=== PATIENT | female | born 1985 | race Caucasian/White ===

== ENCOUNTER → 2019-10-04 | Outpatient (CLI) | payer OTHER ==
[2019-10-04 11:00] LABS: APPEARANCE, URINE CLEAR (CLEAR); BACTERIA, URINE AUTO NEGATIVE (NEGATIVE); BILIRUBIN, URINE AUTO NEGATIVE (NEGATIVE); BLOOD, URINE BLOOD NEGATIVE (NEGATIVE); COLOR, URINE STRAW (YELLOW); GLUCOSE, URINE (UA) AUTO NEGATIVE (NEGATIVE); KETONE, URINE AUTO NEGATIVE (NEGATIVE); LEUKOCYTE ESTERASE, URINE AUTO NEGATIVE (NEGATIVE); NITRITE, URINE AUTO NEGATIVE (NEGATIVE); PROTEIN, URINE AUTO NEGATIVE (NEGATIVE); RBC, URINE AUTO 1 /HPF (0-3); SPECIFIC GRAVITY URINE AUTO 1.012 (1.002-1.035); SQUAMOUS EPITHELIAL CELL UR AU 1 /HPF (0-6); UROBILINOGEN, URINE AUTO 0.2 mg/dL (0.0-2.0); WBC, URINE AUTO 0 /HPF (0-3)
[2019-10-04 11:25] LABS: BASO % 0.2 % (0.0-1.0); EOS # 0.1 10^3/uL (0.0-0.5); EOS % 1.6 % (0.0-3.0); HEMATOCRIT 39.4 % (36.0-47.0); HEMOGLOBIN 12.9 g/dl (12.0-15.5); LYMPH # 1.9 10^3/uL (1.5-5.0); LYMPH % 34.8 % (24.0-44.0); MEAN CORPUSCULAR HEMOGLOBIN 30.4 pg (27.0-33.0); MEAN CORPUSCULAR HGB CONC 32.7 g/dl (32.0-36.5); MEAN CORPUSCULAR VOLUME 92.9 fl (80.0-96.0); MONO # 0.4 10^3/uL (0.0-0.8); MONO % 6.7 % (0.0-5.0); NEUTROPHILS # 3.1 10^3/uL (1.5-8.5); NEUTROPHILS % 56.5 % (36.0-66.0); PLATELET COUNT, AUTOMATED 351 10^3/uL (150-450); RED BLOOD COUNT 4.24 10^6/uL (4.00-5.40); WHITE BLOOD COUNT 5.5 10^3/uL (4.0-10.0)
[2019-10-04 11:43] LABS: HEMOGLOBIN A1c 4.8 %
[2019-10-04 12:38] LABS: CHLAMYDIA DNA AMPLIFICATION NEGATIVE (NEGATIVE); GC DNA AMPLIFICATION NEGATIVE (NEGATIVE)
[2019-10-04 15:10] LABS: BLOOD UREA NITROGEN 22 MG/DL (7-18); CARBON DIOXIDE LEVEL 24 MEQ/L (21-32); CHLORIDE LEVEL 106 MEQ/L (98-107); CREATININE FOR GFR 0.66 MG/DL (0.55-1.30); GLOMERULAR FILTRATION RATE > 60.0 (>60); GLUCOSE, FASTING 79 MG/DL (70-100); POTASSIUM SERUM 4.4 MEQ/L (3.5-5.1); SODIUM LEVEL 139 MEQ/L (136-145)
[2019-10-04 15:11] LABS: ALT/SGPT 61 U/L (12-78); BILIRUBIN,TOTAL < 0.2 MG/DL (0.2-1.0); CALCIUM LEVEL 9.2 MG/DL (8.5-10.1)
[2019-10-04 15:12] LABS: CHOLESTEROL LEVEL 152 MG/DL (<200)
[2019-10-04 15:13] LABS: ALBUMIN 4.1 GM/DL (3.2-5.2)
[2019-10-04 15:14] LABS: FREE T4 1.01 NG/DL (0.76-1.46); THYROID STIMULATING HORMONE 0.492 uIU/ML (0.358-3.740)
[2019-10-04 15:18] LABS: HIV 1&2 SCREEN CENTAUR NEGATIVE (NEGATIVE); TOTAL 25(OH) VITAMIN D 42.8 NG/ML (30.0-100.0)
[2019-10-04 15:19] LABS: HEPATITIS B SURFACE ANTIBODY POSITIVE (POSITIVE); HEPATITIS B SURFACE ANTIGEN NEGATIVE (NEGATIVE)
[2019-10-06 14:57] LABS: HEPATITIS C QUANTITATION 74500 IU/mL (.); HERPES ZOSTER, VARICELLA IgG 846 index (Immune >165)
[2019-10-19 05:47] LABS: HEPATITIS A IgG TOTAL Negative (Negative); HEPATITIS B CORE ANTIBODY IGG Negative (Negative); HEPATITIS C VIRUS GENOTYPE 3 (.); Lyme Disease IgG/IgM Antibodie <0.91 ISR (0.00-0.90); Lyme Disease IgM Ab Quantitati <0.80 index (0.00-0.79)
== END ==
LOC: M LAB 08:49
PROVIDERS: ATTEND Family Medicine
DX: M25.50 Pain in unspecified joint (principal); B17.10 Acute hepatitis C without hepatic coma

== ENCOUNTER → 2019-10-09 | Outpatient (CLI) | payer OTHER ==
--- NOTE | 2019-10-09 10:48 | REP ---
RIGHT UPPER QUADRANT ULTRASOUND: Real-time sonographic evaluation of the right upper quadrant performed. Gallbladder demonstrates no evidence of intraluminal sludge or calculi, wall thickening or pericholecystic fluid. There is no intrahepatic or extrahepatic biliary dilatation, common bile duct measuring 4 mm. Liver and pancreas demonstrate homogeneous echotexture with no gross mass, pancreas is not optimally seen due to overlying bowel gas. Right kidney demonstrates no hydronephrosis with normal size 11.0 cm in length. IMPRESSION: Essentially negative right upper quadrant ultrasound. Electronically Signed by Ritesh Hair MD 10/09/2019 03:51 P
--- NOTE | 2019-10-09 11:29 | REP ---
Bilateral hip study: Four views. History: Pain. Findings: AP and frog-leg views of each hip are presented. Femoral heads are smooth and rounded and hip joint spaces are preserved. Periarticular soft tissues are unremarkable. No pelvic lesion is seen. SI joints are unremarkable. Impression: Negative bilateral hip radiographs. Electronically Signed by Kosta Valles MD 10/09/2019 11:20 A
== END ==
LOC: M RAD 09:30 → EDUNIT# 09:30
PROVIDERS: ATTEND Family Medicine
DX: B17.10 Acute hepatitis C without hepatic coma (principal); M25.50 Pain in unspecified joint

== ENCOUNTER → 2019-10-09 | Outpatient (REF) | payer MEDICAID, OTHER ==
[2019-10-09 18:50] LABS: CHOLESTEROL LEVEL 144 MG/DL (<200); CHOLESTEROL RISK RATIO 1.945 (<5); HDL CHOLESTEROL 74 MG/DL (>40); LDL CHOLESTEROL 60 MG/DL (<100); NON-HDL-C 70 MG/DL; TRIGLYCERIDES LEVEL 50 MG/DL (<150)
[2019-10-11 12:41] LABS: HEPATITIS B SURFACE ANTIGEN NEGATIVE (NEGATIVE)
[2019-10-11 13:35] LABS: HEPATITIS C VIRUS ABY INDEX > 11.0 INDEX (<0.8)
[2019-10-12 00:06] LABS: HEPATITIS A IgG TOTAL Negative (Negative); HEPATITIS B CORE ANTIBODY IGG Negative (Negative)
[2019-10-15 14:38] LABS: HEPATITIS C VIRUS GENOTYPE 3 (.)
[2019-10-19 14:07] LABS: HSV IgM TYPES 1&2 <0.91 Ratio (0.00-0.90); HSV TYPE II IgG SPECIFIC 3.45 index (0.00-0.90)
== END ==
LOC: M LAB REF 17:13
PROVIDERS: ATTEND Nurse Practitioner Adult Health
DX: B17.10 Acute hepatitis C without hepatic coma (principal)

== ENCOUNTER 2019-12-28 08:30 | Outpatient (RCR) | payer OTHER | END 2019-12-30 | LOC: M PT 08:30 | PROVIDERS: ATTEND Orthopaedic Surgery | DX: Z47.89 Encounter for other orthopedic aftercare (principal); M25.551 Pain in right hip; M25.552 Pain in left hip ==

== ENCOUNTER 2020-01-03 08:34 | Outpatient (RCR) | payer OTHER | END 2020-01-30 | LOC: M PT 08:34 | PROVIDERS: ATTEND Orthopaedic Surgery | DX: M25.551 Pain in right hip (principal); M25.552 Pain in left hip ==

== ENCOUNTER → 2020-01-10 | Outpatient (REF) | payer OTHER, MEDICAID | LOC: M LAB REF 12:47 | PROVIDERS: ATTEND Nurse Practitioner Adult Health | DX: B17.10 Acute hepatitis C without hepatic coma (principal) ==

== ENCOUNTER → 2020-06-26 | Outpatient (REF) | payer MEDICAID ==
[2020-06-28 23:10] LABS: HEPATITIS C QUANTITATION HCV Not Detected IU/mL (.)
== END ==
LOC: M LAB REF 13:30
PROVIDERS: ATTEND Nurse Practitioner Adult Health
DX: B17.10 Acute hepatitis C without hepatic coma (principal)

== ENCOUNTER → 2020-07-11 | Outpatient (REF) | payer MEDICAID ==
[2020-07-11 19:25] LABS: C REACTIVE PROTEIN QUANTITATIV 0.3 MG/DL (0.00-0.30); RHEUMATOID FACTOR QUANT 48.5 IU/ML (<15.0)
[2020-07-14 15:15] LABS: ANTI DOUBLE STRAND-DNA AB 6 IU/mL (0-9); ANTINUCLEAR ANTIBODIES DIRECT Positive (Negative); CYCLIC CITRULLINATED PEPTIDE 5 units (0-19); RNP ANTIBODIES <0.2 AI (0.0-0.9); SJOGREN'S ANTI SS-A >8.0 AI (0.0-0.9); SJOGREN'S ANTI SS-B <0.2 AI (0.0-0.9); SMITH ANTIBODIES 0.2 AI (0.0-0.9)
== END ==
LOC: M LAB REF 17:27
PROVIDERS: ATTEND Family Medicine Addiction Medicine
DX: R68.2 Dry mouth, unspecified (principal)

== ENCOUNTER → 2020-11-04 | Outpatient (CLI) | payer MEDICAID ==
[2020-11-04 11:53] LABS: TOTAL PROTEIN 7.8 GM/DL (6.4-8.2)
[2020-11-04 11:59] LABS: TOTAL 25(OH) VITAMIN D 36.6 NG/ML (30.0-100.0)
[2020-11-04 12:00] LABS: FOLATE 21.4 NG/ML (>5.4); VITAMIN B12 LEVEL 460 PG/ML (247-911)
[2020-11-04 15:15] LABS: HEMOGLOBIN A1c 4.8 %
[2020-11-05 12:11] LABS: ALBUMIN 4.13 GM/DL (3.29-5.55); ALPHA-1-GLOBULIN % 4.4 % (2.9-4.9); ALPHA-1-GLOBULINS 0.34 GM/DL (0.17-0.41); ALPHA-2-GLOBULINS % 11.6 % (7.1-11.8); BETA-1-GLOBULINS 0.44 GM/DL (0.28-0.60); BETA-1-GLOBULINS % 5.6 % (4.7-7.2); BETA-2-GLOBULINS 0.39 GM/DL (0.19-0.55); GAMMA GLOBULIN % 20.4 % (11.1-18.8); GAMMA GLOBULINS 1.59 GM/DL (0.65-1.58)
== END ==
LOC: M LAB 10:57
PROVIDERS: ATTEND Psychiatry & Neurology Neurology
DX: E11.40 Type 2 diabetes mellitus with diabetic neuropathy, unspecified (principal); M79.10 Myalgia, unspecified site

== ENCOUNTER → 2020-12-19 | Outpatient (CLI) | payer OTHER ==
[~2020-12-19] MED LIST: METHACHOLINE KIT (J7674) INH ONE
--- NOTE | 2020-12-19 10:41 | PFTRPT ---
Visit Date: 12/19/2020 Referring Doctor: Gregorio Lynn MD Height: 64.00 Inches Weight: 136.00 Lbs BSA: 1.66 Diagnosis: R05 QUALITY: Study of excellent technical quality. PROCEDURE: Under protocol, methacholine was administered. At a dose of 2.5 mg or 13.875 CDUs, a 30% decline in the FEV1 was noted. PC of 0.69 is significant. Flow rates did return to baseline post bronchodilator administration. IMPRESSION: Positive methacholine challenge study. MTDD
== END ==
LOC: M CARPUL 09:51
PROVIDERS: ATTEND Internal Medicine Pulmonary Disease
DX: R05 Cough (principal)
CPT/HCPCS: 94070; 95070; J7674

== ENCOUNTER → 2021-01-02 | Outpatient (CLI) | payer OTHER ==
[2021-01-02 19:47] LABS: C REACTIVE PROTEIN QUANTITATIV < 0.30 MG/DL (0.00-0.30); THYROID STIMULATING HORMONE 0.692 uIU/ML (0.358-3.740)
== END ==
LOC: M LAB 18:45
PROVIDERS: ATTEND Pediatrics
DX: M35.00 Sjogren syndrome, unspecified (principal)

== ENCOUNTER → 2021-05-28 | Outpatient (CLI) | payer OTHER ==
[~2021-05-28] MED LIST changes: +ALBU8.5H INH; +AMIT10TA7; +CETI-24 PO; +DULO1CAP6 PO; +EYEOIN OP; +FLUT1AER3 INH; +GABA-282 PO; +HYDR200T3 PO; -METHACHOLINE KIT (J7674) INH ONE; +ONDA8TAB8 PO; +PREG75CA2; +REST0.05 OS; +SUMA100T2 PO
== END ==
LOC: M LABSMTC 09:49
PROVIDERS: ATTEND Anesthesiology
DX: Z01.818 Encounter for other preprocedural examination (principal); Z11.52 Encounter for screening for COVID-19

== ENCOUNTER 2021-09-03 22:13 | Emergency (ER) | payer OTHER ==
[~2021-09-03] VITALS: Ht 162.6 cm; Wt 76.7 kg
[2021-09-03 22:14] VITALS: BP 115/55
--- OUTSIDE RECORDS SUMMARY | 2021-09-03 22:23 | CCD | Continuity of Care Document ---
Author Author Candy HILLIARD MD Organization Unknown Address [address] [place] [address] Phone [phone] Care Team Providers Care Agricultural Research Technician Name Role Phone Dennis Kamara P.A.-C AUTM Pradeep Chow M.D. AUTM [phone] Sonia Diaz M.D. AUTM [phone] AUTM Unavailable Problems Active Problems Provider Date Allergic asthma without status asthmaticus Hakeem mancilla M.D. Onset: 04/23/2021 Social History Type Date Description Comments Sex Unknown ETOH Use Denies alcohol use Tobacco Use Start: Unknown Patient is a current smoker, smo kes every day <1/2ppd Smoking Status Reviewed: 08/19/21 Patient is a current smoker, smokes every day <1/2ppd Allergies and adverse reactions Active Allergies Criticality Reaction | Severity Comments Date Sulfa Unable to assess criticality 12/16/2020 Amitriptyline Unable to assess criticality 04/23/2021 Medications Active Medications SIG Qnty Indications Ordering Provide r Date Arnuity Ellipta 200mcg/Act Aerosol 1 puff every day 90units Gregorio Hilliard MD 08/19/2021 Prednisone 10mg Tablets 40mg po qd x 4 days then 30mg qd x 4 days then 20mg qd x 4 days then 10mg qd x 4 days and stop 40tabs Gregorio Hilliard MD 08/19/2021 Albuterol Sulfate HFA 108(90Base) mcg/Act Aerosol Inhale Two Puffs By Mouth Four Times A Day as Needed 18units Gregorio Hilliard MD 07/28/2021 Hydroxychloroquine Sulfate 200mg T ablets 2tabs (400mg) po qd Unknown Duloxetine HCL 60mg Caps DR Camacho (Cymbalta) 1tab po qd Pili Manley M.D. Valacyclovir HCL 1gm Tablets prn Unknown Imitrex prn Unknown Stiolto Respimat 2.5-2.5mcg/Act Ae rosol 2 puffs once daily Unknown History Medications Prednisone 10mg Tablets 40mg po qd x 4 days then 30mg qd x 4 days then 20mg qd x 4 days then 10mg qd x 4 days and stop 40tabs Gregorio Hilliard MD 07/02/2021 - 021 Clenpiq 10-3.5-12mg-GM -GM/160ML S olution follow pre-procedure instructions. start day before procedure. (if not covered by insurance please fill gavilyte script). 320ml Angelica Mcdermott M.D. 04/29/2021 - 07/20/2021 Gavilyte-N With Flavor Pack 420gm Solution Rec drink the liquid as per the pre-procedur e instructions. ( fill this script only if clenpiq is not covered by insurance). 4000ml Hakeem Mcdermott M.D. 04/29/2021 - 07/20/[address] take 4 tablets together as per bowel preparation instructions. 4tabs Hakeem Mcdermott M.D. 04/29/2021 - 07/20/2021 Immunizations Description No Information Available Vital Signs Date Vital Result Comment 08/19/2021 2:22pm BP Systolic 136 mmHg BP Diastolic 80 mmHg Heart Rate 77 /min O2 % BldC Oximetry 97 % Respiratory Rate 18 /min Height 63 inches 5'3" Weight 159.00 lb BMI (Body Mass Index) 28.2 kg/m2 [place] Body Weight 115 lb Weight 72.122 kg BSA (Body Surface Area) 1.75 m2 04/23/2021 9:46am BP Systolic 116 mmHg BP Diastolic 66 mmHg Height 63 inches 5'3" Weight 145.00 lb BMI (Body Mass Index) 25.7 kg/m2 [place] Body Weight 115 lb Weight 65.772 kg BSA (Body Surface Area) 1.69 m2 Results Test Acquired Date Facility Test Result H/L Range Note FVL/[place] 08/19/2021 [employer] PDFReport SEE IMAGE FVC-Pred 3.74 L FVC-Pre 4.08 L FVC-%Pred-Pre 109 L FVC-LLN 3.04 L Fev1-Pred 3.09 L Fev1-Pre 2.84 L Fev1-%Pred-Pre 91 L Fev1-LLN 2.50 L Fev6-Pred 3.68 L Fev6-Pre 4.05 L Fev6-%Pred-Pre 109 L Fev6-LLN 3.00 L Hle6mkh-Kcbx 83 % Ouh3txy-Mwl 70 % Mci0uax-%Pred-Pre 83 % Ajw4kuf-FWW 73 % Ukc6fql-Itjk 99 % Uma7wuv-Pcm 99 % Njt0ktd-%Pred-Pre 100 % FEFMax-Pred 7.01 L/E/sec FEFMax-Pre 4.37 L/E/sec FEFMax-%Pred-Pre 62 L/E/sec FEFMax-LLN 5.29 L/E/sec Xtb0130-Edcc 3.27 L/E/sec Irl4482-Whb 1.89 L/E/sec Tfv1482-%Pred-Pre 57 L/E/sec Kvb0101-GSA 2.03 L/E/sec ExpTime-Pre 7.66 sec Cmm3bpo4-Rdww 84 % Grg9lmc1-Cdg 70 % Bms5mrt1-%Pred-Pre 83 % Wop6ums9-GLH 76 % Laboratory test finding 06/02/2021 [facility] Main Lab [address] [place], [place] [id number] [phone] Pathology Request For Service (SEE NOTE) 1 1 FINAL DIAGNOSIS Colon, random biopsy: Fragments of colonic mucosa with hyperplastic changes and focal nonspecific inflammation. No evidence of microscopic colitis. 06/03/2021 - 1240 CLINICAL DIAGNOSIS Change in bowel habits 06/02/2021 - 1514 GROSS DIAGNOSIS Received in formalin labeled "random colon biopsy" and consists of a fragment of tissue, 0.2 x 0.1 x 0.1 cm. All in one. -OA 06/02/2021 - 1514 Signed MARIA LUISA VELÁZQUEZ MD 06/03/2021 1242 Procedures Date Code Description Status 08/19/2021 34552 Office/Outpatient Established Mo d MDM 30-39 Min Completed 08/19/2021 19789 Spirometry Completed 06/02/2021 11105 Colonoscopy Flexible Proximal To Splenic Flexure W/Biopsy Single/ Completed 04/23/2021 33577 Office/Outpatient New Moderate M DM 45-59 Minutes Completed Medical Devices Description No Information Available Encounters Type Date Location Provider Dx Diagnosis Office Visit 08/19/2021 2:30p [facility] Pulmonary/Thoracic Lawrenc samir Hilliard MD J45.40 Moderate persistent asthma, uncomplicate d F17.218 Nicotine dependence, cigaret eleni, w oth disorders Office Visit 04/23/2021 8:50a [facility] Gastroenterology Pra ctice Hakeem Mcdermott M.D. R19.4 Change in bowel habit R19.7 Diarrhea, unspecified R63.4 Abnormal weight loss R11.0 Nausea Assessments Date Code Description Provider 08/19/2021 J45.40 Moderate persistent asthma, unco mplicated Gregorio Hilliard MD 08/19/2021 F17.218 Nicotine dependence, cigarettes, with other nicotine-induced disorders Gregorio Hilliard MD 06/02/2021 R19.4 Change in bowel habit Hakeem Mcdermott M.D. 06/02/2021 K64.8 Other hemorrhoids Hakeem valdez M.D. 04/23/2021 R19.4 Change in bowel habit Hakeem Mcdermott M.D. 04/23/2021 R19.7 Diarrhea, unspecified Hakeem Mcdermott M.D. 04/23/2021 R63.4 Abnormal weight loss Hakeem owens M.D. 04/23/2021 R11.0 Nausea Hakeem Melissa ala, M.D. Plan of Treatment Future Appointment(s):* 02/23/2022 9:00 am - Gregorio Hilliard MD at [facility] Pulmonary/Thoracic 08/19/2021 - Gregorio Hilliard MD* J45.40 Moderate persistent asthma, uncomplicated * F17.218 Nicotine dependence, cigarettes, with other nicotine-induced disorders * * Comments:* ~ At this point, she clearly needs to be back on an inhaled anti- inflammatory. I will send in Arnuity and see if that is covered by her insurance. In the interim, I did give her a prednisone taper. We had a long discussion regarding, again, the need for smoking cessation, but I have guarded optimism at best in that regard. Certainly, she can stay on the Stiolto, but needs the addition of the inhaled steroid.~ We await the outcome of her evaluation by her manager outreach. ~ I will see her in a minimum of 6 months with spirometry, oximetry and flow volume loop for her asthma or, certainly, sooner if problems arise with which we can be of assistance. * Follow up:* Follow up in six months with spirometry, oximetry and flow volume loop. Functional Status Description No Information Available Mental Status Description No Information Available Referrals Refer to Reason for Referral Status Appt Date Bri Mcconnell F.N.P. ASTHMA J45.40 & NICOTINE DEPEN F17.218 Sc heduled 08/19/2021 [facility]-Pulmonary [address] [place], [place] [address] [phone]
--- OUTSIDE RECORDS SUMMARY | 2021-09-03 22:23 | CCD | Continuity of Care Document ---
Author Author Candy MCPHERSON M.D. Organization Unknown Address [address], [address] [place] [address] Phone [phone] Care Team Providers Care Business Editor Name Role Phone Dennis Kamara P.A.-C AUTM Pradeep Chow M.D. AUTM [phone] Sonia Diaz M.D. AUTM [phone] AUTM Unavailable Problems Active Problems Provider Date Allergic asthma without status asthmaticus Hakeem mancilla M.D. Onset: 04/23/2021 Social History Type Date Description Comments Sex Unknown ETOH Use Denies alcohol use Tobacco Use Start: Unknown Patient is a current smoker, smo kes every day <1/2ppd Smoking Status Reviewed: 02/13/21 Patient is a current smoker, smokes every day <1/2ppd Allergies, Adverse Reactions, Alerts Active Allergies Reaction Severity Comments Date Sulfa 12/16/2020 Amitriptyline 04/23/2021 Medications Active Medications SIG Qnty Indications Ordering Provide r Date Clenpiq 10-3.5-12mg-GM -GM/160ML S olution follow pre-procedure instructions. start day before procedure. (if not covered by insurance please fill gavilyte script). 320ml Angelica Mcpherson M.D. 04/29/2021 Gavilyte-N With Flavor Pack 420gm Solution Rec drink the liquid as per the pre-procedur e instructions. ( fill this script only if clenpiq is not covered by insurance). 4000ml Hakeem Mcpherson M.D. 04/29/[address] take 4 tablets together as per bowel preparation instructions. 4tabs Hakeem Mcpherson M.D. 04/29/2021 [employer]sense Nicotine Polacrilex Gum 2mg Gum 1 piece every 2 hours as needed 60units F17.218 Bri Mcconnell, N .PYvrose 02/13/2021 Airduo Digihaler 113-14mcg/Act Aer osol 1 puff twice daily 1units Gregorio Lynn MD 01/02/2021 Ventolin HFA 108(90Base) mcg/Act A erosol 2 puffs qid/prn 18gm Gregorio Lynn MD 01/02/2021 Hydroxychloroquine Sulfate 200mg T ablets 2tabs (400mg) po qd Unknown Duloxetine HCL 60mg Caps DR Camacho (Cymbalta) 1tab po qd Pili Manley M.D. 00 Valacyclovir HCL 1gm Tablets prn Unknown Imitrex prn Unknown Immunizations Description No Information Available Vital Signs Date Vital Result Comment 04/23/2021 9:46am BP Systolic 116 mmHg BP Diastolic 66 mmHg Height 63 inches 5'3" Weight 145.00 lb BMI (Body Mass Index) 25.7 kg/m2 [place] Body Weight 115 lb Weight 65.772 kg BSA (Body Surface Area) 1.69 m2 02/13/2021 10:08am BP Systolic 112 mmHg BP Diastolic 68 mmHg Heart Rate 89 /min O2 % BldC Oximetry 98 % Body Temperature 97.5 F Height 64 inches 5'4" Weight 139.38 lb BMI (Body Mass Index) 23.9 kg/m2 [place] Body Weight 120 lb Weight 63.221 kg BSA (Body Surface Area) 1.68 m2 Results Test Acquired Date Facility Test Result H/L Range Note Laboratory test finding 06/02/2021 [facility] Main Lab [address] [place] [address] [phone] Pathology Request For Service (SEE NOTE) 1 FVL/[place] 02/13/2021 [employer] PDFReport SEE IMAGE FVC-Pred 3.74 L FVC-Pre 4.24 L FVC-%Pred-Pre 113 L FVC-LLN 3.04 L Fev1-Pred 3.09 L Fev1-Pre 3.43 L Fev1-%Pred-Pre 110 L Fev1-LLN 2.50 L Fev6-Pred 3.68 L Fev6-Pre 4.24 L Fev6-%Pred-Pre 115 L Fev6-LLN 3.00 L Xvo1asu-Txnw 83 % Aqg1lul-Kav 81 % Xce1sgc-%Pred-Pre 97 % Tfy1kvf-NOC 73 % Gdh4cbf-Rzsi 99 % Ark1ewr-Uno 100 % Znk0xom-%Pred-Pre 101 % FEFMax-Pred 7.01 L/E/sec FEFMax-Pre 8.08 L/E/sec FEFMax-%Pred-Pre 115 L/E/sec FEFMax-LLN 5.29 L/E/sec Xks0104-Fpjp 3.27 L/E/sec Mgn0055-Wxa 3.60 L/E/sec Jzu5024-%Pred-Pre 110 L/E/sec Iuu7251-IAN 2.03 L/E/sec ExpTime-Pre 5.42 sec Jnz3lzs2-Keoj 84 % Cze5hsv4-Khj 81 % Kzu8xzt8-%Pred-Pre 95 % Xfm8hld2-MIU 76 % 1 FINAL DIAGNOSIS Colon, random biopsy: Fragments of colonic mucosa with hyperplastic changes and focal nonspecific inflammation. No evidence of microscopic colitis. 06/03/2021 - 1240 CLINICAL DIAGNOSIS Change in bowel habits 06/02/2021 - 151 GROSS DIAGNOSIS Received in formalin labeled "random colon biopsy" and consists of a fragment of tissue, 0.2 x 0.1 x 0.1 cm. All in one. -OA 06/02/2021 - 1515 Signed MARIA LUISA VELÁZQUEZ MD 06/03/2021 1242 Procedures Date Code Description Status 06/02/2021 09883 Colonoscopy Flexible Proximal To Splenic Flexure W/Biopsy Single/ Completed 04/23/2021 93313 Office/Outpatient New Moderate M DM 45-59 Minutes Completed 02/13/2021 61999 Tobacco Cessation Counseling Com pleted 02/13/2021 49037 Office/Outpatient Established Lo w MDM 20-29 Min Completed 02/13/2021 25166 Spirometry Completed 01/02/2021 68722 Office/Outpatient Established Mo d MDM 30-39 Min Completed 12/16/2020 37315 Office/Outpatient New Moderate M DM 45-59 Minutes Completed 12/16/2020 25542 Diffusing Capacity Completed 12/16/2020 58085 Plethysmography Determination Pooja ng Volumes & Per Airway Resist Completed 12/16/2020 87214 Bronchospasm Evaluation Complete d 12/16/2020 75297 Spirometry Completed Medical Devices Description No Information Available Encounters Type Date Location Provider Dx Diagnosis Office Visit 04/23/2021 8:50a [facility] Gastroenterology Pra ctice Hakeem Mcpherson M.D. R19.4 Change in bowel habit R19.7 Diarrhea, unspecified R63.4 Abnormal weight loss R11.0 Nausea Office Visit 02/13/2021 10:15a [facility] Pulmonary/Thoracic Sammy Mcconnell, N.P. J45.40 Moderate persistent asthma, uncomplicate d F17.218 Nicotine dependence, cigaret eleni, w oth disorders Office Visit 01/02/2021 10:15a [facility] Pulmonary/Thoracic Pam Lynn MD J45.40 Moderate persistent asthma, uncomplicate d F17.218 Nicotine dependence, cigaret eleni, w oth disorders M35.00 Sicca syndrome, unspecified Office Visit 12/16/2020 10:00a [facility] Pulmonary/Thoracic Pam Lynn MD R05 Cough F17.218 Nicotine dependence, cigaret eleni, w oth disorders M35.00 Sicca syndrome, unspecified Assessments Date Code Description Provider 06/02/2021 R19.4 Change in bowel habit Hakeem Mcpherson M.D. 06/02/2021 K64.8 Other hemorrhoids Hakeem valdez M.D. 04/23/2021 R19.4 Change in bowel habit Hakeem Mcpherson M.D. 04/23/2021 R19.7 Diarrhea, unspecified Hakeem Mcpherson M.D. 04/23/2021 R63.4 Abnormal weight loss Hakeem owens M.D. 04/23/2021 R11.0 Nausea Hakeem Melissa ala, M.D. 02/13/2021 J45.40 Moderate persistent asthma, unco mplicated Bri Mcconnell, N.P. 02/13/2021 F17.218 Nicotine dependence, cigarettes, with other nicotine-induced disorders Bri Mcconnell, N.P. 01/02/2021 J45.40 Moderate persistent asthma, unco mplicated Gregorio Lynn MD 01/02/2021 F17.218 Nicotine dependence, cigarettes, with other nicotine-induced disorders Gregorio Lynn MD 01/02/2021 M35.00 Sicca syndrome, unspecified Lawr harsh Lynn MD 12/16/2020 R05 Cough Pulmonary Lab 12/16/2020 R05 Cough Gregorio Lynn MD 12/16/2020 F17.218 Nicotine dependence, cigarettes, with other nicotine-induced disorders Gregorio Lynn MD 12/16/2020 M35.00 Sicca syndrome, unspecified Lawr harsh Lynn MD Plan of Treatment Future Appointment(s):* 08/19/2021 1:45 pm - Gregorio Lynn MD at [facility] Pulmonary/Thoracic Functional Status Description No Information Available Mental Status Description No Information Available Referrals Refer to Dr Reason for Referral Status Appt Date Hakeem Mcpherson M.D. IBS / CONSTIPATION - K59.00 CONSTIPATION, UNSPECIFIED K58.9-IBS WITHOUT DIARRHEA Scheduled 04/23/2021 [facility]-GI [address], [address] [place] [address] [phone] Bri Mcconnell, F.N.P. ASTHMA/NICOTINE DEPENDENCE Scheduled 02/13/2021 [facility]-Pulmonary [address] [place], [place] [address] [phone] Radiology/Procedure 86155 Closed
--- OUTSIDE RECORDS SUMMARY | 2021-09-03 22:23 | CCD | Continuity of Care Document ---
Author Author Candy HILLIARD MD Organization Unknown Address [address] [place] [address] Phone [phone] Care Team Providers Care Openstack Cloud Consulting Architect Name Role Phone Dennis Kamara P.A.-C AUTM [phone] Pradeep Chow M.D. AUTM [phone] Sonia Diaz M.D. AUTM [phone] AUTM Unavailable Problems Active Problems Provider Date [...] lb BMI (Body Mass Index) 28.2 kg/m2 [place] Body Weight 115 lb Weight 72.122 kg BSA (Body Surface Area) 1.75 m2 04/23/2021 9:46am BP Systolic 116 mmHg BP Diastolic 66 mmHg Height 63 inches 5'3" Weight 145.00 lb BMI (Body Mass Index) 25.7 kg/m2 [place] Body Weight 115 lb Weight 65.772 kg BSA (Body Surface Area) 1.69 m2 Results Test Acquired Date Facility Test Result H/L Range Note FVL/[place] 08/19/2021 [employer] ([employer]) PDFReport SEE IMAGE FVC-Pred 3.74 L FVC-Pre 4.08 L FVC-%Pred-Pre 109 L FVC-LLN 3.04 L Fev1-Pred 3.09 L Fev1-Pre 2.84 L Fev1-%Pred-Pre 91 L Fev1-LLN 2.50 L Fev6-Pred 3.68 L Fev6-Pre 4.05 L Fev6-%Pred-Pre 109 L Fev6-LLN 3.00 L Ubr4hst-Lxye 83 % Udy9cpr-Qen 70 % Sqt7zjn-%Pred-Pre 83 % Mts6jjb-RWK 73 % Viz2lwa-Syue 99 % Kdy6grv-Jqu 99 % Zzb5dbk-%Pred-Pre 100 % FEFMax-Pred 7.01 L/E/sec FEFMax-Pre 4.37 L/E/sec FEFMax-%Pred-Pre 62 L/E/sec FEFMax-LLN 5.29 L/E/sec Kok6494-Fswz 3.27 L/E/sec Oan8723-Feu 1.89 L/E/sec Fra6729-%Pred-Pre 57 L/E/sec Jsw5564-GWP 2.03 L/E/sec ExpTime-Pre 7.66 sec Wtn7tyw8-Rzcm 84 % Ark9jsp9-Cyk 70 % Zxj4irb7-%Pred-Pre 83 % Nje4zgk7-YWG 76 % Laboratory test finding 06/02/2021 [facility] Main Lab [address] [place], [place] [id number] [phone] Pathology Request For Service (SEE NOTE) 1 [...] 1242 Procedures Date Code Description Status 06/02/2021 17958 Colonoscopy Flexible Proximal To Splenic Flexure W/Biopsy Single/ Completed 04/23/2021 86195 Office/Outpatient New Moderate M DM 45-59 Minutes Completed Medical Devices Description No Information Available Encounters Type Date Location Provider Dx Diagnosis Office Visit 04/23/2021 8:50a [facility] Gastroenterology Pra ctice Hakeem Mcdermott M.D. R19.4 [...] 9:00 am - Gregorio Hilliard MD at [facility] Pulmonary/Thoracic 08/19/2021 - Gregorio Hilliard MD* J45.40 Moderate persistent asthma, uncomplicated * F17.218 Nicotine dependence, cigarettes, with other nicotine-induced disorders * * Follow up:* Follow up in six months with spirometry, oximetry and flow volume loop. Functional Status Description No Information Available Mental Status Description No Information Available Referrals Refer to Reason for Referral Status Appt Date Bri Mcconnell F.N.P. ASTHMA J45.40 & NICOTINE DEPEN F17.218 Sc heduled 08/19/2021 [facility]-Pulmonary [address] [place], [place] [address] [phone] Hakeem Mcdermott M.D. IBS / CONSTIPATION - K59.00 CONSTIPATION, UNSPECIFIED K58.9-IBS WITHOUT DIARRHEA Scheduled 04/23/2021 [facility]-GI [address], [place] [id number] [phone]
--- OUTSIDE RECORDS SUMMARY | 2021-09-03 22:23 | CCD ---
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 Please review these documents and add these allergies to the patient's chart manually as needed. Medications Name Status Start Date Stop Date AirDuo Digihaler 113 mcg-14 mcg/actuatio n breath act,powder sensor INHALE ONE PUFF BY MOUTH TWICE A DAY Active No t available albuterol sulfate HFA 90 mcg/actuation aerosol inhaler Active Not available alprazolam 0.25 mg tablet ONE TABLET BY MOUTH HALF AN HOUR BEFORE MRI SCAN. MAY REPEAT FOR ONE DOSE NEEDED MAXIMUM DAILY DOSE TWO TABLETS Completed 12/30/2020 amitriptyline 10 mg tablet TAKE ONE TABLET BY MOUTH AT BEDTIME FOR 1 WEEK THEN TAKE TWO TABLETS BY MOUTH AT BEDTIME Completed 12/30/2020 Anoro Ellipta 62.5 mcg-25 mcg/actuation powder for inhalation Inhale 1 puff every day by inhalation route. Unknown Not available Augmentin 875 mg-125 mg tablet Take 1 tablet every 12 hours by oral route for 10 days. Active Not available cetirizine 10 mg tablet TAKE ONE TABLET BY MOUTH EVERY DAY Active Not available clarithromycin 500 mg tablet TAKE ONE TABLET BY MOUTH EVERY 12 HOURS FOR 10 DAYS Completed 04/25/2021 Diflucan 150 mg tablet Take 1 tablet every day by oral route. Active Not available duloxetine 30 mg capsule,delayed release TAKE ONE CAPSULE BY MOUTH EVERY MORNING Completed 02/19/2021 duloxetine 60 mg capsule,delayed release TAKE ONE CAPSULE BY MOUTH EVERY MORNING Active Not available erythromycin 5 mg/gram (0.5 %) eye ointm ent APPLY 1 CM RIBBON IN BOTH EYES 6 TIMES PER DAY FOR 7 DAYS Completed 12/30/2020 fluticasone 113 mcg-salmeterol 14 mcg/ac tuation breath activated powdr INHALE TWO PUFFS BY MOUTH TWICE A DAY Active N ot available gabapentin 300 mg capsule Active Not av ailable Gentle Laxative (bisacodyl) 5 mg tablet,delayed release Complete d 07/02/2021 hydroxychloroquine 200 mg tablet Active Not available neomycin 3.5 mg/g-polymyxin B 10,000 uni t/g-dexameth 0.1 % eye oint APPLY 1/4 STRIP INTO LOWER LIDS AT BEDTIME IN EACH EYE DIRECTED Completed 04/07/2021 kiwizqpu-cphimijzp-veowzuhw 3.5 mg/mL-10 ,000 unit/mL-0.1% eye drops USE 1 DROP IN EACH EYE FOUR TIMES A DAY FOR 2 DAYS THEN THREE TIMES A DAY FOR 1 DAY THEN TWO TIMES A DAY FOR 1 DAY THEN ONCE DAILY FOR 1 DAY Completed 04/07/2021 nicotine (polacrilex) 2 mg gum USE 1 PIECE EVERY 2 HOURS NEEDED Completed 05/2021 ondansetron 8 mg disintegrating tablet Active Not available peg-electrolyte solution 420 gram oral solution Active Not available pregabalin 75 mg capsule TAKE 1 CAPSULE BY MOUTH AT BEDTIME FOR 3 NIGHT THEN 1 TWICE A DAY MAXIMUM DAILY DOSE 2 Completed 05/23/2021 Restasis 0.05 % eye drops in a dropperet te INSTILL 1 DROP INTO AFFECTED TWO TIMES A DAY Completed 04/07/2021 Stiolto Respimat 2.5 mcg-2.5 mcg/actuati on solution for inhalation INHALE 2 PUFFS BY MOUTH ONCE DAILY Active Not available sumatriptan 100 mg tablet TAKE 1/2 1 TABLET BY MOUTH AT ONSET OF HEADACHE MAY REPEAT ONCE AFTER 2 HOURS MAXIMUM DAILY DOSE TWO TABLETS Active Not julito ilable Systane Nighttime 94 %-3 % eye ointment APPLY 1/4 STRIP INTO LOWER LIDS AT BEDTIME IN EACH EYE DIRECTED Active Not available valacyclovir 1 gram tablet TAKE ONE TABLET BY MOUTH EVERY DAY Active Not available Xiidra 5 % eye drops in a dropperette INSTILL 1 DROP IN EACH EYE TWO TIMES A DAY Active Not available Notes: Some medications listed in Docume nt: #[id number] could not be added to this patient's chart. Please review this document and add these medications to the patient's chart manually as needed. Problems Name Status Onset Date Source Acute Hepatitis C Unknown 09/26/2019 History Endocrine/metabolic Screening Unknown 09/26/2019 Hi story Syphilis Test Finding Unknown 09/26/2019 History Finding of Body Region Unknown 09/26/2019 History Herpes Simplex Active 10/19/2019 History Influenza Vaccine Needed Unknown 11/30/2019 History Constipation Active 04/15/2020 History Nausea Unknown 04/15/2020 History Diarrhea Unknown 04/15/2020 History Abdominal Pain Unknown 04/15/[address] Concept Unknown 04/19/2020 History Xerostomia Unknown 06/26/2020 History Disorder of Conjunctiva Unknown 06/26/2020 History Traumatic Injury by Site Unknown 07/11/2020 History Tobacco Dependence Syndrome Unknown 12/30/2020 Chronic Tension-type Headache Active 12/30/2020 Endometriosis (Clinical) Active 12/30/2020 SjGren's Syndrome Active 12/30/2020 Chronic Headache Disorder Active 12/30/2020 Nicotine Dependence Active 02/19/2021 Moderate Persistent Asthma Active 02/24/2021 Irritable Bowel Syndrome Active 02/24/2021 Procedures Date Name Performed by Fallopian Tube Excision Information not available Tonsillectomy Information not avai lable Lasik Information not avai lable Notes: laproscopic endometriosis surgery Results Lab Results Date Name Specimen Result Interpretation Description Value Range Status Address 05/28/2021 SARS CoV 2 RNA, QL, Nasopharynx NASOPHARYNX No observation recorded. [facility]: [address] [place] [address] 04/07/2021 SARS CoV 2 RdRp Gene, QL Probe, Respiratory Spec imen Nasopharyngeal Normal Sars-cov-2 negative negative Final [facility]: [address] [facility] 02/27/2021 CBC W/ Auto Diff Normal White Blood Count 5.0 10 4.0-10.0 10 Final [facility]: [address] [facility] Low Red Blood Count 3.85 10 4.00-5.40 10 Final [facility]: 0 [facility] Low Hemoglobin 11.8 g/dL 12.0-15.5 g/dL [facility]: [address] [facility] Normal Hematocrit 36.5 % 36.0-47.0 % [facility]: [address] [facility] Normal Mean Corpuscular Volume 94.8 fL 80.0 -96.0 fL [facility]: [address] [facility] Normal Mean Corpuscular Hemoglobin 30.6 pg 27.0-33.0 pg Final [facility]: [address] [facility] Normal Mean Corpuscular HGB Conc 32.3 g/dL 32.0-36.5 g/dL [facility]: [address] [place] [address] High Red Cell Distribution Width 15.3 % 1 1.5-14.5 % [facility]: [address] [place] [address] Normal Platelet Count, Automated 362 10 150 -450 10 [facility]: [address] [facility] Normal Neutrophils % 36.1 % 36.0-66.0 % [facility]: [address] [facility] Normal Lymph % 43.3 % 24.0-44.0 % [facility]: [address] [facility] High Starr % 10.9 % 2.0-8.0 % [facility]: 0 [facility] High Eos % 8.3 % 0.0-3.0 % [facility]: 0 [facility] High Baso % 1.2 % 0.0-1.0 % [facility]: [address] [facility] Normal Immature Granulocyte % 0.2 % 0-3.0 % [facility]: 0 [facility] Normal Nucleated Red Blood Cell % 0.0 % 0- 0 % [facility]: 0 [facility] Normal Neutrophils # 1.8 10 1.5-8.5 10 [facility]: [address] [facility] Normal Lymph # 2.2 10 1.5-5.0 10 [facility]: [address] [facility] Normal Starr # 0.6 10 0.0-0.8 10 [facility]: [address] [facility] Normal Eos # 0.4 10 0.0-0.[address] [facility]: [address] [facility] Normal Baso # 0.1 10 0.0-0.2 10 [facility]: [address] [facility] 02/27/2021 CMP, Serum or Plasma Normal Glucose, Fastin g 74 mg/dL 70-100 mg/dL [facility]: [address] [facility] High Blood Urea Nitrogen 21 mg/dL 7-18 mg /dL [facility]: 0 [facility] Normal Creatinine for GFR 0.64 mg/dL 0.55-1 .30 mg/dL [facility]: 0 [facility] Normal Glomerular Filtration Rate > 60.0 >6 0 [facility]: [address] [facility] Normal Sodium Level 139 mEq/L 136-145 mEq/L [facility]: [address] [facility] Normal Potassium Serum 4.1 mEq/L 3.5-5.1 mE q/L [facility]: [address] [facility] Normal Chloride Level 106 mEq/L 98-107 mEq/ L [facility]: [address] [facility] Normal Carbon Dioxide Level 29 mEq/L 21-32 mEq/L [facility]: [address] [facility] Low Anion Gap 4 mEq/L 8-16 mEq/L [facility]: [address] [facility] Normal Calcium Level 8.6 mg/dL 8.5-10.1 mg/ dL [facility]: [address] [facility] Normal AST/SGOT 14 U/L 7-37 U/L [facility]: [address] [facility] Normal ALT/SGPT 18 U/L 12-78 U/L [facility]: [address] [place] [address] Normal Alkaline Phosphatase 46 U/L 45-117 U /L [facility]: [address] [place] [address] Normal Bilirubin,total 0.2 mg/dL 0.2-1.0 mg /dL [facility]: [address] [place] [address] Normal Total Protein 7.2 gm/dL 6.4-8.2 gm/d L [facility]: [address] [place] [address] Normal Albumin 3.7 gm/dL 3.2-5.2 gm/dL Nieves l [facility]: [address] [place] [address] Low Albumin/globulin Ratio 1.1 1.2-2. 2 [facility]: [address] [place] [address] 02/27/2021 Free [place] & Lambda Lt Chain S High Free [place] Light Chains Serum 21.0 mg/L 3.3-19.4 mg/L [facility]: [address] [place] [address] High Free Lambda Light Chains Serum 28.5 mg/L 5.7-26.3 mg/L [facility]: [address] [place] [address] Normal [place]/lambda Ratio Serum 0.74 0.26 -1.65 [facility]: [address] [place] [address] 01/02/2021 ESR (Erythrocyte Sedimentation Rate), Blood Hig h Erythrocyte Sedimentation Rate 44 mm/HR 0-20 mm/HR [facility]: [address] [place] [address] 01/02/2021 TSH, Serum or Plasma Normal Thyroid Stimulating Hormone 0.692 uIU/mL 0.358-3.740 uIU/mL [facility] Ce nter: [address] [place] [address] 01/02/2021 Rf (Rheumatoid Factor), Serum High Rheumatoid Factor Quant 47.0 IU/mL <15.0 IU/mL [facility] Ce nter: [address] [place] [address] 01/02/2021 C Reactive Protein, QN, Serum or Plasma Normal C Reactive Protein Quantitativ < 0.30 mg/dL 0.00-0.30 mg/dL [facility]: [address] [place] [address] 01/02/2021 Rf (Rheumatoid Factor) + Anti-ccp Abs, Serum No observation recorded. 01/02/2021 C-reactive Protein, Quantitative No o bservation recorded. [facility] (Lab): [address] [place] [address] 01/02/2021 Cyclic Citrullinated Peptide Normal Cyclic Citrullinated Peptide 8 units 0-19 units Final [facility]: [address] [place] [address] 11/04/2020 ESR (Erythrocyte Sedimentation Rate), Blood Hig h Erythrocyte Sedimentation Rate 43 mm/HR 0-20 mm/HR [facility] dical Center: [address] [place] [address] 11/04/2020 HbA1C (Hemoglobin a1C), Blood Normal Hemogl obin a1C 4.8 % [facility]: [address] [place] [address] Normal Estimated Average Glucose 91 mg/dL 6 0-110 mg/dL [facility]: [address] [place] [address] 11/04/2020 Protein Electrophoresis Panel, Serum or Plasma Lo w Albumin % 53.0 % 55.8-66.1 % [facility] nter: [address] [place] [address] Normal Hmuvw-1-Xkbxiroz % 4.4 % 2.9-4.9 % [facility]: [address] [place] [address] Normal Yulls-6-Bqhjmveza % 11.6 % 7.1-11.8 % [facility]: [address] [place] [address] Normal Lvrt-7-Pyqitftwz % 5.6 % 4.7-7.2 % [facility]: [address] [place] [address] Normal Hkzh-2-Wtskjlgbs % 5.0 % 3.2-6.5 % [facility]: [address] [place] [address] High Gamma Globulin % 20.4 % 11.1-18.8 % [facility]: [address] [place] [address] Normal Albumin 4.13 gm/dL 3.29-5.55 gm/dL F inal [facility]: [address] [place] [address] Normal Wcerb-1-Flqdtnxgr 0.34 gm/dL 0.17-0. 41 gm/dL [facility]: [address] [facility] Normal Wkvwh-3-Adgnoztna 0.90 gm/dL 0.42-0. 99 gm/dL [facility]: 0 [facility] Normal Xbpd-1-Fharnkxba 0.44 gm/dL 0.28-0.6 0 gm/dL [facility]: [address] [place] [address] Normal Qxjc-8-Qvwyhatre 0.39 gm/dL 0.19-0.5 5 gm/dL [facility]: 0 [facility] High Gamma Globulins 1.59 gm/dL 0.65-1.58 gm/dL [facility]: 0 [facility] Normal Total Protein 7.8 gm/dL 6.4-8.2 gm/d L [facility]: [address] [place] [address] Normal Spep Interpretation see comment [facility]: [address] [place] [address] Normal Spep Pathologist Review rev'd by Cheryl christianson [facility]: [address] [facility] 11/04/2020 Vitamin B12, Serum Normal Vitamin B12 Level 460 pg/mL 247-911 pg/mL [facility]: [address] [facility] 11/04/2020 Folate, Serum Normal Folate 21.4 NG/mL >5.4 NG /mL [facility]: 0 [facility] 11/04/2020 Vitamin D, 25-Hydroxy, Total, Serum Normal Total 25(Oh) Vitamin D 36.6 NG/mL 30.0-100.0 NG/mL [facility] Center: 0 [facility] 11/04/2020 Rf (Rheumatoid Factor), Serum High Rheumatoid Factor Quant 42.0 IU/mL <15.0 IU/mL [facility] nter: 0 [facility] 11/04/2020 Vitamin E Normal Vitamin E(alpha Tocopherol ) 14.3 mg/L 5.9-19.4 mg/L [facility]: [address] [facility] Low Vitamin E(gamma Tocopherol) 0.5 mg/L 0.7-4.9 mg/L [facility]: [address] [place] [address] 11/04/2020 Vitamin B1 (Thiamine), Blood Normal Vitamin B1 Level Whole Blood 146.3 nmol/L 66.5-200.0 nmol/L [facility]: [address] [place] [address] 11/04/2020 Vitamin B6 (Pyridoxine), Plasma High Vitamin B6,Pyridoxal Phosphate 35.6 ug/L 2.0-32.8 ug/L Final [facility]: [address] [place] [address] 11/04/2020 MALIK (Antinuclear Antibodies) Screen, Serum ABN ORMAL Antinuclear Antibodies Direct positive negative [facility] ical Center: [address] [place] [address] Normal Anti Double strand-DNA Ab 7 IU/mL 0- 9 IU/mL [facility]: [address] [place] [address] Normal Wig Comber Antibodies <0.2 ai 0.0-0.9 ai Fi [facility]: [address] [place] [address] Normal Artis Antibodies <0.2 ai 0.0-0.9 ai [facility]: [address] [place] [address] High Sjogren's Anti ss-A >8.0 ai 0.0-0.9 ai [facility]: [address] [place] [address] Normal Sjogren's Anti ss-B <0.2 ai 0.0-0.9 ai [facility]: [address] [place] [address] Normal MALIK Comment . Final [facility]: [address] [place] [address] Past Encounters 07/02/2021 Moderate Persistent Asthma; Nicotine Dependence; SjGren's Syndrome; Lower Respiratory Tract Infection; Immunization Advised Dagmar Root MD: [address] [place] [phone], Ph. 05/23/2021 Adult Health Examination; Immunization Advised; Moderate Persistent Asthma Dagmar Root MD: [address] [place] [phone], Ph. 04/25/2021 Nicotine Dependence; Body Mass Index 25-29 - Overweight; Upper Respiratory Infection; Irritable Bowel Syndrome Dagmar Root MD: [address] [place] [phone], Ph. 04/07/2021 Adult Health Examination; Body Mass Index 25-29 - Overweight; Nicotine Dependence with Current Use; Exposure to SARS-CoV-2; Seasonal Allergy; Acute Bronchitis Dagmar Root MD: [address] [place] [phone], Ph. 02/19/2021 SjGren's Syndrome; Nicotine Dependence; Contact Dermatitis Due to Poison Bettye; Herpes Simplex Dagmar Root MD: [address] [place] [phone], Ph. 12/30/2020 Influenza Vaccination Declined; SjGren's Syndrome; Tobacco Dependence Syndrome; Constipation Dagmar Root MD: [address] [place] [phone], Ph. Social History Tobacco Smoking Status Heavy Tobacco Smoker (1/2 pack per a day) Vaccine List Vaccine Type Hep A, adult .5 mL .5 mL Hep B, adult .5 mL .5 mL .5 mL Tdap 05/09/2012 Plan of Care Reminders Provider Appointments None recorded. Lab None recorded. Referral None recorded. Procedures None recorded. Surgeries None recorded. Imaging None recorded. Vitals 07/02/2021 11:40AM ESTABLISHED [id number] Height Weight BMI Blood Pressure 63 in 152 lbs 8 oz 27 kg/m2 112/74 mm[Hg] 05/23/2021 05:20PM ESTABLISHED [id number] Height Weight BMI Blood Pressure 63 in 153 lbs 9.6 oz 27.2 kg/m2 99/63 mm[Hg] 04/25/2021 05:00PM PROVIDER REQUESTED Height Weight BMI Blood Pressure 63 in 147 lbs 16 oz 26.2 kg/m2 121/73 mm[Hg] 04/07/2021 08:20AM ANNUAL EXAM Height Weight BMI Blood Pressure 63 in 146 lbs 9.6 oz 26 kg/m2 94/58 mm[Hg] 02/19/2021 02:00PM ESTABLISHED [id number] Height Weight BMI Blood Pressure 63 in 141 lbs 9.6 oz 25.1 kg/m2 110/71 mm[Hg ] 12/30/2020 08:40AM ESTABLISHED [id number] Height Weight BMI Blood Pressure 63 in 137 lbs 12.8 oz 24.4 kg/m2 97/58 mm[Hg ] 07/11/2020 Height Weight BMI Blood Pressure 63 in 145 lbs 4 oz 25.82 kg/m2 127/71 mm[Hg] 06/26/2020 Height Weight BMI Blood Pressure 63 in 146 lbs 25.96 kg/m2 101/76 mm[Hg] 04/19/2020 Height Weight BMI Blood Pressure 63 in 148 lbs 2.08 oz 26.33 kg/m2 116/78 mm[H g] 04/15/2020 Height Weight BMI Blood Pressure 63 in 146 lbs 8 oz 26.05 kg/m2 127/86 mm[Hg] 10/09/2019 Height Weight BMI Blood Pressure 63 in 157 lbs 2.08 oz 27.93 kg/m2 115/73 mm[H g] 09/26/2019 Height Weight BMI Blood Pressure 63 in 157 lbs 4 oz 27.96 kg/m2 118/80 mm[Hg]
[2021-09-03] MEDS ORDERED: ARNU1INH3 PO (22:25)
[2021-09-03] MEDS ORDERED: OXYC-517 PO (22:25)
[2021-09-03] MEDS ORDERED: STIO1AER IN (22:25)
[2021-09-03] MEDS ORDERED: ACET1TAB55 PO (22:25)
--- OUTSIDE RECORDS SUMMARY | 2021-09-03 22:25 | CCD ---
Author Author [facility] Organization [facility] Address Unknown Phone Unavailable Care Team Providers Care Engineering Agent Name Role Phone Adriana Kamara PT Unavailable Unavailable Asad, R Dennis PT Unavailable Unavailable Asad, R Dennis PT Unavailable Unavailable Asad, R Dennis PT Unavailable Unavailable Asad, R Dennis PT Unavailable Unavailable Asad, R Dennis PT Unavailable Unavailable Asad, R Dennis PT Unavailable Unavailable Asad, R Dennis PT Unavailable Unavailable Asad, R Dennis PT Unavailable Unavailable Asad, R Dennis PT Unavailable Unavailable Asad, R Dennis PT Unavailable Unavailable Asad, R Dennis PT Unavailable Unavailable Asad, R Dennis PT Unavailable Unavailable Asad, R Dennis PT Unavailable Unavailable Asad, R Dennis PT Unavailable Unavailable Asad, R Dennis PT Unavailable Unavailable Asad, R Dennis PT Unavailable Unavailable Asad, R Dennis PT Unavailable Unavailable Asad, R Dennis PT Unavailable Unavailable Asad, R Dennis PT Unavailable Unavailable Asad, R Dennis PT Unavailable Unavailable Asad, R Dennis PT Unavailable Unavailable Asad, R Dennis PT Unavailable Unavailable Asad, R Dennis PT Unavailable Unavailable Asad, R Dennis PT Unavailable Unavailable Pradeep Chow MD Unavailable Unavailable Scordo, M Wendy PA Unavailable Unavailable Scordo, M Wendy PA Unavailable Unavailable Scordo, M Wendy PA Unavailable Unavailable Scordo, M Wendy PA Unavailable Unavailable Scordo, M Wendy PA Unavailable Unavailable Scordo, M Wendy PA Unavailable Unavailable Scordo, M Wendy PA Unavailable Unavailable Scordo, M Wendy PA Unavailable Unavailable Scordo, M Wendy PA Unavailable Unavailable Scordo, M Wendy PA Unavailable Unavailable Scordo, M Wendy PA Unavailable Unavailable Scordo, M Wendy PA Unavailable Unavailable Scordo, M Wendy PA Unavailable Unavailable Scordo, M Wendy PA Unavailable Unavailable Scordo, M Wendy PA Unavailable Unavailable Scordo, M Wendy PA Unavailable Unavailable Scordo, M Wendy PA Unavailable Unavailable Scordo, M Wendy PA Unavailable Unavailable Scordo, M Wendy PA Unavailable Unavailable Scordo, M Wendy PA Unavailable Unavailable Scordo, M Wendy PA Unavailable Unavailable Scordo, M Wendy PA Unavailable Unavailable Scordo, M Wendy PA Unavailable Unavailable Scordo, M Wendy PA Unavailable Unavailable Scordo, M Wendy PA Unavailable Unavailable Scordo, M Wendy PA Unavailable Unavailable Scordo, M Wendy PA Unavailable Unavailable Scordo, M Wendy PA Unavailable Unavailable Scordo, M Wendy PA Unavailable Unavailable Scordo, M Wendy PA Unavailable Unavailable Scordo, M Wendy PA Unavailable Unavailable Scordo, M Wendy PA Unavailable Unavailable Scordo, M Wendy PA Unavailable Unavailable Scordo, M Wendy PA Unavailable Unavailable Scordo, M Wendy PA Unavailable Unavailable Scordo, M Wendy PA Unavailable Unavailable Scordo, M Wendy PA Unavailable Unavailable Scordo, M Wendy PA Unavailable Unavailable Scordo, M Wendy PA Unavailable Unavailable Scordo, M Wendy PA Unavailable Unavailable Scordo, M Wendy PA Unavailable Unavailable Scordo, M Wendy PA Unavailable Unavailable Scordo, M Wendy PA Unavailable Unavailable Scordo, M Wendy PA Unavailable Unavailable Scordo, M Wendy PA Unavailable Unavailable Scordo, M Wendy PA Unavailable Unavailable Scordo, M Wendy PA Unavailable Unavailable Emily, Miya Unavailable Unavailable Emily, Miya Unavailable Unavailable Emily, Miya Unavailable Unavailable Emily, Miya Unavailable Unavailable Emily, Miya Unavailable Unavailable Emily, Miya Unavailable Unavailable Emily, Miya Unavailable Unavailable Emily, Miya Unavailable Unavailable Emily, Miya Unavailable Unavailable Emily, Miya Unavailable Unavailable Emily, Miya Unavailable Unavailable Emily, Miya Unavailable Unavailable Emily, Miya Unavailable Unavailable Emily, Miya Unavailable Unavailable Emily, Miya Unavailable Unavailable Emily, Miya Unavailable Unavailable Emily, Miya Unavailable Unavailable Emily, Miya Unavailable Unavailable Emily, Miya Unavailable Unavailable Emily, Miya Unavailable Unavailable Emily, Miya Unavailable Unavailable Emily, Miya Unavailable Unavailable Emily, Miya Unavailable Unavailable Emily, Miya Unavailable Unavailable Emily, Miya Unavailable Unavailable Emily, Miya Unavailable Unavailable ENEDELIA CADENA MD Unavailable Unavailable ENEDELIA CADENA MD Unavailable Unavailable ENEDELIA CADENA MD Unavailable Unavailable ENEDELIA CADENA MD Unavailable Unavailable ENEDELIA CADENA MD Unavailable Unavailable Casey Kennedy MD Unavailable Unavailable Eliza MCPHERSON MD Unavailable Unavailable Eliza MCPHERSON MD Unavailable Unavailable Eliza MCPHERSON MD Unavailable Unavailable Eliza MCPHERSON MD Unavailable Unavailable Eliza MCPHERSON MD Unavailable Unavailable Eliza MCPHERSON MD Unavailable Unavailable Eliza MCPHERSON MD Unavailable Unavailable Eliza MCPHERSON MD Unavailable Unavailable Eliza MCPHERSON MD Unavailable Unavailable Eliza MCPHERSON MD Unavailable Unavailable Eliza MCPHERSON MD Unavailable Unavailable Eliza MCPHERSON MD Unavailable Unavailable Eliza MCPHERSON MD Unavailable Unavailable Eliza MCPHERSON MD Unavailable Unavailable Eliza MCPHERSON MD Unavailable Unavailable Eliza MCPHERSON MD Unavailable Unavailable Eliza MCPHERSON MD Unavailable Unavailable Eliza MCPHERSON MD Unavailable Unavailable Eliza MCPHERSON MD Unavailable Unavailable Eliza MCPHERSON MD Unavailable Unavailable Eliza MCPHERSON MD Unavailable Unavailable Eliza MCPHERSON MD Unavailable Unavailable Eliza MCPHERSON MD Unavailable Unavailable Eliza MCPHERSON MD Unavailable Unavailable Eliza MCPHERSON MD Unavailable Unavailable Eliza MCPHERSON MD Unavailable Unavailable Eliza MCPHERSON MD Unavailable Unavailable Eliza MCPHERSON MD Unavailable Unavailable Eliza MCPHERSON MD Unavailable Unavailable Eliza MCPHERSON MD Unavailable Unavailable Eliza MCPHERSON MD Unavailable Unavailable Eliza MCPHERSON MD Unavailable Unavailable Eliza MCPHERSON MD Unavailable Unavailable CASTROJojo REID MD Unavailable Unavailable CASTROJojo REID MD Unavailable Unavailable CASTROJojo REID MD Unavailable Unavailable CASTROJojo REID MD Unavailable Unavailable CASTROJojo REID MD Unavailable Unavailable CASTROJojo REID MD Unavailable Unavailable CASTROJojo REID MD Unavailable Unavailable CASTRO, P MICHAEL MD Unavailable Unavailable CASTROJojo REID MD Unavailable Unavailable CASTROJojo REID MD Unavailable Unavailable CASTROJojo REID MD Unavailable Unavailable CASTRO, P MICHAEL MD Unavailable Unavailable CASTROJojo REID MD Unavailable Unavailable CASTRO, P MICHAEL MD Unavailable Unavailable CASTROJojo REID MD Unavailable Unavailable CASTROJojo REID MD Unavailable Unavailable CASTROJojo REID MD Unavailable Unavailable CASTROJojo REID MD Unavailable Unavailable CASTROJojo REID MD Unavailable Unavailable CASTRO, P MICHAEL MD Unavailable Unavailable CASTROJojo REID MD Unavailable Unavailable CASTROJojo REID MD Unavailable Unavailable CASTROJojo REID MD Unavailable Unavailable CASTROJojo OHARA MD Unavailable Unavailable CASTRO, P MICHAEL MD Unavailable Unavailable CASTROJojo OHARA MD Unavailable Unavailable CASTRO, P MICHAEL MD Unavailable Unavailable CASTROJojo REID MD Unavailable Unavailable CASTROJojo REID MD Unavailable Unavailable CASTROJojo REID MD Unavailable Unavailable CASTROJojo OHARA MD Unavailable Unavailable CASTRO, P MICHAEL MD Unavailable Unavailable CASTRO, P MICHAEL MD Unavailable Unavailable CASTRO, P MICHAEL MD Unavailable Unavailable CASTRO, P MICHAEL MD Unavailable Unavailable CASTRO, P MICHAEL MD Unavailable Unavailable CASTRO, P MICHAEL MD Unavailable Unavailable CASTRO, P MICHAEL BERGERON Unavailable Unavailable CASTRO, P MICHAEL MD Unavailable Unavailable CASTRO, P MICHAEL BERGERON Unavailable Unavailable CASTRO, P MICHAEL MD Unavailable Unavailable CASTRO, P MICHAEL MD Unavailable Unavailable CASTRO, P MICHAEL MD Unavailable Unavailable CASTRO, P MICHAEL MD Unavailable Unavailable CASTRO, P MICHAEL MD Unavailable Unavailable Jose Guadalupe García MD Unavailable Unavailable Jose Guadalupe García MD Unavailable Unavailable Jose Guadalupe García MD Unavailable Unavailable Jose Guadalupe García MD Unavailable Unavailable Jose Guadalupe García MD Unavailable Unavailable Ali, Pili BERGERON Unavailable Unavailable Ali, Pili BERGERON Unavailable Unavailable Ali, Pili BERGERON Unavailable Unavailable Ali, Pili BERGERON Unavailable Unavailable Ali, Pili BERGERON Unavailable Unavailable Ali, Pili BERGERON Unavailable Unavailable Ali, Pili MD Unavailable Unavailable Ali, Pili MD Unavailable Unavailable Ali, Pili MD Unavailable Unavailable Ali, Pili MD Unavailable Unavailable Ali, Pili BERGERON Unavailable Unavailable Ali, Pili BERGERON Unavailable Unavailable Ali, Pili BERGERON Unavailable Unavailable Ali, Pili BERGERON Unavailable Unavailable Ali, Pili BERGERON Unavailable Unavailable Ali, Pili BERGERON Unavailable Unavailable Ali, Pili BERGERON Unavailable Unavailable Ali, Pili BERGERON Unavailable Unavailable Ali, Pili BERGERON Unavailable Unavailable Ali, Pili BERGERON Unavailable Unavailable Ali, Pili BERGERON Unavailable Unavailable Ali, Pili BERGERON Unavailable Unavailable Ali, Pili BERGERON Unavailable Unavailable Ali, Pili MD Unavailable Unavailable Ali, Pili MD Unavailable Unavailable Ali, Pili BERGERON Unavailable Unavailable Ali, Pili BERGERON Unavailable Unavailable Ali, Pili BERGERON Unavailable Unavailable Ali, Pili BERGERON Unavailable Unavailable Ali, Pili BERGERON Unavailable Unavailable Ali, Pili BERGERON Unavailable Unavailable Ali, Pili BERGERON Unavailable Unavailable Ali, Pili BERGERON Unavailable Unavailable Ali, Pili BERGERON Unavailable Unavailable Ali, Pili BERGERON Unavailable Unavailable Ali, Pili BERGERON Unavailable Unavailable Ali, Pili BERGERON Unavailable Unavailable Ali, Pili BERGERON Unavailable Unavailable Ali, Pili BERGERON Unavailable Unavailable Ali, Pili BERGERON Unavailable Unavailable AliPili MD Unavailable Unavailable AliPili MD Unavailable Unavailable AliPili MD Unavailable Unavailable Ali, Pili BERGERON Unavailable Unavailable Ali, Pili BERGERON Unavailable Unavailable Ali, Pili BERGERON Unavailable Unavailable Ali, Pili BERGERON Unavailable Unavailable AliPili MD Unavailable Unavailable Ali, Pili BERGERON Unavailable Unavailable AliPili MD Unavailable Unavailable Pili Manley MD Unavailable Unavailable Geraldo [id number] MD Pradeep BERGERON Unavailable Geraldo, [id number] MD Pradeep MD Unavailable Geraldo, [id number] MD Pradeep MD Unavailable Geraldo, [id number] MD Pradeep MD Unavailable Geraldo, [id number] MD Pradeep MD Unavailable Geraldo, [id number] MD Pradeep MD Unavailable Geraldo, [id number] MD Pradeep MD Unavailable Geraldo, [id number] MD Pradeep MD Unavailable Geraldo, [id number] MD Pradeep MD Unavailable Geraldo, [id number] MD Pradeep MD Unavailable Geraldo, [id number] MD Pradeep MD Unavailable Geraldo, [id number] MD Pradeep MD Unavailable Geraldo, [id number] MD Pradeep MD Unavailable Geraldo, [id number] MD Pradeep MD Unavailable Geraldo, [id number] MD Pradeep MD Unavailable Egraldo, [id number] MD Pradeep MD Unavailable Geraldo, [id number] MD Pradeep MD Unavailable Geraldo, [id number] MD Pradeep MD Unavailable Geraldo, [id number] MD Pradeep MD Unavailable Geraldo, [id number] MD Pradeep MD Unavailable Geraldo, [id number] MD Pradeep MD Unavailable Geraldo, [id number] MD Pradeep MD Unavailable Geraldo, [id number] MD Pradeep MD Unavailable Geraldo, [id number] MD Pradeep MD Unavailable [phone] Geraldo, [id number] MD Pradeep MD Unavailable [phone] Geraldo, [id number] MD Pradeep MD Unavailable [phone] Geraldo, [id number] MD Pradeep MD Unavailable [phone] Geraldo, [id number] MD Pradeep MD Unavailable [phone] Geraldo, [id number] MD Pradeep MD Unavailable [phone] Geraldo, [id number] MD Pradeep MD Unavailable [phone] Geraldo, [id number] MD Pradeep MD Unavailable [phone] Geraldo, [id number] MD Pradeep MD Unavailable [phone] Geraldo, [id number] MD Pradeep MD Unavailable [phone] EVERARDO, JOVANNI TEAGAN YARN WASHER-C Unavailable Unavailable EVERARDO, JOVANNI TEAGAN YARN WASHER-C Unavailable Unavailable EVERARDO, JOVANNI TEAGAN YARN WASHER-C Unavailable Unavailable EVERARDO, JOVANNI TEAGAN YARN WASHER-C Unavailable Unavailable EVERARDO, JOVANNI TEAGAN YARN WASHER-C Unavailable Unavailable EVERARDO, JOVANNI TEAGAN YARN WASHER-C Unavailable Unavailable EVERARDO, JOVANNI TEAGAN YARN WASHER-C Unavailable Unavailable EVERARDO, JOVANNI TEAGAN YARN WASHER-C Unavailable Unavailable EVERARDO, JOVANNI TEAGAN YARN WASHER-C Unavailable Unavailable EVERARDO, JOVANNI TEAGAN YARN WASHER-C Unavailable Unavailable EVERARDO, JOVANNI TEAGAN YARN WASHER-C Unavailable Unavailable EVERARDO, JOVANNI TEAGAN YARN WASHER-C Unavailable Unavailable EVERARDO, JOVANNI TEAGAN YARN WASHER-C Unavailable Unavailable EVERARDO, JOVANNI TEAGAN YARN WASHER-C Unavailable Unavailable EVERARDO, JOVANNI TEAGAN YARN WASHER-C Unavailable Unavailable EVERARDO, JOVANNI TEAGAN YARN WASHER-C Unavailable Unavailable EVERARDO, JOVANNI TEAGAN YARN WASHER-C Unavailable Unavailable Casey Kennedy MD Unavailable [phone] Casey Kennedy MD Unavailable [phone] Casey Kennedy MD Unavailable [phone] Casey Kennedy MD Unavailable [phone] Casey Kennedy MD Unavailable [phone] Casey Kennedy MD Unavailable [phone] Casey Kennedy MD Unavailable [phone] Toby Lynn MD Unavailable Unavailable Toby Lynn MD Unavailable Unavailable Toby Lynn MD Unavailable Unavailable LynnToby MD Unavailable Unavailable Lynn, Toby Perkins MD Unavailable Unavailable Toby Lynn MD Unavailable Unavailable Lynn, Toby Perkins MD Unavailable Unavailable Lynn, Toby Perkins MD Unavailable Unavailable Toby Lynn MD Unavailable Unavailable Toby Lynn MD Unavailable Unavailable Toby Lynn MD Unavailable Unavailable Toby Lynn MD Unavailable Unavailable Toby Lynn MD Unavailable Unavailable Toby Lynn MD Unavailable Unavailable Toby Lynn MD Unavailable Unavailable Toby Lynn MD Unavailable Unavailable Toby Lynn MD Unavailable Unavailable LynnToby MD Unavailable Unavailable LynnToby MD Unavailable Unavailable Toby Lynn MD Unavailable Unavailable Toby Lynn MD Unavailable Unavailable Toby Lynn MD Unavailable Unavailable Toby Lynn MD Unavailable Unavailable Toby Lynn MD Unavailable Unavailable Toby Lynn MD Unavailable Unavailable Toby Lynn MD Unavailable Unavailable Toby Lynn MD Unavailable Unavailable Toby Lynn MD Unavailable Unavailable Toby Lynn MD Unavailable Unavailable Toby Lynn MD Unavailable Unavailable Toby Lynn MD Unavailable Unavailable Toby Lynn MD Unavailable Unavailable Toby Lynn MD Unavailable Unavailable Toby Lynn MD Unavailable Unavailable Toby Lynn MD Unavailable Unavailable Toby Lynn MD Unavailable Unavailable Toby Lynn MD Unavailable Unavailable Toby Lynn MD Unavailable Unavailable Toby Lynn MD Unavailable Unavailable Toby Lynn MD Unavailable Unavailable Toby Lynn MD Unavailable Unavailable Toby Lynn MD Unavailable Unavailable Toby Lynn MD Unavailable Unavailable Toby Lynn MD Unavailable Unavailable Toby Lynn MD Unavailable Unavailable Toby Lynn MD Unavailable Unavailable Toby Lynn MD Unavailable Unavailable Toby Lynn MD Unavailable Unavailable Toby Lynn MD Unavailable Unavailable Toby Lynn MD Unavailable Unavailable Toby Lynn MD Unavailable Unavailable Toby Lynn MD Unavailable Unavailable Toby Lynn MD Unavailable Unavailable Toby Lynn MD Unavailable Unavailable Re-disclosure Warning The records that you are about to access may contain information from federally-assisted alcohol or drug abuse programs. If such information is present, then the following federally mandated warning applies: This information has been disclosed to you from records protected by federal confidentiality rules (42 CFR part 2). The federal rules prohibit you from making any further disclosure of this information unless further disclosure is expressly permitted by the written consent of the person to whom it pertains or as otherwise permitted by 42 CFR part 2. A general authorization for the release of medical or other information is NOT sufficient for this purpose. The Federal rules restrict any use of the information to criminally investigate or prosecute any alcohol or drug abuse patient.The records that you are about to access may contain highly sensitive health information, the redisclosure of which is protected by Article 27-F of the [facility] Public Health law. If you continue you may have access to information: Regarding HIV / AIDS; Provided by facilities licensed or operated by the [facility] Office of Mental Health; or Provided by the [facility] Office for People With Developmental Disabilities. If such information is present, then the following [facility] mandated warning applies: This information has been disclosed to you from confidential records which are protected by state law. State law prohibits you from making any further disclosure of this information without the specific written consent of the person to whom it pertains, or as otherwise permitted by law. Any unauthorized further disclosure in violation of state law may result in a fine or chcf sentence or both. A general authorization for the release of medical or other information is NOT sufficient authorization for further disc losure. Allergies and Adverse Reactions Type Description Substance Reaction Status Data Source(s ) Propensity to adverse reactions SULFA ANTIBIOTICS SULFA ANTIBIOTICS H [facility] Propensity to adverse reactions 5-ALPHA REDUCTASE INHIBITORS 5-ALPHA REDUCTASE INHIBITORS [facility] ospital Encounters Encounter Providers Location Date Indications Data Source(s ) Outpatient Attender: MICHAEL CASTRO MD 09/16/2021 12:00: 00 AM [facility] Inpatient Attender: MICHAEL Joyce DAttender: ENEDELIA CADENA MDAdmitter: MICHAEL CASTRO MDReferrer: Jose Guadalupe García MD [id number] 08/31/2021 12:00:00 AM EDT - 09/01/2021 03:39:00 PM EDT Fall, Left Knee Injury [facility] [place] Fall, Left Knee Injury Patient discharged. Outpatient Attender: Pradeep Chow MDAttender: [id number] Pradeep Chow MD [facility] 08/26/2021 01:52:00 PM EDT - 08/26/2021 01:53:00 PM ED T M35.01 [facility] M35.01 Patient discharged. Outpatient Attender: Alyce Higuera/Jaleesa/Juan/Adriana sen 08/19/2021 02:30:00 PM EDT [facility] ([facility]) Sonia Diaz MD: [address], [place] [address], Ph. Attender: Sonia Diaz [facility] Medical 07/02/2021 12:00:00 AM [facility] Sonia [facility] MD: [address], [place] [address], Ph. Attender: Sonia Diaz [facility] Medical 05/23/2021 12:00:00 AM EDT [facility] ([facility]) Sonia Diaz MD: [address], [place] [address], Ph. Attender: Sonia Diaz [facility] Medical 05/23/2021 12:00:00 AM EDT [facility] ([facility]) Sonia Diaz MD: [address], [place] [address], Ph. Attender: Sonia Diaz [facility] Medical 04/25/2021 12:00:00 AM EDT [facility] ([facility]) Sonia Diaz MD: [address], [place] [address], Ph. Attender: Sonia Diaz [facility] Medical 04/25/2021 12:00:00 AM EDT [facility] ([facility]) Sonia Diaz MD: [address], [place] [address], Ph. Attender: Sonia Diaz [facility] 04/25/2021 12:00:00 AM EDT [facility] ([facility]) Outpatient Attender: JOSH Higuera/Jaleesa/Luc chin/Reindl 04/23/2021 08:50:00 AM EDT [facility] ([facility] Outpatient Attender: Pili Manley MD Main office - [place] 04/09/2021 01:45:00 PM EDT [facility] ([facility]) Sonia Diaz MD: [address], [place] [address], Ph. Attender: Sonia Diaz [facility] Medical 04/07/2021 12:00:00 AM EDT [facility] ([facility]) Sonia Diaz MD: [address], [facility] [place] [address], Ph. Attender: Sonia Diaz [facility] 04/07/2021 12:00:00 AM EDT [facility] ([facility]) Sonia Diaz MD: [address], [place] [address], Ph. Attender: Sonia Diaz [facility] Medical 04/07/2021 12:00:00 AM EDT [facility] ([facility]) Outpatient Attender: Dennis Kamara PT [facility]PS[facility] 04:00:00 PM EDT - 02/25/2021 04:01:00 PM EDT [facility] Patient discharged. Sonia Diaz MD: [address], [place] [address], Ph. Attender: Sonia Diaz [facility] 02/19/2021 12:00:00 AM EDT [facility] ([facility]) Sonia Diaz MD: [address], [place] [address], Ph. Attender: Sonia Diaz [facility] 02/19/2021 12:00:00 AM EDT [facility] ([facility]) Sonia Diaz MD: [address], [place] [address], Ph. Attender: Sonia Diaz [facility] 02/19/2021 12:00:00 AM EDT [facility] ([facility]) Sonia Diaz MD: [address], [place] [address], Ph. Attender: Sonia Diaz [facility] 02/19/2021 12:00:00 AM EDT [facility] ([facility]) Outpatient Attender: TEAGAN CORTES-Sammy Higuera/Jaleesa/Juan/Adriana sen 02/13/2021 10:15:00 AM EDT [facility] ([facility]) Outpatient Attender: Casey Kennedy MDAttender: Tra Kennedy MD [facility]PS[facility]ORT[facility]CPSLAOBG 02/07/2021 01:17:00 PM EDT - 02/07/2021 01:18:00 PM EDT Z12. 4 [facility] Z12.4 Patient discharged. Outpatient [address] [place] [address] 01/13/2021 12:00:00 AM EDT eCW1 ([facility]) Outpatient [address] [place] [address] 01/13/2021 12:00:00 AM EDT eCW1 ([facility]) Outpatient Attender: Alyce Higuera/Jaleesa/Juan/R francy 01/02/2021 09:15:00 AM EST [facility] ([facility]) Sonia Diaz MD: [address], [place] [address], Ph. Attender: Sonia Diaz [facility] 12/30/2020 12:00:00 AM EST [facility] ([facility]) Sonia Diaz MD: [address], [place] [address], Ph. Attender: Sonia Diaz [facility] 12/30/2020 12:00:00 AM EST [facility] ([facility]) Sonia Diaz MD: [address], [place] [address], Ph. Attender: Sonia Diaz [facility] Medical 12/30/2020 12:00:00 AM EST [facility] ([facility]) Sonia Diaz MD: [address], [place] [address], Ph. Attender: Sonia Diaz [facility] 12/30/2020 12:00:00 AM EST [facility] ([facility]) Outpatient Attender: Alyce Higuera/Jaleesa/Juan/R eindyvette 12/16/2020 09:00:00 AM EST [facility] ([facility]) Outpatient Attender: Pili Manley MD Main office - [place] 12/04/2020 10:15:00 AM EST [facility] ([facility]) Outpatient Attender: Pili Manley MD Main office - [place] 10/23/2020 07:30:00 AM EST [facility] ([facility]) Outpatient Attender: Dennis Kamara PT [facility]PSCAORT[facility]CPSCARHE 08:16:00 AM EST - 09/17/2020 08:17:00 AM EST M35.00 [facility] M35.00 Patient discharged. Outpatient Attender: Wendy MAJOR 08/15/2020 01:13:00 PM EDT [facility] Outpatient Attender: Wendy MAJOR 08/15/2020 11:25:00 AM EDT [facility] Outpatient Attender: Wendy MAJOR FP 07/23/2020 02:06:01 PM EDT [facility] Outpatient Attender: Wendy MAJOR FP 07/23/2020 02:06:01 PM EDT [facility] Outpatient Attender: Wendy MAJOR FP 07/23/2020 02:06:01 PM EDT [facility] Attender: Wendy MAJOR FP 07/16/2020 10:47:02 AM EDT [facility] Attender: Wendy MAJOR FP 07/16/2020 09:00:03 AM EDT [facility] Attender: Wendy MAJOR FP 07/12/2020 08:01:01 AM EDT [facility] Attender: Wendy MAJOR FP 07/12/2020 08:01:00 AM EDT [facility] Attender: Wendy MAJOR FP 07/11/2020 02:51:28 PM EDT [facility] Attender: Wendy MAJOR FP 07/11/2020 02:50:47 PM EDT [facility] Attender: Wendy MAJOR FP 07/10/2020 12:24:01 PM EDT [facility] Attender: Wendy MAJOR FP 07/05/2020 12:04:01 PM EDT [facility] Medications Medication Brand Name Start Date Product Form Dose Route Admi nistrative Instructions Pharmacy Instructions Status Indications Reaction Description Data Source(s) 5 mg 08/27/2021 12:00:00 AM EDT tablet 60 TAKE ONE TABLET BY MOUTH TWICE A DAY TAKE ONE TABLET BY MOUTH TWICE A DAY SOLD: 08/29/2021 [facility] 200 mcg/actuation 08/20/2021 12:00:00 AM EDT blister with de vice 90 INHALE ONE PUFF BY MOUTH EVERY DAY INHALE ONE PUFF BY MOUTH EVERY DAY SOLD: 08/21/2021 [facility] Prednisone 10 MG Oral Tablet Prednisone 08/19/2021 12:00:00 AM EDT ORAL active [facility] ([facility], ) 30 ACTUAT fluticasone furoate 0.2 MG/ACTUAT Dry Powder Inhaler [Arnuity] Arnuity Ellipta 08/19/2021 12:00:00 AM EDT RESPIRATORY active [facility] ([facility], ) 10 mg 08/19/2021 12:00:00 AM EDT tablet 40 TAKE FOUR TABLETS BY MOUTH EVERY DAY FOR 4 DAYS THEN 3 ONCE DAILY FOR 4 DAYS THEN 2 ONCE DAILY FOR 4 DAYS THEN 1 ONCE DAILY FOR 4 DAYS THEN STOP TAKE FOUR TABLETS BY MOUTH EVERY DAY FOR 4 DAYS THEN 3 ONCE DAILY FOR 4 DAYS THEN 2 ONCE DAILY FOR 4 DAYS THEN 1 ONCE DAILY FOR 4 DAYS THEN STOP SOLD: 08/19/2021 [facility] 90 mcg/actuation 07/29/2021 12:00:00 AM EDT HFA aerosol inha ler 18 INHALE TWO PUFFS BY MOUTH FOUR TIMES A DAY NEEDED INHALE TWO PUFFS BY MOUTH FOUR TIMES A DAY NEEDED SOLD: 08/29/2021 [facility] 90 mcg/actuation 07/29/2021 12:00:00 AM EDT HFA aerosol inha ler 18 INHALE TWO PUFFS BY MOUTH FOUR TIMES A DAY NEEDED INHALE TWO PUFFS BY MOUTH FOUR TIMES A DAY NEEDED SOLD: 07/30/2021 [facility] 60 ACTUAT Albuterol 0.09 MG/ACTUAT Metered Dose Inhaler Albu terol Sulfate HFA 07/28/2021 12:00:00 AM EDT RESPIRATORY active [facility] ([facility], ) 8 mg 07/18/2021 12:00:00 AM EDT tablet,disintegrating [address] ONE TABLET UNDER THE TONGUE TWICE A DAY NEEDED PLACE ONE TABLET UNDER THE TONGUE TWICE A DAY NEEDED SOLD: 07/21/2021 [facility] Amoxicillin 875 MG / Clavulanate 125 MG Oral Tablet 87 5-125 mg AMOXICILLIN/POTASSIUM CLAV 07/02/2021 12:00:00 AM EDT tablet 20 TAKE ONE TABLET BY MOUTH EVERY 12 HOURS FOR 10 DAYS TAKE ONE TABLET BY MOUTH EVERY 12 HOURS FOR 10 DAYS SOLD: 07/02/2021 [facility] Prednisone 10 MG Oral Tablet Prednisone 07/02/2021 12:00:00 AM EDT ORAL completed [facility] ([facility], ) 10 mg 07/02/2021 12:00:00 AM EDT tablet 40 TAKE 4 TABLET BY MOUTH ONCE DAILY FOR 4 DAYS THEN 3 ONCE DAILY FOR 4 DAYS THEN 2 TABLETS EVERY DAY FOR 4 DAYS THEN 1 TABLET EVERY DAY FOR 4 DAYS AND STOP TAKE 4 TABLET BY MOUTH ONCE DAILY FOR 4 DAYS THEN 3 ONCE DAILY FOR 4 DAYS THEN 2 TABLETS EVERY DAY FOR 4 DAYS THEN 1 TABLET EVERY DAY FOR 4 DAYS AND STOP SOLD: 07/03/2021 [facility] 150 mg 07/02/2021 12:00:00 AM EDT tablet 1 TAKE 1 TABLET BY MOUTH ONCE TAKE 1 TABLET BY MOUTH ONCE SOLD: 07/02/2021 [facility] 60 ACTUAT olodaterol 0.0025 MG/ACTUAT / tiotropium 0.0025 MG/ACTUAT Metered Dose Inhaler [Stiolto] 2.5-2.5 mcg/actuation TIOTROPIUM BR/OLODATEROL HCL 05/27/2021 12:00:00 AM EDT mist 4 INHALE 2 PUFFS BY MOUTH ONCE DAILY INHALE 2 PUFFS BY MOUTH ONCE DAILY SOLD: 05/27/2021 [facility] 60 ACTUAT olodaterol 0.0025 MG/ACTUAT / tiotropium 0.0025 MG/ACTUAT Metered Dose Inhaler [Stiolto] 2.5-2.5 mcg/actuation TIOTROPIUM BR/OLODATEROL HCL 05/27/2021 12:00:00 AM EDT mist 4 INHALE 2 PUFFS BY MOUTH ONCE DAILY INHALE 2 PUFFS BY MOUTH ONCE DAILY SOLD: 08/29/2021 [facility] 60 ACTUAT olodaterol 0.0025 MG/ACTUAT / tiotropium 0.0025 MG/ACTUAT Metered Dose Inhaler [Stiolto] 2.5-2.5 mcg/actuation TIOTROPIUM BR/OLODATEROL HCL 05/27/2021 12:00:00 AM EDT mist 4 INHALE 2 PUFFS BY MOUTH ONCE DAILY INHALE 2 PUFFS BY MOUTH ONCE DAILY SOLD: 07/29/2021 [facility] 60 ACTUAT olodaterol 0.0025 MG/ACTUAT / tiotropium 0.0025 MG/ACTUAT Metered Dose Inhaler [Stiolto] 2.5-2.5 mcg/actuation TIOTROPIUM BR/OLODATEROL HCL 05/27/2021 12:00:00 AM EDT mist 4 INHALE 2 PUFFS BY MOUTH ONCE DAILY INHALE 2 PUFFS BY MOUTH ONCE DAILY SOLD: 06/28/2021 [facility] 300 mg 05/01/2021 12:00:00 AM EDT capsule 90 TAKE 1 CAPSULE BY MOUTH AT BEDTIME FOR 1 WEEK THEN TWICE A DAY FOR 1 WEEK THEN 1 THREE TIMES A DAY MAXIMUM DAILY DOSE = 3 TAKE 1 CAPSULE BY MOUTH AT BEDTIME FOR 1 WEEK THEN TWICE A DAY FOR 1 WEEK THEN 1 THREE TIMES A DAY MAXIMUM DAILY DOSE = 3 SOLD: 07/10/2021 [facility] 300 mg 05/01/2021 12:00:00 AM EDT capsule 90 TAKE 1 CAPSULE BY MOUTH AT BEDTIME FOR 1 WEEK THEN TWICE A DAY FOR 1 WEEK THEN 1 THREE TIMES A DAY MAXIMUM DAILY DOSE = 3 TAKE 1 CAPSULE BY MOUTH AT BEDTIME FOR 1 WEEK THEN TWICE A DAY FOR 1 WEEK THEN 1 THREE TIMES A DAY MAXIMUM DAILY DOSE = 3 SOLD: 06/06/2021 [facility] 300 mg 05/01/2021 12:00:00 AM EDT capsule 90 TAKE 1 CAPSULE BY MOUTH AT BEDTIME FOR 1 WEEK THEN TWICE A DAY FOR 1 WEEK THEN 1 THREE TIMES A DAY MAXIMUM DAILY DOSE = 3 TAKE 1 CAPSULE BY MOUTH AT BEDTIME FOR 1 WEEK THEN TWICE A DAY FOR 1 WEEK THEN 1 THREE TIMES A DAY MAXIMUM DAILY DOSE = 3 SOLD: 05/02/2021 [facility] 300 mg 05/01/2021 12:00:00 AM EDT capsule 90 TAKE 1 CAPSULE BY MOUTH AT BEDTIME FOR 1 WEEK THEN TWICE A DAY FOR 1 WEEK THEN 1 THREE TIMES A DAY MAXIMUM DAILY DOSE = 3 TAKE 1 CAPSULE BY MOUTH AT BEDTIME FOR 1 WEEK THEN TWICE A DAY FOR 1 WEEK THEN 1 THREE TIMES A DAY MAXIMUM DAILY DOSE = 3 SOLD: 08/25/2021 [facility] 60 mg 04/29/2021 12:00:00 AM EDT capsule,delayed release (DR/EC) 30 TAKE ONE CAPSULE BY MOUTH EVERY MORNING TAKE ONE CAPSULE BY MOUTH EVERY MORNING SOLD: 06/01/2021 [facility] 5 mg 04/29/2021 12:00:00 AM EDT tablet,delayed release (DR/EC) 4 TAKE 4 TABLETS BY MOUTH ONCE TAKE 4 TABLETS BY MOUTH ONCE SOLD: 05/02/2021 [facility] POLYETHYLENE GLYCOL 3350 924163 MG / Pot assium Chloride 1480 MG / Sodium Bicarbonate 5720 MG / Sodium Chloride 41022 MG Powder for Oral Solution SODIUM CHLORIDE/NAHCO3/KCL/PEG 04/29/2021 12:00:00 AM EDT recon soln 4000 DRINK THE LIQUID PER THE PRE PROCEDURE INSTRUCTIONS DRINK THE LIQUID PER THE PRE PROCEDURE INSTRUCTIONS SOLD: 05/02/2021 [facility] 60 mg 04/29/2021 12:00:00 AM EDT capsule,delayed release (DR/EC) 30 TAKE ONE CAPSULE BY MOUTH EVERY MORNING TAKE ONE CAPSULE BY MOUTH EVERY MORNING SOLD: 05/02/2021 [facility] 60 mg 04/29/2021 12:00:00 AM EDT capsule,delayed release (DR/EC) 30 TAKE ONE CAPSULE BY MOUTH EVERY MORNING TAKE ONE CAPSULE BY MOUTH EVERY MORNING SOLD: 07/29/2021 [facility] Clenpiq Clenpiq 04/29/2021 12:00:00 AM EDT complet ed [facility] ([facility], ) 60 mg 04/29/2021 12:00:00 AM EDT capsule,delayed release (DR/EC) 30 TAKE ONE CAPSULE BY MOUTH EVERY MORNING TAKE ONE CAPSULE BY MOUTH EVERY MORNING SOLD: 06/28/2021 [facility] POLYETHYLENE GLYCOL 3350 105 MG/ML / Pot assium Chloride 0.68804 MEQ/ML / Sodium Bicarbonate 0.017 MEQ/ML / Sodium Chloride 0.0479 MEQ/ML Oral Solution [GaviLyte-N] Gavilyte-N With Flavor Pack 04/29/2021 12:00:00 AM EDT completed [facility] ([facility], ) Bisacodyl 5 MG Delayed Release Oral Tablet [Dulcolax] Dulcol ax 04/29/2021 12:00:00 AM EDT completed [facility] ([facility], ) 8 mg 04/25/2021 12:00:00 AM EDT tablet,disintegrating 1 0 DISSOLVE ONE TABLET ON THE TONGUE TWICE A DAY NEEDED DISSOLVE ONE TABLET ON THE TONGUE TWICE A DAY NEEDED SOLD: 06/01/2021 [facility] 8 mg 04/25/2021 12:00:00 AM EDT tablet,disintegrating 1 0 DISSOLVE ONE TABLET ON THE TONGUE TWICE A DAY NEEDED DISSOLVE ONE TABLET ON THE TONGUE TWICE A DAY NEEDED SOLD: 04/28/2021 [facility] 75 mg 04/23/2021 12:00:00 AM EDT capsule 60 TAKE 1 CAPSULE BY MOUTH AT BEDTIME FOR 3 NIGHT THEN 1 TWICE A DAY MAXIMUM DAILY DOSE = 2 TAKE 1 CAPSULE BY MOUTH AT BEDTIME FOR 3 NIGHT THEN 1 TWICE A DAY MAXIMUM DAILY DOSE = 2 SOLD: 04/23/2021 [facility] 100 mg 04/09/2021 12:00:00 AM EDT tablet 9 TAKE 1/2 - 1 TABLET BY MOUTH AT ONSET OF HEADACHE MAY REPEAT ONCE AFTER 2 HOURS MAXIMUM DAILY DOSE = TWO TABLETS TAKE 1/2 - 1 TABLET BY MOUTH AT ONSET OF HEADACHE MAY REPEAT ONCE AFTER 2 HOURS MAXIMUM DAILY DOSE = TWO TABLETS SOLD: 06/28/2021 [facility] 100 mg 04/09/2021 12:00:00 AM EDT tablet 9 TAKE 1/2 - 1 TABLET BY MOUTH AT ONSET OF HEADACHE MAY REPEAT ONCE AFTER 2 HOURS MAXIMUM DAILY DOSE = TWO TABLETS TAKE 1/2 - 1 TABLET BY MOUTH AT ONSET OF HEADACHE MAY REPEAT ONCE AFTER 2 HOURS MAXIMUM DAILY DOSE = TWO TABLETS SOLD: 04/11/2021 [facility] 10 mg 04/07/2021 12:00:00 AM EDT tablet 30 TAKE ONE TABLET BY MOUTH EVERY DAY TAKE ONE TABLET BY MOUTH EVERY DAY SOLD: 06/09/2021 [facility] 500 mg 04/07/2021 12:00:00 AM EDT tablet 20 TAKE ONE TABLET BY MOUTH EVERY 12 HOURS FOR 10 DAYS TAKE ONE TABLET BY MOUTH EVERY 12 HOURS FOR 10 DAYS SO LD: 04/07/2021 [facility] 10 mg 04/07/2021 12:00:00 AM EDT tablet 30 TAKE ONE TABLET BY MOUTH EVERY DAY TAKE ONE TABLET BY MOUTH EVERY DAY SOLD: 08/11/2021 [facility] 10 mg 04/07/2021 12:00:00 AM EDT tablet 30 TAKE ONE TABLET BY MOUTH EVERY DAY TAKE ONE TABLET BY MOUTH EVERY DAY SOLD: 05/07/2021 [facility] 10 mg 04/07/2021 12:00:00 AM EDT tablet 30 TAKE ONE TABLET BY MOUTH EVERY DAY TAKE ONE TABLET BY MOUTH EVERY DAY SOLD: 04/07/2021 [facility] 150 mg 04/07/2021 12:00:00 AM EDT tablet 1 TAKE ONE TABLET BY MOUTH EVERY DAY TAKE ONE TABLET BY MOUTH EVERY DAY SOLD: 04/07/2021 [facility] 10 mg 04/07/2021 12:00:00 AM EDT tablet 30 TAKE ONE TABLET BY MOUTH EVERY DAY TAKE ONE TABLET BY MOUTH EVERY DAY SOLD: 07/10/2021 [facility] 113 mcg-14 mcg/actuation 03/10/2021 12:00:00 AM EDT aero powdr breath act w/sensor 1 INHALE ONE PUFF BY MOUTH TWICE A DAY INHALE ONE PUFF BY MOUTH TWICE A DAY SOLD: 03/12/2021 [facility] 113 mcg-14 mcg/actuation 03/10/2021 12:00:00 AM EDT aero powdr breath act w/sensor 1 INHALE ONE PUFF BY MOUTH TWICE A DAY INHALE ONE PUFF BY MOUTH TWICE A DAY SOLD: 05/15/2021 [facility] 113 mcg-14 mcg/actuation 03/10/2021 12:00:00 AM EDT aero powdr breath act w/sensor 1 INHALE ONE PUFF BY MOUTH TWICE A DAY INHALE ONE PUFF BY MOUTH TWICE A DAY SOLD: 06/23/2021 [facility] 113 mcg-14 mcg/actuation 03/10/2021 12:00:00 AM EDT aero powdr breath act w/sensor 1 INHALE ONE PUFF BY MOUTH TWICE A DAY INHALE ONE PUFF BY MOUTH TWICE A DAY SOLD: 04/15/2021 [facility] 5 % 03/04/2021 12:00:00 AM EDT dropperette 60 INSTILL 1 DROP IN EACH EYE TWO TIMES A DAY INSTILL 1 DROP IN EACH EYE TWO TIMES A DAY SOLD: 03/06/2021 [facility] Hydroxychloroquine Sulfate 200 MG Oral Tablet HYDROXYCHLOROQ UINE SULFATE 02/26/2021 12:00:00 AM EDT tablet 60 TAKE ONE TABLET BY MOUTH TWICE A DAY WITH FOOD OR MILK TAKE ONE TABLET BY MOUTH TWICE A DAY WITH FOOD OR MILK SOLD: 07/24/2021 [facility] Hydroxychloroquine Sulfate 200 MG Oral Tablet HYDROXYCHLOROQ UINE SULFATE 02/26/2021 12:00:00 AM EDT tablet 60 TAKE ONE TABLET BY MOUTH TWICE A DAY WITH FOOD OR MILK TAKE ONE TABLET BY MOUTH TWICE A DAY WITH FOOD OR MILK SOLD: 06/12/2021 [facility] Hydroxychloroquine Sulfate 200 MG Oral Tablet HYDROXYCHLOROQ UINE SULFATE 02/26/2021 12:00:00 AM EDT tablet 60 TAKE ONE TABLET BY MOUTH TWICE A DAY WITH FOOD OR MILK TAKE ONE TABLET BY MOUTH TWICE A DAY WITH FOOD OR MILK SOLD: 04/08/2021 [facility] Hydroxychloroquine Sulfate 200 MG Oral Tablet HYDROXYCHLOROQ UINE SULFATE 02/26/2021 12:00:00 AM EDT tablet 60 TAKE ONE TABLET BY MOUTH TWICE A DAY WITH FOOD OR MILK TAKE ONE TABLET BY MOUTH TWICE A DAY WITH FOOD OR MILK SOLD: 08/25/2021 [facility] Hydroxychloroquine Sulfate 200 MG Oral Tablet HYDROXYCHLOROQ UINE SULFATE 02/26/2021 12:00:00 AM EDT tablet 60 TAKE ONE TABLET BY MOUTH TWICE A DAY WITH FOOD OR MILK TAKE ONE TABLET BY MOUTH TWICE A DAY WITH FOOD OR MILK SOLD: 03/04/2021 [facility] Hydroxychloroquine Sulfate 200 MG Oral Tablet HYDROXYCHLOROQ UINE SULFATE 02/26/2021 12:00:00 AM EDT tablet 60 TAKE ONE TABLET BY MOUTH TWICE A DAY WITH FOOD OR MILK TAKE ONE TABLET BY MOUTH TWICE A DAY WITH FOOD OR MILK SOLD: 05/13/2021 [facility] Hydroxychloroquine Sulfate 200 MG Oral T ablet hydroxychloroquine 200 mg tablet TAKE ONE AND ONE HALF TABLETS BY MOUTH EVERY DAY WITH MEAL hydroxychloroquine 200 mg tablet TAKE ONE AND ONE HALF TABLETS BY MOUTH EVERY DAY WITH MEAL 02/19/2021 12:00:00 AM EDT completed hydroxychloroquine sulfate 200 MG Oral Tablet [facility] ([facility]) 2 mg 02/13/2021 12:00:00 AM EDT gum 110 USE 1 PIECE EVERY 2 HOURS NEEDED USE 1 PIECE EVERY 2 HOURS NEEDED SOLD: 02/15/2021 [facility] 2 MG Chewing Gum [facility] Nicotine Polacrilex Gum 02/13/2021 12:00:00 AM EDT active [facility] ([facility], ) valacyclovir 1000 MG Oral Tablet VALACYCLOVIR HCL 02/08/2021 12: 00:00 AM EDT tablet 30 TAKE ONE TABLET BY MOUTH EVERY D AY TAKE ONE TABLET BY MOUTH EVERY DAY SOLD: 02/09/2021 [facility] 60 mg 02/06/2021 12:00:00 AM EDT capsule,delayed release (DR/EC) 30 TAKE ONE CAPSULE BY MOUTH EVERY MORNING TAKE ONE CAPSULE BY MOUTH EVERY MORNING SOLD: 02/06/2021 [facility] 100 mg 02/06/2021 12:00:00 AM EDT tablet 9 TAKE ONE-HALF TO ONE TABLET BY MOUTH AT ONSET ON HEADACHE, MAY REPEAT ONCE AFTER 2 HOURS TAKE ONE-HALF TO ONE TABLET BY MOUTH AT ONSET ON HEADACHE, MAY REPEAT ONCE AFTER 2 HOURS SOLD: 02/06/2021 [facility] 60 mg 02/06/2021 12:00:00 AM EDT capsule,delayed release (DR/EC) 30 TAKE ONE CAPSULE BY MOUTH EVERY MORNING TAKE ONE CAPSULE BY MOUTH EVERY MORNING SOLD: 04/04/2021 [facility] Hydroxychloroquine Sulfate 200 MG Oral Tablet HYDROXYCHLOROQ UINE SULFATE 02/06/2021 12:00:00 AM EDT tablet 45 TAKE ONE AND ONE-HALF TABLETS BY MOUTH EVERY DAY WITH MEAL TAKE ONE AND ONE-HALF TABLETS BY MOUTH EVERY DAY WITH MEAL SOLD: 02/06/2021 [facility] 60 mg 02/06/2021 12:00:00 AM EDT capsule,delayed release (DR/EC) 30 TAKE ONE CAPSULE BY MOUTH EVERY MORNING TAKE ONE CAPSULE BY MOUTH EVERY MORNING SOLD: 03/09/2021 [facility] duloxetine 60 MG Delayed Release Oral Capsule Duloxetine HCL 02/05/2021 12:00:00 AM EDT ORAL active [facility] ([facility], ) 94-3 % 01/07/2021 12:00:00 AM EST ointment 3 APPLY 1/4 STRIP INTO LOWER LIDS AT BEDTIME IN EACH EYE DIRECTED APPLY 1/4 STRIP INTO LOWER LIDS AT BEDTI ME IN EACH EYE DIRECTED SOLD: 01/07/2021 [facility] 3.5 mg/g-10,000 unit/g-0.1 % 01/07/2021 12:00:00 AM EST oint ment 3 APPLY 1/4 STRIP INTO LOWER LIDS AT BEDTIME IN EACH EYE DIRECTED APPLY 1/4 STRIP INTO LOWER LIDS AT BEDTIME IN EACH EYE DIRECTED SOLD: 01/07/2021 [facility] 3.5mg/mL-10,000 unit/mL-0.1 % 01/07/2021 12:00:00 AM EST annabelle ps,suspension 5 USE 1 DROP IN EACH EYE FOUR TIMES A DAY FOR 2 DAYS THEN THREE TIMES A DAY FOR 1 DAY THEN TWO TIMES A DAY FOR 1 DAY THEN ONCE DAILY FOR 1 DAY THEN STOP USE 1 DROP IN EACH EYE FOUR TIMES A DAY FOR 2 DAYS THEN THREE TIMES A DAY FOR 1 DAY THEN TWO TIMES A DAY FOR 1 DAY THEN ONCE DAILY FOR 1 DAY THEN STOP SOLD: 01/07/2021 [facility] 113-14 mcg/actuation 01/02/2021 12:00:00 AM EST aerosol powdr breath activated 1 INHALE TWO PUFFS BY MOUTH TWICE A DAY INHALE TWO PUFFS BY MOUTH TWICE A DAY SOLD: 01/06/2021 [facility] 90 mcg/actuation 01/02/2021 12:00:00 AM EST HFA aerosol inha ler 18 INHALE TWO PUFFS BY MOUTH FOUR TIMES A DAY NEEDED INHALE TWO PUFFS BY MOUTH FOUR TIMES A DAY NEEDED SOLD: 06/12/2021 [facility] 90 mcg/actuation 01/02/2021 12:00:00 AM EST HFA aerosol inha ler 18 INHALE TWO PUFFS BY MOUTH FOUR TIMES A DAY NEEDED INHALE TWO PUFFS BY MOUTH FOUR TIMES A DAY NEEDED SOLD: 01/06/2021 [facility] 90 mcg/actuation 01/02/2021 12:00:00 AM EST HFA aerosol inha ler 18 INHALE TWO PUFFS BY MOUTH FOUR TIMES A DAY NEEDED INHALE TWO PUFFS BY MOUTH FOUR TIMES A DAY NEEDED SOLD: 05/13/2021 [facility] 200 ACTUAT Albuterol 0.09 MG/ACTUAT Metered Dose Inhal er [Ventolin] Ventolin HFA 01/02/2021 12:00:00 AM EST RESPIRATORY active [facility] ([facility], ) Airduo Digihaler Airduo Digihaler 01/02/2021 12:00:00 AM EST RESPIRATORY active [facility] ([facility], ) 90 mcg/actuation 01/02/2021 12:00:00 AM EST HFA aerosol inha ler 18 INHALE TWO PUFFS BY MOUTH FOUR TIMES A DAY NEEDED INHALE TWO PUFFS BY MOUTH FOUR TIMES A DAY NEEDED SOLD: 04/11/2021 [facility] 90 mcg/actuation 01/02/2021 12:00:00 AM EST HFA aerosol inha ler 18 INHALE TWO PUFFS BY MOUTH FOUR TIMES A DAY NEEDED INHALE TWO PUFFS BY MOUTH FOUR TIMES A DAY NEEDED SOLD: 03/06/2021 [facility] 113-14 mcg/actuation 01/02/2021 12:00:00 AM EST aerosol powdr breath activated 1 INHALE TWO PUFFS BY MOUTH TWICE A DAY INHALE TWO PUFFS BY MOUTH TWICE A DAY SOLD: 01/21/2021 [facility] 90 mcg/actuation 01/02/2021 12:00:00 AM EST HFA aerosol inha ler 18 INHALE TWO PUFFS BY MOUTH FOUR TIMES A DAY NEEDED INHALE TWO PUFFS BY MOUTH FOUR TIMES A DAY NEEDED SOLD: 02/06/2021 [facility] 100 mg 12/05/2020 12:00:00 AM EST tablet 9 ONE-HALF TO ONE TABLET BY MOUTH AT ONSET OF HEADACHE, MAY REPEAT ONCE AFTER 2 HOURS ONE-HALF TO ONE TABLET BY MOUTH AT ONSET OF HEADACHE, MAY REPEAT ONCE AFTER 2 HOURS SOLD: 12/08/2020 [facility] 30 mg 12/04/2020 12:00:00 AM EST capsule,delayed release (DR/EC) 30 TAKE ONE CAPSULE BY MOUTH EVERY MORNING TAKE ONE CAPSULE BY MOUTH EVERY MORNING SOLD: 12/08/2020 [facility] 30 mg 11/15/2020 12:00:00 AM EST capsule,delayed release (DR/EC) 30 TAKE ONE CAPSULE BY MOUTH EVERY MORNING TAKE ONE CAPSULE BY MOUTH EVERY MORNING SOLD: 11/18/2020 [facility] duloxetine 30 MG Delayed Release Oral Capsule Duloxetine HCL 11/15/2020 12:00:00 AM EST ORAL completed [facility] ([facility], ) 30 mg 11/15/2020 12:00:00 AM EST capsule,delayed release (DR/EC) 30 TAKE ONE CAPSULE BY MOUTH EVERY MORNING TAKE ONE CAPSULE BY MOUTH EVERY MORNING SOLD: 01/06/2021 [facility] Amitriptyline Hydrochloride 10 MG Oral Tablet Amitriptyline HCL 10/23/2020 12:00:00 AM EST ORAL completed [facility] ([facility], ) Alprazolam 0.25 MG Oral Tablet Alprazolam 10/23/2020 12:00:00 AM EST ORAL active [facility] ([facility], ) 100 mg 10/23/2020 12:00:00 AM EST tablet 9 TAKE ONE-HALF TO ONE TABLET BY MOUTH AT ONSET OF HEADACHE, MAY REPEAT ONCE AFTER 2 HOURS NEEDED TAKE ONE- HALF TO ONE TABLET BY MOUTH AT ONSET OF HEADACHE, MAY REPEAT ONCE AFTER 2 HOURS NEEDED SOLD: 01/06/2021 [facility] Sumatriptan 100 MG Oral Tablet Sumatriptan Succinate 10/23/2020 12:00:00 AM EST ORAL active [facility] ( [facility], ) 10 mg 10/23/2020 12:00:00 AM EST tablet 60 TAKE ONE TABLET BY MOUTH AT BEDTIME FOR 1 WEEK, THEN TAKE TWO TABLETS BY MOUTH AT BEDTIME TAKE ONE TABLET BY MOUTH AT BEDTIME FOR 1 WEEK, THEN TAKE TWO TABLETS BY MOUTH AT BEDTIME SOLD: 10/24/2020 [facility] 100 mg 10/23/2020 12:00:00 AM EST tablet 9 TAKE ONE-HALF TO ONE TABLET BY MOUTH AT ONSET OF HEADACHE, MAY REPEAT ONCE AFTER 2 HOURS NEEDED TAKE ONE- HALF TO ONE TABLET BY MOUTH AT ONSET OF HEADACHE, MAY REPEAT ONCE AFTER 2 HOURS NEEDED SOLD: 10/24/2020 [facility] Alprazolam 0.25 MG Oral Tablet ALPRAZOLAM 10/23/2020 12:00:00 AM EST t ablet 2 ONE TABLET BY MOUTH HALF AN HOUR BEFORE MRI SCAN. MAY REPEAT FOR ONE DOSE NEEDED MAXIMUM DAILY DOSE = TWO TABLETS ONE TABLET BY MOUTH HALF AN HOUR BEFORE MRI SCAN. MAY REPEAT FOR ONE DOSE NEEDED MAXIMUM DAILY DOSE = TWO TABLETS SOLD: 10/24/2020 [facility] 100 mg 10/23/2020 12:00:00 AM EST tablet 9 TAKE ONE-HALF TO ONE TABLET BY MOUTH AT ONSET OF HEADACHE, MAY REPEAT ONCE AFTER 2 HOURS NEEDED TAKE ONE- HALF TO ONE TABLET BY MOUTH AT ONSET OF HEADACHE, MAY REPEAT ONCE AFTER 2 HOURS NEEDED SOLD: 11/18/2020 [facility] 0.05 % 10/22/2020 12:00:00 AM EST dropperette 60 INSTILL 1 DROP INTO AFFECTED TWO TIMES A DAY INSTILL 1 DROP INTO AFFECTED TWO TIMES A DAY SOLD: 12/03/2020 [facility] Hydroxychloroquine Sulfate 200 MG Oral Tablet HYDROXYCHLOROQ UINE SULFATE 10/22/2020 12:00:00 AM EST tablet 30 TAKE ONE TABLE T BY MOUTH EVERY DAY TAKE ONE TABLET BY MOUTH EVERY DAY SOLD: 01/19/2021 [facility] 0.05 % 10/22/2020 12:00:00 AM EST dropperette 60 INSTILL 1 DROP INTO AFFECTED TWO TIMES A DAY INSTILL 1 DROP INTO AFFECTED TWO TIMES A DAY SOLD: 10/23/2020 [facility] 0.05 % 10/22/2020 12:00:00 AM EST dropperette 60 INSTILL 1 DROP INTO AFFECTED TWO TIMES A DAY INSTILL 1 DROP INTO AFFECTED TWO TIMES A DAY SOLD: 01/16/2021 [facility] Hydroxychloroquine Sulfate 200 MG Oral Tablet HYDROXYCHLOROQ UINE SULFATE 10/22/2020 12:00:00 AM EST tablet 30 TAKE ONE TABLE T BY MOUTH EVERY DAY TAKE ONE TABLET BY MOUTH EVERY DAY SOLD: 11/21/2020 [facility] Hydroxychloroquine Sulfate 200 MG Oral Tablet HYDROXYCHLOROQ UINE SULFATE 10/22/2020 12:00:00 AM EST tablet 30 TAKE ONE TABLE T BY MOUTH EVERY DAY TAKE ONE TABLET BY MOUTH EVERY DAY SOLD: 10/23/2020 [facility] Hydroxychloroquine Sulfate 200 MG Oral Tablet HYDROXYCHLOROQ UINE SULFATE 10/22/2020 12:00:00 AM EST tablet 30 TAKE ONE TABLE T BY MOUTH EVERY DAY TAKE ONE TABLET BY MOUTH EVERY DAY SOLD: 12/21/2020 [facility] Amitriptyline Hydrochloride 10 MG Oral T ablet amitriptyline 10 mg tablet TAKE ONE TABLET BY MOUTH AT BEDTIME FOR 1 WEEK THEN TAKE TWO TABLETS BY MOUTH AT BEDTIME amitriptyline 10 mg tablet TAKE ONE TABL ET BY MOUTH AT BEDTIME FOR 1 WEEK THEN TAKE TWO TABLETS BY MOUTH AT BEDTIME completed amitriptyline hydrochloride 10 MG Oral Tablet [facility] ([facility]) pregabalin 75 MG Oral Capsule pregabalin 75 mg capsule TAKE 1 CAPSULE BY MOUTH AT BEDTIME FOR 3 NIGHT THEN 1 TWICE A DAY MAXIMUM DAILY DOSE 2 pregabalin 75 mg capsule TAKE 1 CAPSULE BY MOUTH AT BEDTIME FOR 3 NIGHT THEN 1 TWICE A DAY MAXIMUM DAILY DOSE 2 completed pregabalin 75 MG Oral Capsule [facility] ([facility]) Nicotine 2 MG Chewing Gum nicotine (berenice crilex) 2 mg gum USE 1 PIECE EVERY 2 HOURS NEEDED nicotine (polacrilex) 2 mg gum USE 1 PIE CE EVERY 2 HOURS NEEDED completed nicotine 2 MG C hewing Gum [facility]A ([facility]) Nicotine 2 MG Chewing Gum nicotine (berenice crilex) 2 mg gum USE 1 PIECE EVERY 2 HOURS NEEDED nicotine (polacrilex) 2 mg gum USE 1 PIE CE EVERY 2 HOURS NEEDED completed nicotine 2 MG C hewing Gum OLATHE ([facility]) Alprazolam 0.25 MG Oral Tablet alprazola m 0.25 mg tablet ONE TABLET BY MOUTH HALF AN HOUR BEFORE MRI SCAN. MAY REPEAT FOR ONE DOSE NEEDED MAXIMUM DAILY DOSE TWO TABLETS alprazolam 0.25 mg tablet ONE TABLET BY MOUTH HALF AN HOUR BEFORE MRI SCAN. MAY REPEAT FOR ONE DOSE NEEDED MAXIMUM DAILY DOSE TWO TABLETS completed alprazolam 0.2 5 MG Oral Tablet OL[facility] ([facility]) duloxetine 30 MG Delayed Release Oral Ca psule duloxetine 30 mg capsule,delayed release TAKE ONE CAPSULE BY MOUTH EVERY MORNING duloxetine 30 mg capsule,delayed release TAKE ONE CAPSULE BY MOUTH EVERY MORNING completed duloxetine 30 MG Delayed Release Oral Capsule OLATHE ([facility]) Erythromycin 0.005 MG/MG Ophthalmic Oint ment erythromycin 5 mg/gram (0.5 %) eye ointment APPLY 1 CM RIBBON IN BOTH EYES 6 TIMES PER DAY FOR 7 DAYS erythromycin 5 mg/gram (0.5 %) eye ointment APPLY 1 CM RIBBON IN BOTH EYES 6 TIMES PER DAY FOR 7 DAYS completed jamey thromycin 0.005 MG/MG Ophthalmic Ointment OLATHE ([facility]) Cyclosporine 0.5 MG/ML Ophthalmic Suspen darlene [Restasis] Restasis 0.05 % eye drops in a dropperette INSTILL 1 DROP INTO AFFECTED TWO TIMES A DAY Restasis 0.05 % eye drops in a dropperette INSTILL 1 DROP INTO AFFECTED TWO TIMES A DAY completed cyclos porine 0.5 MG/ML Ophthalmic Suspension [Restasis] OLATHE ([facility]) Clarithromycin 500 MG Oral Tablet clarit hromycin 500 mg tablet TAKE ONE TABLET BY MOUTH EVERY 12 HOURS FOR 10 DAYS clarithromycin 500 mg tablet TAKE ONE TA BLET BY MOUTH EVERY 12 HOURS FOR 10 DAYS c ompleted clarithromycin 500 MG Oral Tablet SAMANTA ([facility]) Clarithromycin 500 MG Oral Tablet clarit hromycin 500 mg tablet TAKE ONE TABLET BY MOUTH EVERY 12 HOURS FOR 10 DAYS clarithromycin 500 mg tablet TAKE ONE TA BLET BY MOUTH EVERY 12 HOURS FOR 10 DAYS c ompleted clarithromycin 500 MG Oral Tablet [facility] ([facility]) Alprazolam 0.25 MG Oral Tablet alprazola m 0.25 mg tablet ONE TABLET BY MOUTH HALF AN HOUR BEFORE MRI SCAN. MAY REPEAT FOR ONE DOSE NEEDED MAXIMUM DAILY DOSE TWO TABLETS alprazolam 0.25 mg tablet ONE TABLET BY MOUTH HALF AN HOUR BEFORE MRI SCAN. MAY REPEAT FOR ONE DOSE NEEDED MAXIMUM DAILY DOSE TWO TABLETS completed alprazolam 0.2 5 MG Oral Tablet [facility] ([facility]) Amitriptyline Hydrochloride 10 MG Oral T ablet amitriptyline 10 mg tablet TAKE ONE TABLET BY MOUTH AT BEDTIME FOR 1 WEEK THEN TAKE TWO TABLETS BY MOUTH AT BEDTIME amitriptyline 10 mg tablet TAKE ONE TABL ET BY MOUTH AT BEDTIME FOR 1 WEEK THEN TAKE TWO TABLETS BY MOUTH AT BEDTIME completed amitriptyline hydrochloride 10 MG Oral Tablet [facility] ([facility]) Erythromycin 0.005 MG/MG Ophthalmic Oint ment erythromycin 5 mg/gram (0.5 %) eye ointment APPLY 1 CM RIBBON IN BOTH EYES 6 TIMES PER DAY FOR 7 DAYS erythromycin 5 mg/gram (0.5 %) eye ointment APPLY 1 CM RIBBON IN BOTH EYES 6 TIMES PER DAY FOR 7 DAYS completed jamey thromycin 0.005 MG/MG Ophthalmic Ointment [facility] ([facility]) Dexamethasone 1 MG/ML / Neomycin 3.5 MG/ ML / Polymyxin B 84105 UNT/ML Ophthalmic Suspension txzyxeex-zmtuspgql-ydbamfas 3.5 mg/mL-10,000 unit/mL-0.1% eye drops USE 1 DROP IN EACH EYE FOUR TIMES A DAY FOR 2 DAYS THEN THREE TIMES A DAY FOR 1 DAY THEN TWO TIMES A DAY FOR 1 DAY THEN ONCE DAILY FOR 1 DAY cfhidbxg-ilnypfqvw-mwvagywx 3.5 mg/mL-10,000 unit/mL-0.1% eye drops USE 1 DROP IN EACH EYE FOUR TIMES A DAY FOR 2 DAYS THEN THREE TIMES A DAY FOR 1 DAY THEN TWO TIMES A DAY FOR 1 DAY THEN ONCE DAILY FOR 1 DAY completed dexamethasone 1 MG/ML / neomycin 3.5 MG/ML / polymyxin B 80465 UNT/ML Ophthalmic Suspension [facility] ([facility]) pregabalin 75 MG Oral Capsule pregabalin 75 mg capsule TAKE 1 CAPSULE BY MOUTH AT BEDTIME FOR 3 NIGHT THEN 1 TWICE A DAY MAXIMUM DAILY DOSE 2 pregabalin 75 mg capsule TAKE 1 CAPSULE BY MOUTH AT BEDTIME FOR 3 NIGHT THEN 1 TWICE A DAY MAXIMUM DAILY DOSE 2 completed pregabalin 75 MG Oral Capsule [facility] ([facility]) duloxetine 30 MG Delayed Release Oral Ca psule duloxetine 30 mg capsule,delayed release TAKE ONE CAPSULE BY MOUTH EVERY MORNING duloxetine 30 mg capsule,delayed release TAKE ONE CAPSULE BY MOUTH EVERY MORNING completed duloxetine 30 MG Delayed Release Oral Capsule [facility] ([facility]) Erythromycin 0.005 MG/MG Ophthalmic Oint ment erythromycin 5 mg/gram (0.5 %) eye ointment APPLY 1 CM RIBBON IN BOTH EYES 6 TIMES PER DAY FOR 7 DAYS erythromycin 5 mg/gram (0.5 %) eye ointment APPLY 1 CM RIBBON IN BOTH EYES 6 TIMES PER DAY FOR 7 DAYS completed jamey thromycin 0.005 MG/MG Ophthalmic Ointment [facility] ([facility]) Amitriptyline Hydrochloride 10 MG Oral T ablet amitriptyline 10 mg tablet TAKE ONE TABLET BY MOUTH AT BEDTIME FOR 1 WEEK THEN TAKE TWO TABLETS BY MOUTH AT BEDTIME amitriptyline 10 mg tablet TAKE ONE TABL ET BY MOUTH AT BEDTIME FOR 1 WEEK THEN TAKE TWO TABLETS BY MOUTH AT BEDTIME completed amitriptyline hydrochloride 10 MG Oral Tablet [facility] ([facility]) Fluconazole 150 MG Oral Tablet fluconazo le 150 mg tablet TAKE ONE TABLET BY MOUTH EVERY DAY fluconazole 150 mg tablet TAKE ONE TABLET BY MOUTH EVERY DAY completed fluconazole 15 0 MG Oral Tablet [facility] ([facility]) Alprazolam 0.25 MG Oral Tablet alprazola m 0.25 mg tablet ONE TABLET BY MOUTH HALF AN HOUR BEFORE MRI SCAN. MAY REPEAT FOR ONE DOSE NEEDED MAXIMUM DAILY DOSE TWO TABLETS alprazolam 0.25 mg tablet ONE TABLET BY MOUTH HALF AN HOUR BEFORE MRI SCAN. MAY REPEAT FOR ONE DOSE NEEDED MAXIMUM DAILY DOSE TWO TABLETS completed alprazolam 0.2 5 MG Oral Tablet [facility] ([facility]) Dexamethasone 0.001 MG/MG / Neomycin 0.0 035 MG/MG / Polymyxin B 10 UNT/MG Ophthalmic Ointment neomycin 3.5 mg/g-polymyxin B 10,000 unit/g-dexameth 0.1 % eye oint APPLY 1/4 STRIP INTO LOWER LIDS AT BEDTIME IN EACH EYE DIRECTED neomycin 3.5 mg/g-polymyxin B 10,000 unit/g-dexameth 0.1 % eye oint APPLY 1/4 STRIP INTO LOWER LIDS AT BEDTIME IN EACH EYE DIRECTED completed dexamethasone 0.001 MG/MG / neomycin 0.0035 MG/MG / polymyxin B 10 UNT/MG Ophthalmic Ointment [facility] ([facility]) Dexamethasone 0.001 MG/MG / Neomycin 0.0 035 MG/MG / Polymyxin B 10 UNT/MG Ophthalmic Ointment neomycin 3.5 mg/g-polymyxin B 10,000 unit/g-dexameth 0.1 % eye oint APPLY 1/4 STRIP INTO LOWER LIDS AT BEDTIME IN EACH EYE DIRECTED neomycin 3.5 mg/g-polymyxin B 10,000 unit/g-dexameth 0.1 % eye oint APPLY 1/4 STRIP INTO LOWER LIDS AT BEDTIME IN EACH EYE DIRECTED completed dexamethasone 0.001 MG/MG / neomycin 0.0035 MG/MG / polymyxin B 10 UNT/MG Ophthalmic Ointment [facility] ([facility]) Dexamethasone 0.001 MG/MG / Neomycin 0.0 035 MG/MG / Polymyxin B 10 UNT/MG Ophthalmic Ointment neomycin 3.5 mg/g-polymyxin B 10,000 unit/g-dexameth 0.1 % eye oint APPLY 1/4 STRIP INTO LOWER LIDS AT BEDTIME IN EACH EYE DIRECTED neomycin 3.5 mg/g-polymyxin B 10,000 unit/g-dexameth 0.1 % eye oint APPLY 1/4 STRIP INTO LOWER LIDS AT BEDTIME IN EACH EYE DIRECTED completed dexamethasone 0.001 MG/MG / neomycin 0.0035 MG/MG / polymyxin B 10 UNT/MG Ophthalmic Ointment [facility] ([facility]) Nicotine 2 MG Chewing Gum nicotine (berenice crilex) 2 mg gum USE 1 PIECE EVERY 2 HOURS NEEDED nicotine (polacrilex) 2 mg gum USE 1 PIE CE EVERY 2 HOURS NEEDED completed nicotine 2 MG C hewing Gum [facility] ([facility]) Amitriptyline Hydrochloride 10 MG Oral T ablet amitriptyline 10 mg tablet TAKE ONE TABLET BY MOUTH AT BEDTIME FOR 1 WEEK THEN TAKE TWO TABLETS BY MOUTH AT BEDTIME amitriptyline 10 mg tablet TAKE ONE TABL ET BY MOUTH AT BEDTIME FOR 1 WEEK THEN TAKE TWO TABLETS BY MOUTH AT BEDTIME completed amitriptyline hydrochloride 10 MG Oral Tablet [facility]) Cyclosporine 0.5 MG/ML Ophthalmic Suspen darlene [Restasis] Restasis 0.05 % eye drops in a dropperette INSTILL 1 DROP INTO AFFECTED TWO TIMES A DAY Restasis 0.05 % eye drops in a dropperette INSTILL 1 DROP INTO AFFECTED TWO TIMES A DAY completed cyclos porine 0.5 MG/ML Ophthalmic Suspension [Restasis] [facility]) Dexamethasone 1 MG/ML / Neomycin 3.5 MG/ ML / Polymyxin B 64932 UNT/ML Ophthalmic Suspension ryzgzwum-ypbrrktbv-rcbnxjac 3.5 mg/mL-10,000 unit/mL-0.1% eye drops USE 1 DROP IN EACH EYE FOUR TIMES A DAY FOR 2 DAYS THEN THREE TIMES A DAY FOR 1 DAY THEN TWO TIMES A DAY FOR 1 DAY THEN ONCE DAILY FOR 1 DAY fimtkbhy-gvwuvmvuu-cbairexl 3.5 mg/mL-10,000 unit/mL-0.1% eye drops USE 1 DROP IN EACH EYE FOUR TIMES A DAY FOR 2 DAYS THEN THREE TIMES A DAY FOR 1 DAY THEN TWO TIMES A DAY FOR 1 DAY THEN ONCE DAILY FOR 1 DAY completed dexamethasone 1 MG/ML / neomycin 3.5 MG/ML / polymyxin B 18441 UNT/ML Ophthalmic Suspension [facility]) duloxetine 30 MG Delayed Release Oral Ca psule duloxetine 30 mg capsule,delayed release TAKE ONE CAPSULE BY MOUTH EVERY MORNING duloxetine 30 mg capsule,delayed release TAKE ONE CAPSULE BY MOUTH EVERY MORNING completed duloxetine 30 MG Delayed Release Oral Capsule [facility] ([facility]) duloxetine 30 MG Delayed Release Oral Ca psule duloxetine 30 mg capsule,delayed release TAKE ONE CAPSULE BY MOUTH EVERY MORNING duloxetine 30 mg capsule,delayed release TAKE ONE CAPSULE BY MOUTH EVERY MORNING completed duloxetine 30 MG Delayed Release Oral Capsule [facility] ([facility]) Alprazolam 0.25 MG Oral Tablet alprazola m 0.25 mg tablet ONE TABLET BY MOUTH HALF AN HOUR BEFORE MRI SCAN. MAY REPEAT FOR ONE DOSE NEEDED MAXIMUM DAILY DOSE TWO TABLETS alprazolam 0.25 mg tablet ONE TABLET BY MOUTH HALF AN HOUR BEFORE MRI SCAN. MAY REPEAT FOR ONE DOSE NEEDED MAXIMUM DAILY DOSE TWO TABLETS completed alprazolam 0.2 5 MG Oral Tablet [facility] ([facility]) Cyclosporine 0.5 MG/ML Ophthalmic Suspen darlene [Restasis] Restasis 0.05 % eye drops in a dropperette INSTILL 1 DROP INTO AFFECTED TWO TIMES A DAY Restasis 0.05 % eye drops in a dropperette INSTILL 1 DROP INTO AFFECTED TWO TIMES A DAY completed cyclos porine 0.5 MG/ML Ophthalmic Suspension [Restasis] [facility] ([facility]) Clarithromycin 500 MG Oral Tablet clarit hromycin 500 mg tablet TAKE ONE TABLET BY MOUTH EVERY 12 HOURS FOR 10 DAYS clarithromycin 500 mg tablet TAKE ONE TA BLET BY MOUTH EVERY 12 HOURS FOR 10 DAYS c ompleted clarithromycin 500 MG Oral Tablet [facility] ([facility]) Bisacodyl 5 MG Delayed Release Oral Tabl et Gentle Laxative (bisacodyl) 5 mg tablet,delayed release Gentle Laxative (bisacodyl) 5 mg tablet,delayed releas e completed bisacodyl 5 MG Delayed Release Oral Tablet [facility] ([facility]) Dexamethasone 1 MG/ML / Neomycin 3.5 MG/ ML / Polymyxin B 46079 UNT/ML Ophthalmic Suspension bzdhvqqh-vgyicllsd-avvdkedr 3.5 mg/mL-10,000 unit/mL-0.1% eye drops USE 1 DROP IN EACH EYE FOUR TIMES A DAY FOR 2 DAYS THEN THREE TIMES A DAY FOR 1 DAY THEN TWO TIMES A DAY FOR 1 DAY THEN ONCE DAILY FOR 1 DAY szhxcpjr-muqjyhgro-ihvvvjdd 3.5 mg/mL-10,000 unit/mL-0.1% eye drops USE 1 DROP IN EACH EYE FOUR TIMES A DAY FOR 2 DAYS THEN THREE TIMES A DAY FOR 1 DAY THEN TWO TIMES A DAY FOR 1 DAY THEN ONCE DAILY FOR 1 DAY completed dexamethasone 1 MG/ML / neomycin 3.5 MG/ML / polymyxin B 00576 UNT/ML Ophthalmic Suspension [facility] ([facility]) Erythromycin 0.005 MG/MG Ophthalmic Oint ment erythromycin 5 mg/gram (0.5 %) eye ointment APPLY 1 CM RIBBON IN BOTH EYES 6 TIMES PER DAY FOR 7 DAYS erythromycin 5 mg/gram (0.5 %) eye ointment APPLY 1 CM RIBBON IN BOTH EYES 6 TIMES PER DAY FOR 7 DAYS completed jamey thromycin 0.005 MG/MG Ophthalmic Ointment [facility] ([facility]) Insurance Providers Payer name Policy type / Coverage type Policy ID Covered libertarian ID Covered libertarian's relationship to veliz Policy Veliz Plan Information Managed Care - [facility] Community Plan P [id number] S [id number] [facility] Comm Plan Medicaid F [id number] SELF [id number] Medicaid P [id number] S [id number] Managed Care - [facility] Community Plan P [id number] S [id number] [facility] I [id number] Self [id number] [facility] I [id number] Self [id number] MEDICAID [id number] Unemployed [id number] MEDICAID [id number] SP [id number] R [facility] [id number] UMR [facility] [id number] SP [id number] UMR [facility] [id number] SP [id number] Medicaid S [id number] S [id number] [facility] [id number] SP [id number] [employer]S [id number] BCBS [facility] [id number] SP [id number] [facility] [id number] Unemploye d [id number] [facility] MCDO [id number] SP [id number] [facility]) O [id number] S [id number] [place]EDNY [id number] SP [id number] MEDICAID M [id number] S [id number] Problems, Conditions, and Diagnoses Code Display Name Description Problem Type Effective Dates Data Source(s) Fall, Left Knee Injury Fall, Left Knee Injury Diagnosi s 08/31/2021 07:57:00 PM [facility] M35.01 Sicca syndrome with keratoconjunctivitis SJOGREN SYNDROME WITH KERATOCONJUNCTIVITIS Diagnosis 08/26/2021 01:52:00 PM EDT [facility] Z79.899 Other halfway (current) drug therapy O THER CUSTODIAL (CURRENT) DRUG THERAPY Diagnosis 02/25/2021 04:00:00 PM EDT [facility] M35.00 Sicca syndrome, unspecified SICCA SYNDROME, UNSPECIFIE D Diagnosis 02/25/2021 04:00:00 PM EDT [facility] [id number] Allergic asthma without status asthmatic us Allergic asthma without status asthmaticus Problem 04/23/2021 12:00:00 AM EDT [facility] 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 Spondylolysis of cervi damon spine Problem 04/09/2021 12:00:00 AM EDT [facility] ([facility], ) [id number] Irritable bowel syndrome Irritable Bowel Syndrome Prob scar 02/24/2021 12:00:00 AM EDT [facility] ([facility]) [id number] Moderate persistent asthma Moderate Persistent Asthma Problem 02/24/2021 12:00:00 AM EDT [facility] ([facility]) [id number] Irritable bowel syndrome Irritable Bowel Syndrome Prob scar 02/24/2021 12:00:00 AM EDT [facility] ([facility]) [id number] Moderate persistent asthma Moderate Persistent Asthma Problem 02/24/2021 12:00:00 AM EDT [facility] ([facility]) [id number] Irritable bowel syndrome Irritable Bowel Syndrome Prob scar 02/24/2021 12:00:00 AM EDT [facility] ([facility]) [id number] Moderate persistent asthma Moderate Persistent Asthma Problem 02/24/2021 12:00:00 AM EDT [facility] ([facility]) [id number] Nicotine dependence Nicotine Dependence Problem 0 02/19/2021 12:00:00 AM EDT [facility] ([facility]) [id number] Nicotine dependence Nicotine Dependence Problem 0 02/19/2021 12:00:00 AM EDT [facility] ([facility]) [id number] Nicotine dependence Nicotine Dependence Problem 0 02/19/2021 12:00:00 AM EDT [facility] ([facility]) [id number] Nicotine dependence Nicotine Dependence Problem 0 02/19/2021 12:00:00 AM EDT [facility] ([facility]) [id number] Chronic headache disorder Chronic Headache Disorder Pr oblem 12/30/2020 12:00:00 AM EST [facility] ([facility]) [id number] Sjgren's syndrome SjGren's Syndrome Problem 0 12/30/2020 12:00:00 AM EST [facility] ([facility]) [id number] Endometriosis (clinical) Endometriosis (Clinical) Prob scar 12/30/2020 12:00:00 AM EST [facility] ([facility]) [id number] Chronic tension-type headache Chronic Tension-type Hea dache Problem 12/30/2020 12:00:00 AM EST [facility] ([facility]) [id number] Tobacco dependence syndrome Tobacco Dependence Syndrom e Problem 12/30/2020 12:00:00 AM EST - 02/19/2021 12:00:00 AM EDT [facility] ([facility]) [id number] Chronic headache disorder Chronic Headache Disorder Pr oblem 12/30/2020 12:00:00 AM EST [facility] ([facility]) [id number] Sjgren's syndrome SjGren's Syndrome Problem 0 12/30/2020 12:00:00 AM EST [facility] ([facility]) [id number] Endometriosis (clinical) Endometriosis (Clinical) Prob scar 12/30/2020 12:00:00 AM EST [facility] ([facility]) [id number] Chronic tension-type headache Chronic Tension-type Hea dache Problem 12/30/2020 12:00:00 AM EST [facility] ([facility]) [id number] Tobacco dependence syndrome Tobacco Dependence Syndrom e Problem 12/30/2020 12:00:00 AM EST - 02/19/2021 12:00:00 AM EDT [facility] ([facility]) [id number] Chronic headache disorder Chronic Headache Disorder Pr oblem 12/30/2020 12:00:00 AM EST [facility] ([facility]) [id number] Sjgren's syndrome SjGren's Syndrome Problem 0 12/30/2020 12:00:00 AM EST [facility] ([facility]) [id number] Endometriosis (clinical) Endometriosis (Clinical) Prob scar 12/30/2020 12:00:00 AM EST [facility] ([facility]) [id number] Chronic tension-type headache Chronic Tension-type Hea dache Problem 12/30/2020 12:00:00 AM EST [facility] ([facility]) [id number] Tobacco dependence syndrome Tobacco Dependence Syndrom e Problem 12/30/2020 12:00:00 AM EST - 02/19/2021 12:00:00 AM EDT [facility] ([facility]) [id number] Chronic headache disorder Chronic Headache Disorder Pr oblem 12/30/2020 12:00:00 AM EST [facility] ([facility]) 59380605 Sjgren's syndrome SjGren's Syndrome Problem 0 12/30/2020 12:00:00 AM EST [facility] ([facility]) [id number] Endometriosis (clinical) Endometriosis (Clinical) Prob scar 12/30/2020 12:00:00 AM EST [facility] ([facility]) [id number] Chronic tension-type headache Chronic Tension-type Hea dache Problem 12/30/2020 12:00:00 AM EST [facility] ([facility]) [id number] Tobacco dependence syndrome Tobacco Dependence Syndrom e Problem 12/30/2020 12:00:00 AM EST - 02/19/2021 12:00:00 AM EDT [facility] ([facility]) G56.03 Bilateral carpal tunnel syndrome Bilateral carpa l tunnel syndrome Problem 10/23/2020 12:00:00 AM EST [facility] ([facility]) 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 Id iopathic progressive polyneuropathy Problem 10/23/2020 12:00:00 AM EST [facility] ([facility]) R20.0 Skin sensation disturbance Skin sensation disturbance Problem 10/23/2020 12:00:00 AM EST [facility] ([facility]) M54.5 Low back pain Low back pain Problem 10/23/2020 12:00:00 AM EST [facility] ([facility]) M54.2 Neck pain Neck pain Problem 10/23/2020 12:00:00 AM ES T [facility] ([facility]) F51.01 Disorders of initiating and maintaining sleep Disorders of initiating and maintaining sleep Problem 10/23/2020 12:00:00 AM EST [facility] ([facility]) G44.221 Chronic tension-type headache Chronic tension-type hea dache Problem 10/23/2020 12:00:00 AM EST [facility] ([facility]) G43.719 Chronic intractable migraine without aur a Chronic intractable migraine without aura Problem 10/23/2020 12:00:00 AM EST [facility] ([facility]) 959.11 Unspecified injury of thorax, initial en counter Unspecified injury of thorax, initial encounter 07/11/2020 11:26:48 AM EDT [facility] [id number] Traumatic injury by site Traumatic Injury by Site Prob scar 07/11/2020 12:00:00 AM EDT - 12/30/2020 12:00:00 AM EST [facility] ([facility]) [id number] Traumatic injury by site Traumatic Injury by Site Prob scar 07/11/2020 12:00:00 AM EDT - 12/30/2020 12:00:00 AM EST [facility] ([facility]) [id number] Traumatic injury by site Traumatic Injury by Site Prob scar 07/11/2020 12:00:00 AM EDT - 12/30/2020 12:00:00 AM EST [facility] ([facility]) [id number] Traumatic injury by site Traumatic Injury by Site Prob scar 07/11/2020 12:00:00 AM EDT - 12/30/2020 12:00:00 AM EST [facility] ([facility]) [id number] Disorder of conjunctiva Disorder of Conjunctiva Proble 06/26/2020 12:00:00 AM EDT - 12/30/2020 12:00:00 AM EST [facility] ([facility]) [id number] Xerostomia Xerostomia Problem 06/26/2020 12:0 0:00 AM EDT - 12/30/2020 12:00:00 AM EST [facility] ([facility]) [id number] Disorder of conjunctiva Disorder of Conjunctiva Proble 06/26/2020 12:00:00 AM EDT - 12/30/2020 12:00:00 AM EST [facility] ([facility]) [id number] Xerostomia Xerostomia Problem 06/26/2020 12:0 0:00 AM EDT - 12/30/2020 12:00:00 AM EST [facility] ([facility]) [id number] Disorder of conjunctiva Disorder of Conjunctiva Proble 06/26/2020 12:00:00 AM EDT - 12/30/2020 12:00:00 AM EST [facility] ([facility]) [id number] Xerostomia Xerostomia Problem 06/26/2020 12:0 0:00 AM EDT - 12/30/2020 12:00:00 AM EST [facility] ([facility]) [id number] Disorder of conjunctiva Disorder of Conjunctiva Proble 06/26/2020 12:00:00 AM EDT - 12/30/2020 12:00:00 AM EST [facility] ([facility]) [id number] Xerostomia Xerostomia Problem 06/26/2020 12:0 0:00 AM EDT - 12/30/2020 12:00:00 AM EST [facility] ([facility]) [id number] SNOMED CT Concept SNOMED CT Concept Problem 04/19 12:00:00 AM EDT - 12/30/2020 12:00:00 AM EST [facility] ([facility]) [id number] SNOMED CT Concept SNOMED CT Concept Problem 04/19 12:00:00 AM EDT - 12/30/2020 12:00:00 AM EST [facility] ([facility]) [id number] SNOMED CT Concept SNOMED CT Concept Problem 04/19 12:00:00 AM EDT - 12/30/2020 12:00:00 AM EST [facility] ([facility]) [id number] SNOMED CT Concept SNOMED CT Concept Problem 04/19 12:00:00 AM EDT - 12/30/2020 12:00:00 AM EST [facility] ([facility]) [id number] Abdominal pain Abdominal Pain Problem 04/15/2020 12:00:00 AM EDT - 12/30/2020 12:00:00 AM EST [facility] ([facility]) [id number] Diarrhea Diarrhea Problem 04/15/2020 12:0 0:00 AM EDT - 12/30/2020 12:00:00 AM EST [facility] ([facility]) [id number] Nausea Nausea Problem 04/15/2020 12:0 0:00 AM EDT - 12/30/2020 12:00:00 AM EST [facility] ([facility]) [id number] Abdominal pain Abdominal Pain Problem 04/15/2020 12:00:00 AM EDT - 12/30/2020 12:00:00 AM EST [facility] ([facility]) [id number] Diarrhea Diarrhea Problem 04/15/2020 12:0 0:00 AM EDT - 12/30/2020 12:00:00 AM EST [facility] ([facility]) [id number] Nausea Nausea Problem 04/15/2020 12:0 0:00 AM EDT - 12/30/2020 12:00:00 AM EST [facility] ([facility]) [id number] Abdominal pain Abdominal Pain Problem 04/15/2020 12:00:00 AM EDT - 12/30/2020 12:00:00 AM EST [facility] ([facility]) [id number] Diarrhea Diarrhea Problem 04/15/2020 12:0 0:00 AM EDT - 12/30/2020 12:00:00 AM EST [facility] ([facility]) [id number] Nausea Nausea Problem 04/15/2020 12:0 0:00 AM EDT - 12/30/2020 12:00:00 AM EST [facility] ([facility]) [id number] Abdominal pain Abdominal Pain Problem 04/15/2020 12:00:00 AM EDT - 12/30/2020 12:00:00 AM EST [facility] ([facility]) [id number] Diarrhea Diarrhea Problem 04/15/2020 12:0 0:00 AM EDT - 12/30/2020 12:00:00 AM EST [facility] ([facility]) [id number] Nausea Nausea Problem 04/15/2020 12:0 0:00 AM EDT - 12/30/2020 12:00:00 AM EST [facility] ([facility]) [id number] Influenza vaccine needed Influenza Vaccine Needed Pro blem 11/30/2019 12:00:00 AM EST - 12/30/2020 12:00:00 AM EST [facility] ([facility]) [id number] Influenza vaccine needed Influenza Vaccine Needed Pro blem 11/30/2019 12:00:00 AM EST - 12/30/2020 12:00:00 AM EST [facility] ([facility]) [id number] Influenza vaccine needed Influenza Vaccine Needed Pro blem 11/30/2019 12:00:00 AM EST - 12/30/2020 12:00:00 AM EST [facility] ([facility]) [id number] Influenza vaccine needed Influenza Vaccine Needed Pro blem 11/30/2019 12:00:00 AM EST - 12/30/2020 12:00:00 AM EST [facility] ([facility]) [id number] Finding of body region Finding of Body Region Problem 09/26/2019 12:00:00 AM EST - 12/30/2020 12:00:00 AM EST [facility] ([facility]) [id number] Syphilis test finding Syphilis Test Finding Problem 09/26/2019 12:00:00 AM EST - 12/30/2020 12:00:00 AM EST [facility] ([facility]) [id number] Endocrine/metabolic screening Endocrine/metabolic Scre ening Problem 09/26/2019 12:00:00 AM EST - 12/30/2020 12:00:00 AM EST [facility] ([facility]) [id number] Acute hepatitis C Acute Hepatitis C Problem 09/26 12:00:00 AM EST - 12/30/2020 12:00:00 AM EST [facility] ([facility]) [id number] Finding of body region Finding of Body Region Problem 09/26/2019 12:00:00 AM EST - 12/30/2020 12:00:00 AM EST [facility] ([facility]) [id number] Syphilis test finding Syphilis Test Finding Problem 09/26/2019 12:00:00 AM EST - 12/30/2020 12:00:00 AM EST [facility] ([facility]) [id number] Endocrine/metabolic screening Endocrine/metabolic Scre ening Problem 09/26/2019 12:00:00 AM EST - 12/30/2020 12:00:00 AM EST [facility] ([facility]) [id number] Acute hepatitis C Acute Hepatitis C Problem 09/26 12:00:00 AM EST - 12/30/2020 12:00:00 AM EST [facility] ([facility]) [id number] Finding of body region Finding of Body Region Problem 09/26/2019 12:00:00 AM EST - 12/30/2020 12:00:00 AM EST [facility] ([facility]) [id number] Syphilis test finding Syphilis Test Finding Problem 09/26/2019 12:00:00 AM EST - 12/30/2020 12:00:00 AM EST [facility] ([facility]) [id number] Endocrine/metabolic screening Endocrine/metabolic Scre ening Problem 09/26/2019 12:00:00 AM EST - 12/30/2020 12:00:00 AM EST [facility] ([facility]) [id number] Acute hepatitis C Acute Hepatitis C Problem 09/26 12:00:00 AM EST - 12/30/2020 12:00:00 AM EST [facility] ([facility]) [id number] Finding of body region Finding of Body Region Problem 09/26/2019 12:00:00 AM EST - 12/30/2020 12:00:00 AM EST [facility] ([facility]) [id number] Syphilis test finding Syphilis Test Finding Problem 09/26/2019 12:00:00 AM EST - 12/30/2020 12:00:00 AM EST [facility] ([facility]) [id number] Endocrine/metabolic screening Endocrine/metabolic Scre ening Problem 09/26/2019 12:00:00 AM EST - 12/30/2020 12:00:00 AM EST [facility] ([facility]) [id number] Acute hepatitis C Acute Hepatitis C Problem 09/26 12:00:00 AM EST - 12/30/2020 12:00:00 AM EST [facility] ([facility]) Surgeries/Procedures Procedure Description Date Indications Data Source(s) OFFICE OUTPATIENT VISIT 10 MINUTES OFFICE/OUTPATIENT VISIT E ST [facility]ONSE GAMMA INTERFERON T-CELL SUSP TB AG RESPO NSE T-CELL SUSP 08/26/2021 12:00:00 AM [facility] COMPLEMENT ANTIGEN EACH COMPONENT COMPLEMENT ANTIGEN 08/26/2021 12:00:00 AM [facility] IAAD EIA HEPATITIS B SURFACE ANTIGEN HEPATITIS B SURFACE AG IA 08/26/2021 12:00:00 AM [facility] IAAD EIA HIV-1 AG W/HIV-1&HIV-2 ANTBDY SINGLE HIV-1 AG W/HIV -1 & HIV-2 AB 08/26/2021 12:00:00 AM [facility] CYCLIC CITRULLINATED PEPTIDE ANTIBODY CCP ANTIBODY 08/26/2021 12:00 :00 AM [facility] HEPATITIS C ANTIBODY HEPATITIS C AB TEST 08/26/2021 12:00:00 AM [facility] URINALYSIS MICROSCOPIC ONLY MICROSCOPIC EXAM OF URINE 2020 12:00:00 AM [facility] COLLECTION VENOUS BLOOD VENIPUNCTURE ROUTINE VENIPUNCTURE 12:00:00 AM [facility] SEDIMENTATION RATE RBC NON-AUTOMATED RBC SED RATE NONAUTOMAT ED 08/26/2021 12:00:00 AM [facility] BLOOD COUNT COMPLETE AUTO&AUTO DIFRNTL WBC COUNT COMPLETE CB C W/AUTO DIFF WBC 08/26/2021 12:00:00 AM [facility] CREATININE OTHER SOURCE ASSAY OF URINE CREATININE 08/26/2021 12:00: 00 AM [facility] PROTEIN XCPT REFRACTOMETRY SERUM PLASMA/WHL BLD ASSAY OF PRO TEIN SERUM 08/26/2021 12:00:00 AM [facility] HEPATITIS B CORE ANTIBODY HBCAB TOTAL HEP B CORE ANTIBODY TO PRADEEP 08/26/2021 12:00:00 AM [facility] C-REACTIVE PROTEIN C-REACTIVE PROTEIN 08/26/2021 12:00:00 AM [facility] COMPREHENSIVE METABOLIC PANEL COMPREHEN METABOLIC PANEL 08/02 12:00:00 AM [facility] Spirometry 08/19/2021 12:00:00 AM [facility] ([facility], ) OFFICE OUTPATIENT VISIT 25 MINUTES 08/19/2021 12:00:00 AM EDT [facility] ([facility]) Colonoscopy Flexible Proximal To Splenic Flexure W/Biopsy Si ngle/ 06/02/2021 12:00:00 AM EDT [facility] ([facility]) OFFICE OUTPATIENT NEW 45 MINUTES 04/23/2021 12:00:00 A M EDT [facility] ([facility]) Spirometry 02/13/2021 12:00[facility] OFFICE OUTPATIENT VISIT 15 MINUTES 02/13/2021 12:00:00 AM EDT [facility] ([facility]) TOBACCO USE CESSATION INTERMEDIATE 3-10 MINUTES 2020 12:00:00 AM EDT [facility] ([facility]) OFFICE OUTPATIENT VISIT 25 MINUTES 01/02/2021 12:00:00 AM EST [facility] ([facility]) Spirometry 12/16/2020 [facility] Bronchospasm Evaluation 12/16/2020 12:00:00 AM EST [facility] ([facility]) Plethysmography Determination Lung Volumes & Per Airway Resi st 12/16/2020 12:00:00 AM EST [facility] ([facility]) DIFFUSING CAPACITY 12/16/2020 12:00:00 AM EST [facility] ([facility]) OFFICE OUTPATIENT NEW 45 MINUTES 12/16/2020 12:00:00 A M EST [facility] ([facility]) MRI BRAIN BRAIN STEM W/O CONTRAST MATERIAL 11/25/2020 12:00:00 AM EST [facility] ([facility]) MRI BRAIN BRAIN STEM W/O CONTRAST MATERIAL 11/25/2020 12:00:00 AM EST [facility] ([facility], ) MRI SPINAL CANAL CERVICAL W/O CONTRAST MATRL 12:00:00 AM EST [facility] ([facility]) MRI SPINAL CANAL CERVICAL W/O CONTRAST MATRL 12:00:00 AM EST [facility] ([facility], ) TSTG ANS FUNCJ CARDIOVAGAL INNERVAJ PARASYMP 01/15/202 1 12:00:00 AM EST [facility] ([facility], ) TSTG ANS FUNCJ CARDIOVAGAL INNERVAJ PARASYMP 1 12:00:00 AM EST [facility] ([facility], ) TESTING AUTONOMIC NERVOUS SYSTEM FUNCTION 11/15/2020 1 2:00:00 AM EST [facility] ([facility], ) TESTING AUTONOMIC NERVOUS SYSTEM FUNCTION 11/15/2020 1 2:00:00 AM EST [facility] ([facility], ) Needle electromyography, each extremity, with related paraspinal areas, when performed, done with nerve conduction, amplitude and latency/velocity study; complete, five or more muscles studied, innervated by three or more nerves or four or more spinal levels (list separately in addition to the code for primary procedure). 11/04/2020 12:00:00 AM EST MED[facility] T ([facility], ) Needle electromyography, each extremity, with related paraspinal areas, when performed, done with nerve conduction, amplitude and latency/velocity study; complete, five or more muscles studied, innervated by three or more nerves or four or more spinal levels (list separately in addition to the code for primary procedure). 11/04/2020 12:00:00 AM EST [facility] ([facility], ) Nerve Conduction 11-12 Studies 11/04/2020 12:00:00 AM EST [facility] ([facility], ) Needle electromyography, each extremity, with related paraspinal areas, when performed, done with nerve conduction, amplitude and latency/velocity study; complete, five or more muscles studied, innervated by three or more nerves or four or more spinal levels (list separately in addition to the code for primary procedure). 10/28/2020 12:00:00 AM EST [facility] ([facility], ) Needle electromyography, each extremity, with related paraspinal areas, when performed, done with nerve conduction, amplitude and latency/velocity study; complete, five or more muscles studied, innervated by three or more nerves or four or more spinal levels (list separately in addition to the code for primary procedure). 10/28/2020 12:00:00 AM EST MED[facility] T ([facility], ) [id number] Nerve conduction studies 7-8 studies NEW 201210/28/2020 12:00:00 AM EST [facility] ([facility] ) Nerve Conduction 9-10 Studies 10/28/2020 12:00:[address] [facility] ([facility], ) Results ID Date Data Source [id number] 09/01/2021 03:55:22 PM EDT [facility] Name Value Range Interpretation Code Description Data Harleen rce(s) Supporting Document(s) ED Provider Note [facility] VHNQUd1rUvYCNlIp22/LLVseTECis9JfSHyeLKm9CAkhQCLuV7VhASN2yB5nXQQ5SYvAGpYdEdYhRNBo lbm [file] FOc4Gb4jKZTUNp5+DPaouTDxaBkuPNPXRaR5PgjiDTbxXVTIIg6N ID Date Data Source [id number] 09/01/2021 09:07:18 AM EDT [facility] Name Value Range Interpretation Code Description Data Harleen rce(s) Supporting Document(s) Operative Note [facility] TBRUFi6gOuDVWxHy99/RBYfaZTSrz8LdEOdoMCb6LSqeTAMyI6ZbJKS9gD6pABJ3YLiGUoZpKsEnPYPg lbm EoArqSQaWxZMEzJmaBJbKjMSsfShwlcTNrAJ5AhBW2BSHkJ15mPPTiFIQmO4TfOFWdVJh+Rx8IMOVcvL LmXY2AZxuL7QnTjpa19M6W/UlSAek7NBgLjM3hg88esI6M17ZXIccneonyriq2vIgSPW+/uxtVfWn6nD gzq1IKyVJT7RnIFdkDmn4yv7FeLNdo/m5/DULBrmfs xx/PuheL6480F1Fv7FRpkEHwK8OuBf/6zzmhv6p2VFRG0repllPM99QGrpFvnLnlWVdly4bumqwnk/aO fXxxOegyGYYhV+TNC30m2l+kLxO9N6zYLh/yC9c5MVVvj9b72+DZUatPWTA1ClWFyBWrPI/YwYiL9Yna A+BrF5uHjBWDaT8uHV3zyvFV0J1y/BluURIQyjmOQq 7lZywbQClxlePIJo9JXz7/21i3G5CTGvdLfapgcVM3rsdSPLyqtePbv50eIAwxR4oOH/nn8BltLMxIik qcelbmHG5aMAOkb8FUAFTglswIR1n5Of5BXNyPu/SrPTUWqF0/F57pcaMuTVVnG5y6rartd8G4sZ+Chiki [file] /43wUtC9zne98nnycFy3+/3t/bxuh9pE6qPY14 [file] FDN7fkasBS3/x02HtVU902Rc/+cannery worker/aHQjYr9jeFWgs5THUX7ZdZoW0yFElFRgOArbnlUfy9t7S5ndrP [file] ICAgICAgICAgICAgICAgICAgICAgICAgICAgICAgICAgICAgICAgICAgICAgICANCiAgICAgICAgICAg ICAgICAgICAgICAgICAgICAgICAgICAgICAgICAgIC AgICAgICAgICAgICAgICAgICAgICAgICAgICAgICAgICAgICAgICAgICAgICAgICAgICAgICAgICANCi AgICAgICAgICAgICAgICAgICAgICAgICAgICAgICAgICAgICAgICAgICAgICAgICAgICAgICAgICAgIC AgICAgICAgICAgICAgICAgICAgICAgICAgICAgICAg ICAgICAgICANCiAgICAgICAgICAgICAgICAgICAgICAgICAgICAgICAgICAgICAgICAgICAgICAgICAg ICAgICAgICAgICAgICAgICAgICAgICAgICAgICAgICAgICAgICAgICAgICAgICAgICANCiAgICAgICAg ICAgICAgICAgICAgICAgICAgICAgICAgICAgICAgIC AgICAgICAgICAgICAgICAgICAgICAgICAgICAgICAgICAgICAgICAgICAgICAgICAgICAgICAgICAgIC ANCiAgICAgICAgICAgICAgICAgICAgICAgICAgICAgICAgICAgICAgICAgICAgICAgICAgICAgICAgIC AgICAgICAgICAgICAgICAgICAgICAgICAgICAgICAg ICAgICAgICAgICANCiAgICAgICAgICAgICAgICAgICAgICAgICAgICAgICAgICAgICAgICAgICAgICAg ICAgICAgICAgICAgICAgICAgICAgICAgICAgICAgICAgICAgICAgICAgICAgICAgICAgICANCiAgICAg ICAgICAgICAgICAgICAgICAgICAgICAgICAgICAgIC AgICAgICAgICAgICAgICAgICAgICAgICAgICAgICAgICAgICAgICAgICAgICAgICAgICAgICAgICAgIC AgICANCiAgICAgICAgICAgICAgICAgICAgICAgICAgICAgICAgICAgICAgICAgICAgICAgICAgICAgIC AgICAgICAgICAgICAgICAgICAgICAgICAgICAgICAg ICAgICAgICAgICAgICANCiAgICAgICAgICAgICAgICAgICAgICAgICAgICAgICAgICAgICAgICAgICAg ICAgICAgICAgICAgICAgICAgICAgICAgICAgICAgICAgICAgICAgICAgICAgICAgICAgICAgICANCjw/ yBWfD8jtgABvryW2P9ooMx2ABw9ECQ4uu7AsZCIgOG leuqDlOlcQJzRaHIAgLcbMLnt9GCglZT0RjLCxO0DuF1PcTTzjUT3LKZYpWJRwsZAyHCXuIRPxNeU2GL WqMXtoOI0VsBGxXDkcNLRkPCTrGhZcSGApCG5LCHAyW989fhZoFr0RXm4MFpKoPT5rtn9YCZphMNUhZv iQGey7YBziMA1JeYLwjADfCUGaZBHACzQyA8tlo7Ia WdEsTIOBCAthQU9Dg7NwmSPuSVp+Xq6XNS6jw6MkNFhiETNfFR1tcd3EVItXZnLrB6ZuzQzwCK9sNPIh vYy2AAQKv1FsAWB4JM4ipFQsVTnyNEOGnKkyfBMrrtxrTUKqCSXhNJApDB9gPSRqMYF9GzIiGYZVGM5Y WVKeIJAufMUkIYLaTHZNUS3XMVxeQIR5FNShcxBlqJ AiUNdnUG9VHAQiggVoNDrrHWUFVLp+Yf2JRH6cy8CkYFidALXaAD3moe8KTPmUPcLuW3B7fDQnW5S5NR irVn1RIOBkJVNyLFvcXUNWAXbgCE5PGA3qwqJ1RB3QoSApWMLvWKCioXGnADn9F58cbYAsEVpaNK2SBT A+Js+Ii4FZBBwIHReODClDuArIEQOUsWtS8QgY3CQ k0QuG9TzTX50zUwlliBcOPpdPS3RPH6mFESjCWILUJ5TjGTsxU9uwnUvLCHaRRDYFwQaJ31hpZCrNIUc SQB9IADlOj9PCSWcF8ZjqxUwbAkhruNjAKGmGSAWRA8QTEutlrTkoADeeJrtDH59iRjlGE2LNs6ISpCv FI7hll4EvAKjIm2WHGEwGd6HNABmIINwFIQxYHJ6WL FyCdAiHHqsLVUyEHNaOXB0ZECgYMQjMT5MXvPmQPXaHEA0NZNbUHIxACGvfa5KCMGrLKLfRvN4LqMsMH XuWCJfSFyiEQNmWWCmXYG7EGUoBXQaHE8DShHnTVJeYGX1EjUaJHAlESBnby3KUYEkUBDdNwwgOWLrJL NfAWGtMZdkRAJuFXI1HJzsTMGyUAKmNA0XYtIuPGMt HPN4NCCmDMNwXQXyna4VLOQnQBUkZit6LUDpGDXtGILqXBpyNHNeCXI8LKLiVTXpCATySX5ZImQaALPd ZCsqBwElRZQlHYEesj6GXVUwOWJjSRF6WYMzNBKxDGYvHYznDXDdNJJ7CeqjJCXjZPWsUK6FDlDyQKHk GTz3DJRcMRIcUWGqii1HZTQlYHBvVJP9CTGgVYApJG ZmLYmyHJDpUVIbTlS4WDQqTXQhQD9QNjCaNCDxVTL1RvDlNFMsXHUgtz3JMNGrUXVvWSC2BaKuWCZwAM XhWKuxSUDhCTClGbn1JFYgTXDyXN8JIxGsZWUmTBR6TFwiSBCiYEDehw7CALDqJPTzHwtlSLYzGZXoLO IfITz2jkCbcSZtIMb3BO3CC6UxclSsOjAELn6Lx569 CDTaDMLcWj1LG8wfAf5iFBDyQHWUHo6EMEt4ZEF8VEmbCVTlCAThYAZeKFG2XDT0EDQsRjYdYPQ5SNY+ OWjqLUM6FvS2RKL8B1PoNRPiZQihFEw3ZqT3H9TvIUSdTE8xTHSDKg0+DQpzdGFydHhyZWYNCjEzMTU1 ZNoaZXXRCz1A ID Date Data Source [id number] 09/01/2021 08:45:46 AM EDT [facility] XR KNEE 1-2 VIEWS [place] 26028ZLRCA RES ULTInterpreted by:TIO Peraltaortable left knee in the operating room dated 09/01/2021.REASON FOR STUDY: Trauma.FINDINGS: The C-arm was utilized in the operating room for assistance in screw fixation of a patellar fracture. Alignment achieved appears to be near- anatomic. A total of 6 images were saved from this procedure.Total fluoroscopy time for the study was 18.6 seconds.This document has been electronically signed by Hany Pettit MD on 09/01/2021 8:43 AM Name Value Range Interpretation Code Description Data Harleen rce(s) Supporting Document(s) ID Date Data Source [id number] 09/01/2021 07:43:49 AM [facility] Name Value Range Interpretation Code Description Data Harleen rce(s) Supporting Document(s) [facility] SDIGIr5lYaPHDoMcg5ZfGuXyAMPjBT4zhea2Z9H2iEXmF8QntCPdj3wdK5SnP4CeLKBsGONTQY1ImEXv jb2 [file] wrJL9zGC5uUM4bQsywhYDnLw1ZCjHyp2tLpJy/Maria Elena/ lE6/lSRpnIPynhGWNDSmJWtYvlycmjOcAl0ciDpUtUGGy2yNeYviX5TFTvYfE6djw2C9gJpbRKo3slTp YMtgXBtiCoQfnE+nfE55K99cygpDwyZpDzGKSQvhqrDEPrjQZY6YbH/LZVO3ylQdebLDNYrfh8YnoZON AXU/FST3kVMNVCHHENwYSCXj8CCAMSoACZu9bwYM4G [file] OFBETIHJDXIP8Qyq+C/N+H+dhG7OG4pA50ziJmYSYAGe2dxMfmLKUXTsgOKKECaJAtQSFTJEwKalHfeQ B3AbfbTpkNsV+3WRn8oPPsXkal21Zsrb8ZPe53ekq1j3k99MHxCKzE6ATtqiJSDxnK4vZYTL/QPjfqIZ GBW0lJTw2wDARWJ8RYSRacfXZQznVg+sZn6AlHMGPV TnU5kLadUZZIyOHpuzFAwTY4D9ZzjJiajWVPXNG7cB02IozTXgWNkvVbiCYkLyhchW/fEd+in6cQ+8u7 /xEi+o0mw8UCREjpuPXcuumwrIkD8yuoa8tv3zHfvzl6jxpq5bADj2isJT1aR/o+ZKwulQhA8cdk3FeN G8/nIs0jnzG5vrMhgk/Ezh9hR982+lvWXrNm8d1xzf dH/ouf7zH3Hgdn/nG/20/HFL+kE2VAkK+fnGnGGn+8tdRSq6+pWgUd1mZsPdw+NQk8DScKdM584+Rv4c FfVk6dLhRIG1Fj2G+jQ4rsSx6+YVCbNpau3lfhy0nmlDKz0heuDO/wJIZC0mxc2PEqi/9taNfmeLcywH 7CO1BmIoT1A3Ois7/Zf4BI8Y70iGZvwbkQzINNtF+R dsW5BRCDYFBsBw/RhIyqJMBIjYTgqOVqkR2feERR3jXIEzE2BuxE5IU0ZdqolV33u3XGXalw/97Un5qx sf9Q9/2h3xpyf6L94C+TuyWn6htQgusfqPTrfhZnLN4zl0UhovfRf6e9SM58W4fsCEOk1k8WKLVW6F18 V6erULIm1f7eWjMD6L61P3dgwFUn5i4dZcWX2L31P1 irBGGq2c1vISLN9U35W4wcSXYf0u3tCPXX6Q32I2vplNya9n75J0YP6M74K2ovfDiy2Cb74rUTgyCCqU ut/0d3/do7imXEt7b7/yM04SZ+m0lBPze/9+QPhfI57+6GbQ9Aat1JMuwv6x+jIma1l3QQt36uXAyJmI W+QNmM5bWwgU6l7b+Bchv60qB676qlMmjzWFEBicIm 6oSVUy/fL9Eg0/0uQObE+/bEr5U4F5HeaNf4+RfsedZl8++/tpuHr6/VjQ+MPGzzLddAO/gS/gC/gKvo Lfwe/gG/gG/vkaIIPx09isbnZ/wV/gL/A3+Lv4+jxIg9/Ab+I4irYFOwmVA1Ft0ZfqMQfPR/m7Vu4rzy 9ZG7JEhHQSz/5cNz142p4W1Ij617cR4/F+u/fX7QI/ x5M61TN/P/Un+G9/U5de4//yO/Uk6pM01KSacgOe3GT/wgAwvbdk60pjlos4s5igxZ/gN/Cjv5mu+k3B V/C67aruf4T49E23vfhar7qg+teagkspQ0BFwRf67y0sv632d1+LP7y/alzdY7IHt6Db8Hl7Yf9O4/2N +XD0mn+N41tNKJ4opMjeOoAC5KwUE5W4A0czOD9gOD XyLp+p239ovuEn/H45t2DYnJ50tIBWH/Ab+G9/sU4FU1E66ir3/f1MB9/nZwu+z8+ZB/PzNPAN/Le/p+ tIRYH4Uu709+O21e2JQ+afrZD9r21K88STT596Ml5a6RgkdwnuRj2m6S/Mario/y/v1VA5JViWQa+7uinl TfNxJYphLhxQ3988X3o/B+Z78tta9TT4Pz6wdd+hy6 t12fY+7cxh3TsRgew+tz3n+tMI72r0LH74D06Yigp0zUNL0EbYuzbdE7W/A3+Pvy/qFAyuYo3Lzyls1n 01ZpBV/O47rpkh5U63NC/f3QwwLj19VwXb5lzVG7u5Q8/0I9+03oevQegBdsgx75gywzU3/osoug4IB7 BR/6xeauP94m+th7JH7NGP/Daqnz2LKlfg356Xgpq0 L+Cvor6K+ix28u0fNnqnuqDN/B7+Y38J11H6/mnWLTmtSB1Wm18Z9k9WKFbc5g+qvor6K/XsR8zY4f8l XTT/gyvrsTvZ8ytlxSomJL/ir6q+neymar+K/ir6q+neymar/4vmb0bHBHeayw69/D3uERSOo/9Dnsq/MvQ7 6tvzfi9S379u/H++3Tvv134ECBcQmyemtwP+3c4Jd9 JFIf5gWS9C/YVycNPuYrw/s1zFeG+swsrx2k6uT+TyS99yyUo10WZjxs5Y+hv4b+Exvc6bO5p3K+hn0V 4huO69E+YrB3sL7O/Z6K8vL0KxYeCD5l2O1Zgnl2G1Gfm08zQaiYKxhibux74s+P6ydqro9+Hyl8iZEG Gz1R91R/J/o70d+J/v0K4tv3ozz/E+C6XzvAhA+J8T gzjik0x8Nvqh0v6PjT3iGLp0x2T/tynIwt1JA9w3+R31AP+rvQ34X+FyI6by4C73sn/Z8082I0y+v7SH V2W0es2GN+2nGtRP3x3YvQss49vpmjr+D9dvOX6nVAkxQJEaG6BnE1I1sw6aQPY/r4YgQ3c29G19v9hn UhU84pmW6edN3J2iNOftGvapu0ptvwx4Ru6Zb8uP5B 7Mr7R8OkZ33zoD/Br/dcwwXK0qW+Ax/6xQ1obK0Y2bJHwwSECht6GxWaXxriBfol+xCY44XwCo4pF7B2 wn9PGceL+0pbjV+KogMnupC7pbO+BqM6ZehquujBoO+wr+H6ks8MkTT6GlzVWO7r2TzNihAjbmC6lsE+ RzoIOajPYI0x9ZvOreUha0CRE9vZbkniag+K96vor+ T9Rt2v5SfIfuYnhgQ6leU+UrmIFqzJBS1n3JqIobWqxiK4hPBBK/1N+ve31BcTQva5JiKcCjjy3FN9Ut 4Ef4K/wI/9mgWa2FkXWx9DZpvRstC/Ot9uE6TcBkXu1XuZ+7b9dn14vU5Kl2O+pxqVJUiDP7FSnt9m7/ B+Ob727Qgyt+5zGdsb57lL477H8Yo0gPZT+0qC7/1t wff+nrTzI4/223BX01EX5E7VujG/6IdN2po/M+83uLS9u57YVqZ+Tetsp9oAbxEHM/6J/xD4pPbu+ward attendant b+is/ToN+hydbpQ3aIl/E+O40JpYX5G+DmZjn4mc/MK+0rSvouxCPXi/rY79Do7Q+koAWmhBgeFoyK2F aQUf/E56Fich/E8bv9xEjGkjNsmSjsv4iKUjW/dTKx nZZloAqlZb2n8aIxK3oY+t0eduue/77b5/7JgSXP1W2GIqb5/w28dFuyfw4681ME+niiKYkN1P2ey2dI +hRSvf5IlAWz4S2U/275T0uywgdWJNzvwqm6It7V9MWAfw/TnH2xN3H6JsSX/72V/Jvr/65sbBoQOz0z +/BCvRftcJLenYL55AQIThM2Qnlow05QTBb4Q7NMtH cF0/iHNk3DCx5M3/liLhsvdTKZ/GbOR5+8g75bz8u17FdvKP351bW3UbuFtIt9iY/UTZ9/3GcW0/jqLx w2DaCjm/nB9G+Reywf1mq/Q70ggKgl+fs81KlQA7LY3xzA/ZW+6H1wYatOi6DhtUQzggPTv9Jx4/47q3 6jebEi33B77ffkXks6F+3yfia8oJodoWIvODpkv0fp w05MvqxuNlY/sq2iMN/QLvs7fSLfsIza70/wtNXi5wm4pq9fM8X0PiNi6AG/7BhqPzqt1C8+7iK/oL+6 lXizqiF2Kpss176daGp+/fDvuqY/+qY/+wr15YRoY+Fe9XB/k8gpqKS79wlx+K/lvgr71LrbO24Jq7X/ Ab+AK+gK/gK/gd/A6+gY/+rs2jbRE/kQQP6wBVm4Dh Lxuib8n+QVmvr9v5T/wGfrvrcg/3cppnZyKAyMjul8OKkLD6hy4LjbFy5RQqNv5T+yrTA/yR68hJRtkT hvf2hotj92dYQ5UKpCj6b9Y/zM+IpO/Eb5haB1xIfJIc2YqTann7zs/kx0PSr+PeG320/mdYkbZKu/9I Z52IGoXben7nSgmfr1/a+ZHf5+eWaZ+3I4/31/3CPf yDMbeHf/Tw4gqR7cwVRt8mCan2aEFF0Yh/G6GTbl+2AFiyG053YC6HofRvN7ydJtd8jWmtW704E9b/Ve qkwd/Iv6t+r84tk3tLevwxv+fR81qJ0/BNblmQHsisHK1nxC/V/yo9/USzNa4x2t0VfoNk+yp/aF/lD+ 1rgj/BX+Hi8DbrV/gYO369+pe9rl7uscmzSz71Ef5K +yr03+2rHBexfxVjx/xqOj6qv6Ulw2og5mioSPyAGv4/ddN2/Kp+lAPSpXu6HNv31/1rn97j85KsCr2e 9q+0yOf9Rnr6++HYSxNdns0pinH4Ll+E46Q0d8xnsS3Sn1H/i30n2LyuUt4DcdF9ayWuqlHSFKSXs7Uj /n0/pXCp1MOvUw7uZjeF73Y58AP1YTf8mCJLrK8Cum b26P9ukXqrkmN5+2GNSoPfwG/mS958qL0sxbGb+W26fQUceZ/VfhklByn/vh/LqJfd8f+wX3TC7rsHQ6 3lxVRd6Cdf2K0W85ygl75y7qY5H7gRe/er9T+WJ1rfNMrfjzm/iXHTC/kX8m/wd7Wz1/rrZzBuuoGP9+ k55E8Jm+Bj/YgO464t27HcsiEt/PjWN4wkxxg5E+rB +J76zf70BbAX3F2e3L0/rHYOBs2Af+Ar+L16Hw4ZD//n+TFQXtc3NZnpu83uVvmFFeJIHMa7BR3L2Udk /G7IJoT8GORsbN+wXVRoTp8B/G2Ezmlgf5K6oEWuY/T1ZY1Q7vxpeVu+D+pezK7JqGVdUFly6dc/X4Ws 8w9rMo6mh/x/Ws8dYL6B24kAsqa4iLAbN/R5Qp8n+j vxfifeb/x/tQ4rfUnJJtq/V1561yJ/q6gn/r+JMc2FPyyr8jZ9HzAgWA6ojE/5/1XUU/+bWdhXIduwr7 U64Jl5oJ+Cj/6XjAOF5ZHwt00Z9Xo7Usje1l27Ds4BV+TSd1eB91YJv9kRe/H87X243KdMh6AwHhqf65 DnDX0O+8rT46n++igKc43uU/AFfAFfwVfw+9WrEfZV pg18A3+dojT5CtxF/AX+An+DX+82zO6iwa2dhzG+Ax/0uzflR55z+jf9bekft7I35Bn5xh850qh8kJY5 lXkGnov+tnq/o6G/Lk7v0P7EwmB1BpUH9N2ZhiV7MfXG8U1QelPnN/B+Dh4I2K4U7geaPn/jI+yrkwZ/ zL4Ec5C/L25hF2Xz7J9Uz6X+g6dSC9oV7MX233e/aH 6hT3H6Wchn3zH++muqn2WzYr2G8g+wr0ZFti4OZHg/CkNo103HI7sUfoajgr6t92pF5fCZD814xm0/Rx jbN7TS42+M1uA2HEpjTXMpVAiOZ9Qz+3vSnj/SC/kX8m+0v/M2FxsCzNgrtvzQRW+F3MK+rrio0FmXUm g4By9nnA/B7/VerNajYXi/grLj3fR1xupknt0+hn2V fT1YG06L+yraH/bRrYB6O9VxL/QZ+1cD+8ye146hcqc11tDI57H2xlz2IaxA7b3zvk/Spx8V4touqzYH PPD/0JivTa8oV5zWaeuuNTlp4TO2v2nIbpq9gyHu+ls2RnS4toOD363s/hQJ/utPGclX9/vEwbXXnxLB rehmZ4bzZpZeo7B8oJq/QL7kbmPSEv6x++z9LpuWq/ 8bmvg2w029aq42+k0KOb93RdB1LK97LYdD37a/9PhzV/mPxnL/wg9Ryum++vxqM8P6V0Ln6u4xcoje76 tlwpT2yzHjx5xze/9RntQr/1XMYhE0++eNjsf0IZ328nIV9RD83Y4AoUVN6lcy+q/376ppU0Y/Nlbs18 WzfL/ZgLAsW78L+ucbgtsKwkdeM6IzDZj76AfHjazv 0144uCW23glSud3DcS0Ar/q7J/gT9S/Bi3DApm4h+3k+aV3K0kV/gd/Ar/J6877GmRO/rb/nehcaOg62 A99Q/0A9A/CXSZkQr9BzqRdvxxh/P7miRkJ15Zvs3p+wr04a/Fp/C6u8cnP1xbWss57K/V4ni9qTdU+i /yf0pcrew85P7+8M++qkix/56ClP57WwjQ6qC620+A q+zd0jt20gU7i/dUA36RAyk66yGO+r4M8hK6eQD55SykDyEd4Rl7vrekIcrMXrGhq29/1grxy1CHwMHd kMkv552y/s4Lt/YUXa/HlukKqWoHiC6ceovLvh/DO1/CzL0wfcWdmjHrnDYX8h5X5ljf/E50J7bxjK8/ tO74iz1wKZu6Hkv9uzxBr06Lbi2q+QedyfknkE+b2/ PyQ5sp8Oj9+cXON4pN+l07y08LiR4O7un8pw+W4e01gAcPL2bv5/PUi//DN1v30k2k9/ZITpt1aB53zm zbRV+u3vE/br7bGJHhB48dLlb5ipnIs9gg41687Q/Ib83t+sc6D+Gx0Adybf5/7StEYBnhOJ3cgq8yA1 r1I+bl+syJxk6MO6Dl+N69nSk8gJ5il4t43a3bn1+y p1w+2rw+/gW+lO28enV30cmFkk4oUW7mCaTctP/Ip20RhiG/oc/N5F0rvxIQuJ+fcOfuOhLo5dZpaPOv 2+ai22maB/eNKo3/BcA3+QP2FUNH7x+jUxfsM/aBi8z1U/C/1dZU/O8A/G/BD+wcwjyC/ga9Xv+1ennv 8eRP90q8CsMZH/IP8Ev/yhE/dAJHj6Vl6xdocFSBso 5Gf4HBezP2306i8ivZ+N/d93RLJ4aJSm5sajbu612KCgN+Xfw05N6msrEZN/Qv0L/A1++X/AMIN/7f5fbV ZHnx60ZZmyvFYrNKj8A+lUeRvyN/E30SxjAlL362pY/8s20P0j/kX6h/o/56v6vV+12t/B5vCgXx+FL1 136J7ym5dfci3/tdbl+raF3v1ykxPQN/AK8Bk47HBz t47gJ/g4/3K8+DNPgN/Aa+gI/+pg4711L+hjkueD0W97nj+you7iJ77yMRP3xbcsH0SMLPA3F/Bf2Vmq +K2uh77IN/gY/+Kvqr6K+iv4r+afc1IlNklZ/gi4yA4EfjR5DR2yw5FcRrgZuHQ/aV5w/76qTBb+C3uw 1hfI80lca7iaqiYzHGmEKeG9APA/Dxfjvebx/gT/An +Ts7Ye4Aq3qs3F92lvCw9Lc26cPUaQHkdOd/9b1Gfpv4vWIo9DYiPdbNCR6Y/gR/gr+vCoHzuqeaZb9k /sD7HXi/A+29QZON51E+EbN0oS8R/X95XyAKKpbE+4rZ4XmefiU1Exxr4+Tl3LKLPS5R68a8Q0wzj73r tTf18Tq8FvWYthInXJ4NIHt+gT/AH+QF9Ex5rJ0J53 fi/A8621B+MxG2pr7E/P5EmoKb9Va2nhYE8xMmBGdHY/8n8L8Qqxr7d1Ceuw3n4Awlf4GwjXeZx2C+Om nwvb/+7+Al1h9g4n/2HXz/PtrB9/2rly98Bd7MS6Dv4L/wJ/gL/AX+Bn9f/g77ytu/n+cvyho6kg/1fv dT+yovEY1BO2Hu/z3f64y32bYg//ZMD+SP/gZ/on7v b7Ztgb/w3A3+rvwN/I36IfNcfhx1ZgwfhRQ2+Aq+gh/f+3RHf1nt+Aa+f//6t+d2+yq+SXeL7/1M2/me 3P3q0ZF1B8e//pG3yd62TdQexmoo//8WQE2fhIrrEcdIJV9ttyJ/77dhdvsa0wHmH5oj/alv0w5HC1Ok +IK4UMJs4ErX2+6q3+2rlGfYV/DXUt4OK/q2g2t4r1 i/qsgPfdaO/GXviglN1IPMz3F+OmnwF/Ey0W1Wi7y+ik20sBB73H364Qr1r0c2tT0QNeU3RwchR2hajx oTdtz6v+3T7m04m1zQftst8v/e8A/bDreId7u88Z9Lm4E/Fe8x9q/lCsi1TQu2++lY9426JzE53M2hWa V80X79sgd/9ad0C/7rTwn/6W6vD5fzV/vNmj6d/dpX Enuh+8Cc0vbhiw0ramvu+3bLE69QadS6tB53Y/K4/+iJOt1/7RrP55e/FO/X3H+Ooqd2fLO+5EwGv0d5 ta/hcZGr6h+Vq2moSRzub3r7ldW/+4+izuH+p9gduA3P7BDj/3NBzkE7QvE9aV0zZOreHeQNO2pfQ2Um t0kc34XvJn6azI/tq2rv4xgnnN2gL9Efkj9094BkmZ 4e9uPARzv16J2R45UhKy4Zo6pi7drBzjPnX02MLkeexmfVg/hv2fv4tw+yJ/dc4C/wN/xwF15FUtqkO6 9/1lbXfihPwdjtsiumgg37zs6RKlbx4mVFf1nqCL+IW5EZLM0b86E/F/f34G9w1ro5H+A38Gu/fYd9dd LgK/zJjzo63W9ge9QpqDO5HqnMpvh1QN1isJ8nU5X+ KzeZ6nWOA/57u+sCjavf7bgRmnBRa/W7MFZL9x9u570Knh8t1ge9HQbgfvzVAtldZOQhbWbeWgS3gRIG SBpn2x85bB4w36FM2/Bzsym0J4NXgOZTteR4nJPkFcoy0V8z+rRyh7+EHb/BJ+CCptLUQ5ciVrUARq5p SSI+gvTPkZK8urHlVj4XgN13SGbX2otZu7AVEIdNkm S7RN3J+pcWYPib4c3d2fb7r1RTXY/OiTXbJM2HtvF8jD1Fa/QZEpQdZMO6bqbDUqZVJLR5TKmU1QU0fI 8+1q6hN5DV2p9A3oFEe77AaXJRfPXFU+BdGACUnrMXQDvUzJKyQCbyEu5C86/IQCkDnZCbugxGZnMZjH cI8uU9CJ0AtxeEteCVqUircKznMgv9g85HfkvaEfKZ OvQ6PI+u2O1kSVwEh+BYCO/jQSZGVq/vkU+kFrluhkUh6obmdNJEYwCGw7txRxxuInAXJFBdOCPqdUY+ CGfkJYgYazPWNlhmYIa1+qL2GmmIyi4HjC7miBhRBDDxJjBSeArH23TIDIPoQqhFV4REGO6T1rEPXVkC YFAGY/T7cBXRbVlTz0H6mNC6zre0LTB4t8mSGy4Pc9 O9WT2fxvNE+hItgfYmkjKo4htQlMvmZ4w1zB8MrkSXBqIBIIbTBpz3pGA5TXRdy8PWpQs0MHtg0gPTCT wIqy0crIdSbN2lY6IXXAuSxYMrcQpl3hFzWejEDDEGi/wCztZvZ4i8pUkHmvdBig6a1mp8wysRAMmiac rHv9boyJbuirFQ2w4YZvg6cA7MGWFjFH1D9DPbjP/O 8r0v7yEXlAiKej3dqD+XXDhZ14FEWW+MhtFx86qDOAmJORfeEv9H+F67DUgqaYKnkOco9gc6NqQxZE7u qzVij0wb/rHlIHJN8vw6DmVCgweceiu/KfWSUEu92n+iTCek8htoUcjZ5WYfUfOS+uPJ9Ooe9jWwq+8n bl8AgUALLMSDmMP5zEyP3OkXwUqLICu1GMTFKEGegP +UgWA+qBrgS5ZXb8DwY63SFcxGKx4Yc+xFo0T3fQED9YrNZqPHkGZcAVQChk2cy7sLg0LA1fPyrW9y3Y aNGupU81ipRtIJe+N6CazDQQQ/3nM6QukjhF+xCLQ76QuG40l7UkpwPlXXgmzn1PWk/eOy+aUSic1pfY EozIiC620wcGJOPBzlBDzH0iKZLc7FbJGTdtYzIVpG tVFdJ40pyPXBfLLs2MMZPGxuA0Gu+PbmaaL6Qc5Kk0AhLLkYvt7y9FB2Ll3RHuXXFIQGBEWJwAKmzJM/ wS4mGYNYY8vTl1iAgJ/+AVBCnYkv1a0jN/1g8kQQHfOCoqXeVd8BD/CGHByFH3Jaf5lMJ8OqT7k61EKw ITa7GS69b+Kq/NcCGmcIfg0U5ntbFYgVqUW+WPheiC vzz/PYitBDPwY2Koe+G+Pa/SzEn2szk8qWYvs0ipnIW3P4AnUc6OaKLdoErHBm8XP/HW4CYSlj6Chxr/ 2JoqluoZsr5ET7uPlmqaRLgvFty9X84zExez9b2WQ11cJsyt6E5Z0mVH0ktVPpB0JJbhrWZDzHSc8cdW 4RGUQGkckWTLZtscwiElvIloQd/1GLS/bjR/MWt+xn MAnNCz7V2+qf6Hg0xM3xOI7eLLaXWFmfc89qRFr2rh71iK6u4+2fnR+/dc75T36w4N4AQ32j9Q/PTPMr 9/PIT/M799/BkJNex6gpk631TBpu4x/df0NpJ/V9yuHWq05mJLGPl82SJ5Ync/c/nucI9m9WcYfS23bX ZfHb9/E2AwDs72XOWgFezg1pxiXaCWNwC685Udx+/3 kQ6I/lG92SaUZM72W2N+u0jmTaAOr9D0Jm8gjSmuO+YkpHsJcmsZ+ZCqp7GJtJA8WGWBD4QtYK6QAt1W +BHlfyH+YE9dU9uAW/SPfXISCuJdvQGOV9FkU8VjhIDd3V2rDt+L+wwPJ9rT/uJIPzTiBOhZ92m7qv6Q tb8t9DPN38L8uM2yxvd1b0qjMCJq8OC1fFZa/Fbf03 11CUuoyBP5WNig6nRxQOBXks+y/P1RinbOMVAvLGUMCqnQF67reD5/p6caIptUztisPjwSH/JSaRybYt 0qrolIBTZNpeWZ8UFEKeN5BzWDKJUeMoIojk5NJnYr1fWNcNKZLx4OKLGav7bUJ/2HKLnMYAVnmyC8gI u/0TdQ7yZesXhwrH27eBO9Uwvg2h+L+SDwQ8KB2lrM YEr1sHTpSgDU04u8cgfPsxVkdSJeVAdbEz/kD7qzz7/p/9tcJ8Zl73N6tzPl1fuivHJICAX4so/9OYi6 v/0+aLu//TGozL/9MNEbf/a72cyc0/a1nYsQ0PlbUXXYmZDB6mrLzPIqABmp8EndQvEqdr3u6IpnKS1Z UbUqWoDC0rbiQ40vs6RD7tsvoUmaTxtc+1pS62JEtn M4+xxOCM4GCov5ioHAJLv5xwWuPNcqQnq8cFKgJ9d/DWHYvb5nGLjusjP+H67KNLFWVhz/LwAJUNMtC4 lRJumceK9KcWPUnLpBKTsYfGRSUwHIEGhYmUF5U97SzlhrWuCcUqV9hGIADNDWC5ySQRkUWe0D/U3E8c DEdTnX9l/vhril/+lpAgmaFHW1VvigmHGEET3TYtlc JmAZ1iDHndFLDEyBKxjRjlNKgkmyNuMHVKKHZ3IHVb7dJrGVkxGVT6IIP1Qdd39cD/nyoSR06HpJ1crB wwlOtHgBGRBAbuVHuocFwFcuagUVOxrGSYTiDWxUi4XAKBVWMMKmUTqOi0IYSMFfuaHfdkAswGB6UBRP NeXgmEbgSxKZSQYZYgLCENyOzPkhQZgBHD4jkoWtNH MEURuPDtNYjlclpLHEGqnSX5aTCisDTzLoj68GNcqFU1oqzxWjObWwBchKg0eAPxNt7BICSZ1xXYtJqX YLOq7iGQq7x9G5K7jowooMif1JIcXyakIPFE3QhEF9dXzrNNt6TAbNgdChgJYDA8rfMGq0ZIW4KojzyE ATPHqhFQ5XDgGMnnGmxTEXtYAXhCTeRpYkTnJZKkqo STYVDfK6Ys7CKKDdquBtFJ6XUVfGLTAZbWYSLD4VwhCA2JuxGRBsCxyRlhjBYmqI9PEdDgzteEKDQbTB GJWNuTXORD1k/AT2vxpkPEuaSXAcvCwA8GhlwzUd/ch7LQbT84G0cRtQUtQC196BBXG+KnxPOcjlZvI2 Bw8xVJEFe5eIC7qsDRJaVebVnyctd4CfrM/cSooD91 w2RwXcJSdZrZBjDTxGru1jmLPWBkgFAOXs9yHOZLiGGqcBrmvai0LGkZkbchGiKcy0RUGSR4gM23HSWT QDQWPOLAjPHAqJDubFCaMZeaXKPpdp8fHxQjqSz4V9rFGdYMSPjv9nQs4YLpEMkVokz/VpHXUACWH9QS YALwNgc9GWx2RZGs3iKbBmEjSLQMpNQni6zQxctHi2 fu6veAgF3bOYlBFyCWTg1KE0zkIMnY0dgmOl/EWhEXCSmiRjFMwE3pNTxzIByUJf1KTpj458K26qxohm 5rGmyKmS9oxCTnal0BeihEdsXWztLK/block engraver/block engraver/oDCwOSVJKX7AxBYEZE0nOmCBOUYiHuRGnxpTEGQtb [file] YklBSt5WS/HUptBrowysE+RzHSax9cVlgtkLhjEKjzDfmDWQMaCLIYDD/block engraver/oGNl0E3B9mfBHboRWfV YyH2Ew+BtTHisVyCMhiUwaAejMHaJpFJZOHNjcVWby Zn1lC2Lx5XlBEhAdwGUCHHfV+Io0zXe3nMWDmW5EwJLGuvnIREDRuGGeSLCR6jW5NxqHqglrCONHzrgc z2fbfAEG8FkLQYiGFtqwqNYkPhrsCXVT0QJl1IZDltWdClo8BQhPJ+BZisv0M6QUN1zjOiYl6MAKjT4Z gjZe3Kt6izc9NYYlKsEIS9B/AAzYqVAYkZauFbt97t OXIS2jKmUDn0TLRsLGPfakw3VBh/0fh/CqWhoQCew6HadCysAxELkGBNFAT9xnONCLURrT0UIvo7dbTH Ql1hqNGOixneLyNiz5PSKMfjTRvDZhbOUrLB4kTdlUmzb6ddyjccbMzg1xOQFIMuSLhXOQJUGylXtZJf tSNGJyT99BhUSzIYpSzVYhiT1sWRu1VNIzIkDNFOBn 8SyBoiPsU8KVWWisBG0ALkXI7N9AgXTLZSzMOTv5MWU0fNICZX46M5SD6yXvfIFvfF6ni+cASKyT7Ps0 L/EJh8tqCl4krTTJAcJURJX1k+UsRjKQItcDsx//LTyMvsrH2pCkW6okSoeLCINlROn+BUvdiCRWTzOZ wKuFNYmBCnLdtcMKRWXJFcWlvs6tNswgcKhLghetZt XfTnyg0kXLvysjmoOLq4dSbdX0dNqVsgbpQmLSHO56GuSWMechdCPk8fpdyYPmG+eWhJuxsKWx8ElarJ hiyF045L2Hcdo+B/QPKc1XsfXrsS33TFzRstaR+Dp5X1X6msl+Vuk7MkB7aqs+I9Cy7iX9lYF2/H8hrw RkqeKRHnuSwiyt7Q9SjI2EicPfcTan3DYe2O0rYFz8 VLERLj4KofY7GBpL9oZdw2ymnNa6ZVKXd8hrxXgsapej0dh/X0KP9Bx6Ehm0i2UT8U94WlctG7yZw5Hd qmpoda5Lo6zFtnmbegqbnoJlzEMybTFoa7zF9X9hbrHdkN3RfBdPamKdlxNHmf1snIDzb3LgzYCElK83 h5W00oZEzNTjn3xpolvIl234LeOsPeFFm/gZ6C2Dyr eeWvgOTCWbnLyGJ89wYzGcmoeRxEONGrkCrl+S4x3jBGPn7SeYxtBTd1PHmMYmpIG6wKZjIvgUuyV4ao qEbhAcrQfHO4KCS4J324M7/3/YefZfHfgr7/l4//2je93fps7/5bC093/2LvIhTHMF/sy6+//OK7//rx 3a+/++YBaBVAl8icl4/0nm8470eG2/ab74ol5Bqj/O z5s5raqf0+n36BMw78J7h/OZgV+b/79S//8ePXv/ru+y++/+dzW965+wPJken7h86/+vKmjii0t6+//8 uciBRlX5516qicZo/ffvPr77/+7Okc1212/bdff/WbL37+g701gcmv3Z+07tWsuO/An/b1L3/93cffff vFl//4sy++/fLrL/6TvO8q/Ob95vu//+rb//5y5432 +DF7v868+cdXP/tf/cWdTStzv14+fvXtV7/5+iiPN6rq/X8ty4277qKHl/i7n3/140J+E0en1Qe/+uO/ /u7Pf/jhXz7++//8+M3vfv/73/75zz/89vf/9ePL3/7xdz/8/uOf/ktb//TXH3/100bNv20/30B4KBc+ tM+YX50lZlZdd2JhRpZ+8Ie//Tc+hg1RfDg+4T/8Br i+P50Ubs/f/79A3Q6+8O1e620zQN+FNlMfr79Ov9y9gVvgZh68/D3ToBb8WYnlacz21ygWXQ4j0v7t7U //+pPadA5m/fTj43/70idkwjXNu08/87/1dNd4Jn6aUsK+f2sZSsHhmeK+VHr27c9+GIH7fJDEdnNU/S /U7Dc//PHf/+bjz7/99x/+ufdT3pfc6p02M/2Bb8i5 qLVeE588tW/69uN3f/z3H/78f/+Sbxd5Y6n/WfWlAc+Pqz/fQ1k29cz//I/Pxv/uT3/8cf1+3fmG7o9y LvYP3//tP3z/z3zP+pJf2mtd2h/wQjUubGOo06+ku/5XD3ovrQbESl/jdaX68pht/uT7j9/+Pz/8238c MWkMpnySG1178wh+U/s//RcdH//zz//01z/KfV7Ef/ vhD7/9/V+84v0X+M9++z/++bf/9rvf/vFHNRxZD/3dH39c/r6m8fz+v//HsleI3/7pT3/46Ret/yjD6e /P//TPP/7FZkbcXWS8/4t//8M//59//N0/i2vcyp9Ascuj+qS9Gpni5m8nq24r5y/14B722wX/OPNGOD Xv8De/+MVXv/z+z03iWnrGip//UW5NoEnTfBC/9dv/ 98nT6nAqx/2gYI5vG4XvpuI8n5mS2mevd1+irY+vvvz+c/y0z5iUd/3kl9/4Bmguc4660lzaY7a0Ll0n tWf7+OJnP/vm17/8zPv+BCbjvar+POj/A/+4xAaLYI1ol9QnWJQzAqMlPK0kteoyULHlDC7xdos6J4Ff eIlsLJkXRZGeWs4deEHeBI8ZTIP1KVziRQInJXRzW6 OdoB3sY12yyYFdBxKkXANFNC9ScmV5YIQ8GUM9DGBgGiLtKYEsBZ41DJKiTZMLDv4ynuEwTlnXQlOdZQ 7evvr6L6G1dLOzI914bHpujgBdZR8Gm5YmeIZaBF6CiVJybLRnMAGbMROrY9xmq2KcXXwjYCOBXl9iiu ZrRjsIVdDtLW6fdvc4F7B4mOhtwjDkUJMKLPkzGfaf EJ2ibRoqvilgN6ZajBWyJMNtC2VdSCGng29XOPAbHPhOWaLaLfExRJIvNUt4WouiSsTpOIAtYSKbRJLn FC2MaWMzDTCdLVUAFEjdAjsnENLssU0kmDZXv0KrQKeFXTQdJICRT4ZTMWJ2PJghMGavTG0MxXGtKJH3 WRhRNQHJKPyLRAmkOwKqd7A7WQPzN9YhWYZmsvSpPS ZXTDwcWwoyOB3igWsjhoezD9OdsXBtXGKEBHSgQPIxNOIgKSNxE5Lag1J1K4RvMFuUFSAJEPcGCPiqZl I8t57dnxPTTLByZVEpIH7+HY1jt7FkCd6XUZRiAB0fxqy8CD0ZgGZpSE6BULvektYoT4wkfqRhZaKjBN EEJF8aV7QlcN48NAX+SyJhNO2ceht1gzEuKfKmNAKy MAGuLRLfHXlaODJqESRbLLDaISO6IPM0VZTmSrZeBKIvKvTvDIZyIENoIQKvypYYGOUdJPE3GUo9BNNo RLVtSKEpIBobKQVhEGM0ZCW5YHMjMWOcPD8cZfEgYTVxNPLpWRJwMqC2QpClSiBEPOPbHRDtZUCdDkQg JWStUAKpXXsvZAGfEXDzWSe2BNBkNUPjHU3oTyXcRX YsQXDfPLEgCAWoKRGgyoDYWBMdQDEoLMI2CSTkTVVrPGIpYBeiRTBdENZtNGY1AKVeAEDxCS7oIdJwAQ YdVHS6FoKiYBCvICOpkkRAYPCnTHZkWBV5FRMlJBUlMQFjOKfwRZNxIAItSjV4UGFuHSBqNZ3cJzXpZW QkIEW9RVZiQOPqAGKxllHGQUOcNVHsRFl4UdJcUXEt NBHwQVhjIGWvQQGyPNofJBZsSRNbAO1wOdJzFXJnCDQfZNLvLGYpRZHgvuGXYTGlFTKlXRC7QlQbMBQc XQTaBQonZCZuDSAjSTA8LBLvXSLnXG7eGjRhOJHdYgB6IUtmYFWwRWZyesHTOAMzKXYbNJVgWHNsSJZu QOMpBHwbAOVcXDFmXdB5XCSjIYVtVS8lMpXvHZDjXP F2AWHcMGVjDWQekfVWVGWvOEPjNSCtGEC7FENuHQFtWMk9pjXjzPYzWqu7Qe5KbTwjPPC6Oz9CvkPkBN ZvENSHMy6Rk648WARaCLKIMat+KjlsyLMasTeiIJAAOpPvGUcTNVKNT0C= ID Date Data Source [id number] 09/01/2021 07:23:10 AM EDT [facility] Name Value Range Interpretation Code Description Data [facility](s) Supporting Document(s) History and Physical [facility] MMZVXv8iImWAJlHf71/CLBicKELwj0DrKXguACo1CRhlIOLvI5TyWSC9sG5wTXA2JXdQXeQfHsDwBQEg lbm [file] yO5+[employer] [file] qPsR6nVIcjvtLK/1fGGYQlNt3RlmQjQgejbNhs8Zbf3DZikiEpDCfRrj1m1q/gwL/nzvT09ox1/6/SALESPERSON BURIAL NEEDS [file] ICAgICAgICAgICAgICAgICAgICAgICAgICAgICAgICAgICAgICAgICAgICAgICANCiAgICAgICAgICAg ICAgICAgICAgICAgICAgICAgICAgICAgICAgICAgIC AgICAgICAgICAgICAgICAgICAgICAgICAgICAgICAgICAgICAgICAgICAgICAgICAgICAgICAgICANCi AgICAgICAgICAgICAgICAgICAgICAgICAgICAgICAgICAgICAgICAgICAgICAgICAgICAgICAgICAgIC AgICAgICAgICAgICAgICAgICAgICAgICAgICAgICAg ICAgICAgICANCiAgICAgICAgICAgICAgICAgICAgICAgICAgICAgICAgICAgICAgICAgICAgICAgICAg ICAgICAgICAgICAgICAgICAgICAgICAgICAgICAgICAgICAgICAgICAgICAgICAgICANCiAgICAgICAg ICAgICAgICAgICAgICAgICAgICAgICAgICAgICAgIC AgICAgICAgICAgICAgICAgICAgICAgICAgICAgICAgICAgICAgICAgICAgICAgICAgICAgICAgICAgIC ANCiAgICAgICAgICAgICAgICAgICAgICAgICAgICAgICAgICAgICAgICAgICAgICAgICAgICAgICAgIC AgICAgICAgICAgICAgICAgICAgICAgICAgICAgICAg ICAgICAgICAgICANCiAgICAgICAgICAgICAgICAgICAgICAgICAgICAgICAgICAgICAgICAgICAgICAg ICAgICAgICAgICAgICAgICAgICAgICAgICAgICAgICAgICAgICAgICAgICAgICAgICAgICANCiAgICAg ICAgICAgICAgICAgICAgICAgICAgICAgICAgICAgIC AgICAgICAgICAgICAgICAgICAgICAgICAgICAgICAgICAgICAgICAgICAgICAgICAgICAgICAgICAgIC AgICANCiAgICAgICAgICAgICAgICAgICAgICAgICAgICAgICAgICAgICAgICAgICAgICAgICAgICAgIC AgICAgICAgICAgICAgICAgICAgICAgICAgICAgICAg ICAgICAgICAgICAgICANCiAgICAgICAgICAgICAgICAgICAgICAgICAgICAgICAgICAgICAgICAgICAg ICAgICAgICAgICAgICAgICAgICAgICAgICAgICAgICAgICAgICAgICAgICAgICAgICAgICAgICANCjw/ iTLnF1hleHCjmdC4I2vxDu8SOn5EQF2oh0EiLLVsIQ htlxToSfvPEuPrQORaIyiFSzr9JHxyER7SuUVaB7SjP0OdWRgoGH0FHHPbFDHeeMUpEBZnBCNzFgS0NA NdGVkaHX4AfUNdKAbrFUOuRIDkXpPdDLNeFXSsWOLvISFaTVBSHN1RIhTlZ6DtlA72NGRJLa3+DQplbm GmItqEDnM0HLImj1OzQMc6FJ0HHNGeWhfwx4QkNcfm BRICWPafZI5ECDX7JGP6KSIfGl9VAUOaZ473txUaFY7QWx8DUnFoIJ2mqd2FEawmTBIlIfeCImx9CFcr GT1NyWJbGSgUSqNnJqsqY6W8qX8cVhUYPQF7JBKSCDUczAEjWK5zKO7aCQXnJFC3AbP6QTWYKC8WGBQz SIHnlVLqIMPrYERGXC0NYUcoDVL8ZBGsqjBffOJzVN uzIQ3FNLEwtrCiZeixFGYITWe+Yr6QVD1ve1DdUIx1ZIRgSM1loz8EZCwEGsBfW1K1gGWuX5F5OJraWa 6AZRCjSGZrZtIqWBXBBVacRO7ZQD1hrgU9HX9ZvITdTKXcBAMgdMEePOm0S06hhKMzCAmkLX1EFRR+Pi A+Jv9YNOQnQSLhNVTeKeDyIQQYLyVmJ1PxD2LTs9We L3KcYC96uFimclOrANinFS3FTD9dYFIxPCQLYG0TeCWlfH7gcoWlGOUuWETIUoVmT27ccVKcSRFzHPV1 MHOgLo7TOIKuJ8TabeOqqQvcboVgRFWuOETJFR3WYQbylmOiqKDmoPonWG35yDwfFJ5UKn2CZzBsRP6g so2VnMPuQk0JONN7VS8UQEMlNAXsLRClPCL7UAOlYd NwWUwtUAAfKAVoHGJ0FAFbMRFvRQ4DDnAmKXVwOES0RdHqFCMrIOEcyp7AYMLvQFZ8KqspZMXaIFXcHX XwSQlxSKYpZEWgRUB4BPQvOLYkYT1BWfMnYWDqZNM0GkllVBJxOIYtcb1CVEJcSKMaZcssPrXbDOQhMD YaCEanUGEiMCT8JwXxZERtOKUiAM9ZVgNqJHKmYOf6 JnEtFFDpKZFkbw0XRDTpTYVlBPZ2MvFdCJCnBJJqVWrwCQElPBJqMzv2VIGvLXZeOQ2EDsIjQIRlIKQ5 HQBeXKOwCBChgb4DQXWbNTEaZaO9HGVpDMMeHJStZFlsIAZmUNQ5RVQ0VDUrUKOdBP1VQrNoMCOtPKOb YRRtLHZgUMKprt5JAMAnRLDhIPXbPTMmZEWzLLYoYO qaCXDoAID9Wnt9LWXtKBBkHB3YAlHcOYGeVBB4IJZrDFHfRMAymy2JYZNxKRBwIZr7NZCzQHPbFPNoGP nmZBLfNTZ7XbW6PRQtRSDkPC3FSdQzHWKmXTQ1VmSbTYDuMQIbei3XXAEuYYPtYuVbWIEnLNVgCLWuKT yvOCShXBE3NnJuVHPwATDfBL3YGkQkDNGtAorqTxkx QHWoMJEmwv8CAYVmXJLePfV4KNKnZLLjASOjWVhqRVBhCOD6YyJ6YJIoJCUrDN8LEnZzXAIrPfx3PgYx ANRdIXMweh1VKRBsYCW2XQP6SSPiCYKlUTQyQKlzUAIeLDN7SZzaMWSnDBEiFX1ADhSgRGRpALt9IYJw EADlDTTzda1NHGAtNOR0RSUtJHYsZFAtCXKaMQlzNJ MkHWVzQAW2HHWnBLYaTM6RFyZrPZGaONJaEfYqVZNpYDQkoo6KVMIhRHQ8ERU8MtOgMZOqAAPpHVdhER KzASN3LHC3DONoHTKvEU1RFkQhLTXhSIH5RUCnKIUdZEAfqs2FUPLmWHU5YCu5XSIdPPRyZLNuQEdgZM ZrJTZ8TskeUICoKZJtOV9OHeUuREHdAJz3IGbmUJLp UJLlpx5UWXEuGKQ4QoabLJOfRCWlCSSrYMwhRZEbZXN0PLL4VFQzLYJhXJ5KXiOuZRsgDATQUqt9RUgd Y3i9BAK8MM9SA1Hgt8RoQUSrZOJTRLemGB6utgSgJUJwBk7ZJ7wHBlpmBkEaEIQfK6U4QLMfWJYuJUCi PrS9VFN2PApeXeG0HA8kYSAyXGJmJTAdIzj1V3CsSA J6MYJxFCNnOoWkSQTaJny8HjIdEL5ACw9TSaP2VFD6rJRtAw9AADffGRgSPkYaQK9YXZu= ID Date Data Source [id number] 08/31/2021 10:58:18 PM EDT [facility] CT LOWER EXTREMITY WITHOUT CONTRAST [id number] 0FINAL RESULTInterpreted by:Sophie Edge, MDPROCEDURE INFORMATION: Exam: CT Left Lower Extremity Without Contrast, Knee Exam date and time: 08/31/2021 9:33 PM Age: 36 years old Clinical indication: Injury or trauma; Fall; Blunt trauma; Knee; Left; Additional info: Fracture, knee TECHNIQUE: Imaging protocol: CT of the Left lower extremity without contrast was performed. Exam focused on the knee. Total images: [id number] Radiation optimization: All CT scans at this facility use at least one of these dose optimization techniques: automated exposure control; mA and/or kV adjustment per patient size (includes targeted exams where dose is matched to clinical indication); or iterative reconstruction. COMPARISON: CR XR KNEE 4 OR MORE VIEWS [id number] 08/31/2021 8:19 PM FINDINGS: Bones/joints: Irregular comminuted fracture of patella with dominant transverse component across mid aspect, and other fracture lines extending inferiorly from there on each side of patella. Mi ld displacement and angulation including distraction of the superior and inferior fragments. Mild articular degenerative disease involving the knee, more at the medial femorotibial joint than elsewhere. Sdec-df-usmekgqt effusion. No fracture of distal femur, upper tibia, or upper fibula. Soft tissues: Mild anterior periarticular soft tissue swelling overlying the patellar fracture. IMPRESSION: 1. Acute comminuted displaced patellar fracture. 2. Effusion. 3. Soft tissue swelling anteriorly. 4. Mild DJD. THIS DOCUMENT HAS BEEN ELECTRONICALLY SIGNED BY SOPHIE EDGE MDThis document has been electronically signed by Sophie Edge MD on 08/31/2021 10:58 PM Name Value Range Interpretation Code Description Data [facility](s) Supporting Document(s) ID Date Data Source [id number] 08/31/2021 10:58:08 PM EDT [facility] Name Value Range Interpretation Code Description Data Harleen rce(s) Supporting Document(s) Choriogonadotropin.beta subunit free [Units/volume] in Serum or Plasm a <5 [facility] (NOTE)Levels between 5 and 25 [IU]/L may indicate earlypregnancy and should be repeated after 48 hours. ID Date Data Source [id number] 08/31/2021 09:38:10 PM T [facility] XR CHEST FRONTAL ONLY [id number] RESULTI nterpreted by:Alyce Sorto, [facility] INFORMATION: Exam: XR Chest Exam date and time: 08/31/2021 9:25 PM Age: 36 years old Clinical indication: Other: Pre-op TECHNIQUE: Imaging protocol: XR of the chest. Views: 1 view. COMPARISON: No relevant prior studies available. FINDINGS: Lungs: Unremarkable. No consolidation. Pleural spaces: No pleural effusion. No pneumothorax. Heart/Mediastinum: Unremarkable. No cardiomegaly. Bones/joints: Unremarkable. IMPRESSION: No acute lung pathology. THIS DOCUMENT HAS BEEN ELECTRONICALLY SIGNED BY ALYCE SORTO MDThis document has been electronically signed by Alyce Sorto MD on 08/31/2021 9:37 PM Name Value Range Interpretation Code Description Data Harleen rce(s) Supporting Document(s) ID Date Data Source [id number] 08/31/2021 09:08:00 PM EDT [facility] Name Value Range Interpretation Code Description Data Harleen rce(s) Supporting Document(s) SARS-CoV-2 RNA 2019 nCoV Real-Time RT-PCR: NOT DETECTED [facility] This lab was ordered by [facility] and reported by [facility]. ID Date Data Source [id number] 08/31/2021 10:54:01 PM EDT [facility] Name Value Range Interpretation Code Description Data Harleen rce(s) Supporting Document(s) Specimen source [Identifier] of Unspecified specimen [facility] [place] SARS-CoV-2 RNA 2019 nCoV Real-Time RT-PCR: NOT DETECTED [facility] Assay Performed [facility] Patients first test for [facility] Patient employed in healthcare setting [facility] Patient has symptoms related to [facility] When did you start to experience these symptoms [Date and time] [PhenX] [id number] [facility] Patient was hospitalized because of this condition [facility] patient was admitted to ICU for [facility] Patient resides in a congregate care setting [facility] status [facility] ID Date Data Source [id number] 08/31/2021 10:52:00 PM EDT [facility] Service Cmnt XXX-Imp : NoneRespiratory P CR Panel : PCR ResultsMicroorganism XXX Cult : See Labs Tab for 2019 nCoV RT-PCR resultsHAdV DNA QI YUSUF+non-probe : Not DetectedHCoV [id number] Nph QI YUSUF+non-probe : Not DetectedHCoV [id number] Nph QI YUSUF+non-probe : Not [id number] RNA Nph QI YUSUF+non-probe : Not [id number] RNA Upper resp QI YUSUF+probe : Not DetectedhMPV RNA Nph QINAA+non-probe : Not DetectedRV+EV RNA Nph QI YUSUF+non-probe : Not DetectedFLUAV RNA Nph QI YUSUF+ non-probe : Not DetectedFLUBV RNA Nph QI YUSUF+non-probe : Not DetectedHPIV1 RNA NphQINAA+non-probe : Not DetectedHPIV2 RNA Nph QINAA+non-probe : Not DetectedHPVI3 RNA Nph YUSUF+non-probe : Not DetectedHPIV4 RNA Nph Q YUSUF+non-probe : Not DetectedRSV RNA Nph Q YUSUF+non-probe : Not DetectedB pert.PT PrmtNph Q YUSUF+non-probe : Not DetectedC pneum DNA Nph Q YUSUF+non-probe : Not DetectedM pneum DNA Nph Q YUSUF+non-probe : Not DetectedB [id number] DNA Nph YUSUF+non-probe : Not Detected Name Value Range Interpretation Code Description Data Harleen rce(s) Supporting Document(s) ID Date Data Source [id number] 08/31/2021 09:40:21 PM EDT [facility] Name Value Range Interpretation Code Description Data Harleen rce(s) Supporting Document(s) ABO and Rh group [Type] in Blood [facility] Blood bank comment [facility] ID Date Data Source [id number] 08/31/2021 09:24:51 PM EDT [facility] Name Value Range Interpretation Code Description Data Harleen rce(s) Supporting Document(s) Leukocytes [#/volume] in Blood by Automated count 9.5 10*3/uL 4-10 [facility] Erythrocytes [#/volume] in Blood by Automated count 3.91 10*6/uL 4.1- 5.[address] [facility] Hemoglobin [Mass/volume] in Blood 11.9 g/dL 11.5-15.5 [facility] Hematocrit [Volume Fraction] of Blood by Automated count 35.7 % 3 6-[address] [facility] Erythrocyte mean corpuscular volume [Entitic volume] by Auto mated count 91.3 fL 80-96 [facility] [place] Erythrocyte mean corpuscular hemoglobin [Entitic mass] by Automated count 30.4 pg 27-33 [facility] Erythrocyte mean corpuscular hemoglobin concentration [Mass/volume] by Automated count 33.4 g/dL 32.0-36.[facility] width [Ratio] by Automated count 14.3 % 11.5-14.5 [facility] Platelets [#/volume] in Blood by Automated count 392 10*3/uL 150-400 [facility] Differential cell count method - Blood [facility] Neutrophils/100 leukocytes in Blood by Automated count 68 % [facility] Lymphocytes/100 leukocytes in Blood by Automated count 22 % [facility] Monocytes/100 leukocytes in Blood by Automated count 8 % [facility] Eosinophils/100 leukocytes in Blood by Automated count 1 % [facility] Basophils/100 leukocytes in Blood by Automated count 1 % [facility] Neutrophils [#/volume] in Blood by Automated count 6.51 10*3/uL 1.8-[address] [facility] Lymphocytes [#/volume] in Blood by Automated count 2.11 10*3/uL 1.2-[address] [facility] Monocytes [#/volume] in Blood by Automated count 0.77 10*3/uL 0-0.8 [facility] Eosinophils [#/volume] in Blood by Automated count 0.05 10*3/uL 0-0.5 [facility] Basophils [#/volume] in Blood by Automated count 0.07 10*3/uL 0-0.2 [facility] Nucleated erythrocytes/100 leukocytes [Ratio] in Blood by Automated count 0 /100{WBCs} 0-0 [facility] ID Date Data Source [id number] 08/31/2021 09:42:15 PM EDT [facility] Name Value Range Interpretation Code Description Data Harleen rce(s) Supporting Document(s) Bicarbonate [Moles/volume] in Serum 22 mmol/L 22-29 [facility] Chloride [Moles/volume] in Serum or Plasma 102 mmol/L 98-107 [facility] Creatinine [Mass/volume] in Serum or Plasma 0.66 mg/dL 0.50-0.90 [facility] Glucose [Mass/volume] in Serum or Plasma 101 mg/dL 70-140 [facility] Potassium [Moles/volume] in Serum or Plasma 4.0 mmol/L 3.4-5.1 [facility] Hemolyzed Sodium [Moles/volume] in Serum or Plasma 136 mmol/L 136-145 [facility] Urea nitrogen [Mass/volume] in Serum or Plasma 18 mg/dL 6-20 [facility] Anion gap 3 in Serum or Plasma 12 mmol/L 8-15 [facility] Osmolality of Serum or Plasma by calculation 284 mosm/kg 275-300 [facility] Creatinine/Urea nitrogen [Mass Ratio] in Serum or Plasma 28 [facility] Calcium [Mass/volume] in Serum or Plasma 8.4 mg/dL 8.6-10.[address] [facility] Glomerular filtration rate/1.73 sq M pre dicted among non-blacks [Volume Rate/Area] in Serum or Plasma by Creatinine-based formula (MDRD) >[address] [facility] Glomerular filtration rate/1.73 sq M pre dicted among blacks [Volume Rate/Area] in Serum or Plasma by Creatinine-based formula (MDRD) >60 [facility] ID Date Data Source [id number] 08/31/2021 09:50:53 PM [facility] Name Value Range Interpretation Code Description Data Harleen rce(s) Supporting Document(s) ABO and Rh group [Type] in Blood [facility] [place] Blood group antibody screen [Presence] in Serum or Plasma [facility] [place] Blood bank comment [facility] ID Date Data Source [id number] 08/31/2021 09:46:40 PM [facility] Name Value Range Interpretation Code Description Data Harleen rce(s) Supporting Document(s) aPTT in Platelet poor plasma by Coagulation assay 26.5 s 24.0-33. 0 [facility] [place] ID Date Data Source [id number] 08/31/2021 09:46:40 PM [facility] Name Value Range Interpretation Code Description Data Harleen rce(s) Supporting Document(s) Prothrombin time (PT) 12.8 s 11.6-14.0 [facility] [place] INR in Platelet poor plasma by Coagulation assay 1.00 [facility] [place] Routine intensity oral anticoagulation I NR is typically 2.0-3.0. Target INR must be clinically individualized. ID Date Data Source [id number] 08/31/2021 09:02:24 PM [facility] XR KNEE 4 OR MORE VIEWS [id number] RESUL TInterpreted by:Alyce Sorto, MDPROCEDURE INFORMATION: Exam: XR Right Knee Exam date and time: 08/31/2021 8:19 PM Age: 36 years old Clinical indication: Other: Trauma, left knee highly tender to palpation TECHNIQUE: Imaging protocol: XR Right knee. Views: 4 or more views. COMPARISON: No relevant prior studies available. FINDINGS: Bones/joints: No acute fracture. No dislocation. Soft tissues: Unremarkable. IMPRESSION: No acute fracture. PROCEDURE INFORMATION: Exam: XR Left Knee Exam date and time: 08/31/2021 8:19 PM Age: 36 years old Clinical indication: Other: Trauma, left knee highly tender to palpation TECHNIQUE: Imaging protocol: XR Left knee. Views: 4 or more views. COMPARISON: No relevant prior studies available. FINDINGS: Bones/joints: Comminuted fracture mid portion to distal pole of the patella with displacement. Suprapatellar joint effusion. No dislocation. Soft tissues: Anterior soft tissue swelling. IMPRESSION: Co mminuted displaced fracture of the patella.THIS DOCUMENT HAS BEEN ELECTRONICALLY SIGNED BY ALYCE SORTO MDThis document has been electronically signed by Alyce Sorto MD on 08/31/2021 9:02 PM Name Value Range Interpretation Code Description Data Harleen rce(s) Supporting Document(s) ID Date Data Source [id number] 08/31/2021 09:02:09 PM [facility] XR FEMUR, MINIMUM OF 2 VIEWS [id number] RESULTInterpreted by:MALLORIE Paula INFORMATION: Exam: XR Left Femur Exam date and time: 08/31/2021 8:19 PM Age: 36 years old Clinical indication: Other: Trauma TECHNIQUE: Imaging protocol: XR Left femur. Views: 2 views. COMPARISON: No relevant prior studies available. FINDINGS: Bones/joints: Comminuted fracture mid portion to distal pole of the patella with displacement. Suprapatellar joint effusion. No acute fracture of the femur. Soft tissues: Anterior soft tissue swelling at the knee. IMPRESSION: Comminuted displaced fracture of the mendoza lla.THIS DOCUMENT HAS BEEN ELECTRONICALLY SIGNED BY ALYCE SORTO MDThis document has been electronically signed by Alyce Sorto MD on 08/31/2021 9:01 PM Name Value Range Interpretation Code Description Data Harleen rce(s) Supporting Document(s) ID Date Data Source [id number] 08/31/2021 09:01:14 PM [facility] XR TIBIA [id number] RESULTInterpreted by :MALLORIE Paula INFORMATION: Exam: XR Left Tibia and Fibula Exam date and time: 08/31/2021 8:19 PM Age: 36 years old Clinical indication: Other: Trauma TECHNIQUE: Imaging protocol: XR Left tibia and fibula. Views: 2 views. COMPARISON: No relevant prior studies available. FINDINGS: Bones/joints: No acute fracture. Soft tissues: Unremarkable. IMPRESSION: No acute fracture. THIS DOCUMENT HAS BEEN ELECTRONICALLY SIGNED BY ALYCE SORTO MDThis document has been electronically signed by Alyce Sorto MD on 08/31/2021 9:00 PM Name Value Range Interpretation Code Description Data Harleen rce(s) Supporting Document(s) ID Date Data Source [id number] 08/31/2021 09:00:44 PM EDT [facility] XR ANKLE 3 OR MORE VIEWS [id number] RESU LTInterpreted by:Alyce Sorto MDPROCEDURE INFORMATION: Exam: XR Left Ankle Exam date and time: 08/31/2021 8:19 PM Age: 36 years old Clinical indication: Other: Trauma TECHNIQUE: Imaging protocol: XR Left ankle. Views: 3 or more views. COMPARISON: No relevant prior studies available. FINDINGS: Bones/joints: No acute fracture. No dislocation. Soft tissues: Unremarkable. IMPRESSION: No acute fracture. THIS DOCUMENT HAS BEEN ELECTRONICALLY SIGNED BY ALYCE SORTO MDThis document has been electronically signed by Alyce Sorto MD on 08/31/2021 9:00 PM Name Value Range Interpretation Code Description Data Harleen rce(s) Supporting Document(s) ID Date Data Source [id number] 08/29/2021 08:13:00 AM EDT [facility] Name Value Range Interpretation Code Description Data Harleen rce(s) Supporting Document(s) QFTB QuantiFERON-TB Gold+ res Negative No rmal (applies to non-numeric results) [facility] No interferon-gamma response to M. tuber culosis antigens was detected. Latent infection with M. tuberculosis is unlikely. A single negative result does not exclude infection with M. tuberculosis. In patients at high risk for M.tuberculosis infection, a second test should be considered in accordance with the 2017 ATS/IDSA/CDC Clinical Practice Guidelines for Diagnosis of Tuberculosis in Adults and Children [Harris LOMBARDO et. al. Clin. Infect. Dis. 2017;64(2):111-115]. The reference range for the 'TB1 Ag minus Nil Result' and 'TB2 Ag minus Nil Result' is an Interferon-gamma level <0.35 IU/mL. QFTB TB1 Ag min Nil res Normal (applies to non- numeric results) [facility] QFTB TB2 Ag min Nil res Normal (applies to non- numeric results) [facility] QFTB Mitogen minus Nil result Normal (applies t o non-numeric results) [facility] QFTB Nil result Normal (applies to non-numeric results) [facility] Test Performed by: [facility] [address] [place] [address] [employer]: Manuel Plaza M.D. Ph.D.; CLIA# [id number] ID Date Data Source [id number] 08/27/2021 08:37:00 AM EDT [facility] anti-CCP IgG antibodies were not detecte d. Name Value Range Interpretation Code Description Data Harleen rce(s) Supporting Document(s) Hep C Ab-T Test Nonreactive [facility] Results called 08/27/21 0837, NURSE IN [facility] read back information to JENELLE BARRAGAN THIS IS A STATE REPORTABLE COMMUNICABLE DISEASE. Note: This patient's sample tests reactive with a high Index >/= 11.00. Samples with high indexes have been shown to repeat positive using a different methodology 95% of the time or greater but <5 of every 100 samples might be false positives. Additional testing for verification of the result can be requested by the physician if necessary. ([facility] MMWR No RR-3. 2003). ID Date Data Source [id number] 08/27/2021 08:38:00 AM EDT [facility] anti-CCP IgG antibodies were not detecte d. Name Value Range Interpretation Code Description Data Harleen rce(s) Supporting Document(s) ID Date Data Source [id number] 08/27/2021 08:38:00 AM EDT [facility] anti-CCP IgG antibodies were not detecte d. Name Value Range Interpretation Code Description Data Harleen rce(s) Supporting Document(s) ID Date Data Source [id number] 08/27/2021 08:38:00 AM EDT [facility] anti-CCP IgG antibodies were not detecte d. Name Value Range Interpretation Code Description Data Harleen rce(s) Supporting Document(s) ID Date Data Source [id number] 08/26/2021 08:39:00 PM EDT [facility] Name Value Range Interpretation Code Description Data Harleen rce(s) Supporting Document(s) White Blood Count 4.8-10.8 Normal (applies to non-numeri c results) [facility] Red Blood Count 3.68-5.22 Normal (applies to non-numeric results) [facility] Hemoglobin 11.2-15.7 Normal (applies to non-numeric resul ts) [facility] Hematocrit 34.1-44.9 Normal (applies to non-numeric resul ts) [facility] Mean Corpuscular Volume 81-99 Normal (applies to non- numeric results) [facility] Mean Corpuscular Hemoglobin 27.0-33.0 Normal (appli es to non-numeric results) [facility] Mean Corpuscular HGB Conc 32.0-36.0 Normal (applies to no n-numeric results) [facility] Red Cell Distribution Width 11.5-14.5 Normal (appli es to non-numeric results) [facility] Platelet Count 430 X10 3/uL 130-450 Normal (applies to non-numeric results) [facility] Mean Platelet Volume 9.5-12.7 Below low normal [facility] Imm Grans% (AUTO) 1 % 0-2 Normal (applies to non-numeri c results) [facility] Neutrophils % (AUTO) 83 % 40-75 Above high normal [facility] Lymphocytes % (AUTO) 13 % 21-46 Below low normal [facility] Monocytes % (AUTO) 4 % 5-12 Below low normal [facility] Eosinophils % (AUTO) 0 % 1-5 Below low normal [facility] Basophils % (AUTO) 0 % 0-1 Normal (applies to non-numer ic results) [facility] Imm Grans# (AUTO) 0.0-0.5 Normal (applies to non-numeri c results) [facility] Neutrophils # (AUTO) 1.5-8.1 Above high normal [facility] Lymphocytes # (AUTO) 1.0-3.1 Normal (applies to non-num erick results) [facility] Monocytes # (AUTO) 0.2-1.3 Normal (applies to non-numer ic results) [facility] Eosinophils# (AUTO) 0.0-0.5 Normal (applies to non-nume [place] results) [facility] Basophils # (AUTO) 0.0-0.1 Normal (applies to non-numer ic results) [facility] ID Date Data Source [id number] 08/26/2021 08:39:00 PM EDT [facility] Name Value Range Interpretation Code Description Data Harleen rce(s) Supporting Document(s) Erythrocyte Sedimentation ESR 24 mm/hr 0-20 Above high normal [facility] ID Date Data Source [id number] 08/26/2021 07:14:00 PM EDT [facility] Name Value Range Interpretation Code Description Data Harleen rce(s) Supporting Document(s) Creatinine,Ur Random Normal (applies to non-num erick results) [facility] No established reference values Total Protein,Urine Random Normal (applies to n on-numeric results) [facility] No established reference values UrTotal Protein/Creat Ratio Normal (applies to non-numeric results) [facility] No established reference values ID Date Data Source [id number] 08/26/2021 06:22:00 PM EDT [facility] Name Value Range Interpretation Code Description Data Harleen rce(s) Supporting Document(s) Color,Urine Yellow Normal (applies to non-numeric resu lts) [facility] Clarity,Urine Clear Normal (applies to non-numeric re sults) [facility] Specific [place],Urine 1.001-1.030 Normal (applies to non- numeric results) [facility] PH,Urine 5.0-8.0 Normal (applies to non-numeric resul ts) [facility] Protein,Urine Negative Normal (applies to non-numeric re sults) [facility] Glucose,Urine (UA) Negative Normal (applies to non-numer ic results) [facility] Ketones,Urine Negative Normal (applies to non-numeric re sults) [facility] Blood,Urine Negative Normal (applies to non-numeric resu lts) [facility] Bilirubin,Urine Negative Normal (applies to non-numeric results) [facility] Urobilinogen,Urine Norm 0.2-1 Normal (applies to non-numer ic results) [facility] Leukocyte Esterase,Urine Negative Normal (applies to non -numeric results) [facility] Nitrite,Urine Negative Normal (applies to non-numeric re sults) [facility] RBC,Auto Urine 0-2 Normal (applies to non-numeric r esults) [facility] WBC Urine Auto 0-10 Normal (applies to non-numeric r esults) [facility] Casts,Hyaline,Urine Auto 0-2 Normal (applies to non -numeric results) [facility] Bacteria Urine Auto None Seen Normal (applies to non-[place]ume [place] results) [facility] Epithelial Cell Ur Auto None-Few Normal (applies to non- numeric results) [facility] ID Date Data Source [id number] 08/26/2021 06:21:00 PM EDT [facility] Name Value Range Interpretation Code Description Data Harleen rce(s) Supporting Document(s) Sodium 135 mmol/L 137-145 Below low normal [facility] Potassium 3.5-5.1 Normal (applies to non-numeric resul ts) [facility] Chloride 103 mmol/L 98-112 Normal (applies to non-numeric resul ts) [facility] Carbon Dioxide CO2 22.0-33.0 Normal (applies to non-numer ic results) [facility] Anion Gap 4.0-11.0 Normal (applies to non-numeric resul ts) [facility] BUN 20 mg/dL 7-17 Above high normal [facility] Creatinine 0.70-1.20 Normal (applies to non-numeric resul ts) [facility] GFR >60 Normal (applies to non-numeric results) [facility] Result based on MDRD formula. Glucose Level 101 mg/dL 74-[address] [facility] The reference range is only applicable w hen fasting. Calcium-Uncorrected 8.4-10.2 Normal (applies to non-nume [place] results) [facility] Corrected Calcium 8.4-10.2 Normal (applies to non-numeri c results) [facility] Bilirubin,Total 0.2-1.3 Normal (applies to non-numeric results) [facility] SGOT(AST) 13 U/L 14-36 Below low normal [facility] SGPT(ALT) 16 U/L 9-52 Normal (applies to non-numeric resul ts) [facility] Alkaline Phosphatase 47 U/L 38-126 Normal (applies to non-num erick results) [facility] can increase Alkaline Phosp le vels up to 2 times the normal adult value. Normal values for children and adolescents are 2 to 3 times the normal adult value. Total Protein 6.3-8.2 Normal (applies to non-numeric re sults) [facility] Albumin 3.5-5.0 Normal (applies to non-numeric resul ts) [facility] ID Date Data Source [id number] 08/26/2021 06:21:00 PM EDT [facility] Name Value Range Interpretation Code Description Data Harleen rce(s) Supporting Document(s) C-Reactive Protein,Wide Range <3.00 Normal (applies t o non-numeric results) [facility] ID Date Data Source [id number] 08/28/2021 12:19:00 PM EDT [facility] Name Value Range Interpretation Code Description Data Harleen rce(s) Supporting Document(s) C4 Complement,S result 19 mg/dL 14 - 40 Normal (applies to non-numeric results) [facility] Test Performed by: [place] [address] [employer] Teacher: Manuel Plaza M.D. Ph.D.; CLIA# [id number] ID Date Data Source [id number] 08/28/2021 12:19:00 PM EDT [facility] Name Value Range Interpretation Code Description Data Harleen rce(s) Supporting Document(s) C3 Complement,S result 109 mg/dL 75 - 175 Normal (a pplies to non-numeric results) [facility] Test Performed by: [place] [address] [employer] Teacher: Manuel Plaza M.D. Ph.D.; CLIA# [id number] ID Date Data Source [id number] 08/28/2021 12:19:00 PM EDT [facility] Name Value Range Interpretation Code Description Data Harleen rce(s) Supporting Document(s) HBc Total Ab Negative Normal (applies to non-numeric res ults) [facility] Test Performed by: [facility] [address] [place] [address] [employer] Teacher: Manuel Plaza M.D. Ph.D.; CLIA# [id number] ID Date Data Source [id number] 08/19/2021 02:15:00 PM EDT [facility] ([facility], ) Name Value Range Interpretation Code Description Data Harleen rce(s) Supporting Document(s) PDFReport Laboratory test result [facility] ([facility], ) FVC-Pred 3.74 L [facility] ([facility], ) FVC-%Pred-Pre 109 L [facility] ([facility], ) Fev1-Pred 3.09 L [facility] ([facility], ) FVC-Pre 4.08 L [facility] ([facility], ) FVC-LLN 3.04 L [facility] ([facility], ) Fev1-LLN 2.50 L [facility] ([facility], ) Fev1-Pre 2.84 L [facility] ([facility]) Fev1-%Pred-Pre 91 L [facility] ([facility], ) Fev6-Pre 4.05 L [facility] ([facility], ) Fev6-Pred 3.68 L [facility] ([facility], ) Fev6-%Pred-Pre 109 L [facility] ([facility], ) Onj8mci-Qij 70 % [facility] ([facility]) Xti5los-Tewf 83 % [facility] ([facility]) Fev6-LLN 3.00 L [facility] ([facility], ) Ucb4xqq-%Pred-Pre 83 % [facility] ([facility], ) Jqg2xiv-Edwn 99 % [facility] ([facility], ) Scn8yxp-FKH 73 % [facility] ([facility]) FEFMax-Pred 7.01 L/E/sec [facility] ([facility]) Pyc0iqy-Fyk 99 % [facility] ([facility]) Gvu5max-%Pred-Pre 100 % [facility] ([facility]) FEFMax-Pre 4.37 L/E/sec [facility] ([facility]) Usk9926-Vosr 3.27 L/E/sec [facility] ([facility]) FEFMax-%Pred-Pre 62 L/E/sec [facility] ([facility]) FEFMax-LLN 5.29 L/E/sec [facility] ([facility]) Mjo9435-%Pred-Pre 57 L/E/sec [facility] ([facility]) Ppy6951-Dkc 1.89 L/E/sec [facility] ([facility]) Juo2685-RQY 2.03 L/E/sec [facility] ([facility]) ExpTime-Pre 7.66 sec [facility] ([facility]) Skv2cju0-Twkw 84 % [facility] ([facility]) Exp5slo5-Gue 70 % [facility] ([facility]) Xus5ret3-FRX 76 % [facility] ([facility]) Vpb2emh9-%Pred-Pre 83 % [facility] ([facility]) ID Date Data Source [id number] 06/02/2021 09:39:00 AM EDT [facility] ([facility]) Name Value Range Interpretation Code Description Data Harleen rce(s) Supporting Document(s) Surgical pathology study Laboratory test result [facility] ([facility]) FINAL DIAGNOSIS Colon, random biopsy: Fragments of colonic mucosa with hyperplastic changes and focal nonspecific inflammation. No evidence of microscopic colitis. 06/03/2021 - 1241 CLINICAL DIAGNOSIS Change in bowel habits 06/02/2021 - 1515 GROSS DIAGNOSIS Received in formalin labeled "random colon biopsy" and consists of a fragment of tissue, 0.2 x 0.1 x 0.1 cm. All in one. -OA 06/02/2021 - 1515 Signed MARIA LUISA VELÁZQUEZ MD 06/03/2021 1242 ID Date Data Source [id number] 05/28/2021 11:20:00 AM EDT [facility]) Name Value Range Interpretation Code Description Data Harleen rce(s) Supporting Document(s) ID Date Data Source [id number] 05/28/2021 11:20:00 AM EDT [facility] Name Value Range Interpretation Code Description Data Harleen rce(s) Supporting Document(s) SARS-CoV-2 (COVID-19) RNA [Presence] in Respiratory specimen by YUSUF with probe detection Not Detected [facility] This lab was ordered by [facility] and reported by [facility] [employer] [facility]. ID Date Data Source [id number] 04/07/2021 08:48:00 AM EDT [facility]) Name Value Range Interpretation Code Description Data Harleen rce(s) Supporting Document(s) sars-cov-2 negative negative Sars-cov-2 [facility]) ID Date Data Source [id number] 04/07/2021 08:48:00 AM EDT [facility]) Name Value Range Interpretation Code Description Data Harleen rce(s) Supporting Document(s) sars-cov-2 negative negative Sars-cov-2 [facility]) ID Date Data Source [id number] 04/07/2021 08:48:00 AM EDT [facility]) Name Value Range Interpretation Code Description Data Harleen rce(s) Supporting Document(s) sars-cov-2 negative negative Sars-cov-2 [facility]) ID Date Data Source [id number] 04/07/2021 08:46:00 AM EDT [facility] Name Value Range Interpretation Code Description Data Harleen rce(s) Supporting Document(s) SARS coronavirus 2 RdRp gene [Presence] in Respiratory specimen by YUSUF with probe detection Not detected [facility] This lab was ordered by [facility] and reported by [facility]. ID Date Data Source [id number] 02/27/2021 07:59:00 AM EDT [facility] ([facility]) Name Value Range Interpretation Code Description Data Harleen rce(s) Supporting Document(s) free lambda light chains serum 28.5 mg/L 5.7-26.3 Above high normal Free Lambda Light Chains Serum [facility] ([facility]) free kappa light chains serum 21.0 mg/L 3.3-19.4 Above high normal Free [place] Light Chains Serum [facility] ([facility]) kappa/lambda ratio serum 0.26-1.65 [place]/lambd a Ratio Serum [facility] ([facility]) ID Date Data Source [id number] 02/27/2021 07:59:00 AM EDT [facility] ([facility]) Name Value Range Interpretation Code Description Data [facility] rce(s) Supporting Document(s) glucose, fasting 74 mg/dL 70-100 Glucose, Fasting AT [facility]) glomerular filtration rate > 60.0 >60 Glomerula r Filtration Rate [facility] ([facility]) blood urea nitrogen 21 mg/dL 7-18 Above high normal Blood Ure a Nitrogen [facility] ([facility]) creatinine for GFR 0.64 mg/dL 0.55-1.30 Creatinine for GF R [facility] ([facility]) potassium serum 4.1 mEq/L 3.5-5.1 Potassium Serum ATH NA ([facility]) sodium level 139 mEq/L 136-145 Sodium Level [facility] ([facility]) chloride level 106 mEq/L 98-107 Chloride Level [facility] ([facility]) carbon dioxide level 29 mEq/L 21-32 Carbon Dioxide Level [facility] ([facility]) AST/SGOT 14 U/L 7-37 AST/SGOT [facility] ([facility]) anion gap 4 mEq/L 8-16 Below low normal Anion Gap [facility] ( [facility]) calcium level 8.6 mg/dL 8.5-10.1 Calcium Level [facility] ( [facility]) bilirubin,total 0.2 mg/dL 0.2-1.0 Bilirubin,total [facility]HE NA ([facility]) ALT/SGPT 18 U/L 12-78 ALT/SGPT [facility] ([facility]) alkaline phosphatase 46 U/L 45-117 Alkaline Phosph atase [facility] ([facility]) albumin 3.7 gm/dL 3.2-5.2 Albumin [facility] ([facility]) total protein 7.2 gm/dL 6.4-8.2 Total Protein [facility] ( [facility]) albumin/globulin ratio 1.2-2.2 Below low normal Albumin /globulin Ratio [facility] ([facility]) ID Date Data Source [id number] 02/27/2021 07:59:00 AM EDT [facility] ([facility]) Name Value Range Interpretation Code Description Data Harleen rce(s) Supporting Document(s) white blood count 5.0 10 4.0-10.0 White Blood Count [facility] ([facility]) red blood count 3.85 10 4.00-5.40 Below low normal Red Blood Coun t [facility] ([facility]) hematocrit 36.5 % 36.0-47.0 Hematocrit [facility] ([facility]) hemoglobin 11.8 g/dL 12.0-15.5 Below low normal Hemoglobin [facility] ( [facility]) mean corpuscular hemoglobin 30.6 pg 27.0-33.0 Mean Cor puscular Hemoglobin [facility] ([facility]) mean corpuscular volume 94.8 fL 80.0-96.0 Mean Corpusc ular Volume [facility] ([facility]) mean corpuscular HGB conc 32.3 g/dL 32.0-36.5 Mean Corpu scular HGB Conc [facility] ([facility]) platelet count, automated 362 10 150-450 Platelet C ount, Automated [facility] ([facility]) red cell distribution width 15.3 % 11.5-14.5 Above high no rmal Red Cell Distribution Width [facility] ([facility]) lymph % 43.3 % 24.0-44.0 Lymph % [facility] ([facility]) neutrophils % 36.1 % 36.0-66.0 Neutrophils % [facility] ( [facility]) mono % 10.9 % 2.0-8.0 Above high normal Carbon % [facility] ([facility]) eos % 8.3 % 0.0-3.0 Above high normal Eos % [facility] ([facility]) baso % 1.2 % 0.0-1.0 Above high normal Baso % [facility] ([facility]) immature granulocyte % 0.2 % 0-3.0 Immature Gran ulocyte % [facility] ([facility]) nucleated red blood cell % 0.0 % 0-0 Nucleated Red Blood Cell % [facility] ([facility]) neutrophils # 1.8 10 1.5-8.5 Neutrophils # [facility] ( [facility]) mono # 0.6 10 0.0-0.8 Carbon # [facility] ([facility]) lymph # 2.2 10 1.5-5.0 Lymph # [facility] ([facility]) eos # 0.4 10 0.0-0.5 Eos # [facility] ([facility]) baso # 0.1 10 0.0-0.2 Baso # [facility] ([facility]) ID Date Data Source [id number] 02/27/2021 07:59:00 AM EDT [facility] ([facility]) Name Value Range Interpretation Code Description Data Harleen rce(s) Supporting Document(s) free kappa light chains serum 21.0 mg/L 3.3-19.4 Above high normal Free [place] Light Chains Serum [facility] ([facility]) kappa/lambda ratio serum 0.26-1.65 [place]/lambd a Ratio Serum [facility] ([facility]) free lambda light chains serum 28.5 mg/L 5.7-26.3 Above high normal Free Lambda Light Chains Serum [facility] ([facility]) ID Date Data Source [id number] 02/27/2021 07:59:00 AM EDT [facility] ([facility]) Name Value Range Interpretation Code Description Data Harleen rce(s) Supporting Document(s) glucose, fasting 74 mg/dL 70-100 Glucose, Fasting AT [facility] ([facility]) blood urea nitrogen 21 mg/dL 7-18 Above high normal Blood Ure a Nitrogen [facility] ([facility]) creatinine for GFR 0.64 mg/dL 0.55-1.30 Creatinine for GF R [facility] ([facility]) potassium serum 4.1 mEq/L 3.5-5.1 Potassium Serum [facility]HE ([facility]) glomerular filtration rate > 60.0 >60 Glomerula r Filtration Rate [facility] ([facility]) sodium level 139 mEq/L 136-145 Sodium Level [facility] ([facility]) carbon dioxide level 29 mEq/L 21-32 Carbon Dioxide Level [facility] ([facility]) anion gap 4 mEq/L 8-16 Below low normal Anion Gap [facility] ( [facility]) chloride level 106 mEq/L 98-107 Chloride Level [facility] ([facility]) calcium level 8.6 mg/dL 8.5-10.1 Calcium Level [facility] ( [facility]) AST/SGOT 14 U/L 7-37 AST/SGOT [facility] ([facility]) ALT/SGPT 18 U/L 12-78 ALT/SGPT [facility] ([facility]) bilirubin,total 0.2 mg/dL 0.2-1.0 Bilirubin,total ATHE NA ([facility]) alkaline phosphatase 46 U/L 45-117 Alkaline Phosph atase [facility] ([facility]) total protein 7.2 gm/dL 6.4-8.2 Total Protein [facility] ( [facility]) albumin/globulin ratio 1.2-2.2 Below low normal Albumin /globulin Ratio [facility] ([facility]) albumin 3.7 gm/dL 3.2-5.2 Albumin [facility] ([facility]) ID Date Data Source [id number] 02/27/2021 07:59:00 AM EDT [facility] ([facility]) Name Value Range Interpretation Code Description Data Harleen rce(s) Supporting Document(s) white blood count 5.0 10 4.0-10.0 White Blood Count [facility] ([facility]) red blood count 3.85 10 4.00-5.40 Below low normal Red Blood Coun t [facility] ([facility]) hematocrit 36.5 % 36.0-47.0 Hematocrit [facility] ([facility]) hemoglobin 11.8 g/dL 12.0-15.5 Below low normal Hemoglobin [facility] ( [facility]) mean corpuscular HGB conc 32.3 g/dL 32.0-36.5 Mean Corpu scular HGB Conc [facility] ([facility]) mean corpuscular hemoglobin 30.6 pg 27.0-33.0 Mean Cor puscular Hemoglobin [facility] ([facility]) mean corpuscular volume 94.8 fL 80.0-96.0 Mean Corpusc ular Volume [facility] ([facility]) neutrophils % 36.1 % 36.0-66.0 Neutrophils % [facility] ( [facility]) red cell distribution width 15.3 % 11.5-14.5 Above high no rmal Red Cell Distribution Width [facility] ([facility]) platelet count, automated 362 10 150-450 Platelet C ount, Automated [facility] ([facility]) mono % 10.9 % 2.0-8.0 Above high normal Carbon % [facility] ([facility]) eos % 8.3 % 0.0-3.0 Above high normal Eos % [facility] ([facility]) lymph % 43.3 % 24.0-44.0 Lymph % [facility] ([facility]) baso % 1.2 % 0.0-1.0 Above high normal Baso % [facility] ([facility]) immature granulocyte % 0.2 % 0-3.0 Immature Gran ulocyte % [facility] ([facility]) nucleated red blood cell % 0.0 % 0-0 Nucleated Red Blood Cell % [facility] ([facility]) lymph # 2.2 10 1.5-5.0 Lymph # [facility] ([facility]) neutrophils # 1.8 10 1.5-8.5 Neutrophils # [facility] ( [facility]) mono # 0.6 10 0.0-0.8 Carbon # [facility] ([facility]) eos # 0.4 10 0.0-0.5 Eos # [facility] ([facility]) baso # 0.1 10 0.0-0.2 Baso # [facility] ([facility]) ID Date Data Source [id number] 02/27/2021 07:59:00 AM EDT [facility] ([facility]) Name Value Range Interpretation Code Description Data Harleen rce(s) Supporting Document(s) free kappa light chains serum 21.0 mg/L 3.3-19.4 Above high normal Free [place] Light Chains Serum [facility] ([facility]) free lambda light chains serum 28.5 mg/L 5.7-26.3 Above high normal Free Lambda Light Chains Serum [facility] ([facility]) kappa/lambda ratio serum 0.26-1.65 [place]/lambd a Ratio Serum [facility] ([facility]) ID Date Data Source [id number] 02/27/2021 07:59:00 AM EDT [facility] ([facility]) Name Value Range Interpretation Code Description Data Harleen rce(s) Supporting Document(s) glucose, fasting 74 mg/dL 70-100 Glucose, Fasting AT [facility] ([facility]) blood urea nitrogen 21 mg/dL 7-18 Above high normal Blood Ure a Nitrogen [facility] ([facility]) creatinine for GFR 0.64 mg/dL 0.55-1.30 Creatinine for GF R [facility] ([facility]) glomerular filtration rate > 60.0 >60 Glomerula r Filtration Rate [facility] ([facility]) potassium serum 4.1 mEq/L 3.5-5.1 Potassium Serum ATHE ([facility]) sodium level 139 mEq/L 136-145 Sodium Level [facility] ([facility]) carbon dioxide level 29 mEq/L 21-32 Carbon Dioxide Level [facility] ([facility]) chloride level 106 mEq/L 98-107 Chloride Level [facility] ([facility]) anion gap 4 mEq/L 8-16 Below low normal Anion Gap [facility] ( [facility]) calcium level 8.6 mg/dL 8.5-10.1 Calcium Level [facility] ( [facility]) AST/SGOT 14 U/L 7-37 AST/SGOT [facility] ([facility]) bilirubin,total 0.2 mg/dL 0.2-1.0 Bilirubin,total ATHE NA ([facility]) total protein 7.2 gm/dL 6.4-8.2 Total Protein [facility] ( [facility]) ALT/SGPT 18 U/L 12-78 ALT/SGPT [facility] ([facility]) alkaline phosphatase 46 U/L 45-117 Alkaline Phosph atase [facility] ([facility]) albumin/globulin ratio 1.2-2.2 Below low normal Albumin /globulin Ratio [facility] ([facility]) albumin 3.7 gm/dL 3.2-5.2 Albumin [facility] ([facility]) ID Date Data Source [id number] 02/27/2021 07:59:00 AM EDT [facility] ([facility]) Name Value Range Interpretation Code Description Data Harleen rce(s) Supporting Document(s) white blood count 5.0 10 4.0-10.0 White Blood Count [facility] ([facility]) red blood count 3.85 10 4.00-5.40 Below low normal Red Blood Coun t [facility] ([facility]) mean corpuscular volume 94.8 fL 80.0-96.0 Mean Corpusc ular Volume [facility] ([facility]) hematocrit 36.5 % 36.0-47.0 Hematocrit [facility] ([facility]) hemoglobin 11.8 g/dL 12.0-15.5 Below low normal Hemoglobin [facility] ( [facility]) mean corpuscular hemoglobin 30.6 pg 27.0-33.0 Mean Cor puscular Hemoglobin [facility] ([facility]) mean corpuscular HGB conc 32.3 g/dL 32.0-36.5 Mean Corpu scular HGB Conc [facility] ([facility]) red cell distribution width 15.3 % 11.5-14.5 Above high no rmal Red Cell Distribution Width [facility] ([facility]) platelet count, automated 362 10 150-450 Platelet C ount, Automated [facility] ([facility]) neutrophils % 36.1 % 36.0-66.0 Neutrophils % [facility] ( [facility]) lymph % 43.3 % 24.0-44.0 Lymph % [facility] ([facility]) mono % 10.9 % 2.0-8.0 Above high normal Carbon % [facility] ([facility]) eos % 8.3 % 0.0-3.0 Above high normal Eos % [facility] ([facility]) immature granulocyte % 0.2 % 0-3.0 Immature Gran ulocyte % [facility] ([facility]) baso % 1.2 % 0.0-1.0 Above high normal Baso % [facility] ([facility]) nucleated red blood cell % 0.0 % 0-0 Nucleated Red Blood Cell % [facility] ([facility]) neutrophils # 1.8 10 1.5-8.5 Neutrophils # [facility] ( [facility]) lymph # 2.2 10 1.5-5.0 Lymph # [facility] ([facility]) mono # 0.6 10 0.0-0.8 Carbon # [facility] ([facility]) eos # 0.4 10 0.0-0.5 Eos # [facility] ([facility]) baso # 0.1 10 0.0-0.2 Baso # [facility] ([facility]) ID Date Data Source [id number] 02/13/2021 10:06:00 AM EDT [facility] ([facility], ) Name Value Range Interpretation Code Description Data Harleen rce(s) Supporting Document(s) FVC-Pred 3.74 L [facility] ([facility], ) PDFReport Laboratory test result [facility] ([facility], ) FVC-%Pred-Pre 113 L [facility] ([facility]) FVC-Pre 4.24 L [facility] ([facility]) Fev1-Pred 3.09 L [facility] ([facility]) FVC-LLN 3.04 L [facility] ([facility]) Fev1-Pre 3.43 L [facility] ([facility]) Fev1-%Pred-Pre 110 L [facility] ([facility]) Fev1-LLN 2.50 L [facility] ([facility]) Fev6-Pred 3.68 L [facility] ([facility]) Fev6-LLN 3.00 L [facility] ([facility]) Fev6-Pre 4.24 L [facility] ([facility]) Fev6-%Pred-Pre 115 L [facility] ([facility]) Mgh1dkr-Pmfm 83 % [facility] ([facility]) Apu0mxl-Vrt 81 % [facility] ([facility]) Dvo0gwc-%Pred-Pre 97 % [facility] ([facility]) Ldg1dir-Qsza 99 % [facility] ([facility]) Yvx0pye-EIQ 73 % [facility] ([facility]) Lww1kmu-%Pred-Pre 101 % [facility] ([facility]) Enx6sfw-Fuk 100 % [facility] ([facility]) FEFMax-Pre 8.08 L/E/sec [facility] ([facility]) FEFMax-Pred 7.01 L/E/sec [facility] ([facility]) FEFMax-LLN 5.29 L/E/sec [facility] ([facility]) FEFMax-%Pred-Pre 115 L/E/sec [facility] ([facility]) Mxs7225-Lukz 3.27 L/E/sec [facility] ([facility], ) Wml7731-Zah 3.60 L/E/sec [facility] ([facility], ) Otc8162-%Pred-Pre 110 L/E/sec [facility] ([facility], ) ExpTime-Pre 5.42 sec [facility] ([facility], ) Tsk8097-QYO 2.03 L/E/sec [facility] ([facility], ) Fcn1bdj5-Lsl 81 % [facility] ([facility], ) Zzi1qyw3-Vhdy 84 % [facility] ([facility], ) Eeu0zri8-XPX 76 % [facility] ([facility]) Spc1lui4-%Pred-Pre 95 % [facility] ([facility]) ID Date Data Source [id number] 02/11/2021 03:32:00 PM EDT [facility] Name Value Range Interpretation Code Description Data Harleen rce(s) Supporting Document(s) HPV Detection,High Risk Types Negative No rmal (applies to non-numeric results) [facility] No E6 or E7 mRNA is detected from HPV ty pes 16,18,31,33,35,39,45,51,52,56,58,59,66, and 68 by nucleic acid amplification. ID Date Data Source [id number] 02/12/2021 11:21:00 AM EDT [facility] Name Value Range Interpretation Code Description Data Harleen rce(s) Supporting Document(s) ID Date Data Source [id number] 01/02/2021 07:03:00 PM EST [facility] ([facility]) Name Value Range Interpretation Code Description Data Harleen rce(s) Supporting Document(s) cyclic citrullinated peptide 8 units 0-19 Cyclic Citrullinated Peptide [facility] ([facility]) ID Date Data Source [id number] 01/02/2021 07:03:00 PM EST [facility] ([facility]) Name Value Range Interpretation Code Description Data Harleen rce(s) Supporting Document(s) ID Date Data Source [id number] 01/02/2021 07:03:00 PM EST [facility] ([facility]) Name Value Range Interpretation Code Description Data Harleen rce(s) Supporting Document(s) ID Date Data Source [id number] 01/02/2021 07:03:00 PM EST [facility] ([facility]) Name Value Range Interpretation Code Description Data Harleen rce(s) Supporting Document(s) C reactive protein quantitativ < 0.30 0.00-0.30 C Reactive Protein Quantitativ [facility] ([facility]) ID Date Data Source [id number] 01/02/2021 07:03:00 PM EST [facility] ([facility]) Name Value Range Interpretation Code Description Data Harleen rce(s) Supporting Document(s) rheumatoid factor quant 47.0 IU/mL <15.0 Above high normal Rheumatoid Factor Quant [facility] ([facility]) ID Date Data Source [id number] 01/02/2021 07:03:00 PM EST [facility] ([facility]) Name Value Range Interpretation Code Description Data Harleen rce(s) Supporting Document(s) thyroid stimulating hormone 0.692 uIU/mL 0.358-3.740 Thyroid Stimulating Hormone [facility] ([facility]) ID Date Data Source [id number] 01/02/2021 07:03:00 PM EST [facility] ([facility]) Name Value Range Interpretation Code Description Data Harleen rce(s) Supporting Document(s) erythrocyte sedimentation rate 44 mm/HR 0-20 Above high normal [facility] ID Date Data Source [id number] 01/02/2021 07:03:00 PM EST [facility] ([facility]) Name Value Range Interpretation Code Description Data Harleen rce(s) Supporting Document(s) cyclic citrullinated peptide 8 units 0-19 Cyclic Citrullinated Peptide [facility] ([facility]) ID Date Data Source [id number] 01/02/2021 07:03:00 PM EST [facility] ([facility]) Name Value Range Interpretation Code Description Data Harleen rce(s) Supporting Document(s) ID Date Data Source [id number] 01/02/2021 07:03:00 PM EST [facility] ([facility]) Name Value Range Interpretation Code Description Data Harleen rce(s) Supporting Document(s) ID Date Data Source [id number] 01/02/2021 07:03:00 PM EST [facility] ([facility]) Name Value Range Interpretation Code Description Data Harleen rce(s) Supporting Document(s) C reactive protein quantitativ < 0.30 0.00-0.30 C Reactive Protein Quantitativ [facility] ([facility]) ID Date Data Source [id number] 01/02/2021 07:03:00 PM EST [facility] ([facility]) Name Value Range Interpretation Code Description Data Harleen rce(s) Supporting Document(s) rheumatoid factor quant 47.0 IU/mL <15.0 Above high normal Rheumatoid Factor Quant [facility] ([facility]) ID Date Data Source [id number] 01/02/2021 07:03:00 PM EST [facility] ([facility]) Name Value Range Interpretation Code Description Data Harleen rce(s) Supporting Document(s) thyroid stimulating hormone 0.692 uIU/mL 0.358-3.740 Thyroid Stimulating Hormone [facility] ([facility]) ID Date Data Source [id number] 01/02/2021 07:03:00 PM EST [facility] ([facility]) Name Value Range Interpretation Code Description Data Harleen rce(s) Supporting Document(s) erythrocyte sedimentation rate 44 mm/HR 0-20 Above high normal Erythrocyte Sedimentation Rate [facility] ([facility]) ID Date Data Source [id number] 01/02/2021 07:03:00 PM EST [facility] ([facility]) Name Value Range Interpretation Code Description Data Harleen rce(s) Supporting Document(s) cyclic citrullinated peptide 8 units 0-19 Cyclic Citrullinated Peptide [facility] ([facility]) ID Date Data Source [id number] 01/02/2021 07:03:00 PM EST [facility] ([facility]) Name Value Range Interpretation Code Description Data Harleen rce(s) Supporting Document(s) ID Date Data Source [id number] 01/02/2021 07:03:00 PM EST [facility] ([facility]) Name Value Range Interpretation Code Description Data Harleen rce(s) Supporting Document(s) ID Date Data Source [id number] 01/02/2021 07:03:00 PM EST [facility] ([facility]) Name Value Range Interpretation Code Description Data Harleen rce(s) Supporting Document(s) C reactive protein quantitativ < 0.30 0.00-0.30 C Reactive Protein Quantitativ [facility] ([facility]) ID Date Data Source [id number] 01/02/2021 07:03:00 PM EST [facility] ([facility]) Name Value Range Interpretation Code Description Data Harleen rce(s) Supporting Document(s) rheumatoid factor quant 47.0 IU/mL <15.0 Above high normal [facility]umatoid Factor Quant [facility] ID Date Data Source [id number] 01/02/2021 07:03:00 PM EST [facility] ([facility]) Name Value Range Interpretation Code Description Data Harleen rce(s) Supporting Document(s) thyroid stimulating hormone 0.692 uIU/mL 0.358-3.740 Thyroid Stimulating Hormone [facility] ([facility]) ID Date Data Source [id number] 01/02/2021 07:03:00 PM EST [facility] ([facility]) Name Value Range Interpretation Code Description Data Harleen rce(s) Supporting Document(s) erythrocyte sedimentation rate 44 mm/HR 0-20 Above high normal Erythrocyte Sedimentation Rate [facility] ([facility]) ID Date Data Source [id number] 01/02/2021 07:03:00 PM EST [facility] ([facility]) Name Value Range Interpretation Code Description Data Harleen rce(s) Supporting Document(s) cyclic citrullinated peptide 8 units 0-19 Cyclic Citrullinated Peptide [facility] ([facility]) ID Date Data Source [id number] 01/02/2021 07:03:00 PM EST [facility] ([facility]) Name Value Range Interpretation Code Description Data Harleen rce(s) Supporting Document(s) ID Date Data Source [id number] 01/02/2021 07:03:00 PM EST [facility] ([facility]) Name Value Range Interpretation Code Description Data Harleen rce(s) Supporting Document(s) ID Date Data Source [id number] 01/02/2021 07:03:00 PM EST [facility] ([facility]) Name Value Range Interpretation Code Description Data Harleen rce(s) Supporting Document(s) C reactive protein quantitativ < 0.30 0.00-0.30 C Reactive Protein Quantitativ [facility] ([facility]) ID Date Data Source [id number] 01/02/2021 07:03:00 PM EST [facility] ([facility]) Name Value Range Interpretation Code Description Data Harleen rce(s) Supporting Document(s) rheumatoid factor quant 47.0 IU/mL <15.0 Above high normal Rheumatoid Factor Quant [facility] ([facility]) ID Date Data Source [id number] 01/02/2021 07:03:00 PM EST [facility] ([facility]) Name Value Range Interpretation Code Description Data Harelen rce(s) Supporting Document(s) thyroid stimulating hormone 0.692 uIU/mL 0.358-3.740 Thyroid Stimulating Hormone [facility] ([facility]) ID Date Data Source [id number] 01/02/2021 07:03:00 PM EST [facility] ([facility]) Name Value Range Interpretation Code Description Data Harleen rce(s) Supporting Document(s) erythrocyte sedimentation rate 44 mm/HR 0-20 Above high normal Erythrocyte Sedimentation Rate [facility] ([facility]) ID Date Data Source [id number] 12/30/2020 12:00:00 AM EST [facility] Alyce Lynn MD Patient Name: EKATERINA [id number] [facility] Date of : 1985[place] Date of Exam: 12/30/2020JACINTO Huff [id number]#: Fax: [phone] EXAM: CT THORAX WITHOUT CONTRASTCLINICAL INFORMATION: Sjogren's syndrome. Productive cough for two years.Comparison PA chest with left ribs 07/11/2020.64 slice low dose helical CT scanning was obtained throughout the tho raxwithout intravenous contrast along with sagittal and coronalreconstructions.FINDINGS:The lung andrade are well inflated. I see no pleural plaque or calcifiedplaque, pleural effusion, acute infiltrate or parenchymal mass. I do notseen any significant interstitial lung changes. There are a few bronchiequal or slightly larger than some adjacent pulmonary artery segments whichmay reflect very early bronchiectasis. No peribronchovascular interstitialthickening, nodularity, septal thickening or lung cystic changes. Noground-glass attenuation. The mediastinal soft tissue windows showsubcentimeter pre-vascular, AP window and right paratracheal nodes. Thelargest node is a pre-carinal node at 9.5 mm in short axis. No pathologicsized axillary or supraclavicular nodes are seen. 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 Gallbladder not visualized.Adrenal glands normal. Visualized bowel loops were unremarkable. Nohiatal hernia evident.IMPRESSION:1. Very mild cylindrical bronchiectatic changes are starting with nopulmonary nodules or peribronchovascular infiltrate/nodules. Noground-glass opacities, effusion, pneumothorax, cystic changes or othersignificant finding in the lungs.2. Multiple nodes in the mediastinum, although none greater than 10 mm inshort axis. These appear more numerous than typical. No axillary orsupraclavicular pathologic sized adenopathy.3. The aorta is intact. Bones unremarkable. Upper abdomen without acutefinding.Accredited by the [employer] in [place].Yuridia Torres, [place]/Dk you for referring EKATERINA OLIVO to our office. Electronically Signed - YURIDIA TORRES MD 12/30/20 14:00 Name Value Range Interpretation Code Description Data Harleen rce(s) Supporting Document(s) ID Date Data Source [id number] 11/04/2020 11:08:00 AM EST [facility] ([facility]) Name Value Range Interpretation Code Description Data Harleen rce(s) Supporting Document(s) antinuclear antibodies direct positive negative Ab normal (applies to non-numeric results) Antinuclear Antibodies Direct [facility] ([facility]) anti double strand-DNA Ab 7 IU/mL 0-9 Anti Doubl e strand-DNA Ab [facility] ([facility]) artis antibodies <0.2 0.0-0.9 Artis Antibodies AT [facility] ([facility]) marine fireman antibodies <0.2 0.0-0.9 Behavioral Medical Director Antibodies [facility] ([facility]) sjogren's anti ss-A >8.0 0.0-0.9 Above high normal Sjogren's Anti ss-A [facility] ([facility]) MALIK comment . MALIK Comment [facility] ([facility]) sjogren's anti ss-B <0.2 0.0-0.9 Sjogren's Anti s s-B [facility] ([facility]) ID Date Data Source [id number] 11/04/2020 11:08:00 AM EST [facility] ([facility]) Name Value Range Interpretation Code Description Data Harleen rce(s) Supporting Document(s) vitamin B6,pyridoxal phosphate 35.6 ug/L 2.0-32.8 Above high normal Vitamin B6,Pyridoxal Phosphate [facility] ([facility]) ID Date Data Source [id number] 11/04/2020 11:08:00 AM EST [facility] ([facility]) Name Value Range Interpretation Code Description Data Harleen rce(s) Supporting Document(s) vitamin B1 level whole blood 146.3 nmol/L 66.5-200.0 Vitamin B1 Level Whole Blood [facility] ([facility]) ID Date Data Source [id number] 11/04/2020 11:08:00 AM EST [facility] ([facility]) Name Value Range Interpretation Code Description Data Harleen rce(s) Supporting Document(s) vitamin E(alpha tocopherol) 14.3 mg/L 5.9-19.4 Vitamin E(alpha Tocopherol) [facility] ([facility]) vitamin E(gamma tocopherol) 0.5 mg/L 0.7-4.9 Below low nor mal Vitamin E(gamma Tocopherol) [facility] ([facility]) ID Date Data Source [id number] 11/04/2020 11:08:00 AM EST [facility] ([facility]) Name Value Range Interpretation Code Description Data Harleen rce(s) Supporting Document(s) rheumatoid factor quant 42.0 IU/mL <15.0 Above high normal Rheumatoid Factor Quant [facility] ID Date Data Source [id number] 11/04/2020 11:08:00 AM EST [facility] Name Value Range Interpretation Code Description Data Harleen rce(s) Supporting Document(s) total 25(oh) vitamin D 36.6 NG/mL 30.0-100.0 Total 25(Oh) Vitamin D [facility] ID Date Data Source [id number] 11/04/2020 11:08:00 AM EST [facility] Name Value Range Interpretation Code Description Data Harleen rce(s) Supporting Document(s) folate 21.4 NG/mL >5.4 Folate [facility] ([facility]) ID Date Data Source [id number] 11/04/2020 11:08:00 AM EST [facility] Name Value Range Interpretation Code Description Data Harleen rce(s) Supporting Document(s) vitamin B12 level 460 pg/mL 247-911 Vitamin B12 Level [facility] ID Date Data Source [id number] 11/04/2020 11:08:00 AM EST [facility] ([facility]) Name Value Range Interpretation Code Description Data Harleen rce(s) Supporting Document(s) albumin % 53.0 % 55.8-66.1 Below low normal Albumin % [facility] ( [facility]) jotqn-2-tulmylcj % 4.4 % 2.9-4.9 Qybua-1-Bzwcvxls % [facility] ([facility]) jvyqd-2-ezurvswkv % 11.6 % 7.1-11.8 Cbiga-1-Jxmmufes s % [facility] ([facility]) asvm-0-majihdylw % 5.6 % 4.7-7.2 Oope-1-Duostimtm % [facility] ([facility]) icna-1-xoeikxvoq % 5.0 % 3.2-6.5 Okph-3-Kqamcmcnh % [facility] ([facility]) albumin 4.13 gm/dL 3.29-5.55 Albumin [facility] ([facility]) vfsrx-7-guonfjjow 0.34 gm/dL 0.17-0.41 Vfnzb-8-Acwdpbxbp [facility] ([facility]) gamma globulin % 20.4 % 11.1-18.8 Above high normal Gamma Globul in % [facility] ([facility]) gamma globulins 1.59 gm/dL 0.65-1.58 Above high normal Gamma Globuli ns [facility]) tbuu-0-gldckatfy 0.39 gm/dL 0.19-0.55 Cbqq-8-Vudwvcehl AT [facility]) ohry-1-okeezkjgj 0.44 gm/dL 0.28-0.60 Ojwm-9-Ankdnjaua AT [facility]) ywxkp-7-bdsehusaf 0.90 gm/dL 0.42-0.99 Rtgft-7-Iybtqshih [facility] ([facility]) total protein 7.8 gm/dL 6.4-8.2 Total Protein [facility] ( [facility]) spep interpretation see comment Spep Interpreta tion [facility] ([facility]) spep pathologist review rev'd by Cheryl Major thologist Review [facility] ([facility]) ID Date Data Source [id number] 11/04/2020 11:08:00 AM EST [facility] ([facility]) Name Value Range Interpretation Code Description Data Harleen rce(s) Supporting Document(s) Hemoglobin A1c/Hemoglobin.total in Blood 4.8 % Hemoglobin a1C [facility] ([facility]) estimated average glucose 91 mg/dL 60-110 Estimated Average Glucose [facility] ([facility]) ID Date Data Source [id number] 11/04/2020 11:08:00 AM EST [facility] ([facility]) Name Value Range Interpretation Code Description Data Harleen rce(s) Supporting Document(s) erythrocyte sedimentation rate 43 mm/HR 0-20 Above high normal Erythrocyte Sedimentation Rate [facility] ([facility]) ID Date Data Source [id number] 11/04/2020 11:08:00 AM EST [facility] ([facility]) Name Value Range Interpretation Code Description Data Harleen rce(s) Supporting Document(s) antinuclear antibodies direct positive negative Ab normal (applies to non-numeric results) Antinuclear Antibodies Direct [facility] ([facility]) marine fireman antibodies <0.2 0.0-0.9 Behavioral Medical Director Antibodies [facility] ([facility]) artis antibodies <0.2 0.0-0.9 Artis Antibodies AT [facility] ([facility]) anti double strand-DNA Ab 7 IU/mL 0-9 Anti Doubl e strand-DNA Ab [facility] ([facility]) sjogren's anti ss-B <0.2 0.0-0.9 Sjogren's Anti s s-B [facility] ([facility]) sjogren's anti ss-A >8.0 0.0-0.9 Above high normal Sjogren's Anti ss-A [facility] ([facility]) MALIK comment . MALIK Comment [facility] ([facility]) ID Date Data Source [id number] 11/04/2020 11:08:00 AM EST [facility] ([facility]) Name Value Range Interpretation Code Description Data Harleen rce(s) Supporting Document(s) vitamin B6,pyridoxal phosphate 35.6 ug/L 2.0-32.8 Above high normal Vitamin B6,Pyridoxal Phosphate [facility] ([facility]) ID Date Data Source [id number] 11/04/2020 11:08:00 AM EST [facility] ([facility]) Name Value Range Interpretation Code Description Data Harleen rce(s) Supporting Document(s) vitamin B1 level whole blood 146.3 nmol/L 66.5-200.0 Vitamin B1 Level Whole Blood [facility]) ID Date Data Source [id number] 11/04/2020 11:08:00 AM EST [facility] Name Value Range Interpretation Code Description Data Harleen rce(s) Supporting Document(s) vitamin E(alpha tocopherol) 14.3 mg/L 5.9-19.4 Vitamin E(alpha Tocopherol) [facility] ([facility]) vitamin E(gamma tocopherol) 0.5 mg/L 0.7-4.9 Below low nor mal Vitamin E(gamma Tocopherol) [facility]) ID Date Data Source [id number] 11/04/2020 11:08:00 AM EST [facility] ([facility]) Name Value Range Interpretation Code Description Data Harleen rce(s) Supporting Document(s) rheumatoid factor quant 42.0 IU/mL <15.0 Above high normal Rheumatoid Factor Quant [facility]) ID Date Data Source [id number] 11/04/2020 11:08:00 AM EST [facility] Name Value Range Interpretation Code Description Data Harleen rce(s) Supporting Document(s) total 25(oh) vitamin D 36.6 NG/mL 30.0-100.0 Total 25(Oh) Vitamin D [facility] ([facility]) ID Date Data Source [id number] 11/04/2020 11:08:00 AM EST SAMANTA ([facility]) Name Value Range Interpretation Code Description Data Harleen rce(s) Supporting Document(s) folate 21.4 NG/mL >5.4 Folate [facility] ([facility]) ID Date Data Source [id number] 11/04/2020 11:08:00 AM EST [facility] ([facility]) Name Value Range Interpretation Code Description Data Harleen rce(s) Supporting Document(s) vitamin B12 level 460 pg/mL 247-911 Vitamin B12 Level OL[facility] ([facility]) ID Date Data Source [id number] 11/04/2020 11:08:00 AM EST [facility] ([facility]) Name Value Range Interpretation Code Description Data Harleen rce(s) Supporting Document(s) albumin % 53.0 % 55.8-66.1 Below low normal Albumin % OL[facility]HE ( [facility]) xgst-5-ogntoakjc % 5.6 % 4.7-7.2 Heiy-2-Zzcebeyqo % [facility]) mffd-4-lkswssllk % 5.0 % 3.2-6.5 Hgxf-8-Ndeidxhop % [facility] ([facility]) jxzrc-0-valryxvpb % 11.6 % 7.1-11.8 Iolkv-9-Vibfhjti s % [facility] ([facility]) bejja-0-rctpvuaj % 4.4 % 2.9-4.9 Mbhiq-6-Fjtaaknc % [facility]) gamma globulin % 20.4 % 11.1-18.8 Above high normal Gamma Globul in % [facility]) xnnnm-9-eszhtxvxx 0.34 gm/dL 0.17-0.41 Ftdvc-9-Ejwcrzxqh [facility]) hvsvh-6-hkswisjsf 0.90 gm/dL 0.42-0.99 Hbmto-1-Gvjwvlcor [facility] ([facility]) albumin 4.13 gm/dL 3.29-5.55 Albumin [facility] ([facility]) kxcs-3-akjbnwtui 0.39 gm/dL 0.19-0.55 Lxlz-1-Thnzocjjd AT [facility] ([facility]) ajax-1-uceesmnlm 0.44 gm/dL 0.28-0.60 Schq-5-Zztgshova AT [facility] ([facility]) gamma globulins 1.59 gm/dL 0.65-1.58 Above high normal Gamma Globuli ns OL[facility] ([facility]) spep interpretation see comment Spep Interpreta tion [facility] ([facility]) spep pathologist review rev'd by Cheryl Mercado Pa thologist Review [facility] ([facility]) total protein 7.8 gm/dL 6.4-8.2 Total Protein [facility] ( [facility]) ID Date Data Source [id number] 11/04/2020 11:08:00 AM EST [facility] ([facility]) Name Value Range Interpretation Code Description Data Harleen rce(s) Supporting Document(s) Hemoglobin A1c/Hemoglobin.total in Blood 4.8 % Hemoglobin a1C OL[facility] ([facility]) estimated average glucose 91 mg/dL 60-110 Estimated Average Glucose [facility] ([facility]) ID Date Data Source [id number] 11/04/2020 11:08:00 AM EST SAM[facility] ([facility]) Name Value Range Interpretation Code Description Data Harleen rce(s) Supporting Document(s) erythrocyte sedimentation rate 43 mm/HR 0-20 Above high normal Erythrocyte Sedimentation Rate [facility]A ([facility]) ID Date Data Source [id number] 11/04/2020 11:08:00 AM EST MED[facility] ([facility]) Name Value Range Interpretation Code Description Data Harleen rce(s) Supporting Document(s) Antinuclear Antibodies Direct Laboratory test result Abnormal (applies to non- numeric results) [facility] ([facility]) Anti Double Strand-Dna AB 7 IU/ml 0-9 MEDE NT ([facility]) <content>Negative <5</content>
<content>Equivocal 5 - 9</content>
<content>Positive >9</content>
<content></content> NEUROPHYSIOLOGICAL TECHNICIAN Antibodies Laboratory test result 0.0-0.9 [facility] ([facility]) Artis Antibodies Laboratory test result 0.0-0.9 [facility] ([facility]) Sjogren's Anti SS-B Laboratory test result 0.0-0.9 [facility] ([facility]) Sjogren's Anti SS-A Laboratory test result 0.0-0.9 [facility] ([facility]) Malik Comment Laboratory test result MEDEN T ([facility]) . Autoantibody Disease Association Condition Frequency -------- --------- Antinuclear Antibody, SLE, mixed connective Direct (MALIK-D) tissue diseases -------- --------- dsDNA SLE 40 - 60% -------- --------- Chromatin Drug induced SLE 90% SLE 48 - 97% -------- --------- SSA (Ro) SLE 25 - 35% Sjogren's Syndrome 40 - 70% Lupus 100% -------- --------- SSB (La) SLE 10% Sjogren's Syndrome 30% ------- --------- Sm (anti-Artis) SLE 15 - 30% ------- --------- NEUROPHYSIOLOGICAL TECHNICIAN Mixed Connective Tissue Disease 95% (U1 nRNP, SLE 30 - 50% anti-ribonucleoprotein) Polymyositis and/or Dermatomyositis 20% -------- --------- Scl-70 (antiDNA Scleroderma (diffuse) 20 - 35% topoisomerase) Crest 13% -------- --------- Mey-1 Polymyositis and/or Dermatomyositis 20 - 40% -------- --------- Centromere B Scleroderma - Crest variant 80% Performed at: [facility] [id number] School Teacher: Zuleika Graham MD, Phone: [phone] Performed at: - [facility] [address] [id number] Intermediate School Teacher: Alisia Sosa MD, Phone: [phone] ID Date Data Source [id number] 11/04/2020 11:08:00 AM EST [facility] ([facility]) Name Value Range Interpretation Code Description Data Harleen rce(s) Supporting Document(s) Thiamine [Mass/volume] in Blood 146.3 nmol/L 66.5-200.0 [facility] ([facility]) Specimen Comment: Test(s) 504910-Dhuayat E(Alpha Tocopherol); 295316- Specimen Comment: Vitamin E(Gamma Tocopherol); 240285-Lvmxshh B6; 951392- Specimen Comment: Vit. B1, Whole Blood Specimen Comment: was developed and its performance characteristics Specimen Comment: determined by [facility]. It has not been cleared or approved Specimen Comment: by the Food and Drug Administration. Pyridoxine [Mass/volume] in Serum or Plasma 35.6 ug/L 2.0-32.8 [facility] ([facility]) Specimen Comment: Test(s) 377753-Nknrdwl E(Alpha Tocopherol); 516921- Specimen Comment: Vitamin E(Gamma Tocopherol); 376731-Bfqcvtd B6; 067628- Specimen Comment: Vit. B1, Whole Blood Specimen Comment: was developed and its performance characteristics Specimen Comment: determined by [facility]. It has not been cleared or approved Specimen Comment: by the Food and Drug Administration. ID Date Data Source [id number] 11/04/2020 11:08:00 AM EST [facility] ([facility]) Name Value Range Interpretation Code Description Data Harleen rce(s) Supporting Document(s) Vitamin E(Gamma Tocopherol) 0.5 mg/L 0.7-4.9 [facility] ([facility]) Reference intervals for alpha and gamma- tocopherol determined from National Health and Nutrition Examination Survey, 7641-4272. Individuals with alpha-tocopherol levels less than 5.0 mg/L are considered vitamin E deficient. Vitamin E(Alpha Tocopherol) 14.3 mg/L 5.9-19.4 [facility] ([facility]) ID Date Data Source [id number] 11/04/2020 11:08:00 AM EST [facility] ([facility]) Name Value Range Interpretation Code Description Data Harleen rce(s) Supporting Document(s) Cobalamin (Vitamin B12) [Mass/volume] in Serum or Plasma 460 pg/mL 2 47-911 [facility] ([facility]) VITAMIN B12 NORMAL RANGE NORMAL 247 - 911 PG/ML INDETERMINATE 211 - 246 PG/ML DEFICIENT LESS THAN 211 PG/ML Folate [Mass/volume] in Serum or Plasma 21.4 ng/mL [facility] ([facility]) FOLATE NORMAL RANGE NORMAL GREATER THAN 5.4 NG/ML INDETERMINATE 3.4-5.4 NG/ML DEFICIENT LESS THAN 3.4 NG/ML Calcidiol [Mass/volume] in Serum or Plasma 36.6 ng/mL 30.0-100.0 [facility] ([facility]) <content>note:<nlbl:demographic_changed></content>
<content>note:<nlbl:demog raphic_changed></content>
<content>note:<nlbl:demographic_changed></content>
<content></content> Rheumatoid factor [Units/volume] in Serum or Plasma 42.0 IU/ml [facility] ([facility]) <content>note:<nlbl:demographic_changed></content>
<content>note:<nlbl:demog raphic_changed></content>
<content>note:<nlbl:demographic_changed></content>
<content></content> ID Date Data Source [id number] 11/04/2020 11:08:00 AM EST [facility] ([facility]) Name Value Range Interpretation Code Description Data Harleen rce(s) Supporting Document(s) Albumin % 53.0 % 55.8-66.1 [facility] ([facility] ) Ktux-2-Rokiodbyy % 5.6 % 4.7-7.2 [facility] ([facility]) Vvwus-0-Jakfukakt % 11.6 % 7.1-11.8 [facility] ([facility] ) Uhdmh-6-Nzksqbsq % 4.4 % 2.9-4.9 [facility] ([facility], ) Oyhm-9-Yhijhfxbv % 5.0 % 3.2-6.5 [facility] ([facility]) Gamma Globulin % 20.4 % 11.1-18.8 [facility] ([facility]) Albumin 4.13 GM/DL 3.29-5.55 [facility] ([facility]) Agwlc-6-Wnxmcopbh 0.34 GM/DL 0.17-0.41 [facility] ([facility]) Iftrv-9-Qvjxcekyf 0.90 GM/DL 0.42-0.99 [facility] ([facility]) Slfo-7-Viyzpirvl 0.44 GM/DL 0.28-0.60 [facility] ([facility]) Scrt-4-Zpqkhukqs 0.39 GM/DL 0.19-0.55 [facility] ([facility]) Gamma Globulins 1.59 GM/DL 0.65-1.58 [facility] ([facility]) Total Protein 7.8 GM/DL 6.4-8.2 [facility] ([facility]) Spep Interpretation Laboratory test result [facility] ([facility]) INCREASED GAMMA FRACTION SUGGESTS POLYCL ONAL GAMMOPATHY. Laboratory test finding (navigational concept) Laboratory test result [facility] ([facility]) ID Date Data Source [id number] 11/04/2020 11:08:00 AM EST [facility] ([facility]) Name Value Range Interpretation Code Description Data Harleen rce(s) Supporting Document(s) Hemoglobin A1c 4.8 % [facility] ([facility]) <content>REFERENCE RANGES:</content><br/ ><content></content>
<content><=5.6% NORMAL</content>
<content>5.7-6.4% SUGGESTS IMPAIRED GLUCOSE METABOLISM/PREDIABETIC</content>
<content>>= 6.5% ABNORMAL</content>
<content></content> Estimated Average Glucose 91 mg/dL 60-110 [facility] ([facility]) ID Date Data Source [id number] 11/04/2020 11:08:00 AM EST [facility] ([facility]) Name Value Range Interpretation Code Description Data Harleen rce(s) Supporting Document(s) Erythrocyte sedimentation rate by 2H Westergren method 43 mm/hr 0-2 0 [facility] ([facility]) ID Date Data Source [id number] 11/04/2020 11:08:00 AM EST [facility] ([facility]) Name Value Range Interpretation Code Description Data Harleen rce(s) Supporting Document(s) anti double strand-DNA Ab 7 IU/mL 0-9 Anti Doubl e strand-DNA Ab OL[facility] ([facility]) antinuclear antibodies direct positive negative Ab normal (applies to non-numeric results) Antinuclear Antibodies Direct [facility] ([facility]) marine fireman antibodies <0.2 0.0-0.9 Behavioral Medical Director Antibodies [facility] ([facility]) artis antibodies <0.2 0.0-0.9 Artis Antibodies AT [facility]) MALIK comment . MALIK Comment [facility] ([facility]) sjogren's anti ss-A >8.0 0.0-0.9 Above high normal Sjogren's Anti ss-A [facility] ([facility]) sjogren's anti ss-B <0.2 0.0-0.9 Sjogren's Anti s s-B [facility]) ID Date Data Source [id number] 11/04/2020 11:08:00 AM EST OL[facility] ([facility]) Name Value Range Interpretation Code Description Data Harleen rce(s) Supporting Document(s) vitamin B6,pyridoxal phosphate 35.6 ug/L 2.0-32.8 Above high normal Vitamin B6,Pyridoxal Phosphate [facility]) ID Date Data Source [id number] 11/04/2020 11:08:00 AM EST [facility]) Name Value Range Interpretation Code Description Data Harleen rce(s) Supporting Document(s) vitamin B1 level whole blood 146.3 nmol/L 66.5-200.0 Vitamin B1 Level Whole Blood [facility] ([facility]) ID Date Data Source [id number] 11/04/2020 11:08:00 AM EST [facility] ([facility]) Name Value Range Interpretation Code Description Data Harleen rce(s) Supporting Document(s) vitamin E(alpha tocopherol) 14.3 mg/L 5.9-19.4 Vitamin E(alpha Tocopherol) SAM[facility]A ([facility]) vitamin E(gamma tocopherol) 0.5 mg/L 0.7-4.9 Below low nor mal Vitamin E(gamma Tocopherol) [facility] ([facility]) ID Date Data Source [id number] 11/04/2020 11:08:00 AM EST [facility] ([facility]) Name Value Range Interpretation Code Description Data Harleen rce(s) Supporting Document(s) rheumatoid factor quant 42.0 IU/mL <15.0 Above high normal Rheumatoid Factor Quant [facility] ([facility]) ID Date Data Source [id number] 11/04/2020 11:08:00 AM EST [facility] ([facility]) Name Value Range Interpretation Code Description Data Harleen rce(s) Supporting Document(s) total 25(oh) vitamin D 36.6 NG/mL 30.0-100.0 Total 25(Oh) Vitamin D [facility] ([facility]) ID Date Data Source [id number] 11/04/2020 11:08:00 AM EST [facility] ([facility]) Name Value Range Interpretation Code Description Data Harleen rce(s) Supporting Document(s) folate 21.4 NG/mL >5.4 Folate [facility] ([facility]) ID Date Data Source [id number] 11/04/2020 11:08:00 AM EST [facility] ([facility]) Name Value Range Interpretation Code Description Data Harleen rce(s) Supporting Document(s) vitamin B12 level 460 pg/mL 619-490 Vitamin B12 Level [facility] ([facility]) ID Date Data Source [id number] 11/04/2020 11:08:00 AM EST [facility] ([facility]) Name Value Range Interpretation Code Description Data Harleen rce(s) Supporting Document(s) albumin % 53.0 % 55.8-66.1 Below low normal Albumin % OL[facility] ( [facility]) bmrnj-5-yizzptexo % 11.6 % 7.1-11.8 Dfiqi-7-Eklbmcaf s % [facility] ([facility]) hpynk-4-cytwjlam % 4.4 % 2.9-4.9 Stmlb-3-Fjgpxlwz % [facility] ([facility]) imuj-7-eioztioec % 5.6 % 4.7-7.2 Klbl-4-Zxtvnxfns % [facility]) pnnw-9-kqhsdpxkb % 5.0 % 3.2-6.5 Lvqr-7-Gdsvrsgzs % [facility]) albumin 4.13 gm/dL 3.29-5.55 Albumin [facility]) gamma globulin % 20.4 % 11.1-18.8 Above high normal Gamma Globul in % [facility] ([facility]) zbcdd-5-zgdyzuzzt 0.34 gm/dL 0.17-0.41 Gclkq-3-Akhbalxfe [facility]) rhbjz-1-buumhklmh 0.90 gm/dL 0.42-0.99 Ynaqw-4-Ppmlvibbt [facility]) wgvd-8-blmklusaq 0.44 gm/dL 0.28-0.60 Kwwv-9-Zuhfawgmo AT [facility]) gamma globulins 1.59 gm/dL 0.65-1.58 Above high normal Gamma Globuli ns [facility]) yjug-7-iycjmtbat 0.39 gm/dL 0.19-0.55 Uxlt-6-Bzbtkuwqs AT [facility]) total protein 7.8 gm/dL 6.4-8.2 Total Protein [facility] ( [facility]) spep pathologist review rev'd by Cheryl Mercado Pa thologist Review [facility] ([facility]) spep interpretation see comment Spep Interpreta tion [facility] ([facility]) ID Date Data Source [id number] 11/04/2020 11:08:00 AM EST [facility] ([facility]) Name Value Range Interpretation Code Description Data Harleen rce(s) Supporting Document(s) estimated average glucose 91 mg/dL 60-110 Estimated Average Glucose [facility] ([facility]) Hemoglobin A1c/Hemoglobin.total in Blood 4.8 % Hemoglobin a1C [facility] ([facility]) ID Date Data Source [id number] 11/04/2020 11:08:00 AM EST [facility] ([facility]) Name Value Range Interpretation Code Description Data Harleen rce(s) Supporting Document(s) erythrocyte sedimentation rate 43 mm/HR 0-20 Above high normal Erythrocyte Sedimentation Rate [facility] ([facility]) ID Date Data Source [id number] 11/04/2020 11:08:00 AM EST [facility] ([facility]) Name Value Range Interpretation Code Description Data Harleen rce(s) Supporting Document(s) artis antibodies <0.2 0.0-0.9 Artis Antibodies AT [facility] ([facility]) antinuclear antibodies direct positive negative Ab normal (applies to non-numeric results) Antinuclear Antibodies Direct [facility] ([facility]) anti double strand-DNA Ab 7 IU/mL 0-9 Anti Doubl e strand-DNA Ab [facility] ([facility]) marine fireman antibodies <0.2 0.0-0.9 Behavioral Medical Director Antibodies [facility] ([facility]) sjogren's anti ss-B <0.2 0.0-0.9 Sjogren's Anti s s-B [facility] ([facility]) sjogren's anti ss-A >8.0 0.0-0.9 Above high normal Sjogren's Anti ss-A [facility] ([facility]) MALIK comment . MALIK Comment [facility] ([facility]) ID Date Data Source [id number] 11/04/2020 11:08:00 AM EST [facility] ([facility]) Name Value Range Interpretation Code Description Data Harleen rce(s) Supporting Document(s) vitamin B6,pyridoxal phosphate 35.6 ug/L 2.0-32.8 Above high normal Vitamin B6,Pyridoxal Phosphate [facility] ([facility]) ID Date Data Source [id number] 11/04/2020 11:08:00 AM EST [facility] ([facility]) Name Value Range Interpretation Code Description Data Harleen rce(s) Supporting Document(s) vitamin B1 level whole blood 146.3 nmol/L 66.5-200.0 Vitamin B1 Level Whole Blood [facility] ([facility]) ID Date Data Source [id number] 11/04/2020 11:08:00 AM EST [facility] ([facility]) Name Value Range Interpretation Code Description Data Harleen rce(s) Supporting Document(s) vitamin E(gamma tocopherol) 0.5 mg/L 0.7-4.9 Below low nor mal Vitamin E(gamma Tocopherol) [facility] ([facility]) vitamin E(alpha tocopherol) 14.3 mg/L 5.9-19.4 Vitamin E(alpha Tocopherol) [facility] ([facility]) ID Date Data Source [id number] 11/04/2020 11:08:00 AM EST [facility] ([facility]) Name Value Range Interpretation Code Description Data Harleen rce(s) Supporting Document(s) rheumatoid factor quant 42.0 IU/mL <15.0 Above high normal Rheumatoid Factor Quant [facility] ([facility]) ID Date Data Source [id number] 11/04/2020 11:08:00 AM EST [facility] ([facility]) Name Value Range Interpretation Code Description Data Harleen rce(s) Supporting Document(s) total 25(oh) vitamin D 36.6 NG/mL 30.0-100.0 Total 25(Oh) Vitamin D [facility] ([facility]) ID Date Data Source [id number] 11/04/2020 11:08:00 AM EST [facility] ([facility]) Name Value Range Interpretation Code Description Data Harleen rce(s) Supporting Document(s) folate 21.4 NG/mL >5.4 Folate [facility] ([facility]) ID Date Data Source [id number] 11/04/2020 11:08:00 AM EST [facility] ([facility]) Name Value Range Interpretation Code Description Data Harleen rce(s) Supporting Document(s) vitamin B12 level 460 pg/mL 247-911 Vitamin B12 Level [facility] ([facility]) ID Date Data Source [id number] 11/04/2020 11:08:00 AM EST [facility] ([facility]) Name Value Range Interpretation Code Description Data Harleen rce(s) Supporting Document(s) albumin % 53.0 % 55.8-66.1 Below low normal Albumin % [facility] ( [facility]) olams-3-ojrtmkqz % 4.4 % 2.9-4.9 Sffgv-2-Qemkgntv % [facility] ([facility]) gvsu-3-wajvwpybp % 5.0 % 3.2-6.5 Rtwk-1-Gycsoljzv % [facility] ([facility]) cimqb-6-chhexmytk % 11.6 % 7.1-11.8 Lulvf-6-Tvvypegj s % [facility] ([facility]) znpo-7-craellrgx % 5.6 % 4.7-7.2 Upvd-4-Zogeubffn % [facility] albumin 4.13 gm/dL 3.29-5.55 Albumin [facility] ([facility]) nngqv-1-anxkyvmlt 0.34 gm/dL 0.17-0.41 Ginql-5-Akqzuofhp [facility] ([facility]) gamma globulin % 20.4 % 11.1-18.8 Above high normal Gamma Globul in % [facility] ([facility]) gamma globulins 1.59 gm/dL 0.65-1.58 Above high normal Gamma Globuli ns [facility] ([facility]) wkhl-4-rbxsmksbm 0.39 gm/dL 0.19-0.55 Ajmp-3-Whbnvopnb AT [facility] ([facility]) ieoax-0-tbpbglvha 0.90 gm/dL 0.42-0.99 Dmmzh-8-Isvzpjolc [facility] ([facility]) ydyn-0-lpczoxsmw 0.44 gm/dL 0.28-0.60 Eimq-5-Dkkrudpnu AT [facility] ([facility]) total protein 7.8 gm/dL 6.4-8.2 Total Protein [facility] ( [facility]) spep pathologist review rev'd by Cheryl Major thologist Review [facility] ([facility]) spep interpretation see comment Spep Interpreta tion [facility] ([facility]) ID Date Data Source [id number] 11/04/2020 11:08:00 AM EST [facility] ([facility]) Name Value Range Interpretation Code Description Data Harleen rce(s) Supporting Document(s) Hemoglobin A1c/Hemoglobin.total in Blood 4.8 % Hemoglobin a1C [facility] ([facility]) estimated average glucose 91 mg/dL 60-110 Estimated Average Glucose [facility] ([facility]) ID Date Data Source [id number] 11/04/2020 11:08:00 AM EST [facility] ([facility]) Name Value Range Interpretation Code Description Data Harleen rce(s) Supporting Document(s) erythrocyte sedimentation rate 43 mm/HR 0-20 Above high normal Erythrocyte Sedimentation Rate [facility] ([facility]) ID Date Data Source [id number] 01/03/2021 03:20:00 PM EST [facility] Name Value Range Interpretation Code Description Data Harleen rce(s) Supporting Document(s) IGAMS IgG result 1639 mg/dL 610-1,616 Normal (applies to non-numeric results) [facility] IGAMS IgA result 305 mg/dL 85-499 Normal (applies to non-numeric results) [facility] IGAMS IgM result 68 mg/dL 35-242 Normal (applies to non-numeric results) [facility] Test performed [place] [address] ID Date Data Source [id number] 01/03/2021 03:20:00 PM EST [facility] Name Value Range Interpretation Code Description Data Harleen rce(s) Supporting Document(s) C4 Complement,S result 27 mg/dL 13-39 Normal (applies to non-n umeric results) [facility] Test performed [place] [employer] [address] ID Date Data Source [id number] 01/03/2021 03:20:00 PM EST [facility] Name Value Range Interpretation Code Description Data Harleen rce(s) Supporting Document(s) C3 Complement,S result 116 mg/dL 81-157 Normal (applies to non-numeric results) [facility] Test performed [place] [address] ID Date Data Source [id number] 10/14/2020 06:17:00 PM EST [facility] Name Value Range Interpretation Code Description Data Harleen rce(s) Supporting Document(s) Sodium 137 mmol/L 137-145 Normal (applies to non-numeric resul ts) [facility] Potassium 3.5-5.1 Normal (applies to non-numeric resul ts) [facility] Chloride 106 mmol/L 98-112 Normal (applies to non-numeric resul ts) [facility] Carbon Dioxide CO2 22.0-33.0 Normal (applies to non-numer ic results) [facility] Anion Gap 4.0-11.0 Below low normal [facility] BUN 18 mg/dL 7-17 Above high normal [facility] Creatinine 0.70-1.20 Below low normal [facility] GFR >60 Normal (applies to non-numeric results) [facility] Result based on MDRD formula. Glucose Level 74 mg/dL 74-99 Normal (applies to non-numeric re sults) [facility] The reference range is only applicable w hen fasting. Calcium-Uncorrected 8.4-10.2 Normal (applies to non-nume [place] results) [facility] Corrected Calcium 8.4-10.2 Normal (applies to non-numeri c results) [facility] Bilirubin,Total 0.2-1.3 Normal (applies to non-numeric results) [facility] SGOT(AST) 13 U/L 14-36 Below low normal [facility] SGPT(ALT) 16 U/L 9-52 Normal (applies to non-numeric resul ts) [facility] Alkaline Phosphatase 61 U/L 38-126 Normal (applies to non-num erick results) [facility] can increase Alkaline Phosp le vels up to 2 times the normal adult value. Normal values for children and adolescents are 2 to 3 times the normal adult value. Total Protein 6.3-8.2 Normal (applies to non-numeric re sults) [facility] Albumin 3.5-5.0 Normal (applies to non-numeric resul ts) [facility] ID Date Data Source [id number] 10/14/2020 06:17:00 PM EST [facility] Name Value Range Interpretation Code Description Data Harleen rce(s) Supporting Document(s) Free T3 2.18-3.98 Below low normal [facility] ID Date Data Source [id number] 10/14/2020 06:17:00 PM [facility] Name Value Range Interpretation Code Description Data Harleen rce(s) Supporting Document(s) Thyroid Stimulate Hormone TSH 0.358-3.740 No rmal (applies to non-numeric results) [facility] ID Date Data Source [id number] 10/14/2020 06:17:00 PM EST [facility] Name Value Range Interpretation Code Description Data Harleen rce(s) Supporting Document(s) Vitamin B12 301 pg/mL 193-986 Normal (applies to non-numeric resu lts) [facility] Hospital ID Date Data Source [id number] 10/14/2020 06:17:00 PM EST [facility] Name Value Range Interpretation Code Description Data Harleen rce(s) Supporting Document(s) Folate 2.76-20.0 Above high normal [facility] ID Date Data Source [id number] 10/14/2020 06:17:00 PM EST [facility] Hospital Name Value Range Interpretation Code Description Data Harleen rce(s) Supporting Document(s) Free T4 (Free Thyroxine) 0.76-1.46 Normal (applies to non -numeric results) [facility] Hospital ID Date Data Source [id number] 08/15/2020 10:59:48 AM EDT [facility] Current Problems: Unspecified injury of thorax, initial encounter (ICD-959.11) (UWU90-Q08.9xxA)Unspecified acute conjunctivitis, bilateral (ICD10- H10.33)Xerostomia (ICD-527.7) (DHA78-Q95.2)Toxic effect of venom of other arthropod, accidental (unintentional), initial encounter (ICD-989.5) (ICD10- T63.481A)Constipation, unspecified (LTE20-J08.00)Diarrhea (ICD-787.91) (ICD10- R19.7)Unspecified abdominal pain (QKC05-A53.9)Nausea (ICD-787.02) (ICD10- R11.0)Vaccination (ICD-V05.9) (LCM37-C40)Herpes simplex infection (ICD-054.9) (CQY32-W53.9)Pain in unspecified joint (NZA78-E64.50)Screening examination for venereal disease (ICD-V74.5) (EPU13-R87.3)Acute hepatitis C without hepatic coma (JDT24-Z40.10)Encounter for screening for other metabolic disorders (ICD10- Z13.228)Problem list reviewed during this update.Current Medications: LIDODERM 5 % EXTERNAL PATCH (LIDOCAINE) Apply one patch to left ribs q8h prn. MDD 3.; Route: EXTERNALGINGER 500 MG ORAL CAPSULE (DEIDRE (ZINGIBER OFFICINALIS)) ; Route: ORALCALCIUM+D3 GRADUAL RELEASE 600-40-500 MG-MG-UNIT ORAL [id number] ([id number] D) ; Route: ORALADULT GUMMY ORAL TABLET CHEWABLE (MULTIPLE VITAMINS-MINERALS) 1 daily; Route: ORALPHILLIPS COLON HEALTH ORAL CAPSULE (PROBIOTIC PRODUCT) 1 cap daily; Route: ORALMedication list reviewed during this update.Current Allergies: SULFA (Critical)Allergy list reviewed during this update. Dental Chart: Procedures:Type - CDT Code - Description B - (D2160) Amalgam, 3 surfaces, primary or permanent on Tooth # 13 on Tooth Surface MOD (Performed by Viv Cespedes DMD) B - (D2140) Amalgam-one surface, primary or permanent on Tooth # 32 on Tooth Surface O (Performed by Viv Cespedes DMD) Chart Notes:laura (Aug 15 2020 1:12PM): [facility] (-)Per Pt. . Took temp@ F. Additional PPE requirements due to COVID-19 in the dental setting, N95, surgical mask, hair covering, gown CC: none. Cetacaine spray used as topical. UL infiltration,1/4 carp. LR IANB,3/4 carp. Lidocaine HCL 2% with 1:100,000 epi. Operative: #13-MOD, 32-O, Gluma and Amalgam. Excavated with High Speed, Slow Speed and Spoon. Occlusion checked and polished. No complications. POI. Assisted by PDPt was cooperative. NV: P/Viv Josue DMD by laura (08/15/2020 1:12 PM): Tooth Notes and Watches:- Tooth 19 Watch: Kymberly Bai by cole (12/11/2019 1:00 PM): Assessment & Plan Medications:LIDODERM 5 % EXTERNAL PATCHGINGER 500 MG ORAL CAPSULECALCIUM+D3 GRADUAL RELEASE 600-40-500 MG-MG-UNIT ORAL [id number] GUMMY ORAL TABLET CHEWABLEPHILLIPS COLON HEALTH ORAL CAPSULEAllergies:SULFA (Critical) Name Value Range Interpretation Code Description Data Harleen rce(s) Supporting Document(s) ID Date Data Source [id number] 07/16/2020 08:59:42 AM EDT [facility] Current Problems: Unspecified injury of thorax, initial encounter (ICD-959.11) (TDN61-O26.9xxA)Unspecified acute conjunctivitis, bilateral (ICD10- H10.33)Xerostomia (ICD-527.7) (KIN24-W89.2)Toxic effect of venom of other arthropod, accidental (unintentional), initial encounter (ICD-989.5) (ICD10- T63.481A)Constipation, unspecified (UVY65-C32.00)Diarrhea (ICD-787.91) (ICD10- R19.7)Unspecified abdominal pain (ZFC87-A03.9)Nausea (ICD-787.02) (ICD10- R11.0)Vaccination (ICD-V05.9) (BGF08-O82)Herpes simplex infection (ICD-054.9) (XTE77-F09.9)Pain in unspecified joint (DXZ40-P85.50)Screening examination for venereal disease (ICD-V74.5) (NSW84-L63.3)Acute hepatitis C without hepatic coma (SLZ97-H79.10)Encounter for screening for other metabolic disorders (ICD10- Z13.228)Current Medications: LIDODERM 5 % EXTERNAL PATCH (LIDOCAINE) Apply one patch to left ribs q8h prn. MDD 3.; Route: EXTERNALGINGER 500 MG ORAL CAPSULE (DEIDRE (ZINGIBER OFFICINALIS)) ; Route: ORALCALCIUM+D3 GRADUAL RELEASE 600-40-500 MG-MG-UNIT ORAL [id number] ([id number] D) ; Route: ORALADULT GUMMY ORAL TABLET CHEWABLE (MULTIPLE VITAMINS-MINERALS) 1 daily; Route: ORAL[facility] ORAL CAPSULE (PROBIOTIC PRODUCT) 1 cap daily; Route: ORALCurrent Allergies: SULFA (Critical) Dental Chart: Procedures:Type - CDT Code - Description B - (D2330) Resin, one surface, anterior on Tooth # 8 on Tooth Surface L (Performed by Viv Cespedes DMD) B - (D2332) Resin, 3 surfaces, anterior on Tooth # 9 on Tooth Surface EMIL (Performed by Viv Cespedes DMD) Chart Notes:laura (Jul 16 2020 10:46AM): [facility] (-)per p t. Took temp@ [employer]. Additional PPE requirements due to COVID-19 in the dental setting, N95, surgical mask, hair covering, gown CC: none. Cetacaine spray used as topical. UA infiltration 1/3 carp Lidocaine HCL 2% with 1:100,000 epi. Operative: #8-L, 9-EMIL etch, FuturaBond, light-cured, A-2 [place], ,light- cured. Excavated with High Speed, Slow Speed and Spoon. Occlusion checked and polished. No complications. POI given. Assisted by:AMPt was cooperative. NV: Nydia.Viv Cespedes DMD by laura (07/16/2020 10:46 AM): Tooth Notes and Watches:- Tooth 19 Watch: Kymberly Bai by cole (12/11/2019 1:00 PM): Assessment & Plan Medications:LIDODERM 5 % EXTERNAL PATCHGINGER 500 MG ORAL CAPSULECALCIUM+D3 GRADUAL RELEASE 600-40-500 MG-MG-UNIT ORAL [id number] GUMMY ORAL TABLET CHEWABLEPHILLIPS COLON HEALTH ORAL CAPSULEAllergies:SULFA (Critical) Name Value Range Interpretation Code Description Data Harleen rce(s) Supporting Document(s) ID Date Data Source [id number] 07/11/2020 12:00:00 AM EDT [facility] Sunday Li MD Patient Name: DOUG OLIVO Date of : 1985[place] [address] Date of Exam: 07/11/2020PH#: Fax: ____EXAM: RIBS LEFT W/PA CHEST X-RAYCLINICAL INFORMATION: Pain.There are no prior left right xrays for comparison.LEFT RIB SERIES:Multiple views of the left ribs show no fracture or osseous lesion. Theaccompanying frontal view of the chest shows no cardiomegaly, infiltrates,effusions, or pneumothoraces.IMPRESSION:Negative left rib series.VIVI Moreno/Dk waite for referring EKATERINA OLIVO to our office. Electronically Signed - MARIE SIMPSON DO 07/12/20 8:51 Name Value Range Interpretation Code Description Data Harleen rce(s) Supporting Document(s) ID Date Data Source [id number] 07/11/2020 11:15:00 AM EDT [facility] Name Value Range Interpretation Code Description Data Harleen rce(s) Supporting Document(s) CRP 0.30 mg/dL 0.00-0.30 N [facility] ID Date Data Source [id number] 07/11/2020 11:15:00 AM EDT [facility] Name Value Range Interpretation Code Description Data Harleen rce(s) Supporting Document(s) ESR 32 mm/hr 0-20 H [facility] ID Date Data Source [id number] 07/11/2020 10:43:38 AM EDT [facility] Measurements & CalculationsHeight: 63 inches (5 ft. 3 in.) 160.02 cm Weight: 145 pounds 4 oz. 66.02 kg Body Mass Index (BMI): 25.82BMI Interpretation: OverweightBody Surface Area (BSA): 1.69Weight Management Education Done (Nutrition/Physical Activity)Vital SignsTemperature: 98.4F tympanic Pulse Rate: 84 beats/minuteRespiratory Rate: 16 respirations/minuteBlood Pressure: 127/71 left arm sitting automaticO2 Saturation: 98% Vital Signs performed by: Darion Luu LPN, July 11, 2020 10:55 AMInitial Intake Information From: patientRoom #: 14Infectious Disease / Travel ScreeningRecent travel for you or any close contacts? NoHave you had any close contact with anyone diagnosed with or under investigation for COVID-19 (coronavirus)? NoFever? NoRespiratory symptoms: cough, cold, congestion, shortness of breath, difficulty breathing? NoLoss of smell? NoLoss of taste? NoSmoking, Tobacco, Vaping or Smoke Exposure StatusSmoke Status: current every day smokerTobacco Use: YesAdv to Quit: YesDo you vape? NoPassive Smoke Exposure: NoMenstrual HistoryLast Menstrual Period (LMP): 06/27/2020Any possibility of ? NoComments: tubal Healthcare HistorySince your last office visit...Have you been admitted to the hospital? NoHave you been to an emergency room (ER) or urgent care clinic? NoHave you seen another healthcare provider? [facility] Have you seen a dentist? Yes - NOCOIntake performed by: Darion Luu LPN, July 11, 2020 10:45 AMRate Your H ealthIn general, would you say your health is? FairPain AssessmentAre you currently having any pain which... You would like your provider to address? Yes Affects your activity level? YesDepression Screening - PHQ-2Over the last two weeks, have you... Had little interest or pleasure in doing things? Not at all Been feeling down, depressed, or hopeless? Not at all PHQ-2 Score: 0Anxiety Screening - AB-2Over the last two weeks, have you been... Feeling nervous, anxious, or on edge? Not at all Unable to stop or control worrying? Not at all AB-2 Score: 0Food InsecurityWithin the past year...Did you worry whether your food would run out before you got money to buy more? Never trueWas there a time when the food you bought didn't last and you didn't have money to get more? Never truePatient Learning & Communication Needs Preferred learning style: by experiencePossible barriers: nonePatient's Language used in visit: YesLanguage: yoruba Pain AssessmentPain ScaleNumeric Rating Scale: 5 / 10Location: left side Duration: 4-7 daysFrequency: DailyCharacter/Quality: aching, sharp, stabbing, throbbing and pressureScreening, Brief Intervention, & Referral to Treatment (SBIRT)Pre-Screening Questions How many times have you have 4 or more drinks in a day? 0How many times have you used an illegal drug or used a prescription medication for a non-medical reason? 365Performed by: Darion Luu LPN, July 11, 2020 10:49 AMDAST Have you used drugs other than those required for medical reasons? Yes Do you abuse more than one drug at a time? No Are you always able to stop using drugs when you want to? Yes Have you ever had blackouts or flashbacks as a result of drug use? No Do you ever feel bad or guilty about your drug use? No Does your spouse (or parents) ever complain about your involvement with your drugs? No Have you neglected your family because of your use of drugs? No Have you engaged in illegal activities in order to obtain drugs? No Have you ever experienced withdrawal symptoms (felt sick) when you stopped taking drugs? No Have you had medical problems as a result of your drug use (e.g. memory loss, hepatitis, convulsions, bleeding)? Jeff's Results: DAST Score: 1 DAST Interpretation: Brief Intervention Performed by: Darion Luu LPN, July 11, 2020 10:50 AMPatient History Social/Personal History: Advised to Quit/Tobacco Education: YesChief Complaintleft side rib pain RM 14 History of Present Illness (HPI)35 yo female Pt here today with complaints of left side rib pain. pt states she fell on side rail of deck at home. Pt states she is taking all medications with no side effects. No better and no worse with time. Using Motrin, Tylenol, ice or heat as well as massage and this helps. Also used her mom's lidocaine patches and these helped.Also with left upper quadrant pain.HPI performed by: Sunday Li MD, July 11, 2020 11:15 AMTransitions of Care InboundProblem ReviewProblem List was reviewed and/or updated during this visit.Medication Reconciliation & ReviewMedication List was reviewed and/or updated during this visit, including review of any [id number] medications, herbal therapies, and/or supplements.Allergy ReviewAllergy List was reviewed and/or updated during this visit.Adult Preventive CareProvider Calculated and Reviewed all Clinical Protocols for patient today. Screening Tobacco Screening: Smoking Status: current every day smoker (07/11/2020) Tobacco Use: Currently (07/11/2020) Advised to Quit: Yes (07/11/2020)Labs/Meds/Other Counseling- Nutrition and Physical Activity:BMI Interpretation: Overweight (07/11/2020) Counseling: Done (07/11/2020) Physical Activity: Done (07/11/2020)Review of Systems General: Denies chills, dizziness, fever. Cardiovascular: Complains of chest pain. Respiratory: Denies difficulty breathing, shortness of breath. Gastrointestinal: Denies diarrhea, constipation. Genitourinary: Denies pain with urination, urinary frequency, urinary urgency. Physical ExamGeneral Appearance: well nourished, well hydrated, no acute distressRespiratory, Auscultation: clear to auscultation bilaterally; no rales, rhonchi, or wheezesRespiratory, Effort: no intercostal retractions or use of accessory musclesCardiovascular, Auscultation: S1, S2 audible; no murmur, rub, or gallop; RRRAbdomen: soft, left upper quadrant tenderness and point tendnerness left lower ribs. no masses, bowel sounds normalGait & Station: normalSkin, Inspection: no rashes, lesions, or ulcerationsOrientation: oriented to time, place, and personMood & Affect: no depression, anxiety, or agitationJudgment & Insight: intactCare Management Plan Transitions of CareInboundRate Your HealthIn general, would you say your health is? FairAssessment & Plan Problems:Added: Unspecified injury of thorax, initial encounter (ICD-959.11) (WXA50-C83.9xxA) Assessment: Instructions: Possibly rib fracture.Continue symptomatic treatment.Sending in prescription for lidocaine patch.Recheck if symptoms p ersist or worsen.Assessment not Saved Unspecified injury of thorax; initial encounter (MXV20-Y10.9xxA): Comment OnlyThere is a possibility of splenic injury but a week in and with stable symptoms this is less likely. We discussed this possibility and she will follow up immediately if abdominal pain worsens or persists.Instructions: Possibly rib fracture.Continue symptomatic treatment.Sending in prescription for lidocaine patch.Recheck if symptoms persist or worsen.Patient Instructions/Care Plan: Unspecified injury of thorax- initial encounter: Possibly rib fracture.Continue symptomatic treatment.Sending in prescription for lidocaine patch.Recheck if symptoms persist or worsen. Plan developed in collaboration with patient and/or familyMedications:LIDODERM 5 % EXTERNAL PATCHGINGER 500 MG ORAL CAPSULECALCIUM+D3 GRADUAL RELEASE 600-40-500 MG-MG-UNIT ORAL [id number] GUMMY ORAL TABLET CHEWABLEPHILLIPS COLON HEALTH ORAL CAPSULEMedication Changes:New Prescription:LIDODERM 5 % EXTERNAL PATCH-Apply one patch to left ribs q8h prn. MDD 3. Qty: 30[Patch] Refills: 0 Method: ElectronicRemoved:ERYTHROMYCIN 5 MG/GM OPHTHALMIC OINTMENT-Apply 1 cm ribbon in both eyes to 6x per day for 7 days Qty: 1[Tube] Refills: 0Allergies:SULFA (Critical)Orders:X-Ray - Ribs, including posteroanterior chest, minimum of 3 views [CPT-72146] Adult - Ofc Vst, EST, Level III [CPT-23449] Labs In-House Blood TestsDate/Time Collected: July 11, 2020 11:15 AMTest Result Reference Range Normal ValueComments: Labs in office taken from the right AC. Tolerated well. Lisbeth Gant MA, July 11, 2020 12:47 PM Name Value Range Interpretation Code Description Data Harleen rce(s) Supporting Document(s) Procedure Social History Code Duration Value Status Description Data Source(s ) Smoking 01/13/2021 12:00:00 AM EDT Current Smoker completed Curre nt Smoker eCW1 ([facility]) Smoking 01/13/2021 12:00:00 AM EDT Current Smoker completed Curre nt Smoker eCW1 ([facility]) Vital Signs ID Date Data Source UNK Name Value Range Interpretation Code Description Data Source(s) Oxygen saturation in Arterial blood by Pulse oximetry 97 % 97 % [facility] ([facility]) Respiratory rate 18 /min 18 /min [facility] ( [facility]) Systolic blood pressure 136 mm[Hg] 136 mm[Hg] M EDENT ([facility]) Diastolic blood pressure 80 mm[Hg] 80 mm[Hg] [facility] ([facility]) Heart rate 77 /min 77 /min [facility] ([facility]) Body height 63 [in_i] 63 [in_i] [facility] 5'3" Body weight 159.00 [lb_av] 159.00 [lb_av] MEDEN T ([facility]) Body mass index (BMI) [Ratio] 28.2 kg/m2 28.2 k g/m2 MEDENT ([facility]) [place] body weight 115 [lb_av] 115 [lb_av] MEDEN T ([facility]) Body weight 72.122 kg 72.122 kg [facility] ([facility]) Body surface area Derived from formula 1.75 m2 1.75 m2 [facility] ([facility]) Diastolic blood pressure 74 mm[Hg] 74 mm[Hg] SAMANTA ([facility]) Body height 63 [in_i] 63 [in_i] [facility] ([facility]) Body mass index (BMI) [Ratio] 27 kg/m2 27 kg/ m2 [facility] ([facility]) Systolic blood pressure 112 mm[Hg] 112 mm[Hg] [facility] ([facility]) Body weight 2440 [oz_av] 2440 [oz_av] SAMANTA ([facility]) Diastolic blood pressure 63 mm[Hg] 63 mm[Hg] [facility] ([facility]) Body height 63 [in_i] 63 [in_i] [facility] ([facility]) Body mass index (BMI) [Ratio] 27.2 kg/m2 27.2 k g/m2 [facility] ([facility]) Systolic blood pressure 99 mm[Hg] 99 mm[Hg] A THENA ([facility]) Body weight 2457.6 [oz_av] 2457.6 [oz_av] ATHEN A ([facility]) Diastolic blood pressure 63 mm[Hg] 63 mm[Hg] SAMANTA ([facility]) Body height 63 [in_i] 63 [in_i] [facility] ([facility]) Body mass index (BMI) [Ratio] 27.2 kg/m2 27.2 k g/m2 [facility] ([facility]) Systolic blood pressure 99 mm[Hg] 99 mm[Hg] A THENA ([facility]) Body weight 2457.6 [oz_av] 2457.6 [oz_av] ATHEN A ([facility]) Diastolic blood pressure 73 mm[Hg] 73 mm[Hg] SAMANTA ([facility]) Body height 63 [in_i] 63 [in_i] [facility] ([facility]) Body mass index (BMI) [Ratio] 26.2 kg/m2 26.2 k g/m2 [facility] ([facility]) Systolic blood pressure 121 mm[Hg] 121 mm[Hg] [facility] Body weight 2368 [oz_av] 2368 [oz_av] SAM[facility]A ([facility]) Diastolic blood pressure 73 mm[Hg] 73 mm[Hg] [facility]A ([facility]) Body height 63 [in_i] 63 [in_i] [facility] ([facility]) Body mass index (BMI) [Ratio] 26.2 kg/m2 26.2 k g/m2 [facility] ([facility]) Systolic blood pressure 121 mm[Hg] 121 mm[Hg] A [facility] ([facility]) Body weight 2368 [oz_av] 2368 [oz_av] SAM[facility]A ([facility]) Diastolic blood pressure 73 mm[Hg] 73 mm[Hg] [facility] ([facility]) Systolic blood pressure 121 mm[Hg] 121 mm[Hg] A THENA ([facility]) Body weight 2368 [oz_av] 2368 [oz_av] [facility]A ([facility]) Body height 63 [in_i] 63 [in_i] [facility] ([facility]) Body mass index (BMI) [Ratio] 26.2 kg/m2 26.2 k g/m2 [facility] ([facility]) Body height 63 [in_i] 63 [in_i] ROZ ([facility], ) 5'3" Body mass index (BMI) [Ratio] 25.7 kg/m2 25.7 k g/m2 MEDJOSH ([facility], ) Body weight 145.00 [lb_av] 145.00 [lb_av] MEDEN T ([facility], ) Body weight 65.772 kg 65.772 kg MEDJOSH ([facility] ) [place] body weight 115 [lb_av] 115 [lb_av] MEDEN T ([facility]) Body surface area Derived from formula 1.69 m2 1.69 m2 [facility] ([facility]) Diastolic blood pressure 66 mm[Hg] 66 mm[Hg] [facility] ([facility]) Body height 63 [in_i] 63 [in_i] [facility] ([facility]) 5'3" Body weight 145.00 [lb_av] 145.00 [lb_av] [facility] Body mass index (BMI) [Ratio] 25.7 kg/m2 25.7 k g/m2 [facility] ([facility]) [place] body weight 115 [lb_av] 115 [lb_av] [facility] ([facility]) Body weight 65.772 kg 65.772 kg [facility] ([facility]) Systolic blood pressure 116 mm[Hg] 116 mm[Hg] [facility] Body surface area Derived from formula 1.69 m2 1.69 m2 [facility] ([facility]) Diastolic blood pressure 58 mm[Hg] 58 mm[Hg] SAMANTA ([facility]) Body height 63 [in_i] 63 [in_i] [facility] ([facility]) Body mass index (BMI) [Ratio] 26 kg/m2 26 kg/ m2 [facility] ([facility]) Systolic blood pressure 94 mm[Hg] 94 mm[Hg] A [facility] ([facility]) Body weight 2345.6 [oz_av] 2345.6 [oz_av] ATHEN A ([facility]) Body height 63 [in_i] 63 [in_i] SAMANTA ([facility]) Body mass index (BMI) [Ratio] 26 kg/m2 26 kg/ m2 [facility] ([facility]) Systolic blood pressure 94 mm[Hg] 94 mm[Hg] [facility] ([facility]) Body weight 2345.6 [oz_av] 2345.6 [oz_av] ATHEN A ([facility]) Diastolic blood pressure 58 mm[Hg] 58 mm[Hg] SAMANTA ([facility]) Diastolic blood pressure 58 mm[Hg] 58 mm[Hg] [facility] ([facility]) Body height 63 [in_i] 63 [in_i] [facility] ([facility]) Body mass index (BMI) [Ratio] 26 kg/m2 26 kg/ m2 [facility] ([facility]) Systolic blood pressure 94 mm[Hg] 94 mm[Hg] [facility] Body weight 2345.6 [oz_av] 2345.6 [oz_av] ATHEN A ([facility]) Diastolic blood pressure 71 mm[Hg] 71 mm[Hg] SAMANTA ([facility]) Body height 63 [in_i] 63 [in_i] [facility] ([facility]) Body mass index (BMI) [Ratio] 25.1 kg/m2 25.1 k g/m2 [facility] ([facility]) Systolic blood pressure 110 mm[Hg] 110 mm[Hg] A [facility] ([facility]) Body weight 2265.6 [oz_av] 2265.6 [oz_av] ATHEN A ([facility]) Body mass index (BMI) [Ratio] 25.1 kg/m2 25.1 k g/m2 [facility] ([facility]) Systolic blood pressure 110 mm[Hg] 110 mm[Hg] A [facility] ([facility]) Body weight 2265.6 [oz_av] 2265.6 [oz_av] ATHEN A ([facility]) Diastolic blood pressure 71 mm[Hg] 71 mm[Hg] SAMANTA ([facility]) Body height 63 [in_i] 63 [in_i] [facility] ([facility]) Diastolic blood pressure 71 mm[Hg] 71 mm[Hg] [facility] ([facility]) Body height 63 [in_i] 63 [in_i] [facility] ([facility]) Body mass index (BMI) [Ratio] 25.1 kg/m2 25.1 k g/m2 [facility] ([facility]) Systolic blood pressure 110 mm[Hg] 110 mm[Hg] A [facility] ([facility]) Body weight 2265.6 [oz_av] 2265.6 [oz_av] ATHEN A ([facility]) Diastolic blood pressure 71 mm[Hg] 71 mm[Hg] SAMANTA ([facility]) Body height 63 [in_i] 63 [in_i] [facility] ([facility]) Body mass index (BMI) [Ratio] 25.1 kg/m2 25.1 k g/m2 SAMANTA ([facility]) Systolic blood pressure 110 mm[Hg] 110 mm[Hg] A THENA ([facility]) Body weight 2265.6 [oz_av] 2265.6 [oz_av] ATHEN A ([facility]) Body surface area Derived from formula 1.68 m2 1.68 m2 [facility] ([facility], ) Systolic blood pressure 112 mm[Hg] 112 mm[Hg] M EDENT ([facility], ) Body temperature 97.5 [degF] 97.5 [degF] [facility] ([facility]) Heart rate 89 /min 89 /min [facility] ([facility], ) Body mass index (BMI) [Ratio] 23.9 kg/m2 23.9 k g/m2 [facility] ([facility]) Body weight 139.38 [lb_av] 139.38 [lb_av] MEDEN T ([facility]) [place] body weight 120 [lb_av] 120 [lb_av] MEDEN T ([facility]) Oxygen saturation in Arterial blood by Pulse oximetry 98 % 98 % [facility] ([facility], ) Body height 64 [in_i] 64 [in_i] [facility] ([facility]) 5'4" Body weight 63.221 kg 63.221 kg [facility] ([facility]) Diastolic blood pressure 68 mm[Hg] 68 mm[Hg] [facility] ([facility], ) Oxygen saturation in Arterial blood by Pulse oximetry 98 % 98 % [facility] ([facility]) Body temperature 97.5 [degF] 97.5 [degF] [facility] ([facility]) Body height 64 [in_i] 64 [in_i] [facility] ([facility]) 5'4" Body weight 139.38 [lb_av] 139.38 [lb_av] [facility] Body mass index (BMI) [Ratio] 23.9 kg/m2 23.9 k g/m2 [facility] ([facility]) [place] body weight 120 [lb_av] 120 [lb_av] [facility] Body weight 63.221 kg 63.221 kg [facility] ([facility]) Body surface area Derived from formula 1.68 m2 1.68 m2 [facility] ([facility]) Body height 64 [in_i] 64 [in_i] eCW1 ([facility]) Body height 162.56 cm 162.56 cm eCW1 ([facility]) Body weight 136 [lb_av] 136 [lb_av] eCW1 ([facility]) Body weight 61.69 kg 61.69 kg eCW1 ([facility]) Body mass index (BMI) [Ratio] 23.34 kg/m2 23.34 kg/m2 eCW1 ([facility]) Body temperature 98.5 [degF] 98.5 [degF] W1 ( [facility]) Systolic blood pressure 110 mm[Hg] 110 mm[Hg] [facility] ([facility]) Diastolic blood pressure 72 mm[Hg] 72 mm[Hg] [facility] ([facility]) Heart rate 70 /min 70 /min [facility] ([facility]) Oxygen saturation in Arterial blood by Pulse oximetry 98 % 98 % [facility] ([facility]) Room Air Body height 64 [in_i] 64 [in_i] [facility] ([facility]) 5'4" Body weight 139.00 [lb_av] 139.00 [lb_av] [facility] Body mass index (BMI) [Ratio] 23.9 kg/m2 23.9 k g/m2 [facility] ([facility]) [place] body weight 120 [lb_av] 120 [lb_av] KB T ([facility], ) Body weight 63.050 kg 63.050 kg ROZ ([facility], ) Body surface area Derived from formula 1.68 m2 1.68 m2 MEDJOSH ([facility], ) Body height 63 [in_i] 63 [in_i] SAMANTA ([facility]) Diastolic blood pressure 58 mm[Hg] 58 mm[Hg] SAMANTA ([facility]) Body mass index (BMI) [Ratio] 24.4 kg/m2 24.4 k g/m2 SAMANTA ([facility]) Systolic blood pressure 97 mm[Hg] 97 mm[Hg] A RIYAA ([facility]) Body weight 2204.8 [oz_av] 2204.8 [oz_av] ATHEN A ([facility]) Diastolic blood pressure 58 mm[Hg] 58 mm[Hg] SAMANTA ([facility]) Body height 63 [in_i] 63 [in_i] SAMANTA ([facility]) Body mass index (BMI) [Ratio] 24.4 kg/m2 24.4 k g/m2 SAMANTA ([facility]) Systolic blood pressure 97 mm[Hg] 97 mm[Hg] A RIYAA ([facility]) Body weight 2204.8 [oz_av] 2204.8 [oz_av] ATHEN A ([facility]) Diastolic blood pressure 58 mm[Hg] 58 mm[Hg] SAMANTA ([facility]) Body height 63 [in_i] 63 [in_i] SAMANTA ([facility]) Body mass index (BMI) [Ratio] 24.4 kg/m2 24.4 k g/m2 SAMANTA ([facility]) Systolic blood pressure 97 mm[Hg] 97 mm[Hg] A THENA ([facility]) Body weight 2204.8 [oz_av] 2204.8 [oz_av] ATHEN A ([facility]) Diastolic blood pressure 58 mm[Hg] 58 mm[Hg] SAMANTA ([facility]) Body height 63 [in_i] 63 [in_i] SAMANTA ([facility]) Body mass index (BMI) [Ratio] 24.4 kg/m2 24.4 k g/m2 SAMANTA ([facility]) Systolic blood pressure 97 mm[Hg] 97 mm[Hg] A THENA ([facility]) Body weight 2204.8 [oz_av] 2204.8 [oz_av] ATHEN A ([facility]) Systolic blood pressure 120 mm[Hg] 120 mm[Hg] [facility]) Body surface area Derived from formula 1.66 m2 1.66 m2 [facility] ([facility]) Diastolic blood pressure 70 mm[Hg] 70 mm[Hg] [facility] ([facility]) Heart rate 88 /min 88 /min [facility] ([facility]) Oxygen saturation in Arterial blood by Pulse oximetry 99 % 99 % [facility] ([facility]) Room Air Body height 64 [in_i] 64 [in_i] [facility] ([facility]) 5'4" Body weight 136.00 [lb_av] 136.00 [lb_av] MEDEN T ([facility]) Body mass index (BMI) [Ratio] 23.3 kg/m2 23.3 k g/m2 [facility] ([facility]) [place] body weight 120 [lb_av] 120 [lb_av] [facility] Body weight 61.690 kg 61.690 kg [facility] ([facility]) Respiratory rate 14 /min 14 /min [facility] ( [facility]) Systolic blood pressure 120 mm[Hg] 120 mm[Hg] [facility]) Diastolic blood pressure 80 mm[Hg] 80 mm[Hg] [facility] ([facility]) Heart rate 78 /min 78 /min [facility] ([facility]) Body height 64 [in_i] 64 [in_i] [facility] ([facility]) 5'4" Body weight 140.00 [lb_av] 140.00 [lb_av] MEDEN T ([facility]) Body mass index (BMI) [Ratio] 24.0 kg/m2 24.0 k g/m2 [facility] ([facility]) [place] body weight 120 [lb_av] 120 [lb_av] MEDEN T ([facility]) Diastolic blood pressure 71 mm[Hg] 71 mm[Hg] SAMANTA ([facility]) Body height 63 [in_i] 63 [in_i] SAMANTA ([facility]) Body mass index (BMI) [Ratio] 25.82 kg/m2 25.82 kg/m2 SAMANTA ([facility]) Systolic blood pressure 127 mm[Hg] 127 mm[Hg] [facility] Body weight 2324 [oz_av] 2324 [oz_av] SAMANTA ([facility]) Diastolic blood pressure 71 mm[Hg] 71 mm[Hg] SAMANTA ([facility]) Body height 63 [in_i] 63 [in_i] ASMANTA ([facility]) Body mass index (BMI) [Ratio] 25.82 kg/m2 25.82 kg/m2 SAMANTA ([facility]) Systolic blood pressure 127 mm[Hg] 127 mm[Hg] [facility] Body weight 2324 [oz_av] 2324 [oz_av] SAMANTA ([facility]) Body height 63 [in_i] 63 [in_i] SAMANTA ([facility]) Diastolic blood pressure 71 mm[Hg] 71 mm[Hg] SAMANTA ([facility]) Systolic blood pressure 127 mm[Hg] 127 mm[Hg] A THENA ([facility]) Body weight 2324 [oz_av] 2324 [oz_av] SAMANTA ([facility]) Body mass index (BMI) [Ratio] 25.82 kg/m2 25.82 kg/m2 SAMANTA ([facility]) Diastolic blood pressure 71 mm[Hg] 71 mm[Hg] SAMANTA ([facility]) Body height 63 [in_i] 63 [in_i] SAMANTA ([facility]) Body mass index (BMI) [Ratio] 25.82 kg/m2 25.82 kg/m2 SAMANTA ([facility]) Systolic blood pressure 127 mm[Hg] 127 mm[Hg] A THENA ([facility]) Body weight 2324 [oz_av] 2324 [oz_av] SAMANTA ([facility]) Patient Treatment Plan of Care Planned Activity Planned Date Details Description Data Source (s) Hydroxychloroquine Sulfate 200 MG Oral Tablet 02/19/2021 12:00:00 A M EDT SAMANTA ([facility]) Cyclosporine 0.5 MG/ML Ophthalmic Suspension [Restasis] SAMANTA ([facility]) pregabalin 75 MG Oral Capsule SAMANTA ([facility]) Nicotine 2 MG Chewing Gum AT [facility]) Dexamethasone 1 MG/ML / Neomycin 3.5 MG/ ML / Polymyxin B 26167 UNT/ML Ophthalmic Suspension SAMANTA ([facility]) Dexamethasone 0.001 MG/MG / Neomycin 0.0 035 MG/MG / Polymyxin B 10 UNT/MG Ophthalmic Ointment SAMANTA ([facility]) Bisacodyl 5 MG Delayed Release Oral Tablet SAMANTA ([facility]) Erythromycin 0.005 MG/MG Ophthalmic Ointment SAMANTA ([facility]) duloxetine 30 MG Delayed Release Oral Capsule SAMANTA ([facility]) Clarithromycin 500 MG Oral Tablet SAMANTA ([facility]) Amitriptyline Hydrochloride 10 MG Oral Tablet SAMANTA ([facility]) Alprazolam 0.25 MG Oral Tablet SAMANTA ([facility]) Cyclosporine 0.5 MG/ML Ophthalmic Suspension [Restasis] SAMANTA ([facility]) pregabalin 75 MG Oral Capsule SAMANTA ([facility]) Nicotine 2 MG Chewing Gum AT [facility]) Dexamethasone 1 MG/ML / Neomycin 3.5 MG/ ML / Polymyxin B 79959 UNT/ML Ophthalmic Suspension SAMANTA ([facility]) Dexamethasone 0.001 MG/MG / Neomycin 0.0 035 MG/MG / Polymyxin B 10 UNT/MG Ophthalmic Ointment SAMANTA ([facility]) Fluconazole 150 MG Oral Tablet SAMANTA ([facility]) Erythromycin 0.005 MG/MG Ophthalmic Ointment SAMANTA ([facility]) duloxetine 30 MG Delayed Release Oral Capsule SAMANTA ([facility]) Clarithromycin 500 MG Oral Tablet SAMANTA ([facility]) Amitriptyline Hydrochloride 10 MG Oral Tablet SAMANTA ([facility]) Alprazolam 0.25 MG Oral Tablet SAMANTA ([facility]) Cyclosporine 0.5 MG/ML Ophthalmic Suspension [Restasis] SAMANTA ([facility]) Nicotine 2 MG Chewing Gum AT [facility] ([facility]) Dexamethasone 1 MG/ML / Neomycin 3.5 MG/ ML / Polymyxin B 86855 UNT/ML Ophthalmic Suspension SAMANTA ([facility]) Dexamethasone 0.001 MG/MG / Neomycin 0.0 035 MG/MG / Polymyxin B 10 UNT/MG Ophthalmic Ointment SAMANTA ([facility]) Erythromycin 0.005 MG/MG Ophthalmic Ointment SAMANTA ([facility]) duloxetine 30 MG Delayed Release Oral Capsule SAMANTA ([facility]) Clarithromycin 500 MG Oral Tablet SAMANTA ([facility]) Amitriptyline Hydrochloride 10 MG Oral Tablet SAMANTA ([facility]) Alprazolam 0.25 MG Oral Tablet SAMANTA ([facility]) Erythromycin 0.005 MG/MG Ophthalmic Ointment SAMANTA ([facility]) duloxetine 30 MG Delayed Release Oral Capsule SAMANTA ([facility]) Amitriptyline Hydrochloride 10 MG Oral Tablet SAMANTA ([facility]) Alprazolam 0.25 MG Oral Tablet SAMANTA ([facility])
--- OUTSIDE RECORDS SUMMARY | 2021-09-04 01:29 | CCD ---
Author Author [facility] Address Unknown Phone Unavailable Care Team Providers Care Estate Planning Counselor Name Role Phone Adriana Kamara PT Unavailable Unavailable Asad, R Dennis PT Unavailable Unavailable Saad, R Dennis PT Unavailable Unavailable Asad, R [...] Unavailable Eliza MCPHERSON MD Unavailable Unavailable Eliza MCPHESRON MD Unavailable Unavailable Eliza MCPHERSON MD Unavailable [...] Unavailable CASTROJojo REID MD Unavailable Unavailable CASTROJojo REDI MD Unavailable Unavailable CASTROJojo REID MD Unavailable [...] Unavailable Pili Manley MD Unavailable Unavailable Geraldo [id number] MD Pradeep BERGERON Unavailable Geraldo, [id number] MD Pradeep MD Unavailable Geraldo, [id number] MD Pradeep MD Unavailable Geraldo, [id number] MD Pradeep MD Unavailable Geraldo, [id number] MD Pradeep MD Unavailable Geraldo, [id number] MD Pradeep MD Unavailable Geraldo, [id number] MD Pradeep MD Unavailable Geraldo, [id number] MD Pradeep MD Unavailable Geraldo, [id number] MD Pradeep MD Unavailable Geraldo, [id number] MD Pradeep MD Unavailable Geraldo, [id number] MD Pradeep MD Unavailable Geraldo, [id number] MD Pradeep MD Unavailable Geraldo, [id number] MD Pradeep MD Unavailable Geraldo, [id number] MD Pradepe MD Unavailable Geraldo, [id number] MD Pradeep MD Unavailable Geraldo, [id number] MD Pradeep MD Unavailable Geraldo, [id number] MD Pradeep MD Unavailable Geraldo, [id number] MD Pradeep MD Unavailable Geraldo, [id number] MD Pradeep MD Unavailable Geraldo, [id number] MD Pradeep MD Unavailable Geraldo, [id number] MD Pradeep MD Unavailable Geraldo, [id number] MD Pradeep MD Unavailable Geraldo, [id number] MD Pradeep MD Unavailable [phone] Geraldo, [id number] MD Pradeep MD Unavailable [phone] Geraldo, [id number] MD Pradeep MD Unavailable [phone] Geraldo, [id number] MD Pradeep MD Unavailable [phone] Geraldo, [id number] MD Pradeep MD Unavailable [phone] Geraldo, [id number] MD Pradeep MD Unavailable [phone] Geraldo, [id number] MD Pradeep MD Unavailable [phone] [place], [id number] Pradeep MD Unavailable [phone] Geraldo, [id number] MD Pradeep MD Unavailable [phone] Geraldo, [id number] MD Pradeep MD Unavailable [phone] Geraldo, [id number] MD Pradeep MD Unavailable [phone] EVERARDO, JOVANNI TEAGAN DIRECTOR SOFTWARE DEVELOPMENT-C Unavailable Unavailable EVERARDO, JOVANNI TEAGAN DIRECTOR SOFTWARE DEVELOPMENT-C Unavailable Unavailable EVERARDO, JOVANNI TEAGAN DIRECTOR SOFTWARE DEVELOPMENT-C Unavailable Unavailable EVERARDO, JOVANNI TEAGAN DIRECTOR SOFTWARE DEVELOPMENT-C Unavailable Unavailable EVERARDO, JOVANNI TEAGAN DIRECTOR SOFTWARE DEVELOPMENT-C Unavailable Unavailable EVERARDO, JOVANNI TEAGAN DIRECTOR SOFTWARE DEVELOPMENT-C Unavailable Unavailable EVERARDO, JOVANNI TEAGAN DIRECTOR SOFTWARE DEVELOPMENT-C Unavailable Unavailable EVERARDO, JOVANNI TEAGAN DIRECTOR SOFTWARE DEVELOPMENT-C Unavailable Unavailable EVERARDO, JOVANNI TEAGAN DIRECTOR SOFTWARE DEVELOPMENT-C Unavailable Unavailable EVERARDO, JOVANNI TEAGAN DIRECTOR SOFTWARE DEVELOPMENT-C Unavailable Unavailable EVERARDO, JOVANNI TEAGAN DIRECTOR SOFTWARE DEVELOPMENT-C Unavailable Unavailable EVERARDO, JOVANNI TEAGAN DIRECTOR SOFTWARE DEVELOPMENT-C Unavailable Unavailable EVERARDO, JOVANNI TEAGAN DIRECTOR SOFTWARE DEVELOPMENT-C Unavailable Unavailable EVERARDO, JOVANNI TEAGAN DIRECTOR SOFTWARE DEVELOPMENT-C Unavailable Unavailable EVERARDO, JOVANNI TEAGAN DIRECTOR SOFTWARE DEVELOPMENT-C Unavailable Unavailable EVERARDO, JOVANNI TEAGAN DIRECTOR SOFTWARE DEVELOPMENT-C Unavailable Unavailable EVERARDO, JOVANNI TEAGAN DIRECTOR SOFTWARE DEVELOPMENT-C Unavailable Unavailable Casey Kennedy MD Unavailable [phone] Casey Kennedy MD Unavailable [phone] Casey Kennedy MD Unavailable [phone] Casey Kennedy MD Unavailable [phone] Casey Kennedy MD Unavailable [phone] Casey Kennedy MD Unavailable [phone] Casey Kennedy MD Unavailable [phone] Toby Lynn MD Unavailable Unavailable Toby Lynn [...] Unavailable Toby Lynn MD Unavailable Unavailable Toby Lnyn MD Unavailable Unavailable Toby Lynn MD Unavailable [...] is protected by Article 27-F of the [facility] Public Health law. If you continue you may have access to information: Regarding HIV / AIDS; Provided by facilities licensed or operated by the [facility] Office of Mental Health; or Provided by the [facility] Office for People With Developmental Disabilities. If such information is present, then the following [facility] mandated warning applies: This information has been [...] law may result in a fine or fpc sentence or both. A general authorization for the release of medical or other information is NOT sufficient authorization for further disc losure. Allergies and Adverse Reactions Type Description Substance Reaction Status Data Source(s ) Propensity to adverse reactions SULFA ANTIBIOTICS SULFA ANTIBIOTICS [facility] Propensity to adverse reactions 5-ALPHA REDUCTASE INHIBITORS 5-ALPHA REDUCTASE INHIBITORS [facility] ospital Encounters Encounter Providers Location Date Indications Data Source(s ) Outpatient Attender: MICHAEL CASTRO MD 09/16/2021 12:00: [address] [facility] Inpatient Attender: MICHAEL Joyce DAttender: ENEDELIA CADENA MDAdmitter: MICHAEL CASTRO MDReferrer: Jose Guadalupe García MD [id number] 08/31/2021 12:00:00 AM EDT - 09/01/2021 03:39:00 PM EDT Fall, Left Knee Injury [facility] Fall, Left Knee Injury Patient discharged. [phone] Pradeep Chow MD [facility] 08/26/2021 01:52:00 PM EDT - 08/26/2021 01:53:00 PM ED T M35.01 [facility] M35.01 Patient discharged. Outpatient Attender: Alyce Higuera/Jaleesa/Juan/Adriaan sen 08/19/2021 02:30:00 PM EDT [facility] ([facility]) Sonia Diaz MD: [address], [place] [address], Ph. Attender: Sonia Diaz [facility] Medical 07/02/2021 12:00:00 AM EDT [facility] Sonia Diaz MD: [address], [place] [address], Ph. Attender: Sonia Diaz [facility] Medical 05/23/2021 12:00:00 AM EDT [facility] ([facility]) Sonia Diaz MD: [address], [place] [address], Ph. Attender: Sonia Diaz [facility] Medical 05/23/2021 12:00:00 AM EDT [facility] ([facility]) Sonia Diaz MD: [address], [place] [address], Ph. Attender: Sonia Diaz [facility] Medical 04/25/2021 12:00:00 AM EDT [facility] ([facility]) Sonia Diaz MD: [address], [place] [address], Ph. Attender: Sonia Diaz [facility] Medical 04/25/2021 12:00:00 AM EDT [facility] ([facility]) Sonia Diaz MD: [address], [place] [address], Ph. Attender: Sonia Diaz [facility] Medical 04/25/2021 12:00:00 AM EDT [facility] ([facility]) Outpatient Attender: JOSH Higuera/Jaleesa/Luc chin/Reindl 04/23/2021 08:50:00 AM EDT [facility] Outpatient Attender: Pili Manley MD Main office - [place] 04/09/2021 01:45:00 PM EDT [facility] ([facility]) Sonia Diaz MD: [address], [place] [address], Ph. Attender: Sonia Diaz [facility] Medical 04/07/2021 12:00:00 AM EDT [facility] ([facility]) Sonia Diaz MD: [address], [place] [address], Ph. Attender: Sonia Diaz [facility] Medical 04/07/2021 12:00:00 AM EDT [facility] ([facility]) Sonia Diaz MD: [address], [place] [address], Ph. Attender: Sonia Diaz [facility] Medical 04/07/2021 12:00:00 AM EDT [facility] ([facility]) Outpatient Attender: Dennis Kamara PT [facility] 04:00:00 PM EDT - 02/25/2021 04:01:00 PM EDT [facility] Patient discharged. Sonia Daiz MD: [address], [place] [address], Ph. Attender: Sonia Diaz [facility] 02/19/2021 12:00:00 AM EDT [facility] ([facility]) Sonia Diaz MD: [address], [place] [address], Ph. Attender: Sonia Diaz [facility] Medical 02/19/2021 12:00:00 AM EDT [facility] ([facility]) Sonia Diaz MD: [address], [place] [address], Ph. Attender: Sonia Diaz [facility] 02/19/2021 12:00:00 AM EDT [facility] ([facility]) Sonia Diaz MD: [address], [place] [address], Ph. Attender: Sonia Diaz [facility] 02/19/2021 12:00:00 AM EDT [facility] ([facility]) Outpatient Attender: TEAGAN CORTES-Sammy Higuera/Jaleesa/Juan/Adriana sen 02/13/2021 10:15:00 AM EDT [facility] ([facility]) Outpatient Attender: Casey Kennedy MDAttender: Tra Kennedy MD [facility]LA[facility] 02/07/2021 01:17:00 PM EDT - 02/07/2021 01:18:00 PM EDT Z12. 4 [facility] Z12.4 Patient discharged. Outpatient [address] [facility] [address] [facility] [place] [address] 01/13/2021 12:00:00 AM EDT eCW1 ([facility]) Outpatient [address] [place] [address] 01/13/2021 12:00:00 AM EDT [facility]CW[facility] Outpatient Attender: Alyce Higuera/Jaleesa/Juan/R eindl 01/02/2021 09:15:00 AM EST [facility] ([facility] Sonia Diaz MD: [address], [place] [address], Ph. Attender: Sonia Diaz [facility] 12/30/2020 12:00:00 AM EST [facility] ([facility]) Sonia Diaz MD: [address], [place] [address], Ph. Attender: Sonia Diaz [facility] 12/30/2020 12:00:00 AM EST [facility] ([facility]) Sonia Diaz MD: [address], [place] [address], Ph. Attender: Sonia Diaz [facility] 12/30/2020 12:00:00 AM EST [facility] ([facility]) Sonia Diaz MD: [address], [place] [address], Ph. Attender: Sonia Diaz [facility] Medical 12/30/2020 12:00:00 AM EST [facility] ([facility]) Outpatient Attender: Alyce Higuera/Jaleesa/Juan/R eindyvette 12/16/2020 09:00:00 AM EST [facility] Outpatient Attender: Pili Manley MD Main office - [place] 12/04/2020 10:15:00 AM EST [facility] ([facility]) Outpatient Attender: Pili Manley MD Main [facility] 10/23/2020 07:30:00 AM EST [facility] ([facility]) Outpatient Attender: Dennis Kamara PT [facility]PSCAR[facility] 08:16:00 AM EST - 09/17/2020 08:17:00 AM EST M35.00 [facility] M[facility]00 Patient discharged. Outpatient Attender: Wendy MAJOR 08/15/2020 01:13:00 PM EDT [facility] Outpatient Attender: Wendy MAJOR 08/15/2020 11:25:00 AM EDT [facility] Outpatient Attender: Wendy MAJOR FP 07/23/2020 02:06:01 PM EDT [facility] Outpatient Attender: Wendy MAJOR FP 07/23/2020 02:06:01 PM EDT [facility] Outpatient Attender: Wendy MAJOR FP 07/23/2020 02:06:01 PM EDT [facility] Outpatient Attender: Wendy MAJOR FP 07/16/2020 10:47:02 AM EDT [facility] Outpatient Attender: Wendy MAJOR FP 07/16/2020 09:00:03 AM EDT [facility] Outpatient Attender: Wendy MAJOR FP 07/12/2020 08:01:01 AM EDT [facility] Outpatient Attender: Wendy MAJOR FP 07/12/2020 08:01:00 AM EDT [facility] Outpatient Attender: Wendy AGUILAR 07/11/2020 02:51:28 PM EDT [facility] Outpatient Attender: Wendy MAJOR FP 07/11/2020 02:50:47 PM EDT [facility] Outpatient Attender: Wendy MAJOR FP 07/10/2020 12:24:01 PM EDT [facility] Outpatient Attender: Wendy MAJOR FP 07/05/2020 12:04:01 PM EDT [facility] Medications Medication Brand Name Start Date [...] 08/19/2021 12:00:00 AM EDT ORAL active [facility] ([facility], ) 30 ACTUAT fluticasone furoate 0.2 MG/ACTUAT Dry Powder Inhaler [Arnuity] Arnuity Ellipta 08/19/2021 12:00:00 AM EDT RESPIRATORY active [facility] ([facility], ) 10 mg 08/19/2021 12:00:00 AM EDT [...] 07/28/2021 12:00:00 AM EDT RESPIRATORY active [facility] ([facility], ) 8 mg 07/18/2021 12:00:00 AM EDT [...] 07/02/2021 12:00:00 AM EDT ORAL completed [facility] ([facility], ) 10 mg 07/02/2021 12:00:00 AM EDT [...] 1 TABLET BY MOUTH ONCE SOLD: 07/02/2021 [facility] 60 ACTUAT olodaterol 0.0025 MG/ACTUAT / [...] SOLD: 05/02/2021 [facility] POLYETHYLENE GLYCOL 3350 847308 MG / Pot assium Chloride 1480 MG / Sodium Bicarbonate 5720 MG / Sodium Chloride 94319 MG Powder for Oral Solution SODIUM CHLORIDE/NAHCO3/KCL/PEG [...] 04/29/2021 12:00:00 AM EDT complet ed [facility] ([facility], ) 60 mg 04/29/2021 12:00:00 AM EDT capsule,delayed release (DR/EC) 30 TAKE ONE CAPSULE BY MOUTH EVERY MORNING TAKE ONE CAPSULE BY MOUTH EVERY MORNING SOLD: 06/28/2021 [facility] POLYETHYLENE GLYCOL 3350 105 MG/ML / Pot assium Chloride 0.15443 MEQ/ML / Sodium Bicarbonate 0.017 MEQ/ML / Sodium Chloride 0.0479 MEQ/ML Oral Solution [GaviLyte-N] Gavilyte-N With Flavor Pack 04/29/2021 12:00:00 AM EDT completed [facility] ([facility], ) Bisacodyl 5 MG Delayed Release Oral Tablet [Dulcolax] Dulcol ax 04/29/2021 12:00:00 AM EDT completed [facility] ([facility], ) 8 mg 04/25/2021 12:00:00 AM EDT tablet,disintegrating 1 0 DISSOLVE ONE TABLET ON THE TONGUE TWICE A DAY NEEDED DISSOLVE ONE TABLET ON THE TONGUE TWICE A DAY NEEDED SOLD: 06/01/2021 [facility] 8 mg 04/25/2021 12:00:00 AM EDT [...] hydroxychloroquine sulfate 200 MG Oral Tablet [facility] ([facility]) 2 mg 02/13/2021 12:00:00 AM EDT gum 110 USE 1 PIECE EVERY 2 HOURS NEEDED USE 1 PIECE EVERY 2 HOURS NEEDED SOLD: 02/15/2021 [facility] Nicotine 2 MG Chewing Gum [facility] Nicotine Polacrilex Gum 02/13/2021 12:00:00 AM EDT active [facility] ([facility], ) valacyclovir 1000 MG Oral Tablet VALACYCLOVIR [...] CAPSULE BY MOUTH EVERY MORNING SOLD: 03/09/2021 [facility] duloxetine 60 MG Delayed Release Oral Capsule Duloxetine HCL 02/05/2021 12:00:00 AM EDT ORAL active [facility] ([facility], ) 94-3 % 01/07/2021 12:00:00 [...] 01/02/2021 12:00:00 AM EST RESPIRATORY active [facility] ([facility], ) Airduo Digihaler Airduo Digihaler 01/02/2021 12:00:00 AM EST RESPIRATORY active [facility] ([facility], ) 90 mcg/actuation 01/02/2021 12:00:00 AM [...] 11/15/2020 12:00:00 AM EST ORAL completed [facility] ([facility] ) 30 mg 11/15/2020 12:00:00 AM EST capsule,delayed release (DR/EC) 30 TAKE ONE CAPSULE BY MOUTH EVERY MORNING TAKE ONE CAPSULE BY MOUTH EVERY MORNING SOLD: 01/06/2021 [facility] Amitriptyline Hydrochloride 10 MG Oral Tablet Amitriptyline HCL 10/23/2020 12:00:00 AM EST ORAL completed [facility] ([facility] ) Alprazolam 0.25 MG Oral Tablet Alprazolam 10/23/2020 12:00:00 AM EST ORAL active [facility] ([facility] ) 100 mg 10/23/2020 12:00:00 [...] 12:00:00 AM EST ORAL active [facility] ( [facility], ) 10 mg 10/23/2020 12:00:00 AM [...] ONCE AFTER 2 HOURS NEEDED SOLD: 11/18/2020 [facility] 0.05 % 10/22/2020 12:00:00 AM [...] completed amitriptyline hydrochloride 10 MG Oral Tablet [place] ([facility]) pregabalin 75 MG Oral Capsule pregabalin 75 mg capsule TAKE 1 CAPSULE BY MOUTH AT BEDTIME FOR 3 NIGHT THEN 1 TWICE A DAY MAXIMUM DAILY DOSE 2 pregabalin 75 mg capsule TAKE 1 CAPSULE BY MOUTH AT BEDTIME FOR 3 NIGHT THEN 1 TWICE A DAY MAXIMUM DAILY DOSE 2 completed pregabalin 75 MG Oral Capsule [facility] ([facility]) Nicotine 2 MG Chewing Gum nicotine (berenice crilex) 2 mg gum USE 1 PIECE EVERY 2 HOURS NEEDED nicotine (polacrilex) 2 mg gum USE 1 PIE CE EVERY 2 HOURS NEEDED completed nicotine 2 MG C hewing Gum [facility] ([facility]) Nicotine 2 MG Chewing Gum nicotine (berenice crilex) 2 mg gum USE 1 PIECE EVERY 2 HOURS NEEDED nicotine (polacrilex) 2 mg gum USE 1 PIE CE EVERY 2 HOURS NEEDED completed nicotine 2 MG C hewing Gum [place] ([facility]) Alprazolam 0.25 MG Oral Tablet alprazola m 0.25 mg tablet ONE TABLET BY MOUTH HALF AN HOUR BEFORE MRI SCAN. MAY REPEAT FOR ONE DOSE NEEDED MAXIMUM DAILY DOSE TWO TABLETS alprazolam 0.25 mg tablet ONE TABLET BY MOUTH HALF AN HOUR BEFORE MRI SCAN. MAY REPEAT FOR ONE DOSE NEEDED MAXIMUM DAILY DOSE TWO TABLETS completed alprazolam 0.2 5 MG Oral Tablet [place] ([facility]) duloxetine 30 MG Delayed Release Oral Ca psule duloxetine 30 mg capsule,delayed release TAKE ONE CAPSULE BY MOUTH EVERY MORNING duloxetine 30 mg capsule,delayed release TAKE ONE CAPSULE BY MOUTH EVERY MORNING completed duloxetine 30 MG Delayed Release Oral Capsule [place] ([facility]) Erythromycin 0.005 MG/MG Ophthalmic Oint ment erythromycin 5 mg/gram (0.5 %) eye ointment APPLY 1 CM RIBBON IN BOTH EYES 6 TIMES PER DAY FOR 7 DAYS erythromycin 5 mg/gram (0.5 %) eye ointment APPLY 1 CM RIBBON IN BOTH EYES 6 TIMES PER DAY FOR 7 DAYS completed jamey thromycin 0.005 MG/MG Ophthalmic Ointment [place] ([facility]) Cyclosporine 0.5 MG/ML Ophthalmic Suspen darlene [Restasis] Restasis 0.05 % eye drops in a dropperette INSTILL 1 DROP INTO AFFECTED TWO TIMES A DAY Restasis 0.05 % eye drops in a dropperette INSTILL 1 DROP INTO AFFECTED TWO TIMES A DAY completed cyclos porine 0.5 MG/ML Ophthalmic Suspension [Restasis] [place] ([facility]) Clarithromycin 500 MG Oral Tablet clarit hromycin 500 mg tablet TAKE ONE TABLET BY MOUTH EVERY 12 HOURS FOR 10 DAYS clarithromycin 500 mg tablet TAKE ONE TA BLET BY MOUTH EVERY 12 HOURS FOR 10 DAYS c ompleted clarithromycin 500 MG Oral Tablet [facility] ([facility]) Clarithromycin 500 MG Oral Tablet clarit hromycin 500 mg tablet TAKE ONE TABLET BY MOUTH EVERY 12 HOURS FOR 10 DAYS clarithromycin 500 mg tablet TAKE ONE TA BLET BY MOUTH EVERY 12 HOURS FOR 10 DAYS c ompleted clarithromycin 500 MG Oral Tablet [facility] ([facility]) Alprazolam 0.25 MG Oral Tablet alprazola [...] completed alprazolam 0.2 5 MG Oral Tablet [place] ([facility]) Amitriptyline Hydrochloride 10 MG Oral T ablet amitriptyline 10 mg tablet TAKE ONE TABLET BY MOUTH AT BEDTIME FOR 1 WEEK THEN TAKE TWO TABLETS BY MOUTH AT BEDTIME amitriptyline 10 mg tablet TAKE ONE TABL ET BY MOUTH AT BEDTIME FOR 1 WEEK THEN TAKE TWO TABLETS BY MOUTH AT BEDTIME completed amitriptyline hydrochloride 10 MG Oral Tablet [place] ([facility]) Erythromycin 0.005 MG/MG Ophthalmic Oint ment erythromycin 5 mg/gram (0.5 %) eye ointment APPLY 1 CM RIBBON IN BOTH EYES 6 TIMES PER DAY FOR 7 DAYS erythromycin 5 mg/gram (0.5 %) eye ointment APPLY 1 CM RIBBON IN BOTH EYES 6 TIMES PER DAY FOR 7 DAYS completed jamey thromycin 0.005 MG/MG Ophthalmic Ointment [facility] ([facility]) Dexamethasone 1 MG/ML / Neomycin 3.5 MG/ ML / Polymyxin B 41380 UNT/ML Ophthalmic Suspension hkdsdfuj-verpimyza-tbmubdrb 3.5 mg/mL-10,000 unit/mL-0.1% eye drops USE 1 DROP IN EACH EYE FOUR TIMES A DAY FOR 2 DAYS THEN THREE TIMES A DAY FOR 1 DAY THEN TWO TIMES A DAY FOR 1 DAY THEN ONCE DAILY FOR 1 DAY lnhhzwxz-utgsnwpzw-fodvamcm 3.5 mg/mL-10,000 unit/mL-0.1% eye drops USE 1 DROP IN EACH EYE FOUR TIMES A DAY FOR 2 DAYS THEN THREE TIMES A DAY FOR 1 DAY THEN TWO TIMES A DAY FOR 1 DAY THEN ONCE DAILY FOR 1 DAY completed dexamethasone 1 MG/ML / neomycin 3.5 MG/ML / polymyxin B 90248 UNT/ML Ophthalmic Suspension [place] ([facility]) pregabalin 75 MG Oral Capsule pregabalin 75 mg capsule TAKE 1 CAPSULE BY MOUTH AT BEDTIME FOR 3 NIGHT THEN 1 TWICE A DAY MAXIMUM DAILY DOSE 2 pregabalin 75 mg capsule TAKE 1 CAPSULE BY MOUTH AT BEDTIME FOR 3 NIGHT THEN 1 TWICE A DAY MAXIMUM DAILY DOSE 2 completed pregabalin 75 MG Oral Capsule [place] ([facility]) duloxetine 30 MG Delayed Release Oral Ca psule duloxetine 30 mg capsule,delayed release TAKE ONE CAPSULE BY MOUTH EVERY MORNING duloxetine 30 mg capsule,delayed release TAKE ONE CAPSULE BY MOUTH EVERY MORNING completed duloxetine 30 MG Delayed Release Oral Capsule [place] ([facility]) Erythromycin 0.005 MG/MG Ophthalmic Oint ment erythromycin 5 mg/gram (0.5 %) eye ointment APPLY 1 CM RIBBON IN BOTH EYES 6 TIMES PER DAY FOR 7 DAYS erythromycin 5 mg/gram (0.5 %) eye ointment APPLY 1 CM RIBBON IN BOTH EYES 6 TIMES PER DAY FOR 7 DAYS completed jamey thromycin 0.005 MG/MG Ophthalmic Ointment [place] ([facility]) Amitriptyline Hydrochloride 10 MG Oral T ablet amitriptyline 10 mg tablet TAKE ONE TABLET BY MOUTH AT BEDTIME FOR 1 WEEK THEN TAKE TWO TABLETS BY MOUTH AT BEDTIME amitriptyline 10 mg tablet TAKE ONE TABL ET BY MOUTH AT BEDTIME FOR 1 WEEK THEN TAKE TWO TABLETS BY MOUTH AT BEDTIME completed amitriptyline hydrochloride 10 MG Oral Tablet [place] ([facility]) Fluconazole 150 MG Oral Tablet fluconazo le 150 mg tablet TAKE ONE TABLET BY MOUTH EVERY DAY fluconazole 150 mg tablet TAKE ONE TABLET BY MOUTH EVERY DAY completed fluconazole 15 0 MG Oral Tablet [place] ([facility]) Alprazolam 0.25 MG Oral Tablet alprazola m [...] alprazolam 0.2 5 MG Oral Tablet [facility] ([facility]) Dexamethasone 0.001 MG/MG / [...] polymyxin B 10 UNT/MG Ophthalmic Ointment [facility] ([facility]) Dexamethasone 0.001 MG/MG / Neomycin 0.0 [...] polymyxin B 10 UNT/MG Ophthalmic Ointment [facility] ([facility]) Dexamethasone 0.001 MG/MG / Neomycin 0.0 [...] polymyxin B 10 UNT/MG Ophthalmic Ointment [facility] ([facility]) Nicotine 2 MG Chewing Gum nicotine (berenice crilex) 2 mg gum USE 1 PIECE EVERY 2 HOURS NEEDED nicotine (polacrilex) 2 mg gum USE 1 PIE CE EVERY 2 HOURS NEEDED completed nicotine 2 MG C hewing Gum [place] ([facility]) Amitriptyline Hydrochloride 10 MG Oral T ablet amitriptyline 10 mg tablet TAKE ONE TABLET BY MOUTH AT BEDTIME FOR 1 WEEK THEN TAKE TWO TABLETS BY MOUTH AT BEDTIME amitriptyline 10 mg tablet TAKE ONE TABL ET BY MOUTH AT BEDTIME FOR 1 WEEK THEN TAKE TWO TABLETS BY MOUTH AT BEDTIME completed amitriptyline hydrochloride 10 MG Oral Tablet [place] ([facility]) Cyclosporine 0.5 MG/ML Ophthalmic Suspen darlene [Restasis] Restasis 0.05 % eye drops in a dropperette INSTILL 1 DROP INTO AFFECTED TWO TIMES A DAY Restasis 0.05 % eye drops in a dropperette INSTILL 1 DROP INTO AFFECTED TWO TIMES A DAY completed cyclos porine 0.5 MG/ML Ophthalmic Suspension [Restasis] [facility]) Dexamethasone 1 MG/ML / Neomycin 3.5 MG/ ML / Polymyxin B 12572 UNT/ML Ophthalmic Suspension qwbashug-jimtxosbt-zokqdpfd 3.5 mg/mL-10,000 unit/mL-0.1% eye drops USE 1 DROP IN EACH EYE FOUR TIMES A DAY FOR 2 DAYS THEN THREE TIMES A DAY FOR 1 DAY THEN TWO TIMES A DAY FOR 1 DAY THEN ONCE DAILY FOR 1 DAY yxqhwclc-wszeqmxlz-goxflsrg 3.5 mg/mL-10,000 unit/mL-0.1% eye drops USE 1 DROP IN EACH EYE FOUR TIMES A DAY FOR 2 DAYS THEN THREE TIMES A DAY FOR 1 DAY THEN TWO TIMES A DAY FOR 1 DAY THEN ONCE DAILY FOR 1 DAY completed dexamethasone 1 MG/ML / neomycin 3.5 MG/ML / polymyxin B 18008 UNT/ML Ophthalmic Suspension [facility]) duloxetine 30 MG Delayed Release Oral Ca psule duloxetine 30 mg capsule,delayed release TAKE ONE CAPSULE BY MOUTH EVERY MORNING duloxetine 30 mg capsule,delayed release TAKE ONE CAPSULE BY MOUTH EVERY MORNING completed duloxetine 30 MG Delayed Release Oral Capsule [place] ([facility]) duloxetine 30 MG Delayed Release Oral Ca psule duloxetine 30 mg capsule,delayed release TAKE ONE CAPSULE BY MOUTH EVERY MORNING duloxetine 30 mg capsule,delayed release TAKE ONE CAPSULE BY MOUTH EVERY MORNING completed duloxetine 30 MG Delayed Release Oral Capsule [place] ([facility]) Alprazolam 0.25 MG Oral Tablet alprazola m 0.25 mg tablet ONE TABLET BY MOUTH HALF AN HOUR BEFORE MRI SCAN. MAY REPEAT FOR ONE DOSE NEEDED MAXIMUM DAILY DOSE TWO TABLETS alprazolam 0.25 mg tablet ONE TABLET BY MOUTH HALF AN HOUR BEFORE MRI SCAN. MAY REPEAT FOR ONE DOSE NEEDED MAXIMUM DAILY DOSE TWO TABLETS completed alprazolam 0.2 5 MG Oral Tablet [place] ([facility]) Cyclosporine 0.5 MG/ML Ophthalmic Suspen darlene [Restasis] Restasis 0.05 % eye drops in a dropperette INSTILL 1 DROP INTO AFFECTED TWO TIMES A DAY Restasis 0.05 % eye drops in a dropperette INSTILL 1 DROP INTO AFFECTED TWO TIMES A DAY completed cyclos porine 0.5 MG/ML Ophthalmic Suspension [Restasis] [place] ([facility]) Clarithromycin 500 MG Oral Tablet clarit hromycin 500 mg tablet TAKE ONE TABLET BY MOUTH EVERY 12 HOURS FOR 10 DAYS clarithromycin 500 mg tablet TAKE ONE TA BLET BY MOUTH EVERY 12 HOURS FOR 10 DAYS c ompleted clarithromycin 500 MG Oral Tablet [place] ([facility]) Bisacodyl 5 MG Delayed Release Oral Tabl et Gentle Laxative (bisacodyl) 5 mg tablet,delayed release Gentle Laxative (bisacodyl) 5 mg tablet,delayed releas e completed bisacodyl 5 MG Delayed Release Oral Tablet [place] ([facility]) Dexamethasone 1 MG/ML / Neomycin 3.5 MG/ ML / Polymyxin B 62642 UNT/ML Ophthalmic Suspension gkevhsbw-btbvvbapr-qeoilzge 3.5 mg/mL-10,000 unit/mL-0.1% eye drops USE 1 DROP IN EACH EYE FOUR TIMES A DAY FOR 2 DAYS THEN THREE TIMES A DAY FOR 1 DAY THEN TWO TIMES A DAY FOR 1 DAY THEN ONCE DAILY FOR 1 DAY mqmdheiy-addiiaobp-yzbiwmmq 3.5 mg/mL-10,000 unit/mL-0.1% eye drops USE 1 DROP IN EACH EYE FOUR TIMES A DAY FOR 2 DAYS THEN THREE TIMES A DAY FOR 1 DAY THEN TWO TIMES A DAY FOR 1 DAY THEN ONCE DAILY FOR 1 DAY completed dexamethasone 1 MG/ML / neomycin 3.5 MG/ML / polymyxin B 75614 UNT/ML Ophthalmic Suspension [facility] ([facility]) Erythromycin 0.005 MG/MG Ophthalmic Oint ment erythromycin 5 mg/gram (0.5 %) eye ointment APPLY 1 CM RIBBON IN BOTH EYES 6 TIMES PER DAY FOR 7 DAYS erythromycin 5 mg/gram (0.5 %) eye ointment APPLY 1 CM RIBBON IN BOTH EYES 6 TIMES PER DAY FOR 7 DAYS completed jamey thromycin 0.005 MG/MG Ophthalmic Ointment [facility] ([facility]) Insurance Providers Payer name Policy type / Coverage type Policy ID Covered democrat ID Covered democrat's relationship to veliz Policy Veliz Plan Information Medicaid P [id number] S [id number] Managed Care - [facility] Community Plan P [id number] S [id number] [facility] Comm Plan Medicaid F [id number] SELF [id number] Managed Care - [facility] Community Plan P [id number] S [id number] [facility] I [id number] Self [id number] [facility] I [id number] Self [id number] MEDICAID [id number] SP [id number] [facility] [id number] [facility] [id number] SP [id number] [facility] [id number] SP [id number] Medicaid S [id number] S [id number] [facility] COMM[facility]ITY [facility]AN MCDO [id number] SP [id number] [employer] CLAIMS [id number] [facility] COMMUNITY PLAN MCDO [id number] SP [id number] [facility] [id number] SP [id number] [facility] [id number] Unemploye d [id number] [facility](MCAID) O [id number] S [id number] [place] [id number] SP [id number] MEDICAID M [id number] S [id number] MEDICAID [id number] Unemployed [id number] Problems, Conditions, and Diagnoses Code Display Name Description Problem Type Effective Dates Data Source(s) Fall, Left Knee Injury Fall, Left Knee Injury Diagnosi s 08/31/2021 07:57:00 PM [facility] M35.01 Sicca syndrome with keratoconjunctivitis SJOGREN SYNDROME WITH KERATOCONJUNCTIVITIS Diagnosis 08/26/2021 01:52:00 PM EDT [facility] Z79.899 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, ) [id number] Irritable bowel syndrome Irritable Bowel Syndrome Prob scar 02/24/2021 12:00:00 AM EDT [facility] ([facility]) [id number] Moderate persistent asthma Moderate Persistent Asthma Problem 02/24/2021 12:00:00 AM EDT [facility] ([facility]) 98269308 Irritable bowel syndrome Irritable Bowel Syndrome Prob scar 02/24/2021 12:00:00 AM EDT [facility] ([facility]) [id number] Moderate persistent asthma Moderate Persistent Asthma Problem 02/24/2021 12:00:00 AM EDT [facility] ([facility]) 39603130 Irritable bowel syndrome Irritable Bowel Syndrome Prob scar 02/24/2021 12:00:00 AM EDT [facility] ([facility]) 780380781 Moderate persistent asthma Moderate Persistent Asthma Problem 02/24/2021 12:00:00 AM EDT [facility] ([facility]) 31737308 Nicotine dependence Nicotine Dependence Problem 0 02/19/2021 12:00:00 AM EDT [facility] ([facility]) 85365242 Nicotine dependence Nicotine Dependence Problem 0 02/19/2021 12:00:00 AM EDT [facility] ([facility]) 10804521 Nicotine dependence Nicotine Dependence Problem 0 02/19/2021 12:00:00 AM EDT [facility] ([facility]) 35925764 Nicotine dependence Nicotine Dependence Problem 0 02/19/2021 12:00:00 AM EDT [facility] ([facility]) 777993312 Chronic headache disorder Chronic Headache Disorder Pr oblem 12/30/2020 12:00:00 AM EST [facility] ([facility]) 27418384 Sjgren's syndrome SjGren's Syndrome Problem 0 12/30/2020 12:00:00 AM EST [facility] ([facility]) 444944645 Endometriosis (clinical) Endometriosis (Clinical) Prob scar 12/30/2020 12:00:00 AM EST [facility] ([facility]) 180226654 Chronic tension-type headache Chronic Tension-type Hea dache Problem 12/30/2020 12:00:00 AM EST [facility] ([facility]) 71869124 Tobacco dependence syndrome Tobacco Dependence Syndrom e Problem 12/30/2020 12:00:00 AM EST - 02/19/2021 12:00:00 AM EDT [facility] ([facility]) 557764144 Chronic headache disorder Chronic Headache Disorder Pr oblem 12/30/2020 12:00:00 AM EST [facility] ([facility]) 37982351 Sjgren's syndrome SjGren's Syndrome Problem 0 12/30/2020 12:00:00 AM EST [facility] ([facility]) 629276053 Endometriosis (clinical) Endometriosis (Clinical) Prob scar 12/30/2020 12:00:00 AM EST [facility] ([facility]) 587880547 Chronic tension-type headache Chronic Tension-type Hea dache Problem 12/30/2020 12:00:00 AM EST [facility] ([facility]) 62358912 Tobacco dependence syndrome Tobacco Dependence Syndrom e Problem 12/30/2020 12:00:00 AM EST - 02/19/2021 12:00:00 AM EDT [facility] ([facility]) 443722540 Chronic headache disorder Chronic Headache Disorder Pr oblem 12/30/2020 12:00:00 AM EST [facility] ([facility]) 94914872 Sjgren's syndrome SjGren's Syndrome Problem 0 12/30/2020 12:00:00 AM EST [facility] ([facility]) 746003204 Endometriosis (clinical) Endometriosis (Clinical) Prob scar 12/30/2020 12:00:00 AM EST [facility] ([facility]) 814760747 Chronic tension-type headache Chronic Tension-type Hea dache Problem 12/30/2020 12:00:00 AM EST [facility] ([facility]) 41436906 Tobacco dependence syndrome Tobacco Dependence Syndrom e Problem 12/30/2020 12:00:00 AM EST - 02/19/2021 12:00:00 AM EDT [facility] ([facility]) 586105378 Chronic headache disorder Chronic Headache Disorder Pr oblem 12/30/2020 12:00:00 AM EST [facility] ([facility]) 65533825 Sjgren's syndrome SjGren's Syndrome Problem 0 12/30/2020 12:00:00 AM EST [facility] ([facility]) 600336518 Endometriosis (clinical) Endometriosis (Clinical) Prob scar 12/30/2020 12:00:00 AM EST [facility] ([facility]) 514046859 Chronic tension-type headache Chronic Tension-type Hea dache Problem 12/30/2020 12:00:00 AM EST [facility] ([facility]) 06486251 Tobacco dependence syndrome Tobacco Dependence Syndrom e Problem 12/30/2020 12:00:00 AM EST - 02/19/2021 12:00:00 AM EDT [facility] ([facility]) G56.03 Bilateral carpal tunnel syndrome Bilateral carpa l tunnel syndrome Problem 10/23/2020 12:00:00 AM EST [facility] (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) R20.0 Skin sensation disturbance Skin sensation disturbance Problem 10/23/2020 12:00:00 AM EST [facility] ([facility]) M54.5 Low back pain Low back pain Problem 10/23/2020 12:00:00 AM EST [facility] ([facility]) M54.2 Neck pain Neck pain Problem 10/23/2020 12:00:00 AM ES T [facility] ([facility]) F51.01 Disorders of initiating and maintaining sleep Disorders of initiating and maintaining sleep Problem 10/23/2020 12:00:00 AM EST [facility] ([facility]) G44.221 Chronic tension-type headache Chronic tension-type hea dache Problem 10/23/2020 12:00:00 AM EST [facility] ([facility]) G43.719 Chronic intractable migraine without aur a Chronic intractable migraine without aura Problem 10/23/2020 12:00:00 AM EST [facility] ([facility]) 959.11 Unspecified injury of thorax, initial en counter Unspecified injury of thorax, initial encounter 07/11/2020 11:26:48 AM EDT [facility] [id number] Traumatic injury by site Traumatic Injury by Site Prob scar 07/11/2020 12:00:00 AM EDT - 12/30/2020 12:00:00 AM EST [facility] ([facility]) 243271622 Traumatic injury by site Traumatic Injury by Site Prob scar 07/11/2020 12:00:00 AM EDT - 12/30/2020 12:00:00 AM EST [facility] ([facility]) 705866319 Traumatic injury by site Traumatic Injury by Site Prob scar 07/11/2020 12:00:00 AM EDT - 12/30/2020 12:00:00 AM EST [facility] ([facility]) 879566052 Traumatic injury by site Traumatic Injury by Site Prob scar 07/11/2020 12:00:00 AM EDT - 12/30/2020 12:00:00 AM EST [facility] ([facility]) 93780950 Disorder of conjunctiva Disorder of Conjunctiva Proble 06/26/2020 12:00:00 AM EDT - 12/30/2020 12:00:00 AM EST [facility] ([facility]) 12307740 Xerostomia Xerostomia Problem 06/26/2020 12:0 0:00 AM EDT - 12/30/2020 12:00:00 AM EST [facility] ([facility]) 12633272 Disorder of conjunctiva Disorder of Conjunctiva Proble 06/26/2020 12:00:00 AM EDT - 12/30/2020 12:00:00 AM EST [facility] ([facility]) 82521387 Xerostomia Xerostomia Problem 06/26/2020 12:0 0:00 AM EDT - 12/30/2020 12:00:00 AM EST [facility] ([facility]) 17557531 Disorder of conjunctiva Disorder of Conjunctiva Proble 06/26/2020 12:00:00 AM EDT - 12/30/2020 12:00:00 AM EST [facility] ([facility]) 92877590 Xerostomia Xerostomia Problem 06/26/2020 12:0 0:00 AM EDT - 12/30/2020 12:00:00 AM EST [facility] ([facility]) 73205468 Disorder of conjunctiva Disorder of Conjunctiva Proble 06/26/2020 12:00:00 AM EDT - 12/30/2020 12:00:00 AM EST [facility] ([facility]) 88303174 Xerostomia Xerostomia Problem 06/26/2020 12:0 0:00 AM EDT - 12/30/2020 12:00:00 AM EST [facility] ([facility]) 319192116 SNOMED CT Concept SNOMED CT Concept Problem 04/19 12:00:00 AM EDT - 12/30/2020 12:00:00 AM EST [facility] ([facility]) 823974891 SNOMED CT Concept SNOMED CT Concept Problem 04/19 12:00:00 AM EDT - 12/30/2020 12:00:00 AM EST [facility] ([facility]) 274334903 SNOMED CT Concept SNOMED CT Concept Problem 04/19 12:00:00 AM EDT - 12/30/2020 12:00:00 AM EST [facility] ([facility]) 898072325 SNOMED CT Concept SNOMED CT Concept Problem 04/19 12:00:00 AM EDT - 12/30/2020 12:00:00 AM EST [facility] ([facility]) 08103630 Abdominal pain Abdominal Pain Problem 04/15/2020 12:00:00 AM EDT - 12/30/2020 12:00:00 AM EST [facility] ([facility]) 60108448 Diarrhea Diarrhea Problem 04/15/2020 12:0 0:00 AM EDT - 12/30/2020 12:00:00 AM EST [facility] ([facility]) 990665246 Nausea Nausea Problem 04/15/2020 12:0 0:00 AM EDT - 12/30/2020 12:00:00 AM EST [facility] ([facility]) 24984880 Abdominal pain Abdominal Pain Problem 04/15/2020 12:00:00 AM EDT - 12/30/2020 12:00:00 AM EST [facility] ([facility]) [id number] Diarrhea Diarrhea Problem 04/15/2020 12:0 0:00 AM EDT - 12/30/2020 12:00:00 AM EST [facility] ([facility]) 635967974 Nausea Nausea Problem 04/15/2020 12:0 0:00 AM EDT - 12/30/2020 12:00:00 AM EST [facility] ([facility]) 90962678 Abdominal pain Abdominal Pain Problem 04/15/2020 12:00:00 AM EDT - 12/30/2020 12:00:00 AM EST [facility] ([facility]) 38063596 Diarrhea Diarrhea Problem 04/15/2020 12:0 0:00 AM EDT - 12/30/2020 12:00:00 AM EST [facility] ([facility]) 441476645 Nausea Nausea Problem 04/15/2020 12:0 0:00 AM EDT - 12/30/2020 12:00:00 AM EST [facility] ([facility]) [id number] Abdominal pain Abdominal Pain Problem 04/15/2020 12:00:00 AM EDT - 12/30/2020 12:00:00 AM EST [facility] ([facility]) 47743726 Diarrhea Diarrhea Problem 04/15/2020 12:0 0:00 AM EDT - 12/30/2020 12:00:00 AM EST [facility] ([facility]) 672153871 Nausea Nausea Problem 04/15/2020 12:0 0:00 AM EDT - 12/30/2020 12:00:00 AM EST [facility] ([facility]) [id number] Influenza vaccine needed Influenza Vaccine Needed Pro blem 11/30/2019 12:00:00 AM EST - 12/30/2020 12:00:00 AM EST [facility] ([facility]) [id number] Influenza vaccine needed Influenza Vaccine Needed Pro blem 11/30/2019 12:00:00 AM EST - 12/30/2020 12:00:00 AM EST [facility] ([facility]) [id number] Influenza vaccine needed Influenza Vaccine Needed Pro blem 11/30/2019 12:00:00 AM EST - 12/30/2020 12:00:00 AM EST [facility] ([facility]) [id number] Influenza vaccine needed Influenza Vaccine Needed Pro blem 11/30/2019 12:00:00 AM EST - 12/30/2020 12:00:00 AM EST [facility] ([facility]) [id number] Finding of body region Finding of Body Region Problem 09/26/2019 12:00:00 AM [facility] - 12/30/2020 12:00:00 AM EST [facility] ([facility]) [id number] Syphilis test finding Syphilis Test Finding Problem 09/26/2019 12:00:00 AM EST - 12/30/2020 12:00:00 AM EST [facility] ([facility]) [id number] Endocrine/metabolic screening Endocrine/metabolic Scre ening Problem 09/26/2019 12:00:00 AM [facility] - 12/30/2020 12:00:00 AM EST [facility] ([facility]) [id number] Acute hepatitis C Acute Hepatitis C Problem 09/26 12:00:00 AM EST - 12/30/2020 12:00:00 AM EST [facility] ([facility]) 648120621 Finding of body region Finding of Body Region Problem 09/26/2019 12:00:00 AM EST - 12/30/2020 12:00:00 AM EST [facility] ([facility]) 410831583 Syphilis test finding Syphilis Test Finding Problem 09/26/2019 12:00:00 AM EST - 12/30/2020 12:00:00 AM EST [facility] ([facility]) 028836748 Endocrine/metabolic screening Endocrine/metabolic Scre ening Problem 09/26/2019 12:00:00 AM EST - 12/30/2020 12:00:00 AM EST [facility] ([facility]) 261565065 Acute hepatitis C Acute Hepatitis C Problem 09/26 12:00:00 AM EST - 12/30/2020 12:00:00 AM EST [facility] ([facility]) 239754037 Finding of body region Finding of Body Region Problem 09/26/2019 12:00:00 AM EST - 12/30/2020 12:00:00 AM EST [facility] ([facility]) 823570133 Syphilis test finding Syphilis Test Finding Problem 09/26/2019 12:00:00 AM EST - 12/30/2020 12:00:00 AM EST [facility] ([facility]) 509901136 Endocrine/metabolic screening Endocrine/metabolic Scre ening Problem 09/26/2019 12:00:00 AM EST - 12/30/2020 12:00:00 AM EST [facility] ([facility]) 081277920 Acute hepatitis C Acute Hepatitis C Problem 09/26 12:00:00 AM EST - 12/30/2020 12:00:00 AM EST [facility] ([facility]) 067728686 Finding of body region Finding of Body Region Problem 09/26/2019 12:00:00 AM EST - 12/30/2020 12:00:00 AM EST [facility] ([facility]) 420259326 Syphilis test finding Syphilis Test Finding Problem 09/26/2019 12:00:00 AM EST - 12/30/2020 12:00:00 AM EST [facility] ([facility]) [id number] Endocrine/metabolic screening Endocrine/metabolic Scre ening Problem 09/26/2019 12:00:00 AM EST - 12/30/2020 12:00:00 AM EST [facility] ([facility]) 623509891 Acute hepatitis C Acute Hepatitis C Problem 09/26 12:00:00 AM EST - 12/30/2020 12:00:00 AM EST [facility] ([facility]) Surgeries/Procedures Procedure Description Date Indications Data Source(s) OFFICE OUTPATIENT VISIT 10 MINUTES OFFICE/OUTPATIENT VISIT E ST [facility]ONSE GAMMA INTERFERON T-CELL SUSP TB AG RESPO NSE T-CELL SUSP 08/26/2021 12:00:[address] [facility] COMPLEMENT ANTIGEN EACH COMPONENT COMPLEMENT ANTIGEN 08/26/2021 12:00:[address] [facility] IAAD EIA HEPATITIS B SURFACE ANTIGEN HEPATITIS B SURFACE AG IA 08/26/2021 12:00:[address] [facility] IAAD EIA HIV-1 AG W/HIV-1&HIV-2 ANTBDY SINGLE HIV-1 AG W/HIV -1 & HIV-2 AB 08/26/2021 12:00:[address] [facility] CYCLIC CITRULLINATED PEPTIDE ANTIBODY CCP ANTIBODY 08/26/2021 12:00 :[address] [facility] HEPATITIS C ANTIBODY HEPATITIS C AB TEST 08/26/2021 12:00:[address] [facility] URINALYSIS MICROSCOPIC ONLY MICROSCOPIC EXAM OF URINE 2020 12:00:[address] [facility] COLLECTION VENOUS BLOOD VENIPUNCTURE ROUTINE VENIPUNCTURE 12:00:[address] [facility] SEDIMENTATION RATE RBC NON-AUTOMATED RBC SED RATE NONAUTOMAT ED 08/26/2021 12:00:[address] [facility] BLOOD COUNT COMPLETE AUTO&AUTO DIFRNTL WBC COUNT COMPLETE CB C W/AUTO DIFF WBC 08/26/2021 12:00:[address] [facility] CREATININE OTHER SOURCE ASSAY OF URINE CREATININE 08/26/2021 12:00: [address] [facility] PROTEIN XCPT REFRACTOMETRY SERUM PLASMA/WHL BLD ASSAY OF PRO TEIN SERUM 08/26/2021 12:00:[address] [facility] HEPATITIS B CORE ANTIBODY HBCAB TOTAL HEP B CORE ANTIBODY TO PRADEEP 08/26/2021 12:00:[address] [facility] C-REACTIVE PROTEIN C-REACTIVE PROTEIN 08/26/2021 12:00:[address] [facility] COMPREHENSIVE METABOLIC PANEL COMPREHEN METABOLIC PANEL 08/02 12:00:[address] [facility] Spirometry 08/19/2021 12:00:00 AM [facility] ([facility], ) OFFICE OUTPATIENT VISIT 25 MINUTES 08/19/2021 12:00:00 AM EDT [facility] ([facility]) Colonoscopy Flexible Proximal To Splenic Flexure W/Biopsy Si ngle/ 06/02/2021 12:00:00 AM EDT [facility] ([facility]) OFFICE OUTPATIENT NEW 45 MINUTES 04/23/2021 12:00:00 A M EDT [facility] ([facility]) Spirometry 02/13/2021 12:00:00 AM EDT M [facility] ([facility]) OFFICE OUTPATIENT VISIT 15 MINUTES 02/13/2021 12:00:00 AM EDT [facility] ([facility]) TOBACCO USE CESSATION INTERMEDIATE 3-10 MINUTES 2020 12:00:00 AM EDT [facility] ([facility]) OFFICE OUTPATIENT VISIT 25 MINUTES 01/02/2021 12:00:00 AM EST [facility] ([facility]) Spirometry 12/16/2020 [facility] Bronchospasm Evaluation 12/16/2020 12:00:00 AM EST [facility] ([facility]) Plethysmography Determination Lung Volumes & Per Airway Resi st 12/16/2020 12:00:00 AM EST [facility] ([facility]) DIFFUSING CAPACITY 12/16/2020 12:00:00 AM EST [facility] ([facility]) OFFICE OUTPATIENT NEW 45 MINUTES 12/16/2020 12:00:00 A M EST [facility] ([facility]) MRI BRAIN BRAIN STEM W/O CONTRAST MATERIAL 11/25/2020 12:00:00 AM EST [facility] ([facility]) MRI BRAIN BRAIN STEM W/O CONTRAST MATERIAL 11/25/2020 12:00:00 AM EST [facility] ([facility], ) MRI SPINAL CANAL CERVICAL W/O CONTRAST MATRL 12:00:00 AM EST [facility] ([facility]) MRI SPINAL CANAL CERVICAL W/O CONTRAST MATRL 1 12:00:00 AM EST [facility] ([facility], ) TSTG ANS FUNCJ CARDIOVAGAL INNERVAJ PARASYMP 01/15/202 1 12:00:00 AM EST [facility] ([facility] ) TSTG ANS FUNCJ CARDIOVAGAL INNERVAJ PARASYMP 1 12:00:00 AM EST [facility] ([facility] ) TESTING AUTONOMIC NERVOUS SYSTEM FUNCTION 11/15/2020 1 2:00:00 AM EST [facility] ([facility] ) TESTING AUTONOMIC NERVOUS SYSTEM FUNCTION 11/15/2020 1 2:00:00 AM EST [facility] ([facility], ) Needle electromyography, each extremity, with related paraspinal areas, when performed, done with nerve conduction, amplitude and latency/velocity study; complete, five or more muscles studied, innervated by three or more nerves or four or more spinal levels (list separately in addition to the code for primary procedure). 11/04/2020 12:00:00 AM EST [facility] ([facility], ) Needle electromyography, each extremity, with related paraspinal areas, when performed, done with nerve conduction, amplitude and latency/velocity study; complete, five or more muscles studied, innervated by three or more nerves or four or more spinal levels (list separately in addition to the code for primary procedure). 11/04/2020 12:00:00 AM EST [facility] ([facility], ) Nerve Conduction 11-12 Studies 11/04/2020 12:00:00 AM EST [facility] ([facility], ) Needle electromyography, each extremity, with related paraspinal areas, when performed, done with nerve conduction, amplitude and latency/velocity study; complete, five or more muscles studied, innervated by three or more nerves or four or more spinal levels (list separately in addition to the code for primary procedure). 10/28/2020 12:00:00 AM EST [facility] ([facility], ) Needle electromyography, each extremity, with related paraspinal areas, when performed, done with nerve conduction, amplitude and latency/velocity study; complete, five or more muscles studied, innervated by three or more nerves or four or more spinal levels (list separately in addition to the code for primary procedure). 10/28/2020 12:00:00 AM EST [facility] ([facility], ) [id number] Nerve conduction studies 7-8 studies NEW 201210/28/2020 12:00:00 AM EST [facility] ([facility] ) Nerve Conduction 9-10 Studies 10/28/2020 12:00:[address] [facility] ([facility], ) Results ID Date Data Source [id number] 09/01/2021 03:55:22 PM EDT [facility] Name Value Range Interpretation Code Description Data Harleen rce(s) Supporting Document(s) ED Provider Note [facility] DTDYSt8mDwBXPwEt29/KSGltQFNgd7JhFFssUDr4YFutBANzD7RhGJY8eZ4qDEZ9OKbRPgArEaWjLKJb lbm [file] FHp6Na3aWBCOTr0+TYtglCGjlCoiSSGWYkI3WvujKDpyJDGLBn9L ID Date Data Source [id number] 09/01/2021 09:07:18 AM EDT [facility] Name Value Range Interpretation Code Description Data Harleen rce(s) Supporting Document(s) Operative Note [facility] PRTZLv3cOfTTCtFn07/PMDozNQHyr6KqTZjsMLr1MDhdHEWfC5EtCPT8iO4xLWT2TYsONfJvUkWaAUMj lbm TaBnzNQwJqBSXzPgbAVgNhIFyrDczziSNoLE1YfTI3FFCbA60kQJIoSOYeU6XwAZMlGSk+Ph7HVYZsgL BaYF5WZunX5MoSftn01W5Z/AjBXgw2AOeVxB7ze43oeO4I90YRYdkhbtrvkaq8uUxZQX+/zbzNsQi7iU lja1OVsCTF3BfQDlaHbf9bj3GtLPdr/m5/DULBrmfs xx/TyteF3762V3Xr7ZAtlAVdJ2UvVr/3xzvno3b4CLAM8krchmWJ27QHdbJjhVqmJHrby3gdoeukf/aO fXxxOegyGYYhV+ABB60w5n+uQzE5A6dZKv/qU4p5PNXrv7m53+CCIblDAZX5HvFKeFJeFZ/NdEbQ0Imx A+GyG2zYbGYOsR2xYA9zydHY1A7q/BluURIQyjmOQq 6wSaipQUdmbeAIHy6KYy7/35x5O6TNXyhRwpyizLH0yxdLUKygwkYhh58cNEgmD6vCE/vv7CwoHNeSym gsyxjhSH0eUJZyr6RXAXHtnpjBD9m4Wc5XHLbLl/SrPTUWqF0/X09wjiRbVFFvM3t1vhhjj7I0aW+Chiki [file] /02bRoM9jyn71kgqaXe6+/3t/cxas5bG5fRJ44 [file] ICAgICAgICAgICAgICAgICAgICAgICAgICAgICAgICAgICAgICAgICAgICAgICANCiAgICAgICAgICAg ICAgICAgICAgICAgICAgICAgICAgICAgICAgICAgIC AgICAgICAgICAgICAgICAgICAgICAgICAgICAgICAgICAgICAgICAgICAgICAgICAgICAgICAgICANCi AgICAgICAgICAgICAgICAgICAgICAgICAgICAgICAgICAgICAgICAgICAgICAgICAgICAgICAgICAgIC AgICAgICAgICAgICAgICAgICAgICAgICAgICAgICAg ICAgICAgICANCiAgICAgICAgICAgICAgICAgICAgICAgICAgICAgICAgICAgICAgICAgICAgICAgICAg ICAgICAgICAgICAgICAgICAgICAgICAgICAgICAgICAgICAgICAgICAgICAgICAgICANCiAgICAgICAg ICAgICAgICAgICAgICAgICAgICAgICAgICAgICAgIC AgICAgICAgICAgICAgICAgICAgICAgICAgICAgICAgICAgICAgICAgICAgICAgICAgICAgICAgICAgIC ANCiAgICAgICAgICAgICAgICAgICAgICAgICAgICAgICAgICAgICAgICAgICAgICAgICAgICAgICAgIC AgICAgICAgICAgICAgICAgICAgICAgICAgICAgICAg ICAgICAgICAgICANCiAgICAgICAgICAgICAgICAgICAgICAgICAgICAgICAgICAgICAgICAgICAgICAg ICAgICAgICAgICAgICAgICAgICAgICAgICAgICAgICAgICAgICAgICAgICAgICAgICAgICANCiAgICAg ICAgICAgICAgICAgICAgICAgICAgICAgICAgICAgIC AgICAgICAgICAgICAgICAgICAgICAgICAgICAgICAgICAgICAgICAgICAgICAgICAgICAgICAgICAgIC AgICANCiAgICAgICAgICAgICAgICAgICAgICAgICAgICAgICAgICAgICAgICAgICAgICAgICAgICAgIC AgICAgICAgICAgICAgICAgICAgICAgICAgICAgICAg ICAgICAgICAgICAgICANCiAgICAgICAgICAgICAgICAgICAgICAgICAgICAgICAgICAgICAgICAgICAg ICAgICAgICAgICAgICAgICAgICAgICAgICAgICAgICAgICAgICAgICAgICAgICAgICAgICAgICANCjw/ qEXdU1pcuWMwmgJ8M9asYs0JSx2ZDJ9yi5UqXHKbGO jufmZaNydDQxJbCLVkCuyZAux5BCjcJQ4TvZWeP2EaY8NqUXjbGI0BIMIdKHNxqZOcXFVoVLAzIsG2YI AgDOcsVS9IcNTtPOgeLGGdRIPoDrWgLMVrFT1ABSNbQ589beVtOp0XMd6BGnGfYW2ssg4OAOmfWLJrEb zHGec4BBxtXB7KhXBaxWMoYSIqNPKATqXsS8kkm5Ma CkJaWYKHGGhmKB8Oj9KfsUXeHIm+Jj4PNA5xc3XoBWioMIVdRK3jja9UGAdAMlXwV4EpiFfcXY7xUEPe iYb6LULJa0EoWZM1EU7dbHSpDAqjWKIEeMklqSBnzttaIQPnIBMcQLGmOZ9jBHLeZOC0WoJiTGDXRZ7G GUGmOFYpvXUaNHXnVLMESY3GEPkoUTR5MUWkcvTzkI XbULuyNW2EJMMafaRwRVohTMKAYVu+Ag8ZOT0mg5IuLPaxUNXwXF0bay1NDOoKCnXwH1S6lKUfQ9A1LN ztTn1TXLHcWMVmQByiOLZKBDdoIT1EIH6bdrH6IG7JqGTlHUMyVRFzpXCaPNa6U67ecZQmPBksAP3FDQ A+Js+Hx6IWTZmSAQnPOVvTbFaOBJJSkNwK3NtK3LK n4UeZ1AnWF00zQwaxyZkKLknUK6SGH4rWJYwIWDGVH5XyTKecJ6popBvJLIfDGMJUsJnF23xnUYeXYPz XIF7JGKqJa9SDDDmR7UprfZvjDcbjiKcDLAxLDIXIV5HJZqwveRgbUDhlEuoOI35iFgjAN5GZt9ABgUp YH3fxr4AyHSxZk5OIUXlGd2VDBZmXMXkPRCbNEM9QL HrEhZuABaiJGCqIBCbWLZ9OREbHLLaJL2JRjFqANEuVBT9KALwMESrOBRqso3EWYGsVTMbIhU5JvBxTP RsLIJdDEfrKAQxUPBsIDA3VCNpPTOjNB6SBiRhWTEcVKF7RhCwHLEkWWUyre9TDKFeBFCtMhloLOAiTO SsJIYtZXwlCCUuYFZ2FDhsOAHjQUPzVT1DPcIxDAUm FYN2NEJiIJCeMALbau8TAMGkKNIlYxr3YCUlIJDsOFZoSBidITEaRUE9DXYkSYQnLVDmNI5DKuTmVEXd EBvtNdKcXBQnMBPnsn9VZGQaGWCgRZU3THBwDHBpUHEbMKezNRTvMHR0FndoIBIgECTiJR1QWjLwGNTa YJk9IZQhHZFqPYAjjt5PLBQiJJYrGPH4JYJpIISzPA RwCFpgSIHhLDUnGjI1TTTdIGDmYW0ZOlHyIWDdSFD2EeWzRESfOAPvna8PTGInETOoDAF7IoTeVNZbVE CkJEkfPZVeEHYeDzr3NNNlPSHiSI1HPxUkTTVoZKT0TBypUNWmUVCnyb4WWJRlTFVoNhnnWMYeOMIsLW GfELr2reDsiKGqBYi7IM9YW4OexrLyImMJLw1Zi293 VDDjZAGqCk6BZ6rmKk9fXWDxXPHKNb6YUEo9ICY8ANueHATmJCQcEYRbNHU3DAJ4GLSxPxNrFVW1PSA+ VRwjXUS7TbB9WZB6R7DpMQKcGQwdPEo3VnL2D1KcNPZlPC8nGJJWCf2+DQpzdGFydHhyZWYNCjEzMTU1 EDfdQXDYJs7T ID Date Data Source [id number] 09/01/2021 08:45:46 AM EDT [facility] XR KNEE 1-2 VIEWS [place] [address] RES ULTInterpreted by:TIO Peraltaortable left knee in [...] rce(s) Supporting Document(s) ID Date Data Source [id number] 09/01/2021 07:43:49 AM [facility] Name Value Range Interpretation Code Description Data Harleen rce(s) Supporting Document(s) [facility] OUPDTt1rMuUDAbJof8MuIhXbZOAtZI8iqzb5Y9E2kUGvI2JlzGJfn3ivX9FxG1TtRRAwZSDIZP0BpDYa jb2 [file] jmZG6wOM6tTC7iXypycWJtBm3KCpEjf0zZzIb/Maria Elena/ lE6/uILlvEXirwFKEEMoZXjScfsoorEgWb4dtOmQbWJWk6sFzEtkA7RJRwCtZ7ifs0F8lWsfFOh7lbHr YMtgXBtiCoQfnE+omW71E70iymmAfzAfXtPUKOxdvhJHBsoVMP5MrF/KRGF2tiGasqKOGZhzh8KdmVTY AXU/PWR0fROWMIMEYTkKWHKu7ITITLjZVEs8nhSE6I [file] OMYVIOSQLKTD7Ptv+C/N+H+qaV2PF3lZ19hbCnWPKIHn3urWzvJGITIwsSJMCInEUpGXTIPHlRmwGkeT F5RdsrBlcXnN+7MFy0sHPpBpxl65Isbd1ECn12qmm5d6f76NCbFBuY4EIzicPFQesW5cBZTW/QPjfqIZ UGA3xBZc2oDURHH5EBIOsuoDXYeaOu+dSo7FcWCGXU OzR0jLffUORJdZCddrHLgNE1A4WptQsgxAYRGVQ2fO77UjqAPkGZxwTroESqShnmbQ/fEd+in6cQ+8u7 /xEi+i1pz9WEIFswwTFwdjvnaVwR4zyyd5uk6dOcrba3jsda4sJWr2kfFM6nJ/o+ZIdraWlY7tyb6UtH G8/sZd8opvN5jqCcdd/Wwr9tL749+vdSStYu6b6qxm dH/xjx8iC5Rpsl/nG/20/HFL+pY9HZcJ+fnGnGGn+5aeKMg3+uSaEw3zNaScr+FLi3EHmXoC953+Rv4c IvIk4eIkCCQ7Aw4R+qB5esVm8+YPMxRlkc2aqyn6gwmBNd5xrrQS/tHJWM9kgs5YQfd/9taNfmeLcywH 9QL0XbYaQ9X1Wch7/Hj9LC6J72fIUkbhoHgHXZrJ+R xrE4GWDEANXdPz/TqGitJUEFjUOdmKSujH6mkZVE5yFHJcZ5WkjD1MS4TkouqS87k4YLItmn/00Uo6wg sf9Q9/9b7nxet6A09L+XpeYb7tkGapvbxEHvmxRwXZ3mu6LoyatZd3w6BR56V6nrNWUz0l1LMTLS4O08 M1jgMNFq3d9lAtBO6G64P0qrrVUc4g0vBgHU7O02N8 amFNNm6l0tDLIB3D49Z9cqIJAc3r3oFTFR8D73E9wqhZhi0y36P9FW8J36Y2wecHmm6Uq45hYDpfVIcY ut/0d3/ik6quAJi2u6/yM04SZ+g0hFWal/9+QPhfI57+6TlN2Tfz7KYiqd1p+eDjb5p1NUs69iRIqZiL W+BKaF7dEopB9u8e+Ygeb80lP558fyJigfUSWYtjBg 6oSVUy/fL9Eg0/0uQObE+/mBy5V1G3XllAt2+RfsedZl8++/tpuHr6/VjQ+MPGzzLddAO/gS/gC/gKvo Lfwe/gG/gG/qenPMYs59bpsrK/wV/gL/A3+Lv4+jxIg9/Ab+J2rwJBSycDZ6Ga3ZchBOcRU/e8Vd2rml 6LI8EPiSTCm/0uHv003d1Z2Us175tM9/F+u/fX7QI/ x6Z95QV/P/Un+G9/U5de4//yO/Ty4tF45GHwzwPb0GY/cxAbpssg11gegso7v9vbqW/gN/Cjv5mu+k3B V/S69demx1Q61A22ptntd0nz+xvmrhqdF4FToLh31j1mm288o9+LP7y/mkdoJ1QEj1Fz5Ne0Rd2F3/2N +XD0mn+M86kVPV3awFwaRdQS7QxUZ6N1Z2ioJM0xWA XyLp+x489cbsTp/K70p6KDkV64uXOKZ/Ab+G9/nU3JA3V06df6/f1MB9/nZwu+z8+ZB/PzNPAN/Le/p+ oWQNB5Fv443+K36v8OK+ybzHP9y94U07NST813Ch8s5KrifunaJd5y9P/Mario/y/y4ZU6QVpFJc+7uinl GhZqOTzwJgbC9589W5e/B+W49cty6FV5Rs3yjy+hy6 t12fY+6qls2EbFknv+tz3n+vWE01t9IH58D49Okph6eEMS0EhJbwyxV9T/A3+Pvy/yTAmnEy3Jmami1s 01ZpBV/D25gugg6N37KU/f5QkrMh69YsRz2aqAF6k5S1/0I9+13ojpCbmQuicb43baarE5/epdgs5BU1 BR/1qckhS65k+oi4TH7FZO/Exrvp9SQqjp442Xciw6 L+Cvor6K+gw73x7rRgmmruWB/B7+M20Y62K6/gwYPDvsIU5Ow25G9h4SAKoe8s+qvor6K/CqI4lW7c6b XTT/qhfguDkT0xllbXcgPY/ir6q+neymar+K/ir6q+neymar/6ual4eCRIqwdi50/O6kSTLZb/9Dnsq/MvQ7 7gojey1K464c/H++0Yxc719DKVfXwhafjxE+3c4Jd9 SBOd0iBQ5W/YVycNPuYrw/s1zFeG+gltua3q0xO+WjN62oyYs81HVjfc0I+hv4b+Qykb2fX3a2H+hn0V 2vcK01A+FnQ3hS2S/Z5B5lN1LnTwFB4g3I8Esyt0I9Cqx32vLffGFafkraa25b+S4knkax0+Tss8iEMV Za4D28A/J/o70d+J/c0X7oj0edb/E+G6LgbGsK+J8T frazd9t6Qpvl1u8RwJ2nKAx1w3F/vhrSjd8XB5y8+R31AP+rvQ34X+HbX3fy9U64gk/O2250K6z+v7SH Z2J5qo7HQ+5bKgME4h2PeWbg09anzyk+U0grTT9zRRhcZIYgF6EdG1I9om0jPTY/u8ByI1t33S32w3ap KoL65qsG2ijO6J3rKOstSxwki7wtdnn9At1Ei5pP8R 8Xp6Q7MhR05mnI/Br/vsubBU5qA+Ax/1dG7dcT0M9dLKfrYMQkv5XjMhUfsoZsqt+qVP11MfCu6kK3E4 og6RWupG+0pbjV+OuxZmxcB2kjZ+ShS3IvcnckkTfN+wr+C8ic8CdQM1MeuPWI4o5YvLieDeqqY4fiG+ LslJPtpXPV5a3BjSjpSdw5AWI3rVdwonjr+K96vor+ N4Pp9p3IkCtmYsuwS0flY+XfrIDynRNI6u6NlKylSwurL1iAOAP/1N+li57ZuVEgk7BpFeYgvy5JT4Lw 4Ef4K/wI/7tmWl2ZxHSl2UAbxOguA/Ym4aS5YfHmAi6UqJ+0n9sy62kO7Dq7G+dztFQOpOX9IDey6x5/ B+Cg784Epnv+5zUwio95mW851C9Ly5kOWQ+0qC7/1t wff+nrTzI4/924DM45EK1D5MqmD/5ZkZ0fa/M+01kKG6f61BBvA+Tldgh6jFbeDIX/6J/vW5nUhn+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/ToN+uojpxX1yKo/E+Y03ZbDW6D+FrTry2ml/MK+0rSvouxCPXi/wD94Bc3W+xdSEdrFojJaqI6C aQUf/O70Qddr/Q6qh1lXgRcoUclAmqh1fWXiY/dTKx eLKmsAkyXn6w0wAiB9dX+a3hbnir/77b5/4RnQNE0V9WDul7/v48cLcxsc6055AA+xkfLLhV7I6ro7iG +kRGfs9HkBUm7F1Z/599P7kcseyGZEhtulc7Lc8T8HSBkl/WsV9kT4B1OyZR/72V/Jvr/14pgLfJNs5i +/IXvBrsgIInyAN94NKMDeY2Rjffc96AGUz7I3QLeQ cF0/cLIh4UVt4E9/liLhsvdTKZ/GbOR5+9s56ml0y22JxzPE375uU2UalQgSr2iM/UTZ9/3GcW0/jqLx n5InPho/nB9G+Axjdj4qo/D30ecOxj+gn62RpSX0BU4wbL/ZW+3R0jIbbSx6QevXNrssQYi8Ok6/47q3 9zveGm78Z97gpqOei0W+6fgxg9cWrheFLkQQowv8gc n73YwqcdDuE/sq2iMN/KIuk1pEAduFhl36/wyKLu2dt6wc5hQ7C3NcKq9FN/2YtcIljb7Z9+7iK/oL+6 rEronpS7Kfqm950upGp+/fDvuqY/+qY/+vv71ZOyT+Fe9XB/x6nyoFA96nhr+K/hqii05JxqH41Be6L/ Ab+AK+gK/gK/gd/A6+gY/+fi7cuIH/cUPM5mQJm7Dx Kpzex5k+URmha0c2A/wGfrvrcg/6vahiLjYBvOnsp3UGeZL1dc4PxbHs6FVvDw0Z+yrTA/qJ44pKOeqK zhu8jwyc55vAZ0YMhAi8o6N/zM+IpO/Ds1alZ2xMxTFw4TmTvrs3yd/kx0PSr+VvC363/mdYkbZKu/9I C48UOxCrfc9cTlarb6/a+ZHf5+eWaZ+3I4/31/3CPf yDMbeHf/Dl6azD2pdHAw3tXpf6pFBU1Yc/G6GTbl+8MRrjK531GO3UdtMmW2noAwr0oGomJ697M4m/Ve qkwd/Iv6t+o08nh9jYzqxzl+rP43bS4/SZadeSVjjlLZ6fvM/V/yo9/XUyVo0z9w0EkhSx+yp/aF/lD+ 1rgj/BX+Vn1KvyU/tUW672+xa0pz0beoxpGu24Gq4I +yr03+2rHBexfxVjx/gvJd6fx9Mfu9qb2skkXJcEFc6/ddN2/Kp+rLDMeXf0BUu05/5kd41c70ExRm0d 9q+8zGp3Abp6++YEQbNocb1ctdZ6Nl+J50G2a6idiQ3Nv7O/e66f6JkzYg2NtcH2dkSlsaDOAOVXj7Ma /n0/fMDy5WEzDf7iQqfF12E78FO6RGu8dUIMbC9Oos s94T7neOieguN4+2GNSoPfwG/fM160nH1pcjGx+G77gXSsaN/VfhklByn/vh/NvQag8f+yY5SI2ovWL6 1yhAGq6Mzv4C5I54add10i6qJ9A6kJd/er9T+ES9qjAChsruh/iXHTC/kX8m/wd7Wz1/rrZzBuuoGP9+ o31Q8As+Bj/MgE717g95HqmfQy/CjIT8blsbq9G+rB +Q95ce94FyCV0R1g8I4/sTXRDn2Dt+Ar+C21Aq4JX//n+BFQBjy6XAyak38dCkqMMxRNNZk7JO2F0Fid /U5PWeL6NLNsgZ+sLFJkXw1M/R3Nytwrt3T7wCSqL/D5DA8X4ymscOf+D+nydT6WmWOqBTbe1tn/X4Ws 3d6lMf9pn/x/Vw3kKQ2Z43fVkkq7vYRwH/R5Qp8n+j vxfifeb/x/gS4guOeNHbz/H8331qR/q6gn/r+IEu8CAetz6dH3ZtHzTA7laX/5/1XUU/+bWdhXIduwr7 Q61Lv3mN+Cj/8BnPHT9YBku82T2Mz5Okhx3q04Ih8NC+CTx2aF14HLx6tEt/M66G056MkSm9FcOxcv98 DnDX0O+8rT46n++vpJd78oP/AFfAFfwVfw+9WrEfZV pg18A3+lgbN8AsuT/AX+An+DX+95rP8swd0trbV+Ax/0jvfmO49w+gv0clpfc0S85Ic6le359kx6nEB5 lXkGnov+tnq/o6G/Bt6d3K2AbuZ4VrNY3K5LcsV5IrYC8F2OmmFoX/B+Lm9Q3E6R8ieiZh/jI+yrkwZ/ vD7Zj4G/W14fR1Qw8K9Qj8J+k6bIH7rC4OP674d/aH 9eG9O1Lkvc9aQ++wtoi8YjHn4H5v+bc6RYoj5RTHk/KbNs829SI1yUqdlosi9g00wD7oKHG594hp0/Rx jkD1GA05+J7bY4RHpsWRBhIGsGQ5Ql+3vSnj/SC/kX8m+0v/K4OuzLwAvnbgwGHV+F3MK+jxbf5ZyMBo p1Vc5oeE/B7/VerNajYXi/meNu3hN2kjzxzr0+hn2V cM8OC04K+yraH/vQgTW4L4QvI/QZ+1cD+9yv846nspz98pJH79K7exg5UnzO9n9zpl/Cau9U0xsrllMN PPD/9CjyWh3vN3yNabctLFrg8ZD6u0rBlqw9gdOa+io2OcL7czCY413m/hQJ/utPGclX9/vEwbXXnxLB xuqxS1qmLqCgp4F7zRt/IV4zjoTESi1e++m5CzvTj/ 3nxau8i025hk57+w3HKt58WpN2OU51XWgD60z/9PhzV/mPxnL/zs9Usxb++ohdE6S1V3Za6v8alluq79 huynS3lnZxz4hwn/9RntQr/5ACTvM9++cWgwz2GL852hVF7HM32M3FyTOV3kdm+q/108uaH5N/Nlbs18 WzfL/GxRNeZ74W+hzvxmgWgkrgB9ZvSKr31XuRlvwy 1922tKA90trZfb9CcM1Ye/q7J/gT9S/Bp5BFct2o+3k+aZ8W9yD/gd/Ar/N0654LhWK/rb/jalusDo88 A99Q/0A9A/SFGCnOk1AjrWtqtzw/D8hwBrU96Dmv8e+wr04a/Fp/D8u3rlN4vaAyw35N/R7hi1xQnX+i /mo3ounht81B6+8M++qkix/84DoV68IwvC9jB354+A q+cq3zp67iK0i/lBE78LBrt23mTZ+p6R7vF0lZZ99XzxMkUn6By2koygZonLEbGje10/6nsjg0TWsLLf fLpy963m/s4Lt/YUXa/ZcbqRyGmCjV9vdrkRmf/DO1/ReF2dwuBpcaJeeBOU4o3H0dmx/T71S4rffN2/ sH81sa5eORs7Qcr5hvxBx69Oyb3m+QedyfknkE+b2/ IiS0lt2Cg4+rRAL4nR+d95u04RyI9F6qo7db+S9x42eTgKK7mv0/PUi//RZ4n07q2m3/LOWor4tE89gf zbRV+u3vE/fx4lPLGuQ41aTni8apjZc0qb15533V/Ib83t+sc6D+Pi6Tktka7/1RvEWPjiBE9hll5mI3 r1I+bl+kkZkb3XB4Zg+G53eQy9dI2io9d99s4ws4+y p1w+2rw+/gW+kV86kzK67nnAjg3tZK2oGyLgxH/Na93BddK/oc/A7R9othPGcZ+yuRshIsPg2hCtcZLm 2+up19zkJ/eNKo3/BcA3+MH5AEQL7s+jUxfsM/aBf9t4Q/C/1dZU/O8A/G/BD+wcwjyC/ga9Xv+1ennv 4wJT83l8ZoNUH/IP8Ev/yhE/mIVZl2Tt8qjviMAChk 2Pp5PGafO7060a3rzV+N/m28JHQ1jDQb7nismp577KDpD+Bjb91H1topPHW/Qv0L/A1++X/AMIN/7f5fbV KWmj35DVihxCRyZHa3B+lUeRvyN/X91CliLuS876sZ/0y35P4k/kX6h/o/56v6vV+12t/G7wJxIq+FL1 896Y6jb2tnfc3/tdbl+sqE7s2murAOB/UG1Zu79AYz t47gJ/g4/3K8+DNPgN/Aa+gI/+fk6618R+unaoyC4J34vo+tuw6dV63lLTH3asytQ3ZFGQT7Q/Bf2Vmq +M7sl42QE/gY/+Kvqr6K+iv4r+pmk8HbZpfU/ra3uF4ZfeF4AX1mc6MdKojMhVF/aV5w/76qTBb+C3uw 6avH29syc4jqgxEdIVpVEgU9FVF/Dxfjvebx/gT/An +Uz3Kp4Qf6ps4Z96fxHj8Zw93nWOvCHylBx/5t1Qgxy5fKRm0LWqGmaZQW6E/gR/gr+sIsUlytixAn0j /sD7HXi/A+97MMSR85I+AhN4aM5F/J08KmXLYsoJ+2zO0PriqoF6Kwuy9+Lr8MFCQK4H26d5Q5blj47o yRj56Hb9VrEUtzIjUI5HJBr+gT/AH+LR4Mu0mZ9G79 fi/X4113Y+GgT1os5F/H8EbjVg6Xr4xgNH3qKdNGyGW/7j8I3Pyag8f4Whpo1t1Pjig4YuuCvLe0T+Om nwvb/+7+Oz4f2j5q/2HXz/PtrB9/6abm46Vl6HS3Hu7V/wJ/gL/AX+Bn9f/g77ytu/n+uxaxm7mz/1fv dT+iinJD6EI4Ww/o5p68c51aPn//ZMD+SP/gZ/on7v b7Ztgb/w3A3+rvwN/N17IePzjvf9FzfjnXN5+Aq+gh/f+6JEu8fe+Aa+f//6t+d2+yq+SXeL7/1M2/me 6C9o8PF2I9c//mW9rg95XuYwdbjw//5GPG7toTvrKtnEAQ6zvnW/84crwqwk8vWdC4xi/hkw0y8GM1Vx +HS9LFMy7OzP3+6q3+2rlGfYV/IQNf0QU/j7y8c8m7 i/qsgPfdaO/GLezncA9MQRo2Y+OmnwF/Ho2V5Rw8i+bj07qEU32L859Pw3v1x3nQ4UAqQ4DfosK6ajky pBeti8o+9P6c41i5mIqgvf7h/e8A/mHkbZv2s46N7Gs4R/Fe8x9q/yDci1XOi4++vM6336ZaN56I2jZg U44U02mek/9ad0C/7rTwn/0D1mI3whI/vNmj6d/dpX Enuh+2Ye4eeldy4nrfun+3qEM88QnvD0bQ08O/K4/+iJOt1/4RwI70z/FO/X3H+Ikls3bSV+2EsEv1x3 ta/nwNTb9l+Qu2mqAUhrv3f3dlI/+4+izuH+h7rauG7W0XMb/9CTsdM8BzW6wR5zCAxwCuZEI6qxJ1Wr b7cu39JdAg6vjK/rl0ew1yurwJ5wV1Olik6401XceT 7i3oBAOrg47A6Z35WcFl5Fb0ln3oiFgsArE33BAfhkgrqSv/nj3uc9vk+yJ/dc4C/wN/akR56MLjpqK1 9/9wzXsmaYykdxbhdvbl18cl4IUtfh4yXNo5esOD+MS8XAPH5r07J/F/o20Y4q6qz5L+A38Gu/fYd9dd LgK/mMfdm54C5pv5MadVI3MmrHbvd9VM5rgR6nE8C+ CqjJ7uRFW/57u+wXjzhs7hlJdrNKd/M4AFOW3m9l704Qhj0f5lf6CLoiryeBVsofQGIubTkeCsY5kYDG DTvz5j06dA0e32QT8/Ndnmh2A9GJnYGQpkZ8hAHeWfxr1F0y+rRyh7+EHb/BJ+EDebRUI6gyWxZTMe5l SSI+gmTJrSX0mpVuEr9SsE89RJhL2hxDv9ZDQQfFeb S7RN3J+ejWDTuk4k1b8pu8c5KALM/VaYSjPA6SnaJ1yE7Rh/CQNmLsMZU0nwgUKoSLHVM3AZiL2VX9uN 8+3m3hW7EP2t9A8kSGg39IyMIJnJQJA+NpBHUAvfEXEQwXlRAdXGwdJu8T37/IQCkDnZCbugxGZnMZjH pM6eE1TS8HvthQedGGzPyssQfjPnw3s14ClrnuNdXC OvQ6PI+v8H3iVGzCv+BYCO/jQSZGVq/vkU+pOzmfnaLy2abpsTIQHrGLq6vaMwzvIdLXIURmRLEmgQO+ CGfkJYgYazPWNlhmYIa1+aD6QvyDkg7KeV2zhKqZPQUmEeCCtWfK59JTKRQaOvxHN0VCFB3Q2tKLZTbR YFAGY/H8eAPDxHbUc0M6aIH7doi6RPY3i8iXSv4Hd1 Z7GS5fuqRP+jJsucJqujZe9fqQxZrxW5f8gY6WcyVDOmNJNMqCXdz3aYN9NQYoa1QRrIf3GBvr6kPWOK bZkz5cqDtGaM7xJ9UPZBnEzAGwzRqo5hUrComGFEWVt/dNdoKrX6f1qFlCooiYrm5x6eb8rrzMCGoeqo pTh2sewZpvaiVB1s9GCwm8tP6OWUDtKJ7L1VUoaM/O 3x8r9yRLrQdSee4mlK+XBSsC92OUWY+HxuEs71oFNEeRUQznRv9R+C94BYdhpRBuoMkw9nb1DfIqBW0l mbJuk8eh/eEzGCDK4ck3SrVHycacxzd/ImWGCDl54y+pQPwc3dwkGewS2QJwSeRD+kPM8Iiy8yFew+8n jq1TaWFJBBKQaDK1iDnX7JoOxSdWELn3TXRBKWKabH +UgWA+kAvxN6NEh4BgA83ZSpyUGq0Ci+gNf8X5tKHP8ImFQmPSuKYmLBUYhm1ji2kRr1IZ9zVlnW4y7T qTFopM05kzOyROu+J8QlyPQCV/2pS2YurqxM+kOEJ58WaS46s4BoebUbXHpuep8AZf/eOy+yNNna1toR DpsXjZ730haQSPUTxvALsS4nMEAj8GoPQVsiUuHIkX cSEtI23gxKYLpKSa9XTDHYuxZ4Uo+QasfeJ1Qa1Yo1HyJFaRdc9s2JP8Vq2YLjLJPSYLIKEZaMFyjBB/ wC1hPTLMQ5kCt6nVaX/+LRYOzRty6d0kV/6q6lOGGjQUlsDcTx8AH/ROJNoXF0Yvp0wCQ7YaY1q43UBa SSz2IJ73v+Kq/InXGgfLta7P5oiiKEkWqDB+WPheiC vzz/WNrzVTTdR5Cjx+G+Pa/UmJf4yah9aYFfz6zgjGN6H5KoNx0HrWEwcOsRTo4JJ/RK3ARRqf1Tzpi/ 4MrmvjhWvt4QI9tXhbqcOHzxQvo0D63zLdgj0q0HP62fOpoi0G3F8uWJ4ypCMtT5XTxxfTNIdPWz9nnT 4RGUQGkckWTLZtscwiElvIloQd/1GLS/bjR/MWt+xn HJzGKo2I8+jm8Eq3yR0mNY1xZIcXHNrkb95pABk0qq60hZ4q0+2fnR+/ug86I88k2C4AQ83m9W/PTPMr 9/PIT/M799/DkZRcf9nlc784TQhr7u/df0NpJ/H7gmMVa00jPHFZj20GV1Wyy/c/olfX4b9RaXeM06qY ZfHb9/H6MxBk88KQFpQsib9tcgVxPPYrP002Hus+/3 kQ6I/dD58BkMSR20B2I+i1tcGmRAf1H2Nj5ibIdlL+YkpHsJcmsZ+YZjn8NGqDC1DWPIY5LhJD6PIz3V +BHlfyH+NH9kL8gQF/MOlYPASfWwzWSUZ2UeJ9ZhkUTf2J1yXs+L+mgSX4kP/rFYTiXlYIxU67u2ho6M pt9t2RAN89V3iS1jxax4o7uzDZYs8HY8wSCk/Fbf03 09CXrnvNR8ACag3pMgQJMSxf+y/M4MvomMKGPeGIYKSbmAN53kkC3/e0ccMcxPmwirWowST/JSaRybYt 2jxrsSZIZUcgMZ2DTDKfZ9NqHVIBUfFlWrqc9HUnYz3dLYaSUNTg5HKGMxv5cHU/2TXElDEIZpqfJ4eS u/8HhC9tZkfByqmI48xNH8Irvb6j+L+LGtY6NX6egV VRo4rEVcVmOF17s4umrLliRymOCzTLbjHb/nN9lml2/p/7pgL0Yo63X7oaKi4kzzxRPIGPR8em/9OYi6 v/0+aLu//TGozL/9MNEbf/k45bfb2/v8nXyQ2AhnIUANiQRA9fgSySFsLNrd5CznZiGtvp8s8LfpOO2R BsSnCsWC3exbT43zn6YM5uvorHsxBqsr+0hI05SWya M4+ljGSQ7UUdq1ikGXCQh3swEwCYpgAmp2wDZmD6g/KRDOxk0iKGyhdgC+T39NKVTXTsd/LwAJUNMtC4 lJXyqldR5XbMNBbGeVCCuFhIGWEmCDASyLoWA4G21FlcfjOdAgPyA0nRUAIWNGN7mOONsOAs9I/U3E8c ASyBhJ6h/vhril/+hrNsvgAUK4CuwgcFRJKJ6MCdwc VwHD0wJGbuLKHCvNMemLrdSFbdxoNnVMOMMSO6YEOv2qBtHOqoGXE7HGZ8Uud83uK/bwoQW08VlT1xjU wldKhUrSPGCCixKHyodGyIothbMXAdtPFUUnMBgLw7LYXWBFNXFaWHkQs6FQTXSnhcJooiYezLN6PJVO FbKwfEqyEcKRTDEKYzAPBXuMqWmxGKkCIM1pzaWoEK RUEUgYObUPezqkkQRZSgrRX5tVXzkJUfLwf95ZDjgWW8ycyrTlBfOzIefBq9oRSgRr0HLZTK1gNVsHmX JZYy5cREv1h5C2S0tdyeqFau7AYoJafeWTDC8JeXE3nNouUAq1QTlAypLcxRVHA3ktKKt1JIV4QdpxjV AXNActFB5EKcPHlySpdJNLlRJJrBRjMiAcSeQJBlag CTROKiZ2Ga2BXZFdumHsQG6VQNjNAZQDoUCFDT1PwaLY4IlsMSAuRdzAqnaFVbxV9POdUhchbAGYGhBJ MXVMfAQDQL3a/CD7lkodUZhdSIQfjQeO9WmcoxJs/qf9NCwX67A4uLpNNgLL396FDGZ+KnxPOcjlZvI2 Vo4tFIANx4zDQ8apPNCrWpsEbhqfq2XruV/cSooD91 v0LcAiYRzWzYPeBQqXyt3xvVQOBiqHUKRb3hALQPqVZgmBnhbld6SMmMticdVzShl9AZNNG8bN73APXA JDKSGCRKyGTLsTGurXIyOCnyMDJxnx3vVsBcgFj3A0aHExPPIUjm8jHo0DPbNEoBgmr/YpIWGUWMP9PM RZTaNwz0PKw9DFKj1aIhGlEeYXNBuMCtj2eOorjLk4 wf8azOqO4xFChXVcKDDl8BY2bnBFqU5butOs/UToSKGQrtRdVNwN7sGLikZZiDFt2WVyu400R88qcqcy 9aIlwXwS8orRQpxe2LoguRfcHLehKI/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/wPNqSJABSS1RwVDLIG2wCaFDKEWrGbWHabhPLNNrr [file] KugMBg6SS/HUptBrowysE+YoUGvd8sEsicwJmmYPrwRiiQWCZfWEHQUY/coal inspector/jHEh9R2R3sdEXmwPWyF YyH2Ew+BtTHisVyCMhiUwaAejMHaJpFJZOHNjcVWby Zy1jB9La2OkQNhFmvJWTJGyH+Pw0bNm3aYQKhV3WrDSWtibULVLCzLLlKWJL9tG2HqfSgbnbUOHUaxso f7vjtQVJ9OmZREtJZhxmlGFlHrgbXKTT2EDz2ZGVrwQhVrz7GIwXV+BCssn7S1WYD7vpWdIj0LGQoI7F zwZu6Xp4ssm2DAGaVlTAQ4U/QYjUbSEMpUfiWbg90d ZSVK7zHaXUs0JZHfHYKjrpo8QLf/0fh/AuTdmZFnx7RqcCecMpBSyDTDDMQ6tsRDBMTDiA2AVfo9yuDN Ng5epPPUppwoDsCjj9LHLHwoUNrHTaoEXvQU3nUhhSgov3dhmxvotBjk6bZPYDXrLUyTGPRNPhjPbAEg hVRNQoB42YyCSzLAaRoRGfgF2mJIs6QABqNbSUPFNc 3IlSsdDlQ7SGVUjfWB8HRlDX5E6OcIZDZLnLVCr2JAE1sFINWW71U9CV3aHswHUwdI7xj+jYNBaT5Yn5 L/KUj5yxRi9asLUHJyXQGTS4r+UsRjKQItcDsx//VLaLhgcR4wZnT3khFykEFDHcZZz+BUvdiCRWTzOZ dOkENNlKJiRihnXZVCAWMpGtaz7zOspddPjSgayaDw NwLgfl6uOYukanvfCEe4kPthK9nWeZqktwUeAQIY80FbDZDqptmJYc0iwlwIXpB+gVmEcdoPSp1OfphB kwfI841D6Zmsk+B/LKBb9EqnCtoW88LCdUgyqK+Yd9K8P3tyu+Ych6EjK9oaf+U6Li2vN9xCD9/H8hrw PgqxLNQgbOnijw3I7HpO4ZdhTphFxg9SKq5K7zUYc1 PKBJCl5TmlA3JQiP6wYbu2infCw0DFSRc5qhqWytwcev7yk/E2TI3Nl1Jmd9q5UZ6X05XebnR6iJi1Rb rzeodv2Ia6eHlunquyrqxwToaGTowPHko7iU9Z6pfjVvnR8GzOkVcqEhhvURrj0yrFRrz9YhhWDQqV51 d7T29gFMmLPrq0rtvrtQa724ZbEkQwEEv/cD3D8Yay xzGkcKXHXauTcBN83vRyZxrlzMgZCORkoRiq+O5q0dTPKu5AvLccBGl9ZZuPQiaEL7jKSsEvjVgtL9jo xRmgSdqZlDF0BYL2C200D4/3/YefZfHfgr7/l4//0ei43xba3/7dW591/2LvIhTHMF/sy6+//OK7//rx 3a+/++XKuIWHw4gto8/4kh0222pH7/sc40qm0Ntt/O q0z3wmir0+s42NGb12S9q/OZgV+b/79S//8ePXv/ru+y++/+swQ002+gFAxwm2o53/+fFieqi2c7+//8 zvxJJrA8873aykXf/ffvPr77/+9Sgz0948/bdff/WbL37+o016ypez1X+07tWsuO/An/b1L3/93cffff vFl//4sy++/fLrL/6TvO8q/Ob95vu//+rb//9c5593 +AE3t713+cdXP/tf/lKbDRsnb79+fvXtV7/5+tgIR3tb/X1kl9459kWZm/i7n3/140J+Q5gy7Bc/+uO/ /u7Pf/jhXz7++//8+M3vfv/73/75zz/89vf/9ePL3/7xdz/8/uOf/ktb//TXH3/569vWp87/64I7DJc+ tM+AF51wGaSdl0TjRkQ+8Ie//Tc+ed2LsFr+4T/8Br i+P50Ubs/f/79A3Q6+1E8g794oGC+OIbXvu20Rr0y0oAamLy78/Y7IkKh3ZWnbwky61atKTT6f1p4z2E //+xScsX1n/fTj43/62hytjeKUw60/87/4hMn6Mw8xZmF+j4rEOlQkznB+WIi16g2+XQH7mNKSwbUG/S /U7Dc//PHf/+bjz7/99x/+jjmE5duw8v17H/2Bb8i5 eHQbA942nP/69uN3f/z3H/78f/+Gczm5F7u/WfWlAc+Pqz/oU1q32tn//I/Pxv/uT3/8cf1+1whO5r2n LvYP3//tP3z/z3zP+tTe7kan4v/zSmVimAMi98+ku/6UO2knlWrMSd/svtN41ere/uT7j9/+Pz/8238c KKjLauaQW8917fx+U/s//RcdH//zz//01z/KfV7Ef/ vhD7/9/V+84v0X+M9++z/++bf/9rvf/vFHNRxZD/3dH39c/r6m8fz+v//HsleI3/7pT3/46Ret/yjD6e /P//TPP/0CIxeuSOS6/4t//8M//59//N0/a4xocn1Jldqb+zN3Audg4l5gp22n5y/38U676uH/OPNGOD Xv8De/+MVXv/z+m72zNtnKuu//SN7XgGoBfBH/9dv/ 32rO0dRir/4aKS1tD4RdocX1w0vN2syrw7+irY+vvvz+c/q5f9wZs/3kl9/1Tmvif9342dpvJ0y5Ft0k tWf7+OJnP/vm17/8zPv+BCbjvar+POj/A/+5qUlSYX3po3MnPJLuGsXkJW9egamxNGFpOF4dehw5P0Pb pItmUYjAIFRrAy1xdUOrVI5OKCA9NVqdXHFeUADuC5 HiqT8aO23gnNKpPlHgGPZVVZ9ShlX2XKN2EVF0CBSyRiDrHLAlAJ86RSOmXXOMIl4baqWdUyhCRzUfCA 6ohgh0J6Y7iMOhZ110kSdsyxOsNA8La5MfuQVwRU1TnXHdvYPgOGNmVPEjC7ajl6BuKKknXZFLPo3yps CkUblLEqLsNL1wiua6Q1M2wNneeeVoIFNEJMncAddy WM4zaLlrluoxA3DxxDNgLGZgL0TgJTBng66QTKMvSGuPFkBdUzQkVZFdJNw4HzroZyErATAcXKLzBGAm PL1XmKMgWRGtBIBBZXtqAgriOVHurK9szBMVi5ZpBSxNKXWqZHHBI1KTFSE9MFsiYYptFN8YyYIoQWE7 SHnTXGWDAKcCXAggIaIjt0Q4GMTvZ5XnPVYtqdIdIG GWQOueBksqYF1yoQwrzsrlA6JszKDdQNPNEYRbBZDvPEQcEHSxN4Tsz3C1M4ReTOvRYZXWHVkYFJucOl U7v48wahLUKWVlIGVhZV6+ZH7sc3YsDj2AUGGrLH9twux3OY8IpAYbMT1GHWfvllPkR1zlxnLxGdFiUU DLJP6sF1CodA29USW+CzMcGI1fqic5wpOxPwAhAYGy JAZfBUXeUYacXMVzMXSfWLBbFSE9AJK2FHWuYzKcBDGjOzUuAVZwWFVjJCNuksWQWJVvIKG6YRh0BVAi UTOhWBVpCAwlOTHhLDN4LCL7PADgXHGjIG0tZkAvSYLwGMSyHYVhXrD6DdDeEgUKECIkEHDbYWLeYcZl PEHvPOSfMDmvTCMcTYZbSLl7HGLuBIMwGY5xAiTrVC DoUXHiUIQoIHFcYJCkyrUBAXRhIEJaAVF8HIGvUNJnGRPaGLbgAFWrVQSiFVB0PJNkLLEjQG4fLkZzLJ QbDCB8OiXxSRHyOOAwbnKZUVDiRIItSDO7FUKpSSLyCKOzSNrvNBNfVJRyXwI3IZJeSPKfIY1tAjEcOL TmXQI0GRRcIQHmOMRwjwUFKXFiDRGaSYs6IvNlQZMb VSEvRAiyJHEvAOBgXYqkLVQwWJSwOH1rZmHjMQOxOJAkWEVbECPoSAHoztDNNLNkMQYdPYU3MzDoLYWa MQNzGDspIDVnRGXrCGY6FYJvFRGrVR3aVwSjPGCrQbS8YPrjPDVwXTPiakYOEBKsSHJpFQSuRTPwSZNo NOHzDDqwOTYfOLYeYmU9QFZzFZPdJV8mHnHdMJOiQK M1BWOcHLSnDFHwwqKJZBBfPILqTNCjYSH7YWMsLYRaDQw0zeAvhTSyQkp2Ez4PiKwlPCS2Vd7VobKaMY YwFZVOMo9Oo266WPKyREKZYjh+KnqtbHAcjOfdWCMOQkYuDQiMPWTBB3U= ID Date Data Source [id number] 09/01/2021 07:23:10 AM EDT [facility] Name Value Range Interpretation Code Description Data Harleen e(s) Supporting Document(s) History and Physical [facility] PNJNTs3kGzOMXkIl74/DVYaaKWOcx5ImUMwsERj0JRytVXKiD0UxALO9aO1wNKE5EFjXAeJqXhPjMEHy lbm [file] yO5+[employer]ist+5tk3W8ogetjRV6G5OMNXgUDDYJcYt3ZWgv6m0BMLQVCMJ/sxiCJfgxtO/sGqTqtrSa1Sd2NII [file] lKyF6cYSquenEF/0zQKSDxHw6PtvQaNohahZaz2Vir0XLoseXxHCaJmu4z1n/gwL/zxeM70il8/6/[employer] [file] ICAgICAgICAgICAgICAgICAgICAgICAgICAgICAgICAgICAgICAgICAgICAgICANCiAgICAgICAgICAg ICAgICAgICAgICAgICAgICAgICAgICAgICAgICAgIC AgICAgICAgICAgICAgICAgICAgICAgICAgICAgICAgICAgICAgICAgICAgICAgICAgICAgICAgICANCi AgICAgICAgICAgICAgICAgICAgICAgICAgICAgICAgICAgICAgICAgICAgICAgICAgICAgICAgICAgIC AgICAgICAgICAgICAgICAgICAgICAgICAgICAgICAg ICAgICAgICANCiAgICAgICAgICAgICAgICAgICAgICAgICAgICAgICAgICAgICAgICAgICAgICAgICAg ICAgICAgICAgICAgICAgICAgICAgICAgICAgICAgICAgICAgICAgICAgICAgICAgICANCiAgICAgICAg ICAgICAgICAgICAgICAgICAgICAgICAgICAgICAgIC AgICAgICAgICAgICAgICAgICAgICAgICAgICAgICAgICAgICAgICAgICAgICAgICAgICAgICAgICAgIC ANCiAgICAgICAgICAgICAgICAgICAgICAgICAgICAgICAgICAgICAgICAgICAgICAgICAgICAgICAgIC AgICAgICAgICAgICAgICAgICAgICAgICAgICAgICAg ICAgICAgICAgICANCiAgICAgICAgICAgICAgICAgICAgICAgICAgICAgICAgICAgICAgICAgICAgICAg ICAgICAgICAgICAgICAgICAgICAgICAgICAgICAgICAgICAgICAgICAgICAgICAgICAgICANCiAgICAg ICAgICAgICAgICAgICAgICAgICAgICAgICAgICAgIC AgICAgICAgICAgICAgICAgICAgICAgICAgICAgICAgICAgICAgICAgICAgICAgICAgICAgICAgICAgIC AgICANCiAgICAgICAgICAgICAgICAgICAgICAgICAgICAgICAgICAgICAgICAgICAgICAgICAgICAgIC AgICAgICAgICAgICAgICAgICAgICAgICAgICAgICAg ICAgICAgICAgICAgICANCiAgICAgICAgICAgICAgICAgICAgICAgICAgICAgICAgICAgICAgICAgICAg ICAgICAgICAgICAgICAgICAgICAgICAgICAgICAgICAgICAgICAgICAgICAgICAgICAgICAgICANCjw/ kITfX6udvUDimwA8O2pbSm1XKd2TEE3hy4MfFOEdWW dqxfGaBaxHDzDsILFqKhiFKvq6KBreHF9TeVXpA9FxB5CcCTaiWM3ZSUIeMCAgqLMsOUIpFDNyJaE3JR BtJYsbXP2QdTOhQPpnWROwERYdHlGnLHDaDFVoOFDqXNObJWILZW8PHiUgZ2IzqO70JIBLLx7+DQplbm HaDmmXJpO6WSIbn5ZsSEz4KT8HNUGxWuihy0SaVflm IOJBJOymFP2BNKA2ZMP2NEJpHo6RCTJmI762esFtFK5YCu2OLeIwIC1jtr3VNetdKMIfWpwKFmt3PVuk PF6XuFBhPUjVVrPdOuyiO7K4oH2tYoYLVGN6PTNSTRWxbVKpNV7hGM1xFZFjEAW2OoH9MLSBVK1YHGYo YZPivQVlDLEgRIVTJF9WRUznWDT0TLPsakQajNZbUF xxEL3SNUJudtXsLcgdBYAOSAq+Kq1YBA0fj5YnVYn1OUGuBU9bpa2YAOhTNcEhZ9L5iIYiB2L0MPnvWe 3SMQIqXJYjGcBaIOXIXIgfBM0AZF6isfI3QA7QuBZwYTEkPTZcgSHdFJd0Q49jnJOqNPhaTQ0RISJ+Pi A+Dl0YIMNoTFNbVYIeEyFgONNADfDaK4ZxY4FIl3Yj C4KwFR73wRdrjjMiNDysQA3TQI8rZZHuBRVAPM6ZhMIooO8axlGoKMWbTHHASiNjZ73nxEXhHPYiCIO7 TTTzEd2VVAQtY1FpuaVilFhpsfPxCOCbHAFYCH0XDWspkqZciMPgiZkxMO30fDwaFD6WOy1WBmHkSH2p aw0UtZSxIb7FNIV5JE5XQZRsQKZbNPNxQHR8WJAtSq EbARpkSAHiZGSwYIW3SAMeBAKwCS0PJoFnQZYgGTV3FpVpODRvXJHxln0AUDViJTH0RcruTQJjQKVhUF TdXBlcOOWcPHQnKXJ1GDHcMSFdCW5JEbEqTTQdWUV6UakqGHCqGWObrg4LVEXwFIJhNmojSyMfFRKqZS NdAPlmBHDmZFE1NwTrEQSqUONlCI2EHhUpUZUjQBu6 YuJbJQVgYDTdbr2VGVKoFFUbWCT6EzEbPVGnJBYjOTdmLNYhVSUfYbf6VZSbKXStKX1TRqFfWQGeDRP8 PEVtHFTbVCYnpb4XSDVjNJMeJsY7VHIbVJPcWZGkXIcfJDPgKIE3UFX8RKVxWNGeJT1EZsGzHWDlUSRa IRTpGRSgMTRgus5MRGQyTXLxRJYaFTHjHSSaBZAyIK nkGCOdCQW7Fye9MTTyQBKgLT6MBwPiXJXePXG8QEYhWPSrSIIoly7MIJEjFSEmYUj9XFWgHKFuDTOgNQ xtGZKyUYO6XnQ1WITpISRoJL3LRoGlRNPmHFN4FpZzRDHdERPdzg4ZZIOoAWNsSeBcMQJdLEUtMBNeCR jtDJGcGDW8XxPqSELhDRDeBL5THlWmGBPzKcxuLlgu DLPvHMKaud9NARTiQXBbFwN2OPDwTRTrVSYvLYzqIYExPHG5LzP6HGNwVAEzIS0GZkImTAAcEqa8XrGd XBLmTLGuyp6BNSFiPRF2DMQ6DJHpURUqPVYaQFqwVPDjSPV2KVeuROSnFAHoCB5LXvExFHVuQUi0TLYk HEQnLHYqka3PJECvVEF7LGGwSOKoZCFdNHIhPVxhFS RhCTJtOHC8CLNjHHGqZI8CSuOfJUYbQKCxKkSfRVJpMKMtzg9WUUYbHNQ1FWA7IySaLYYbXXXbDXjzES UaCOJ0OJV4GMApSVMnOP3AUuJbJSQaLUP2CXIsCMFaLTEcir8YEWHrLHJ5HUt3JXAhIHDcAIErMKptCA PoQWU6BhhpOOIdDAYlKR5QExXwBEMfOEv5OAbsDVHi TFPqdw8LCHCaCFR1UswvNEYuOQFvITPcKSwaHHJkBJC4KFC5QTZhGFFqTK1DAtRjIDnjCDRHIns6LFwb O3h6FHO2GQ9ME6Dlg1WaYJElGPHARUbuCO5nnjOdSDPyTn6MO9pUBrsdOmZxQEOiU1R7UPIjCHIoSVAe FwY2VGQ1NWlgDmA7SD8aWWTcTMLvAWXmDoy1D5TqTD I6DDAvUSWhAlYoXFYoQqr0DrVgAM1YJm6STmS4HMR2hQRmMv9LMKqwZUuKPzQdZU3KCVy= ID Date Data Source [id number] 08/31/2021 10:58:18 PM EDT [facility] CT LOWER EXTREMITY WITHOUT CONTRAST 7370 0FINAL [...] CR XR KNEE 4 OR MORE VIEWS [id number] 08/31/2021 8:19 PM FINDINGS: Bones/joints: Irregular comminuted fracture of patella with dominant transverse component across mid aspect, and other fracture lines extending inferiorly from there on each side of patella. Mi ld displacement and angulation including distraction of the superior and inferior fragments. Mild articular degenerative disease involving the knee, more at the medial femorotibial joint than elsewhere. Bghu-cv-suoanyvz effusion. No fracture of distal femur, upper tibia, or upper fibula. Soft tissues: Mild anterior periarticular soft tissue swelling overlying the patellar fracture. IMPRESSION: 1. Acute comminuted displaced patellar fracture. 2. Effusion. 3. Soft tissue swelling anteriorly. 4. Mild DJD. THIS DOCUMENT HAS BEEN ELECTRONICALLY SIGNED BY SOPHIE EDGE MDThis document has been electronically signed by oSphie Edge MD on 08/31/2021 10:58 PM Name Value Range Interpretation Code Description Data Harleen rce(s) Supporting Document(s) ID Date Data Source [id number] 08/31/2021 10:58:08 PM EDT [facility] Name Value Range Interpretation Code Description Data Harleen rce(s) Supporting Document(s) Choriogonadotropin.beta subunit free [Units/volume] in Serum or Plasm a <5 [facility] (NOTE)Levels between 5 and 25 [IU]/L may indicate earlypregnancy and should be repeated after 48 hours. ID Date Data Source [id number] 08/31/2021 09:38:10 PM T [facility] XR CHEST FRONTAL ONLY [id number] RESULTI nterpreted by:Alyce Sorto, [facility]URE INFORMATION: Exam: XR Chest Exam date and [...] rce(s) Supporting Document(s) ID Date Data Source [id number] 08/31/2021 09:08:00 PM EDT [facility] Name Value Range Interpretation Code Description Data Harleen rce(s) Supporting Document(s) SARS-CoV-2 RNA 2019 nCoV Real-Time RT-PCR: NOT DETECTED [facility] This lab was ordered by [facility] and reported by [facility]. ID Date Data Source [id number] 08/31/2021 10:54:01 PM EDT [facility] Name Value Range Interpretation Code Description Data Harleen rce(s) Supporting Document(s) Specimen source [Identifier] of Unspecified specimen [facility] SARS-CoV-2 RNA 2019 nCoV Real-Time RT-PCR: NOT DETECTED [facility] Assay Performed [facility] Patients first test for [facility] Patient employed in healthcare setting [facility] Patient has symptoms related to [facility] When did you start to experience these symptoms [Date and time] [PhenX] [id number] [facility] Patient was hospitalized because of this condition [facility] patient was admitted to ICU for [facility] Patient resides in a congregate care setting [facility] status [facility] ID Date Data Source [id number] 08/31/2021 10:52:00 PM EDT [facility] Service Cmnt XXX-Imp : NoneRespiratory P CR Panel : PCR ResultsMicroorganism XXX Cult : See Labs Tab for 2019 nCoV RT-PCR resultsHAdV DNA QI YUSUF+non-probe : Not DetectedHCoV [id number] Nph QI YUSUF+non-probe : Not DetectedHCoV [id number] Nph QI YUSUF+non-probe : Not [id number] RNA Nph QI YUSUF+non-probe : Not IkejpjpyJSnNPQ85 RNA Upper resp QI YUSUF+probe : Not [...] DNA Nph Q YUSUF+non-probe : Not DetectedB [id number] DNA Nph YUSUF+non-probe : Not Detected Name Value Range Interpretation Code Description Data Harleen rce(s) Supporting Document(s) ID Date Data Source [id number] [facility] Interpretation Code Description Data Harleen rce(s) Supporting Document(s) ABO and Rh group [Type] in Blood [facility] Blood bank comment [facility] ID Date Data Source [id number] 08/31/2021 09:24:51 PM [facility] Name Value Range Interpretation Code Description Data Harleen rce(s) Supporting Document(s) Leukocytes [#/volume] in Blood by Automated count 9.5 10*3/uL 4-10 [facility] Erythrocytes [#/volume] in Blood by Automated count 3.91 10*6/uL 4.1- 5.3 L [facility] Hemoglobin [Mass/volume] in Blood 11.9 g/dL 11.5-15.5 [facility] Hematocrit [Volume Fraction] of Blood by Automated count 35.7 % 3 6-45 L [facility] Erythrocyte mean corpuscular volume [Entitic volume] by Auto mated count 91.3 fL 80-96 [facility] Erythrocyte mean corpuscular hemoglobin [Entitic mass] by Automated count 30.4 pg 27-33 [facility] Erythrocyte mean corpuscular hemoglobin concentration [Mass/volume] by Automated count 33.4 g/dL 32.0-36.0 [facility] distribution width [Ratio] by Automated count 14.3 % 11.5-14.5 [facility] Platelets [#/volume] in Blood by Automated count 392 10*3/uL 150-400 [facility] Differential cell count method - Blood [facility] Neutrophils/100 leukocytes in Blood by Automated count 68 % [facility] Lymphocytes/100 leukocytes in Blood by Automated count 22 % [facility] Monocytes/100 leukocytes in Blood by Automated count 8 % [facility] Eosinophils/100 leukocytes in Blood by Automated count 1 % [facility] Basophils/100 leukocytes in Blood by Automated count 1 % [facility] Neutrophils [#/volume] in Blood by Automated count 6.51 10*3/uL 1.8-7 .0 [facility] Lymphocytes [#/volume] in Blood by Automated count 2.11 10*3/uL 1.2-4 .0 [facility] Monocytes [#/volume] in Blood by Automated count 0.77 10*3/uL 0-0.8 [facility] Eosinophils [#/volume] in Blood by Automated count 0.05 10*3/uL 0-0.5 [facility] Basophils [#/volume] in Blood by Automated count 0.07 10*3/uL 0-0.2 [facility] Nucleated erythrocytes/100 leukocytes [Ratio] in Blood by Automated count 0 /100{WBCs} 0-0 [facility] ID Date Data Source [id number] 08/31/2021 09:42:15 PM EDT [facility] Name Value Range Interpretation Code Description Data Harleen rce(s) Supporting Document(s) Bicarbonate [Moles/volume] in Serum 22 mmol/L 22-29 [facility] Chloride [Moles/volume] in Serum or Plasma 102 mmol/L 98-107 [facility] Creatinine [Mass/volume] in Serum or Plasma 0.66 mg/dL 0.50-0.90 [facility] Glucose [Mass/volume] in Serum or Plasma 101 mg/dL 70-140 [facility] Potassium [Moles/volume] in Serum or Plasma 4.0 mmol/L 3.4-5.1 [facility] Hemolyzed Sodium [Moles/volume] in Serum or Plasma 136 mmol/L 136-145 [facility] Urea nitrogen [Mass/volume] in Serum or Plasma 18 mg/dL 6-20 [facility] Anion gap 3 in Serum or Plasma 12 mmol/L 8-15 [facility] Osmolality of Serum or Plasma by calculation 284 mosm/kg 275-300 [facility] Creatinine/Urea nitrogen [Mass Ratio] in Serum or Plasma 28 [facility] Calcium [Mass/volume] in Serum or Plasma 8.4 mg/dL 8.6-10.0 L [facility] Glomerular filtration rate/1.73 sq M pre dicted among non-blacks [Volume Rate/Area] in Serum or Plasma by Creatinine-based formula (MDRD) >6 0 [facility] Glomerular filtration rate/1.73 sq M pre dicted among blacks [Volume Rate/Area] in Serum or Plasma by Creatinine-based formula (MDRD) >60 [facility] ID Date Data Source [id number] 08/31/2021 09:50:53 PM [facility] Name Value Range Interpretation Code Description Data Harleen rce(s) Supporting Document(s) ABO and Rh group [Type] in Blood [facility] Blood group antibody screen [Presence] in Serum or Plasma [facility] Blood bank comment [facility] ID Date Data Source [id number] 08/31/2021 09:46:40 PM [facility] Name Value Range Interpretation Code Description Data Harleen rce(s) Supporting Document(s) aPTT in Platelet poor plasma by Coagulation assay 26.5 s 24.0-33. 0 [facility] ID Date Data Source [id number] 08/31/2021 09:46:40 PM [facility] Name Value Range Interpretation Code Description Data Harleen rce(s) Supporting Document(s) Prothrombin time (PT) 12.8 s 11.6-14.0 [facility] INR in Platelet poor plasma by Coagulation assay 1.00 [facility] Routine intensity oral anticoagulation I NR is typically 2.0-3.0. Target INR must be clinically individualized. ID Date Data Source [id number] 08/31/2021 09:02:24 PM [facility] XR KNEE 4 OR MORE VIEWS [id number] RESUL TInterpreted by:Alyce Sorto, MDPROCEDURE INFORMATION: Exam: [...] rce(s) Supporting Document(s) ID Date Data Source [id number] 08/31/2021 09:02:09 PM [facility] XR FEMUR, MINIMUM OF 2 VIEWS [id number] RESULTInterpreted by:MALLORIE Paula INFORMATION: Exam: XR Left [...] rce(s) Supporting Document(s) ID Date Data Source [id number] 08/31/2021 09:01:14 PM [facility] XR TIBIA [id number] RESULTInterpreted by :MALLORIE Paula INFORMATION: Exam: XR [...] rce(s) Supporting Document(s) ID Date Data Source [id number] 08/31/2021 09:00:44 PM EDT [facility] XR ANKLE 3 OR MORE VIEWS [id number] RESU LTInterpreted by:Alyce Sorto MDPROCEDURE INFORMATION: Exam: [...] rce(s) Supporting Document(s) ID Date Data Source [id number] 08/29/2021 08:13:00 AM EDT [facility] Name Value Range Interpretation Code Description Data Harleen rce(s) Supporting Document(s) QFTB QuantiFERON-TB Gold+ res Negative No rmal (applies to non-numeric results) [facility] No interferon-gamma response to M. tuber culosis [...] res Normal (applies to non- numeric results) [facility] QFTB TB2 Ag min Nil res Normal (applies to non- numeric results) [facility] QFTB Mitogen minus Nil result Normal (applies t o non-numeric results) [facility] QFTB Nil result Normal (applies to non-numeric results) [facility] Test Performed by: [facility] [address] [place] [address] Blending Operator: Manuel Plaza M.D. Ph.D.; CLIA# [id number] ID Date Data Source [id number] 08/27/2021 08:37:00 AM EDT [facility] anti-CCP IgG antibodies were not detecte d. Name Value Range Interpretation Code Description Data Harleen rce(s) Supporting Document(s) Hep C Ab-T Test Nonreactive [facility] Results called 08/27/21 0837, NURSE IN [place] [facility] read back information to JENELLE BARRAGAN [...] be requested by the physician if necessary. ([facility] MMWR No RR-3. 2003). ID Date Data Source [id number] 08/27/2021 08:38:00 AM EDT [facility] anti-CCP IgG antibodies were not detecte d. Name Value Range Interpretation Code Description Data Harleen rce(s) Supporting Document(s) ID Date Data Source [id number] 08/27/2021 08:38:00 AM EDT [facility] anti-CCP IgG antibodies were not detecte d. Name Value Range Interpretation Code Description Data Harleen rce(s) Supporting Document(s) ID Date Data Source [id number] 08/27/2021 08:38:00 AM EDT [facility] anti-CCP IgG antibodies were not detecte d. Name Value Range Interpretation Code Description Data Harleen rce(s) Supporting Document(s) ID Date Data Source [id number] 08/26/2021 08:39:00 PM EDT [facility] Name Value Range Interpretation Code Description Data Harleen rce(s) Supporting Document(s) White Blood Count 4.8-10.8 Normal (applies to non-numeri c results) [facility] Red Blood Count 3.68-5.22 Normal (applies to non-numeric results) [facility] Hemoglobin 11.2-15.7 Normal (applies to non-numeric resul ts) [facility] Hematocrit 34.1-44.9 Normal (applies to non-numeric resul ts) [facility] Mean Corpuscular Volume 81-99 Normal (applies to non- numeric results) [facility] Mean Corpuscular Hemoglobin 27.0-33.0 Normal (appli es to non-numeric results) [facility] Mean Corpuscular HGB Conc 32.0-36.0 Normal (applies to no n-numeric results) [facility] Red Cell Distribution Width 11.5-14.5 Normal (appli es to non-numeric results) [facility] Platelet Count 430 X10 3/uL 130-450 Normal (applies to non-numeric results) [facility] Mean Platelet Volume 9.5-12.7 Below low normal [facility] Imm Grans% (AUTO) 1 % 0-2 Normal (applies to non-numeri c results) [facility] Neutrophils % (AUTO) 83 % 40-75 Above high normal [facility] Lymphocytes % (AUTO) 13 % 21-46 Below low normal [facility] Monocytes % (AUTO) 4 % 5-12 Below low normal [facility] Eosinophils % (AUTO) 0 % 1-5 Below low normal [facility] Basophils % (AUTO) 0 % 0-1 Normal (applies to non-numer ic results) [facility] Imm Grans# (AUTO) 0.0-0.5 Normal (applies to non-numeri c results) [facility] Neutrophils # (AUTO) 1.5-8.1 Above high normal [facility] Lymphocytes # (AUTO) 1.0-3.1 Normal (applies to non-num erick results) [facility] Monocytes # (AUTO) 0.2-1.3 Normal (applies to non-numer ic results) [facility] Eosinophils# (AUTO) 0.0-0.5 Normal (applies to non-nume [place] results) [facility] Basophils # (AUTO) 0.0-0.1 Normal (applies to non-numer ic results) [facility] ID Date Data Source [id number] 08/26/2021 08:39:00 PM EDT [facility] Name Value Range Interpretation Code Description Data Harleen rce(s) Supporting Document(s) Erythrocyte Sedimentation ESR 24 mm/hr 0-20 Above high normal [facility] ID Date Data Source [id number] 08/26/2021 07:14:00 PM EDT [facility] Name Value Range Interpretation Code Description Data Harleen rce(s) Supporting Document(s) Creatinine,Ur Random Normal (applies to non-num erick results) [facility] No established reference values Total Protein,Urine Random Normal (applies to n on-numeric results) [facility] No established reference values UrTotal Protein/Creat Ratio Normal (applies to non-numeric results) [facility] No established reference values ID Date Data Source [id number] 08/26/2021 06:22:00 PM EDT [facility] Name Value Range Interpretation Code Description Data Harleen rce(s) Supporting Document(s) Color,Urine Yellow Normal (applies to non-numeric resu lts) [facility] Clarity,Urine Clear Normal (applies to non-numeric re sults) [facility] Specific [place],Urine 1.001-1.030 Normal (applies to non- numeric results) [facility] PH,Urine 5.0-8.0 Normal (applies to non-numeric resul ts) [facility] Protein,Urine Negative Normal (applies to non-numeric re sults) [facility] Glucose,Urine (UA) Negative Normal (applies to non-numer ic results) [facility] Ketones,Urine Negative Normal (applies to non-numeric re sults) [facility] Blood,Urine Negative Normal (applies to non-numeric resu lts) [facility] Bilirubin,Urine Negative Normal (applies to non-numeric results) [facility] Urobilinogen,Urine Norm 0.2-1 Normal (applies to non-numer ic results) [facility] Leukocyte Esterase,Urine Negative Normal (applies to non -numeric results) [facility] Nitrite,Urine Negative Normal (applies to non-numeric re sults) [facility] RBC,Auto Urine 0-2 Normal (applies to non-numeric r esults) [facility] WBC Urine Auto 0-10 Normal (applies to non-numeric r esults) [facility] Casts,Hyaline,Urine Auto 0-2 Normal (applies to non -numeric results) [facility] Bacteria Urine Auto None Seen Normal (applies to non-nume [place] results) [facility] Epithelial Cell Ur Auto None-Few Normal (applies to non- numeric results) [facility] ID Date Data Source [id number] 08/26/2021 06:21:00 PM EDT [facility] Name Value Range Interpretation Code Description Data Harleen rce(s) Supporting Document(s) Sodium 135 mmol/L 137-145 Below low normal [facility] Potassium 3.5-5.1 Normal (applies to non-numeric resul ts) [facility] Chloride 103 mmol/L 98-112 Normal (applies to non-numeric resul ts) [facility] Carbon Dioxide CO2 22.0-33.0 Normal (applies to non-numer ic results) [facility] Anion Gap 4.0-11.0 Normal (applies to non-numeric resul ts) [facility] BUN 20 mg/dL 7-17 Above high normal [facility] Creatinine 0.70-1.20 Normal (applies to non-numeric resul ts) [facility] GFR >60 Normal (applies to non-numeric results) [facility] Result based on MDRD formula. Glucose Level 101 mg/dL 74-99 Above high normal [facility] The reference range is only applicable w hen fasting. Calcium-Uncorrected 8.4-10.2 Normal (applies to non-nume [place] results) [facility] Corrected Calcium 8.4-10.2 Normal (applies to non-numeri c results) [facility] Bilirubin,Total 0.2-1.3 Normal (applies to non-numeric results) [facility] SGOT(AST) 13 U/L 14-36 Below low normal [facility] SGPT(ALT) 16 U/L 9-52 Normal (applies to non-numeric resul ts) [facility] Alkaline Phosphatase 47 U/L 38-126 Normal (applies to non-num erick results) [facility] can increase Alkaline Phosp le vels up to 2 times the normal adult value. Normal values for children and adolescents are 2 to 3 times the normal adult value. Total Protein 6.3-8.2 Normal (applies to non-numeric re sults) [facility] Albumin 3.5-5.0 Normal (applies to non-numeric resul ts) [facility] ID Date Data Source [id number] 08/26/2021 06:21:00 PM EDT [facility] Name Value Range Interpretation Code Description Data Harleen rce(s) Supporting Document(s) C-Reactive Protein,Wide Range <3.00 Normal (applies t o non-numeric results) [facility] ID Date Data Source [id number] 08/28/2021 12:19:00 PM EDT [facility] Name Value Range Interpretation Code Description Data Harleen rce(s) Supporting Document(s) C4 Complement,S result 19 mg/dL 14 - 40 Normal (applies to non-numeric results) [facility] Test Performed by: [place] [address] Blending Operator: Manuel Plaza M.D. Ph.D.; CLIA# [id number] ID Date Data Source [id number] 08/28/2021 12:19:00 PM EDT [facility] Name Value Range Interpretation Code Description Data Harleen rce(s) Supporting Document(s) C3 Complement,S result 109 mg/dL 75 - 175 Normal (a pplies to non-numeric results) [facility] Test Performed by: [place] [address] Blending Operator: Manuel Plaza M.D. Ph.D.; CLIA# [id number] ID Date Data Source [id number] 08/28/2021 12:19:00 PM EDT [facility] Name Value Range Interpretation Code Description Data Harleen rce(s) Supporting Document(s) HBc Total Ab Negative Normal (applies to non-numeric res ults) [facility] Test Performed by: [facility] [address] [place] [address] Blending Operator: Manuel Plaza M.D. Ph.D.; CLIA# [id number] ID Date Data Source [id number] 08/19/2021 02:15:00 PM EDT [facility] ([facility], ) Name Value Range Interpretation Code Description Data Harleen rce(s) Supporting Document(s) PDFReport Laboratory test result [facility] ([facility], ) FVC-Pred 3.74 L [facility] ([facility], ) FVC-%Pred-Pre 109 L [facility] ([facility], ) Fev1-Pred 3.09 L [facility] ([facility], ) FVC-Pre 4.08 L [facility] ([facility]) FVC-LLN 3.04 L [facility] ([facility]) Fev1-LLN 2.50 L [facility] ([facility]) Fev1-Pre 2.84 L [facility] ([facility]) Fev1-%Pred-Pre 91 L [facility] ([facility], ) Fev6-Pre 4.05 L [facility] ([facility], ) Fev6-Pred 3.68 L [facility] ([facility], ) Fev6-%Pred-Pre 109 L [facility] ([facility], ) Kam2guo-Kui 70 % [facility] ([facility]) Zzm4vop-Kvsx 83 % [facility] ([facility]) Fev6-LLN 3.00 L [facility] ([facility]) Ekl3zir-%Pred-Pre 83 % [facility] ([facility], ) Zyh1soe-Uyza 99 % [facility] ([facility], ) Lkd4pdf-LOQ 73 % [facility] ([facility]) FEFMax-Pred 7.01 L/E/sec [facility] ([facility]) Nyc0dcj-Fnd 99 % [facility] ([facility]) Jnx4fox-%Pred-Pre 100 % [facility] ([facility]) FEFMax-Pre 4.37 L/E/sec [facility] ([facility]) Ipn1516-Lcul 3.27 L/E/sec [facility] ([facility]) FEFMax-%Pred-Pre 62 L/E/sec [facility] ([facility]) FEFMax-LLN 5.29 L/E/sec [facility] ([facility]) Foj8352-%Pred-Pre 57 L/E/sec [facility] ([facility]) Wim0682-Vqd 1.89 L/E/sec [facility] ([facility]) Rwj3594-UPK 2.03 L/E/sec [facility] ([facility]) ExpTime-Pre 7.66 sec [facility] ([facility]) Bkc3vpj8-Mhbk 84 % [facility] ([facility]) Nah5sph3-Iab 70 % [facility] ([facility]) Qdh9ees4-FFB 76 % [facility] ([facility]) Pqe2unh8-%Pred-Pre 83 % [facility] ([facility]) ID Date Data Source [id number] 06/02/2021 09:39:00 AM EDT [facility] ([facility]) Name Value Range Interpretation Code Description Data Harleen rce(s) Supporting Document(s) [facility] FINAL DIAGNOSIS Colon, random biopsy: Fragments [...] MD 06/03/2021 1242 ID Date Data Source [id number] 05/28/2021 11:20:00 AM EDT [facility]) Name Value Range Interpretation Code Description Data Harleen rce(s) Supporting Document(s) ID Date Data Source [id number] 05/28/2021 11:20:00 AM EDT [facility] Name Value Range Interpretation Code Description Data Harleen rce(s) Supporting Document(s) SARS-CoV-2 (COVID-19) RNA [Presence] in Respiratory specimen by YUSUF with probe detection Not Detected [facility] This lab was ordered by [facility] and reported by [employer]. ID Date Data Source [id number] 04/07/2021 08:48:00 AM EDT [facility]) Name Value Range Interpretation Code Description Data Harleen rce(s) Supporting Document(s) sars-cov-2 negative negative Sars-cov-2 [facility]) ID Date Data Source [id number] 04/07/2021 08:48:00 AM EDT [facility]) Name Value Range Interpretation Code Description Data Harleen rce(s) Supporting Document(s) sars-cov-2 negative negative Sars-cov-2 [facility]) ID Date Data Source [id number] 04/07/2021 08:48:00 AM EDT [facility]) Name Value Range Interpretation Code Description Data Harleen rce(s) Supporting Document(s) sars-cov-2 negative negative Sars-cov-2 [facility]) ID Date Data Source [id number] 04/07/2021 08:46:00 AM EDT [facility] Name Value Range Interpretation Code Description Data Harleen rce(s) Supporting Document(s) SARS coronavirus 2 RdRp gene [Presence] in Respiratory specimen by YUSUF with probe detection Not detected [facility] This lab was ordered by [facility] and reported by [facility]. ID Date Data Source [id number] 02/27/2021 07:59:00 AM EDT [place] ([facility]) Name Value Range Interpretation Code Description Data Harleen rce(s) Supporting Document(s) free lambda light chains serum 28.5 mg/L 5.7-26.3 Above high normal Free Lambda Light Chains Serum [place] ([facility]) free kappa light chains serum 21.0 mg/L 3.3-19.4 Above high normal Free [place] Light Chains Serum [place] ([facility]) kappa/lambda ratio serum 0.26-1.65 [place]/lambd a Ratio Serum [place] ([facility]) ID Date Data Source [id number] 02/27/2021 07:59:00 AM EDT [place] ([facility]) Name Value Range Interpretation Code Description Data [facility] rce(s) Supporting Document(s) glucose, fasting 74 mg/dL 70-100 Glucose, Fasting AT [facility]) glomerular filtration rate > 60.0 >60 Glomerula r Filtration Rate [place] ([facility]) blood urea nitrogen 21 mg/dL 7-18 Above high normal Blood Ure a Nitrogen [place] ([facility]) creatinine for GFR 0.64 mg/dL 0.55-1.30 Creatinine for GF R [place] ([facility]) potassium serum 4.1 mEq/L 3.5-5.1 Potassium Serum ATH NA ([facility]) sodium level 139 mEq/L 136-145 Sodium Level [facility] ([facility]) chloride level 106 mEq/L 98-107 Chloride Level [place] ([facility]) carbon dioxide level 29 mEq/L 21-32 Carbon Dioxide Level [place] ([facility]) AST/SGOT 14 U/L 7-37 AST/SGOT [place] ([facility]) anion gap 4 mEq/L 8-16 Below low normal Anion Gap [facility] ( [facility]) calcium level 8.6 mg/dL 8.5-10.1 Calcium Level [facility] ( [facility]) bilirubin,total 0.2 mg/dL 0.2-1.0 Bilirubin,total ATHE NA ([facility]) ALT/SGPT 18 U/L 12-78 ALT/SGPT [facility] ([facility]) alkaline phosphatase 46 U/L 45-117 Alkaline Phosph atase [facility] ([facility]) albumin 3.7 gm/dL 3.2-5.2 Albumin [facility] ([facility]) total protein 7.2 gm/dL 6.4-8.2 Total Protein [facility] ( [facility]) albumin/globulin ratio 1.2-2.2 Below low normal Albumin /globulin Ratio [facility] ([facility]) ID Date Data Source [id number] 02/27/2021 07:59:00 AM EDT [place] ([facility]) Name Value Range Interpretation Code Description Data Harleen rce(s) Supporting Document(s) white blood count 5.0 10 4.0-10.0 White Blood Count [place] ([facility]) red blood count 3.85 10 4.00-5.40 Below low normal Red Blood Coun t [place] ([facility]) hematocrit 36.5 % 36.0-47.0 Hematocrit [place] ([facility]) hemoglobin 11.8 g/dL 12.0-15.5 Below low normal Hemoglobin [facility] ( [facility]) mean corpuscular hemoglobin 30.6 pg 27.0-33.0 Mean Cor puscular Hemoglobin [facility] ([facility]) mean corpuscular volume 94.8 fL 80.0-96.0 Mean Corpusc ular Volume [facility] ([facility]) mean corpuscular HGB conc 32.3 g/dL 32.0-36.5 Mean Corpu scular HGB Conc [facility] ([facility]) platelet count, automated 362 10 150-450 Platelet C ount, Automated [place] ([facility]) red cell distribution width 15.3 % 11.5-14.5 Above high no rmal Red Cell Distribution Width [facility] ([facility]) lymph % 43.3 % 24.0-44.0 Lymph % [place] ([facility]) neutrophils % 36.1 % 36.0-66.0 Neutrophils % [place] ( [facility]) mono % 10.9 % 2.0-8.0 Above high normal Jerauld % [place] ([facility]) eos % 8.3 % 0.0-3.0 Above high normal Eos % [place] ([facility]) baso % 1.2 % 0.0-1.0 Above high normal Baso % [place] ([facility]) immature granulocyte % 0.2 % 0-3.0 Immature Gran ulocyte % [place] ([facility]) nucleated red blood cell % 0.0 % 0-0 Nucleated Red Blood Cell % [place] ([facility]) neutrophils # 1.8 10 1.5-8.5 Neutrophils # [place] ( [facility]) mono # 0.6 10 0.0-0.8 Jerauld # [place] ([facility]) lymph # 2.2 10 1.5-5.0 Lymph # [place] ([facility]) eos # 0.4 10 0.0-0.5 Eos # [place] ([facility]) baso # 0.1 10 0.0-0.2 Baso # [place] ([facility]) ID Date Data Source [id number] 02/27/2021 07:59:00 AM EDT [place] ([facility]) Name Value Range Interpretation Code Description Data Harleen rce(s) Supporting Document(s) free kappa light chains serum 21.0 mg/L 3.3-19.4 Above high normal Free [place] Light Chains Serum [place] ([facility]) kappa/lambda ratio serum 0.26-1.65 [place]/lambd a Ratio Serum [place] ([facility]) free lambda light chains serum 28.5 mg/L 5.7-26.3 Above high normal Free Lambda Light Chains Serum [facility] ([facility]) ID Date Data Source [id number] 02/27/2021 07:59:00 AM EDT [place] ([facility]) Name Value Range Interpretation Code Description Data Harleen rce(s) Supporting Document(s) glucose, fasting 74 mg/dL 70-100 Glucose, Fasting AT [place] ([facility]) blood urea nitrogen 21 mg/dL 7-18 Above high normal Blood Ure a Nitrogen [place] ([facility]) creatinine for GFR 0.64 mg/dL 0.55-1.30 Creatinine for GF R [facility] ([facility]) potassium serum 4.1 mEq/L 3.5-5.1 Potassium Serum ATHE ([facility]) glomerular filtration rate > 60.0 >60 Glomerula r Filtration Rate [place] ([facility]) sodium level 139 mEq/L 136-145 Sodium Level [facility] ([facility]) carbon dioxide level 29 mEq/L 21-32 Carbon Dioxide Level [facility] ([facility]) anion gap 4 mEq/L 8-16 Below low normal Anion Gap [facility] ( [facility]) chloride level 106 mEq/L 98-107 Chloride Level [place] ([facility]) calcium level 8.6 mg/dL 8.5-10.1 Calcium Level [facility] ( [facility]) AST/SGOT 14 U/L 7-37 AST/SGOT [place] ([facility]) ALT/SGPT 18 U/L 12-78 ALT/SGPT [facility] ([facility]) bilirubin,total 0.2 mg/dL 0.2-1.0 Bilirubin,total ATHE NA ([facility]) alkaline phosphatase 46 U/L 45-117 Alkaline Phosph atase [facility] ([facility]) total protein 7.2 gm/dL 6.4-8.2 Total Protein [facility] ( [facility]) albumin/globulin ratio 1.2-2.2 Below low normal Albumin /globulin Ratio [facility] ([facility]) albumin 3.7 gm/dL 3.2-5.2 Albumin [facility]) ID Date Data Source [id number] 02/27/2021 07:59:00 AM EDT [place] ([facility]) Name Value Range Interpretation Code Description Data Harleen rce(s) Supporting Document(s) white blood count 5.0 10 4.0-10.0 White Blood Count [place] ([facility]) red blood count 3.85 10 4.00-5.40 Below low normal Red Blood Coun t [place] ([facility]) hematocrit 36.5 % 36.0-47.0 Hematocrit [place] ([facility]) hemoglobin 11.8 g/dL 12.0-15.5 Below low normal Hemoglobin [place] ( [facility]) mean corpuscular HGB conc 32.3 g/dL 32.0-36.5 Mean Corpu scular HGB Conc [place] ([facility]) mean corpuscular hemoglobin 30.6 pg 27.0-33.0 Mean Cor puscular Hemoglobin [place] ([facility]) mean corpuscular volume 94.8 fL 80.0-96.0 Mean Corpusc ular Volume [place] ([facility]) neutrophils % 36.1 % 36.0-66.0 Neutrophils % [place] ( [facility]) red cell distribution width 15.3 % 11.5-14.5 Above high no rmal Red Cell Distribution Width [place] ([facility]) platelet count, automated 362 10 150-450 Platelet C ount, Automated [place] ([facility]) mono % 10.9 % 2.0-8.0 Above high normal [place] % [place] ([facility]) eos % 8.3 % 0.0-3.0 Above high normal Eos % [place] ([facility]) lymph % 43.3 % 24.0-44.0 Lymph % [place] ([facility]) baso % 1.2 % 0.0-1.0 Above high normal Baso % [place] ([facility]) immature granulocyte % 0.2 % 0-3.0 Immature Gran ulocyte % [place] ([facility]) nucleated red blood cell % 0.0 % 0-0 Nucleated Red Blood Cell % [place] ([facility]) lymph # 2.2 10 1.5-5.0 Lymph # [place] ([facility]) neutrophils # 1.8 10 1.5-8.5 Neutrophils # [place] ( [facility]) mono # 0.6 10 0.0-0.8 [place] # [place] ([facility]) eos # 0.4 10 0.0-0.5 Eos # [place] ([facility]) baso # 0.1 10 0.0-0.2 Baso # [place] ([facility]) ID Date Data Source [id number] 02/27/2021 07:59:00 AM EDT [place] ([facility]) Name Value Range Interpretation Code Description Data Harleen rce(s) Supporting Document(s) free kappa light chains serum 21.0 mg/L 3.3-19.4 Above high normal Free [place] Light Chains Serum [place] ([facility]) free lambda light chains serum 28.5 mg/L 5.7-26.3 Above high normal Free Lambda Light Chains Serum [place] ([facility]) kappa/lambda ratio serum 0.26-1.65 [place]/lambd a Ratio Serum [place] ([facility]) ID Date Data Source [id number] 02/27/2021 07:59:00 AM EDT [place] ([facility]) Name Value Range Interpretation Code Description Data Harleen rce(s) Supporting Document(s) glucose, fasting 74 mg/dL 70-100 Glucose, Fasting AT [facility] ([facility]) blood urea nitrogen 21 mg/dL 7-18 Above high normal Blood Ure a Nitrogen [place] ([facility]) creatinine for GFR 0.64 mg/dL 0.55-1.30 Creatinine for GF R [place] ([facility]) glomerular filtration rate > 60.0 >60 Glomerula r Filtration Rate [place] ([facility]) potassium serum 4.1 mEq/L 3.5-5.1 Potassium Serum ATHE NA ([facility]) sodium level 139 mEq/L 136-145 Sodium Level [facility] ([facility]) carbon dioxide level 29 mEq/L 21-32 Carbon Dioxide Level [place] ([facility]) chloride level 106 mEq/L 98-107 Chloride Level [facility] ([facility]) anion gap 4 mEq/L 8-16 Below low normal Anion Gap [facility] ( [facility]) calcium level 8.6 mg/dL 8.5-10.1 Calcium Level [place] ( [facility]) AST/SGOT 14 U/L 7-37 AST/SGOT [place] ([facility]) bilirubin,total 0.2 mg/dL 0.2-1.0 Bilirubin,total ATHE NA ([facility]) total protein 7.2 gm/dL 6.4-8.2 Total Protein [place] ( [facility]) ALT/SGPT 18 U/L 12-78 ALT/SGPT [place] ([facility]) alkaline phosphatase 46 U/L 45-117 Alkaline Phosph atase [place] ([facility]) albumin/globulin ratio 1.2-2.2 Below low normal Albumin /globulin Ratio [place] ([facility]) albumin 3.7 gm/dL 3.2-5.2 Albumin [facility] ([facility]) ID Date Data Source [id number] 02/27/2021 07:59:00 AM EDT [place] ([facility]) Name Value Range Interpretation Code Description Data Harleen rce(s) Supporting Document(s) white blood count 5.0 10 4.0-10.0 White Blood Count [place] ([facility]) red blood count 3.85 10 4.00-5.40 Below low normal Red Blood Coun t [place] ([facility]) mean corpuscular volume 94.8 fL 80.0-96.0 Mean Corpusc ular Volume [place] ([facility]) hematocrit 36.5 % 36.0-47.0 Hematocrit [place] ([facility]) hemoglobin 11.8 g/dL 12.0-15.5 Below low normal Hemoglobin [place] ( [facility]) mean corpuscular hemoglobin 30.6 pg 27.0-33.0 Mean Cor puscular Hemoglobin [place] ([facility]) mean corpuscular HGB conc 32.3 g/dL 32.0-36.5 Mean Corpu scular HGB Conc [place] ([facility]) red cell distribution width 15.3 % 11.5-14.5 Above high no rmal Red Cell Distribution Width [place] ([facility]) platelet count, automated 362 10 150-450 Platelet C ount, Automated [place] ([facility]) neutrophils % 36.1 % 36.0-66.0 Neutrophils % [place] ( [facility]) lymph % 43.3 % 24.0-44.0 Lymph % [place] ([facility]) mono % 10.9 % 2.0-8.0 Above high normal Jera[place] % [place] ([facility]) eos % 8.3 % 0.0-3.0 Above high normal Eos % [place] ([facility]) immature granulocyte % 0.2 % 0-3.0 Immature Gran ulocyte % [place] ([facility]) baso % 1.2 % 0.0-1.0 Above high normal Baso % [place] ([facility]) nucleated red blood cell % 0.0 % 0-0 Nucleated Red Blood Cell % [place] ([facility]) neutrophils # 1.8 10 1.5-8.5 Neutrophils # [place] ( [facility]) lymph # 2.2 10 1.5-5.0 Lymph # [place] ([facility]) mono # 0.6 10 0.0-0.8 [place] # [facility] ([facility]) eos # 0.4 10 0.0-0.5 Eos # [place] ([facility]) baso # 0.1 10 0.0-0.2 Baso # [place] ([facility]) ID Date Data Source [id number] 02/13/2021 10:06:00 AM EDT [facility] ([facility], ) Name Value Range Interpretation Code Description Data Harleen rce(s) Supporting Document(s) FVC-Pred 3.74 L [facility] ([facility], ) PDFReport Laboratory test result [facility] ([facility], ) FVC-%Pred-Pre 113 L [facility] ([facility]) FVC-Pre 4.24 L [facility] ([facility]) Fev1-Pred 3.09 L [facility] ([facility]) FVC-LLN 3.04 L [facility] ([facility]) Fev1-Pre 3.43 L [facility] ([facility]) Fev1-%Pred-Pre 110 L [facility] ([facility]) Fev1-LLN 2.50 L [facility] ([facility]) Fev6-Pred 3.68 L [facility] ([facility]) Fev6-LLN 3.00 L [facility] ([facility]) Fev6-Pre 4.24 L [facility] ([facility]) Fev6-%Pred-Pre 115 L [facility] ([facility]) Rwh0qwb-Nwkp 83 % [facility] ([facility]) Ncw7fms-Zwd 81 % [facility] ([facility]) Kox0xbn-%Pred-Pre 97 % [facility] ([facility]) Qyi5lcu-Qsnq 99 % [facility] ([facility]) Lxb7ctt-QCV 73 % [facility] ([facility]) Dac2gyz-%Pred-Pre 101 % [facility] ([facility]) Mwv7juo-Ubf 100 % [facility] ([facility]) FEFMax-Pre 8.08 L/E/sec [facility] ([facility]) FEFMax-Pred 7.01 L/E/sec [facility] ([facility]) FEFMax-LLN 5.29 L/E/sec [facility] ([facility]) FEFMax-%Pred-Pre 115 L/E/sec [facility] ([facility]) Yqs3561-Eaty 3.27 L/E/sec [facility] ([facility], ) Sqr5082-Gfz 3.60 L/E/sec [facility] ([facility], ) Epr8469-%Pred-Pre 110 L/E/sec [facility] ([facility], ) ExpTime-Pre 5.42 sec [facility] ([facility], ) Ory1919-SEZ 2.03 L/E/sec [facility] ([facility], ) Yiy3ana9-Wtt 81 % [facility] ([facility], ) Fhy1cgc1-Cmcf 84 % [facility] ([facility], ) Gac3mmn7-FUA 76 % [facility] ([facility]) Oeg7wgl3-%Pred-Pre 95 % [facility] ([facility]) ID Date Data Source [id number] 02/11/2021 03:32:00 PM EDT [facility] Name Value Range Interpretation Code Description Data Harleen rce(s) Supporting Document(s) HPV Detection,High Risk Types Negative No rmal (applies to non-numeric results) [facility] No E6 or E7 mRNA is detected from HPV ty pes 16,18,31,33,35,39,45,51,52,56,58,59,66, and 68 by nucleic acid amplification. ID Date Data Source [id number] 02/12/2021 11:21:00 AM EDT [facility] Name Value Range Interpretation Code Description Data Harleen rce(s) Supporting Document(s) ID Date Data Source [id number] 01/02/2021 07:03:00 PM EST [place] ([facility]) Name Value Range Interpretation Code Description Data Harleen rce(s) Supporting Document(s) cyclic citrullinated peptide 8 units 0-19 Cyclic Citrullinated Peptide [place] ([facility]) ID Date Data Source [id number] 01/02/2021 07:03:00 PM EST [place] ([facility]) Name Value Range Interpretation Code Description Data Harleen rce(s) Supporting Document(s) ID Date Data Source [id number] 01/02/2021 07:03:00 PM EST [facility] ([facility]) Name Value Range Interpretation Code Description Data Harleen rce(s) Supporting Document(s) ID Date Data Source [id number] 01/02/2021 07:03:00 PM EST [place] ([facility]) Name Value Range Interpretation Code Description Data Harleen rce(s) Supporting Document(s) C reactive protein quantitativ < 0.30 0.00-0.30 C Reactive Protein Quantitativ [facility] ([facility]) ID Date Data Source [id number] 01/02/2021 07:03:00 PM EST [place] ([facility]) Name Value Range Interpretation Code Description Data Harleen rce(s) Supporting Document(s) rheumatoid factor quant 47.0 IU/mL <15.0 Above high normal Rheumatoid Factor Quant [facility] ([facility]) ID Date Data Source [id number] 01/02/2021 07:03:00 PM EST [facility] ([facility]) Name Value Range Interpretation Code Description Data Harleen rce(s) Supporting Document(s) thyroid stimulating hormone 0.692 uIU/mL 0.358-3.740 Thyroid Stimulating Hormone [facility] ([facility]) ID Date Data Source [id number] 01/02/2021 07:03:00 PM EST [place] ([facility]) Name Value Range Interpretation Code Description Data Harleen rce(s) Supporting Document(s) erythrocyte sedimentation rate 44 mm/HR 0-20 Above high normal Erythrocyte Sedimentation Rate [facility] ([facility]) ID Date Data Source [id number] 01/02/2021 07:03:00 PM EST [place] ([facility]) Name Value Range Interpretation Code Description Data Harleen rce(s) Supporting Document(s) cyclic citrullinated peptide 8 units 0-19 Cyclic Citrullinated Peptide [facility] ([facility]) ID Date Data Source [id number] 01/02/2021 07:03:00 PM EST [place] ([facility]) Name Value Range Interpretation Code Description Data Harleen rce(s) Supporting Document(s) ID Date Data Source [id number] 01/02/2021 07:03:00 PM EST [place] ([facility]) Name Value Range Interpretation Code Description Data Harleen rce(s) Supporting Document(s) ID Date Data Source [id number] 01/02/2021 07:03:00 PM EST [place] ([facility]) Name Value Range Interpretation Code Description Data Harleen rce(s) Supporting Document(s) C reactive protein quantitativ < 0.30 0.00-0.30 C Reactive Protein Quantitativ [facility] ([facility]) ID Date Data Source [id number] 01/02/2021 07:03:00 PM EST [facility] ([facility]) Name Value Range Interpretation Code Description Data Harleen rce(s) Supporting Document(s) rheumatoid factor quant 47.0 IU/mL <15.0 Above high normal Rheumatoid Factor Quant [facility] ([facility]) ID Date Data Source [id number] 01/02/2021 07:03:00 PM EST [facility] ([facility]) Name Value Range Interpretation Code Description Data Harleen rce(s) Supporting Document(s) thyroid stimulating hormone 0.692 uIU/mL 0.358-3.740 [facility] ID Date Data Source [id number] 01/02/2021 07:03:00 PM EST [facility] ([facility]) Name Value Range Interpretation Code Description Data Harleen rce(s) Supporting Document(s) erythrocyte sedimentation rate 44 mm/HR 0-20 Above high normal Erythrocyte Sedimentation Rate [facility] ([facility]) ID Date Data Source [id number] 01/02/2021 07:03:00 PM EST [facility] ([facility]) Name Value Range Interpretation Code Description Data Harleen rce(s) Supporting Document(s) cyclic citrullinated peptide 8 units 0-19 Cyclic Citrullinated Peptide [facility] ([facility]) ID Date Data Source [id number] 01/02/2021 07:03:00 PM EST [facility] ([facility]) Name Value Range Interpretation Code Description Data Harleen rce(s) Supporting Document(s) ID Date Data Source [id number] 01/02/2021 07:03:00 PM EST [facility] ([facility]) Name Value Range Interpretation Code Description Data Harleen rce(s) Supporting Document(s) ID Date Data Source [id number] 01/02/2021 07:03:00 PM EST [facility] ([facility]) Name Value Range Interpretation Code Description Data Harleen rce(s) Supporting Document(s) C reactive protein quantitativ < 0.30 0.00-0.30 C Reactive Protein Quantitativ [facility] ([facility]) ID Date Data Source [id number] 01/02/2021 07:03:00 PM EST [facility] ([facility]) Name Value Range Interpretation Code Description Data Harleen rce(s) Supporting Document(s) rheumatoid factor quant 47.0 IU/mL <15.0 Above high normal [facility]umatoid Factor Quant [facility] ID Date Data Source [id number] 01/02/2021 07:03:00 PM EST [facility] ([facility]) Name Value Range Interpretation Code Description Data Harleen rce(s) Supporting Document(s) thyroid stimulating hormone 0.692 uIU/mL 0.358-3.740 Thyroid Stimulating Hormone [facility] ([facility]) ID Date Data Source [id number] 01/02/2021 07:03:00 PM EST [facility] ([facility]) Name Value Range Interpretation Code Description Data Harleen rce(s) Supporting Document(s) erythrocyte sedimentation rate 44 mm/HR 0-20 Above high normal Erythrocyte Sedimentation Rate [facility] ([facility]) ID Date Data Source [id number] 01/02/2021 07:03:00 PM EST [facility] ([facility]) Name Value Range Interpretation Code Description Data Harleen rce(s) Supporting Document(s) cyclic citrullinated peptide 8 units 0-19 Cyclic Citrullinated Peptide [facility] ([facility]) ID Date Data Source [id number] 01/02/2021 07:03:00 PM EST [facility] ([facility]) Name Value Range Interpretation Code Description Data Harleen rce(s) Supporting Document(s) ID Date Data Source [id number] 01/02/2021 07:03:00 PM EST [facility] ([facility]) Name Value Range Interpretation Code Description Data Harleen rce(s) Supporting Document(s) ID Date Data Source [id number] 01/02/2021 07:03:00 PM EST [facility] ([facility]) Name Value Range Interpretation Code Description Data Harleen rce(s) Supporting Document(s) C reactive protein quantitativ < 0.30 0.00-0.30 C Reactive Protein Quantitativ [facility] ([facility]) ID Date Data Source [id number] 01/02/2021 07:03:00 PM EST [facility] ([facility]) Name Value Range Interpretation Code Description Data Harleen rce(s) Supporting Document(s) rheumatoid factor quant 47.0 IU/mL <15.0 Above high normal Rheumatoid Factor Quant [place] ([facility]) ID Date Data Source [id number] 01/02/2021 07:03:00 PM EST [facility] ([facility]) Name Value Range Interpretation Code Description Data Harleen rce(s) Supporting Document(s) thyroid stimulating hormone 0.692 uIU/mL 0.358-3.740 Thyroid Stimulating Hormone [place] ([facility]) ID Date Data Source [id number] 01/02/2021 07:03:00 PM EST [facility] ([facility]) Name Value Range Interpretation Code Description Data Harleen rce(s) Supporting Document(s) erythrocyte sedimentation rate 44 mm/HR 0-20 Above high normal Erythrocyte Sedimentation Rate [place] ([facility]) ID Date Data Source [id number] 12/30/2020 12:00:00 AM EST [facility] ology Imaging Alyce Lynn MD Patient Name: EKATERINA [id number] [facility] Date of : 1985[place] Date of Exam: 12/30/2020JACINTO Huff [id number]#: Fax: [phone] EXAM: CT THORAX WITHOUT CONTRASTCLINICAL [...] unremarkable. Upper abdomen without acutefinding.Accredited by the [employer] in [place].Yuridia Torres, [place]/Dk you for referring EKATERINA OLIVO to our office. Electronically Signed - YURIDIA TORRES MD 12/30/20 14:00 Name Value Range Interpretation Code Description Data Harleen rce(s) Supporting Document(s) ID Date Data Source [id number] 11/04/2020 11:08:00 AM EST [facility] ([facility]) Name Value Range Interpretation Code Description Data Harleen rce(s) Supporting Document(s) antinuclear antibodies direct positive negative Ab normal (applies to non-numeric results) Antinuclear Antibodies Direct [facility] ([facility]) anti double strand-DNA Ab 7 IU/mL 0-9 Anti Doubl e strand-DNA Ab [place] ([facility]) artis antibodies <0.2 0.0-0.9 Artis Antibodies AT [facility] ([facility]) key ringer antibodies <0.2 0.0-0.9 Beauty Shop Manager Antibodies [place] ([facility]) sjogren's anti ss-A >8.0 0.0-0.9 Above high normal Sjogren's Anti ss-A [place] ([facility]) MALIK comment . MALIK Comment [place] ([facility]) sjogren's anti ss-B <0.2 0.0-0.9 Sjogren's Anti s s-B [place] ([facility]) ID Date Data Source [id number] 11/04/2020 11:08:00 AM EST [facility] ([facility]) Name Value Range Interpretation Code Description Data Harleen rce(s) Supporting Document(s) vitamin B6,pyridoxal phosphate 35.6 ug/L 2.0-32.8 Above high normal Vitamin B6,Pyridoxal Phosphate [facility] ([facility]) ID Date Data Source [id number] 11/04/2020 11:08:00 AM EST [facility] ([facility]) Name Value Range Interpretation Code Description Data Harleen rce(s) Supporting Document(s) vitamin B1 level whole blood 146.3 nmol/L 66.5-200.0 Vitamin B1 Level Whole Blood [place] ([facility]) ID Date Data Source [id number] 11/04/2020 11:08:00 AM EST [facility] ([facility]) Name Value Range Interpretation Code Description Data Harleen rce(s) Supporting Document(s) vitamin E(alpha tocopherol) 14.3 mg/L 5.9-19.4 Vitamin E(alpha Tocopherol) [facility] ([facility]) vitamin E(gamma tocopherol) 0.5 mg/L 0.7-4.9 Below low nor mal Vitamin E(gamma Tocopherol) [facility] ([facility]) ID Date Data Source [id number] 11/04/2020 11:08:00 AM EST [facility] ([facility]) Name Value Range Interpretation Code Description Data Harleen rce(s) Supporting Document(s) rheumatoid factor quant 42.0 IU/mL <15.0 Above high normal [facility] Factor [facility] ID Date Data Source [id number] 11/04/2020 11:08:00 AM EST [facility] Name Value Range Interpretation Code Description Data Harleen rce(s) Supporting Document(s) total 25(oh) vitamin D 36.6 NG/mL 30.0-100.0 Total 25(Oh) Vitamin D [facility] ID Date Data Source [id number] 11/04/2020 11:08:00 AM EST [facility] ([facility]) Name Value Range Interpretation Code Description Data Harleen rce(s) Supporting Document(s) folate 21.4 NG/mL >5.4 Folate [facility] ([facility]) ID Date Data Source [id number] 11/04/2020 11:08:00 AM EST [facility] Name Value Range Interpretation Code Description Data Harleen rce(s) Supporting Document(s) vitamin B12 level 460 pg/mL 247-911 Vitamin B12 Level [facility] ID Date Data Source [id number] 11/04/2020 11:08:00 AM EST [place] ([facility]) Name Value Range Interpretation Code Description Data Harleen rce(s) Supporting Document(s) albumin % 53.0 % 55.8-66.1 Below low normal Albumin % [place] ( [facility]) ahyol-5-qglfvbxv % 4.4 % 2.9-4.9 Yqlsf-0-Slcjqybv % [place] ([facility]) bdkdc-7-yprltieux % 11.6 % 7.1-11.8 Buklm-8-Ullycbue s % [place] ([facility]) rlvi-4-ixybbodio % 5.6 % 4.7-7.2 Zwtq-2-Mhulpwtmp % [place] ([facility]) opeg-2-dxirfgazf % 5.0 % 3.2-6.5 Yahn-6-Kgabkicah % [place] ([facility]) albumin 4.13 gm/dL 3.29-5.55 Albumin [place] ([facility]) xhfhp-7-tmcqnhiza 0.34 gm/dL 0.17-0.41 Xacfo-5-Gsfnedpzx [place] ([facility]) gamma globulin % 20.4 % 11.1-18.8 Above high normal Gamma Globul in % [place] ([facility]) gamma globulins 1.59 gm/dL 0.65-1.58 Above high normal Gamma Globuli ns [facility]) lqtr-7-awapupyhw 0.39 gm/dL 0.19-0.55 Rypm-3-Jndzptmcs AT [facility]) lajx-2-ktzhymsdh 0.44 gm/dL 0.28-0.60 Ohsn-8-Uwupyuwrw AT [facility]) vjwsz-3-inwtjlzcu 0.90 gm/dL 0.42-0.99 Jyxge-1-Ordeainbl [place] ([facility]) total protein 7.8 gm/dL 6.4-8.2 Total Protein [facility]) spep interpretation see comment Spep Interpreta tion [place] ([facility]) spep pathologist review rev'd by Cheryl Major thologist Review [place] ([facility]) ID Date Data Source [id number] 11/04/2020 11:08:00 AM EST [facility] ([facility]) Name Value Range Interpretation Code Description Data Harleen rce(s) Supporting Document(s) Hemoglobin A1c/Hemoglobin.total in Blood 4.8 % Hemoglobin a1C [place] ([facility]) estimated average glucose 91 mg/dL 60-110 Estimated Average Glucose [place] ([facility]) ID Date Data Source [id number] 11/04/2020 11:08:00 AM EST [place] ([facility]) Name Value Range Interpretation Code Description Data Harleen rce(s) Supporting Document(s) erythrocyte sedimentation rate 43 mm/HR 0-20 Above high normal Erythrocyte Sedimentation Rate [place] ([facility]) ID Date Data Source [id number] 11/04/2020 11:08:00 AM EST [place] ([facility]) Name Value Range Interpretation Code Description Data Harleen rce(s) Supporting Document(s) antinuclear antibodies direct positive negative Ab normal (applies to non-numeric results) Antinuclear Antibodies Direct [facility] ([facility]) key ringer antibodies <0.2 0.0-0.9 Beauty Shop Manager Antibodies [place] ([facility]) artis antibodies <0.2 0.0-0.9 Artis Antibodies AT [facility] ([facility]) anti double strand-DNA Ab 7 IU/mL 0-9 Anti Doubl e strand-DNA Ab [place] ([facility]) sjogren's anti ss-B <0.2 0.0-0.9 Sjogren's Anti s s-B [place] ([facility]) sjogren's anti ss-A >8.0 0.0-0.9 Above high normal Sjogren's Anti ss-A [place] ([facility]) MALIK comment . MALIK Comment [place] ([facility]) ID Date Data Source [id number] 11/04/2020 11:08:00 AM EST [facility] ([facility]) Name Value Range Interpretation Code Description Data Harleen rce(s) Supporting Document(s) vitamin B6,pyridoxal phosphate 35.6 ug/L 2.0-32.8 Above high normal Vitamin B6,Pyridoxal Phosphate [facility] ([facility]) ID Date Data Source [id number] 11/04/2020 11:08:00 AM EST [facility] ([facility]) Name Value Range Interpretation Code Description Data Harleen rce(s) Supporting Document(s) vitamin B1 level whole blood 146.3 nmol/L 66.5-200.0 Vitamin B1 Level Whole Blood [facility]) ID Date Data Source [id number] 11/04/2020 11:08:00 AM EST [facility] Name Value Range Interpretation Code Description Data Harleen rce(s) Supporting Document(s) vitamin E(alpha tocopherol) 14.3 mg/L 5.9-19.4 Vitamin E(alpha Tocopherol) [facility] ([facility]) vitamin E(gamma tocopherol) 0.5 mg/L 0.7-4.9 Below low nor mal Vitamin E(gamma Tocopherol) [place] ([facility]) ID Date Data Source [id number] 11/04/2020 11:08:00 AM EST [facility] ([facility]) Name Value Range Interpretation Code Description Data Harleen rce(s) Supporting Document(s) rheumatoid factor quant 42.0 IU/mL <15.0 Above high normal Rheumatoid Factor Quant [facility] ID Date Data Source [id number] 11/04/2020 11:08:00 AM EST [facility] Name Value Range Interpretation Code Description Data Harleen rce(s) Supporting Document(s) total 25(oh) vitamin D 36.6 NG/mL 30.0-100.0 Total 25(Oh) Vitamin D [facility] ([facility]) ID Date Data Source [id number] 11/04/2020 11:08:00 AM EST [facility] ([facility]) Name Value Range Interpretation Code Description Data Harleen rce(s) Supporting Document(s) folate 21.4 NG/mL >5.4 Folate [facility] ([facility]) ID Date Data Source [id number] 11/04/2020 11:08:00 AM EST [facility] ([facility]) Name Value Range Interpretation Code Description Data Harleen rce(s) Supporting Document(s) vitamin B12 level 460 pg/mL 247-911 Vitamin B12 Level [place] ([facility]) ID Date Data Source [id number] 11/04/2020 11:08:00 AM EST [place] ([facility]) Name Value Range Interpretation Code Description Data Harleen rce(s) Supporting Document(s) albumin % 53.0 % 55.8-66.1 Below low normal Albumin % [place] ( [facility]) hyce-8-ritkcgenv % 5.6 % 4.7-7.2 Czlb-2-Kfcdbmpos % [place] ([facility]) kxue-8-lsjahaxfz % 5.0 % 3.2-6.5 Ovbp-0-Ncukxjmry % [place] ([facility]) mbndo-8-ygobamncc % 11.6 % 7.1-11.8 Jiian-5-Ugtslfwg s % [place] ([facility]) btbno-2-jruykycu % 4.4 % 2.9-4.9 Wgtdn-7-Tgilzlzc % [facility]) gamma globulin % 20.4 % 11.1-18.8 Above high normal Gamma Globul in % [place] ([facility]) lvesm-4-vmsioktmq 0.34 gm/dL 0.17-0.41 Twhic-6-Chfuugwuz [place] ([facility]) kevuo-1-qyetjnick 0.90 gm/dL 0.42-0.99 Hhcce-6-Elbqllhre [facility] ([facility]) albumin 4.13 gm/dL 3.29-5.55 Albumin [place] ([facility]) bjzy-9-igklqtqte 0.39 gm/dL 0.19-0.55 Bmxv-7-Rtwjvrxix AT [facility] ([facility]) cjyl-7-crmmlhmbw 0.44 gm/dL 0.28-0.60 Qsze-9-Itqsqixbv AT [facility] ([facility]) gamma globulins 1.59 gm/dL 0.65-1.58 Above high normal Gamma Globuli ns [place] ([facility]) spep interpretation see comment Spep Interpreta tion [place] ([facility]) spep pathologist review rev'd by Cheryl Mercado Pa thologist Review [place] ([facility]) total protein 7.8 gm/dL 6.4-8.2 Total Protein [place] ( [facility]) ID Date Data Source [id number] 11/04/2020 11:08:00 AM EST [place] ([facility]) Name Value Range Interpretation Code Description Data Harleen rce(s) Supporting Document(s) Hemoglobin A1c/Hemoglobin.total in Blood 4.8 % Hemoglobin a1C [place] ([facility]) estimated average glucose 91 mg/dL 60-110 Estimated Average Glucose [place] ([facility]) ID Date Data Source [id number] 11/04/2020 11:08:00 AM EST [place] ([facility]) Name Value Range Interpretation Code Description Data Harleen rce(s) Supporting Document(s) erythrocyte sedimentation rate 43 mm/HR 0-20 Above high normal Erythrocyte Sedimentation Rate [facility] ([facility]) ID Date Data Source [id number] 11/04/2020 11:08:00 AM EST [facility] ([facility]) Name Value Range Interpretation Code Description Data Harleen rce(s) Supporting Document(s) Antinuclear Antibodies Direct Laboratory test result Abnormal (applies to non- numeric results) [facility] ([facility]) Anti Double Strand-Dna AB 7 IU/ml 0-9 [facility] NT ([facility]) <content>Negative <5</content>
<content>Equivocal 5 - 9</content>
<content>Positive >9</content>
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 Autoantibody Disease Association Condition Frequency -------- [...] (anti-Artis) SLE 15 - 30% ------- --------- DOPE HOUSE OPERATOR HELPER Mixed Connective Tissue Disease 95% (U1 nRNP, SLE 30 - 50% anti-ribonucleoprotein) Polymyositis and/or Dermatomyositis 20% -------- --------- Scl-70 (antiDNA Scleroderma (diffuse) 20 - 35% topoisomerase) Crest 13% -------- --------- Mey-1 Polymyositis and/or Dermatomyositis 20 - 40% -------- --------- Centromere B Scleroderma - Crest variant 80% Performed at: [address] [id number] Blending Operator: Zuleika Graham MD, Phone: [phone] Performed at: RN - [facility] [address] [id number] Blending Operator: Alisia Sosa MD, Phone: [phone] ID Date Data Source [id number] 11/04/2020 11:08:00 AM EST [facility] ([facility]) Name Value Range Interpretation Code Description Data Harleen rce(s) Supporting Document(s) Thiamine [Mass/volume] in Blood 146.3 nmol/L 66.5-200.0 [facility] ([facility]) Specimen Comment: Test(s) 264838-Bdrgamc E(Alpha Tocopherol); 902347- Specimen Comment: Vitamin E(Gamma Tocopherol); 373382-Olpuoaz B6; 716303- Specimen Comment: Vit. B1, Whole Blood Specimen Comment: was developed and its performance characteristics Specimen Comment: determined by [facility]. It has not been cleared or approved Specimen Comment: by the Food and Drug Administration. Pyridoxine [Mass/volume] in Serum or Plasma 35.6 ug/L 2.0-32.8 [facility] ([facility]) Specimen Comment: Test(s) 245188-Diebysb E(Alpha Tocopherol); 645706- Specimen Comment: Vitamin E(Gamma Tocopherol); 611068-Mpfbbcy B6; 276178- Specimen Comment: Vit. B1, Whole Blood Specimen Comment: was developed and its performance characteristics Specimen Comment: determined by [facility]. It has not been cleared or approved Specimen Comment: by the Food and Drug Administration. ID Date Data Source [id number] 11/04/2020 11:08:00 AM EST [facility] ([facility]) Name Value Range Interpretation Code Description Data Harleen rce(s) Supporting Document(s) Vitamin E(Gamma Tocopherol) 0.5 mg/L 0.7-4.9 [facility] ([facility]) Reference intervals for alpha and gamma- tocopherol determined from National Health and Nutrition Examination Survey, 4218-1097. Individuals with alpha-tocopherol levels less than 5.0 mg/L are considered vitamin E deficient. Vitamin E(Alpha Tocopherol) 14.3 mg/L 5.9-19.4 [facility] ([facility]) ID Date Data Source [id number] 11/04/2020 11:08:00 AM EST [facility] ([facility]) Name Value Range Interpretation Code Description Data Harleen rce(s) Supporting Document(s) Cobalamin (Vitamin B12) [Mass/volume] in Serum or Plasma 460 pg/mL 2 47-911 [facility] ([facility]) VITAMIN B12 NORMAL RANGE NORMAL 247 - 911 PG/ML INDETERMINATE 211 - 246 PG/ML DEFICIENT LESS THAN 211 PG/ML Folate [Mass/volume] in Serum or Plasma 21.4 ng/mL [facility] ([facility]) FOLATE NORMAL RANGE NORMAL GREATER THAN 5.4 NG/ML INDETERMINATE 3.4-5.4 NG/ML DEFICIENT LESS THAN 3.4 NG/ML Calcidiol [Mass/volume] in Serum or Plasma 36.6 ng/mL 30.0-100.0 [facility] ([facility]) <content>note:<nlbl:demographic_changed></content>
<content>note:<nlbl:demog raphic_changed></content>
<content>note:<nlbl:demographic_changed></content>
<content></content> Rheumatoid factor [Units/volume] in Serum or Plasma 42.0 IU/ml [facility] ([facility]) <content>note:<nlbl:demographic_changed></content>
<content>note:<nlbl:demog raphic_changed></content>
<content>note:<nlbl:demographic_changed></content>
<content></content> ID Date Data Source [id number] 11/04/2020 11:08:00 [facility] Name Value Range Interpretation Code Description Data Harleen rce(s) Supporting Document(s) Albumin % 53.0 % 55.8-66.1 [facility] ([facility] ) Voqs-2-Lwyauqiqv % 5.6 % 4.7-7.[facility] Brymk-0-Dlkyrykgo % 11.6 % 7.1-11.8 [facility] ([facility] ) Mmwpo-6-Fneftfcz % 4.4 % 2.9-4.9 [facility] Digm-3-Kwqowrwcj % 5.0 % 3.2-6.5 [facility] ([facility]) Gamma Globulin % 20.4 % 11.1-18.8 [facility] ([facility]) Albumin 4.13 GM/DL 3.29-5.55 [facility] ([facility]) Qppgz-0-Tcdfxxyyl 0.34 GM/DL 0.17-0.41 [facility] ([facility]) Mbxxy-0-Fjmiptvfg 0.90 GM/DL 0.42-0.99 [facility] ([facility]) Fdvx-5-Drchnajpm 0.44 GM/DL 0.28-0.60 [facility] ([facility]) Royi-1-Xfbrtuywz 0.39 GM/DL 0.19-0.55 [facility] ([facility]) Gamma Globulins 1.59 GM/DL 0.65-1.58 [facility] ([facility]) Total Protein 7.8 GM/DL 6.4-8.2 [facility] ([facility]) Spep Interpretation Laboratory test result [facility] ([facility]) INCREASED GAMMA FRACTION SUGGESTS POLYCL ONAL GAMMOPATHY. Laboratory test finding (navigational concept) [facility] ID Date Data Source [id number] 11/04/2020 11:08:00 AM EST [facility] ([facility]) Name Value Range Interpretation Code Description Data Harleen rce(s) Supporting Document(s) Hemoglobin A1c 4.8 % [facility] ([facility]) <content>REFERENCE RANGES:</content><br/ ><content></content>
<content><=5.6% NORMAL</content>
<content>5.7-6.4% SUGGESTS IMPAIRED GLUCOSE METABOLISM/PREDIABETIC</content>
<content>>= 6.5% ABNORMAL</content>
<content></content> Estimated Average Glucose 91 mg/dL 60-110 [facility] ([facility]) ID Date Data Source [id number] 11/04/2020 11:08:00 AM EST [facility] ([facility]) Name Value Range Interpretation Code Description Data Harleen rce(s) Supporting Document(s) Erythrocyte sedimentation rate by 2H Westergren method 43 mm/hr 0-2 0 [facility] ([facility]) ID Date Data Source [id number] 11/04/2020 11:08:00 AM EST [place] ([facility]) Name Value Range Interpretation Code Description Data Harleen rce(s) Supporting Document(s) anti double strand-DNA Ab 7 IU/mL 0-9 Anti Doubl e strand-DNA Ab [place] ([facility]) antinuclear antibodies direct positive negative Ab normal (applies to non-numeric results) Antinuclear Antibodies Direct [place] ([facility]) key ringer antibodies <0.2 0.0-0.9 Beauty Shop Manager Antibodies [place] ([facility]) artis antibodies <0.2 0.0-0.9 Ratis Antibodies AT [facility]) MALIK comment . MALIK Comment [place] ([facility]) sjogren's anti ss-A >8.0 0.0-0.9 Above high normal Sjogren's Anti ss-A [place] ([facility]) sjogren's anti ss-B <0.2 0.0-0.9 Sjogren's Anti s s-B [facility]) ID Date Data Source [id number] 11/04/2020 11:08:00 AM EST [place] ([facility]) Name Value Range Interpretation Code Description Data Harleen rce(s) Supporting Document(s) vitamin B6,pyridoxal phosphate 35.6 ug/L 2.0-32.8 Above high normal Vitamin B6,Pyridoxal Phosphate [facility]) ID Date Data Source [id number] 11/04/2020 11:08:00 AM EST [facility]) Name Value Range Interpretation Code Description Data Harleen rce(s) Supporting Document(s) vitamin B1 level whole blood 146.3 nmol/L 66.5-200.0 Vitamin B1 Level Whole Blood [facility] ([facility]) ID Date Data Source [id number] 11/04/2020 11:08:00 AM EST [facility] ([facility]) Name Value Range Interpretation Code Description Data Harleen rce(s) Supporting Document(s) vitamin E(alpha tocopherol) 14.3 mg/L 5.9-19.4 Vitamin E(alpha Tocopherol) [facility] ([facility]) vitamin E(gamma tocopherol) 0.5 mg/L 0.7-4.9 Below low nor mal Vitamin E(gamma Tocopherol) [facility] ([facility]) ID Date Data Source [id number] 11/04/2020 11:08:00 AM EST [facility] ([facility]) Name Value Range Interpretation Code Description Data Harleen rce(s) Supporting Document(s) rheumatoid factor quant 42.0 IU/mL <15.0 Above high normal Rheumatoid Factor Quant [facility] ([facility]) ID Date Data Source [id number] 11/04/2020 11:08:00 AM EST [facility] ([facility]) Name Value Range Interpretation Code Description Data Harleen rce(s) Supporting Document(s) total 25(oh) vitamin D 36.6 NG/mL 30.0-100.0 Total 25(Oh) Vitamin D [facility] ([facility]) ID Date Data Source [id number] 11/04/2020 11:08:00 AM EST [facility] ([facility]) Name Value Range Interpretation Code Description Data Harleen rce(s) Supporting Document(s) folate 21.4 NG/mL >5.4 Folate [facility] ([facility]) ID Date Data Source [id number] 11/04/2020 11:08:00 AM EST [facility] ([facility]) Name Value Range Interpretation Code Description Data Harleen rce(s) Supporting Document(s) vitamin B12 level 460 pg/mL 089-915 Vitamin B12 Level [place] ([facility]) ID Date Data Source [id number] 11/04/2020 11:08:00 AM EST [place] ([facility]) Name Value Range Interpretation Code Description Data Harleen rce(s) Supporting Document(s) albumin % 53.0 % 55.8-66.1 Below low normal Albumin % [place] ( [facility]) lagbn-1-fsuzskwos % 11.6 % 7.1-11.8 Fdhpm-7-Qkjtiqov s % [place] ([facility]) nzmqt-3-renqhxpa % 4.4 % 2.9-4.9 Mehrn-7-Ofuyqxtg % [place] ([facility]) uaea-5-wfuxtobcl % 5.6 % 4.7-7.2 Fqoj-7-Fwuaxclsu % [facility]) jdvl-8-aglpnbytr % 5.0 % 3.2-6.5 Cggb-6-Ibbcnvglo % [facility]) albumin 4.13 gm/dL 3.29-5.55 Albumin [facility]) gamma globulin % 20.4 % 11.1-18.8 Above high normal Gamma Globul in % [place] ([facility]) rgswk-6-veaifglbn 0.34 gm/dL 0.17-0.41 Csyae-0-Inutnwioq [facility]) lqlyz-9-biabmsxoz 0.90 gm/dL 0.42-0.99 Bjvlg-1-Jgpbcdxcm [facility]) pviv-3-pglhrhdkv 0.44 gm/dL 0.28-0.60 Rcax-7-Wfmdtgzty AT [facility]) gamma globulins 1.59 gm/dL 0.65-1.58 Above high normal Gamma Globuli ns [facility]) ketq-7-ivehqvncq 0.39 gm/dL 0.19-0.55 Akbz-7-Omkvpjlcf AT [facility]) total protein 7.8 gm/dL 6.4-8.2 Total Protein [place] ( [facility]) spep pathologist review rev'd by Cheryl Mercado Pa thologist Review [place] ([facility]) spep interpretation see comment Spep Interpreta tion [place] ([facility]) ID Date Data Source [id number] 11/04/2020 11:08:00 AM EST [place] ([facility]) Name Value Range Interpretation Code Description Data Harleen rce(s) Supporting Document(s) estimated average glucose 91 mg/dL 60-110 Estimated Average Glucose [place] ([facility]) Hemoglobin A1c/Hemoglobin.total in Blood 4.8 % Hemoglobin a1C [place] ([facility]) ID Date Data Source [id number] 11/04/2020 11:08:00 AM EST [place] ([facility]) Name Value Range Interpretation Code Description Data Harleen rce(s) Supporting Document(s) erythrocyte sedimentation rate 43 mm/HR 0-20 Above high normal Erythrocyte Sedimentation Rate [place] ([facility]) ID Date Data Source [id number] 11/04/2020 11:08:00 AM EST [place] ([facility]) Name Value Range Interpretation Code Description Data Harleen rce(s) Supporting Document(s) artis antibodies <0.2 0.0-0.9 Artis Antibodies AT [facility] ([facility]) antinuclear antibodies direct positive negative Ab normal (applies to non-numeric results) Antinuclear Antibodies Direct [place] ([facility]) anti double strand-DNA Ab 7 IU/mL 0-9 Anti Doubl e strand-DNA Ab [place] ([facility]) key ringer antibodies <0.2 0.0-0.9 [employer] Manager Antibodies [place] ([facility]) sjogren's anti ss-B <0.2 0.0-0.9 Sjogren's Anti s s-B [place] ([facility]) sjogren's anti ss-A >8.0 0.0-0.9 Above high normal Sjogren's Anti ss-A [place] ([facility]) MALIK comment . MALIK Comment [place] ([facility]) ID Date Data Source [id number] 11/04/2020 11:08:00 AM EST [place] ([facility]) Name Value Range Interpretation Code Description Data Harleen rce(s) Supporting Document(s) vitamin B6,pyridoxal phosphate 35.6 ug/L 2.0-32.8 Above high normal Vitamin B6,Pyridoxal Phosphate [place] ([facility]) ID Date Data Source [id number] 11/04/2020 11:08:00 AM EST [place] ([facility]) Name Value Range Interpretation Code Description Data Harleen rce(s) Supporting Document(s) vitamin B1 level whole blood 146.3 nmol/L 66.5-200.0 Vitamin B1 Level Whole Blood [place] ([facility]) ID Date Data Source [id number] 11/04/2020 11:08:00 AM EST [place] ([facility]) Name Value Range Interpretation Code Description Data Harleen rce(s) Supporting Document(s) vitamin E(gamma tocopherol) 0.5 mg/L 0.7-4.9 Below low nor mal Vitamin E(gamma Tocopherol) [place] ([facility]) vitamin E(alpha tocopherol) 14.3 mg/L 5.9-19.4 Vitamin E(alpha Tocopherol) [place] ([facility]) ID Date Data Source [id number] 11/04/2020 11:08:00 AM EST [place] ([facility]) Name Value Range Interpretation Code Description Data Harleen rce(s) Supporting Document(s) rheumatoid factor quant 42.0 IU/mL <15.0 Above high normal Rheumatoid Factor Quant [place] ([facility]) ID Date Data Source [id number] 11/04/2020 11:08:00 AM EST [place] ([facility]) Name Value Range Interpretation Code Description Data Harleen rce(s) Supporting Document(s) total 25(oh) vitamin D 36.6 NG/mL 30.0-100.0 Total 25(Oh) Vitamin D [place] ([facility]) ID Date Data Source [id number] 11/04/2020 11:08:00 AM EST [place] ([facility]) Name Value Range Interpretation Code Description Data Harleen rce(s) Supporting Document(s) folate 21.4 NG/mL >5.4 Folate [place] ([facility]) ID Date Data Source [id number] 11/04/2020 11:08:00 AM EST [place] ([facility]) Name Value Range Interpretation Code Description Data Harleen rce(s) Supporting Document(s) vitamin B12 level 460 pg/mL 247-911 Vitamin B12 Level [place] ([facility]) ID Date Data Source [id number] 11/04/2020 11:08:00 AM EST [place] ([facility]) Name Value Range Interpretation Code Description Data Harleen rce(s) Supporting Document(s) albumin % 53.0 % 55.8-66.1 Below low normal Albumin % [place] ( [facility]) cpsvj-7-ldjkysel % 4.4 % 2.9-4.9 Wtugb-9-Olbcruga % [place] ([facility]) jxut-9-wtvnhqpus % 5.0 % 3.2-6.5 Nqzr-2-Wvlvuytdn % [place] ([facility]) fvpyt-4-mvauodmbz % 11.6 % 7.1-11.8 Kwcgl-4-Nnnjwakh s % [place] ([facility]) srid-8-apfkdgqjc % 5.6 % 4.7-7.2 Dbiy-0-Xiuoqbfcg % [place] ([facility]) albumin 4.13 gm/dL 3.29-5.55 Albumin [place] ([facility]) dcbhg-1-zgqabohvq 0.34 gm/dL 0.17-0.41 Jxbuy-7-Nnkpvndhf [place] ([facility]) gamma globulin % 20.4 % 11.1-18.8 Above high normal Gamma Globul in % [place] ([facility]) gamma globulins 1.59 gm/dL 0.65-1.58 Above high normal Gamma Globuli ns [place] ([facility]) taoj-8-mzactqulk 0.39 gm/dL 0.19-0.55 Xgjs-1-Ynshikkta AT [facility] ([facility]) djoor-5-voohxjjsa 0.90 gm/dL 0.42-0.99 Bafaj-8-Yxvayrvfx [place] ([facility]) hqyq-4-jzfnjgwuk 0.44 gm/dL 0.28-0.60 Cgje-7-Pwulbjxgy AT [facility] ([facility]) total protein 7.8 gm/dL 6.4-8.2 Total Protein [place] ( [facility]) spep pathologist review rev'd by Cheryl Major thologist Review [place] ([facility]) spep interpretation see comment Spep Interpreta tion [place] ([facility]) ID Date Data Source [id number] 11/04/2020 11:08:00 AM EST [place] [facility]) Name Value Range Interpretation Code Description Data Harleen rce(s) Supporting Document(s) Hemoglobin A1c/Hemoglobin.total in Blood 4.8 % Hemoglobin a1C [place] ([facility]) estimated average glucose 91 mg/dL 60-110 Estimated Average Glucose [facility]) ID Date Data Source [id number] 11/04/2020 11:08:00 AM EST [place] [facility]) Name Value Range Interpretation Code Description Data Harleen rce(s) Supporting Document(s) erythrocyte sedimentation rate 43 mm/HR 0-20 Above high normal Erythrocyte Sedimentation Rate [place] ([facility]) ID Date Data Source [id number] 01/03/2021 03:20:00 PM EST [facility] Name Value Range Interpretation Code Description Data Harleen rce(s) Supporting Document(s) IGAMS IgG result 1639 mg/dL 610-1,616 Normal (applies to non-numeric results) [facility] IGAMS IgA result 305 mg/dL 85-499 Normal (applies to non-numeric results) [facility] IGAMS IgM result 68 mg/dL 35-242 Normal (applies to non-numeric results) [facility] Test performed [place] [address] ID Date Data Source [id number] 01/03/2021 03:20:00 PM EST [facility] Name Value Range Interpretation Code Description Data Harleen rce(s) Supporting Document(s) C4 Complement,S result 27 mg/dL 13-39 Normal (applies to non-n umeric results) [facility] Test performed [place] [address] ID Date Data Source [id number] 01/03/2021 03:20:00 PM EST [facility] Name Value Range Interpretation Code Description Data Harleen rce(s) Supporting Document(s) C3 Complement,S result 116 mg/dL 81-157 Normal (applies to non-numeric results) [facility] Test performed [place] [address] ID Date Data Source [id number] 10/14/2020 06:17:00 PM EST [facility] Name Value Range Interpretation Code Description Data Harleen rce(s) Supporting Document(s) Sodium 137 mmol/L 137-145 Normal (applies to non-numeric resul ts) [facility] Potassium 3.5-5.1 Normal (applies to non-numeric resul ts) [facility] Chloride 106 mmol/L 98-112 Normal (applies to non-numeric resul ts) [facility] Carbon Dioxide CO2 22.0-33.0 Normal (applies to non-numer ic results) [facility] Anion Gap 4.0-11.0 Below low normal [facility] BUN 18 mg/dL 7-17 Above high normal [facility] Creatinine 0.70-1.20 Below low normal [facility] GFR >60 Normal (applies to non-numeric results) [facility] Result based on MDRD formula. Glucose Level 74 mg/dL 74-99 Normal (applies to non-numeric re sults) [facility] The reference range is only applicable w hen fasting. Calcium-Uncorrected 8.4-10.2 Normal (applies to non-nume [place] results) [facility] Corrected Calcium 8.4-10.2 Normal (applies to non-numeri c results) [facility] Bilirubin,Total 0.2-1.3 Normal (applies to non-numeric results) [facility] SGOT(AST) 13 U/L 14-36 Below low normal [facility] SGPT(ALT) 16 U/L 9-52 Normal (applies to non-numeric resul ts) [facility] Alkaline Phosphatase 61 U/L 38-126 Normal (applies to non-num erick results) [facility] can increase Alkaline Phosp le vels up to 2 times the normal adult value. Normal values for children and adolescents are 2 to 3 times the normal adult value. Total Protein 6.3-8.2 Normal (applies to non-numeric re sults) [facility] Albumin 3.5-5.0 Normal (applies to non-numeric resul ts) [facility] ID Date Data Source [id number] 10/14/2020 06:17:00 PM EST [facility] Name Value Range Interpretation Code Description Data Harleen rce(s) Supporting Document(s) Free T3 2.18-3.98 Below low normal [facility] ID Date Data Source [id number] 10/14/2020 06:17:00 PM [facility] Name Value Range Interpretation Code Description Data Harleen rce(s) Supporting Document(s) Thyroid Stimulate Hormone TSH 0.358-3.740 No rmal (applies to non-numeric results) [facility] ID Date Data Source [id number] 10/14/2020 06:17:00 PM EST [facility] Name Value Range Interpretation Code Description Data Harleen rce(s) Supporting Document(s) Vitamin B12 301 pg/mL 193-986 Normal (applies to non-numeric resu lts) [facility] Hospital ID Date Data Source [id number] 10/14/2020 06:17:00 PM EST [facility] Name Value Range Interpretation Code Description Data Harleen rce(s) Supporting Document(s) Folate 2.76-20.0 Above high normal [facility] Hospital ID Date Data Source [id number] 10/14/2020 06:17:00 PM EST [facility] Name Value Range Interpretation Code Description Data Harleen rce(s) Supporting Document(s) Free T4 (Free Thyroxine) 0.76-1.46 Normal (applies to non -numeric results) [facility] Hospital ID Date Data Source [id number] 08/15/2020 10:59:48 AM EDT [facility] Current Problems: Unspecified injury of thorax, initial encounter (ICD-959.11) (SVM56-D52.9xxA)Unspecified acute conjunctivitis, bilateral (ICD10- H10.33)Xerostomia (ICD-527.7) (EHM36-W51.2)Toxic effect of venom of other arthropod, accidental (unintentional), initial encounter (ICD-989.5) (ICD10- T63.481A)Constipation, unspecified (SUM86-V24.00)Diarrhea (ICD-787.91) (ICD10- R19.7)Unspecified abdominal pain (MFT79-O92.9)Nausea (ICD-787.02) (ICD10- R11.0)Vaccination (ICD-V05.9) (VHK19-V35)Herpes simplex infection (ICD-054.9) (ZVA79-X41.9)Pain in unspecified joint (CYE97-O09.50)Screening examination for venereal disease (ICD-V74.5) (GSX89-L41.3)Acute hepatitis C without hepatic coma (NVU55-Z90.10)Encounter for screening for other metabolic disorders (ICD10- Z13.228)Problem list reviewed during this update.Current Medications: LIDODERM 5 % EXTERNAL PATCH (LIDOCAINE) Apply one patch to left ribs q8h prn. MDD 3.; Route: EXTERNALGINGER 500 MG ORAL CAPSULE (DEIDRE (ZINGIBER OFFICINALIS)) ; Route: ORALCALCIUM+D3 GRADUAL RELEASE 600-40-500 MG-MG-UNIT ORAL [id number] ([id number] D) ; Route: ORALADULT GUMMY ORAL TABLET [...] DMD) Chart Notes:laura (Aug 15 2020 1:12PM): [facility] (-)Per Pt. . Took temp@ F. Additional [...] ORAL CAPSULECALCIUM+D3 GRADUAL RELEASE 600-40-500 MG-MG-UNIT ORAL [id number] GUMMY ORAL TABLET [facility] ORAL CAPSULEAllergies:SULFA (Critical) Name Value Range Interpretation Code Description Data Harleen rce(s) Supporting Document(s) ID Date Data Source [id number] 07/16/2020 08:59:42 AM EDT [facility] Current Problems: Unspecified injury of thorax, initial encounter (ICD-959.11) (WDJ67-B38.9xxA)Unspecified acute conjunctivitis, bilateral (ICD10- H10.33)Xerostomia (ICD-527.7) (LDV11-V11.2)Toxic effect of venom of other arthropod, accidental (unintentional), initial encounter (ICD-989.5) (ICD10- T63.481A)Constipation, unspecified (SSW90-D53.00)Diarrhea (ICD-787.91) (ICD10- R19.7)Unspecified abdominal pain (ICU32-B08.9)Nausea (ICD-787.02) (ICD10- R11.0)Vaccination (ICD-V05.9) (SQA84-S85)Herpes simplex infection (ICD-054.9) (YUI22-C62.9)Pain in unspecified joint (EBO85-O62.50)Screening examination for venereal disease (ICD-V74.5) (SXO43-I78.3)Acute hepatitis C without hepatic coma (DQP53-T59.10)Encounter for screening for other metabolic disorders (ICD10- Z13.228)Current Medications: LIDODERM 5 % EXTERNAL PATCH (LIDOCAINE) Apply one patch to left ribs q8h prn. MDD 3.; Route: EXTERNALGINGER 500 MG ORAL CAPSULE (DEIDRE (ZINGIBER OFFICINALIS)) ; Route: ORALCALCIUM+D3 GRADUAL RELEASE 600-40-500 MG-MG-UNIT ORAL [id number]-[id number] ([id number] D) ; Route: ORALADULT GUMMY ORAL TABLET [...] DMD) Chart Notes:laura (Jul 16 2020 10:46AM): [facility] (-)per p t. Took temp@ [employer]. Additional PPE requirements due to COVID-19 in [...] ORAL CAPSULECALCIUM+D3 GRADUAL RELEASE 600-40-500 MG-MG-UNIT ORAL [id number] GUMMY ORAL TABLET [facility] ORAL CAPSULEAllergies:SULFA (Critical) Name Value Range Interpretation Code Description Data Harleen rce(s) Supporting Document(s) ID Date Data Source [id number] 07/11/2020 12:00:00 AM EDT [facility] Sunday Li MD Patient Name: DOUG OLIVO Date of : 1985[place] [address] Date of Exam: 07/11/2020PH#: Fax: ____EXAM: RIBS [...] rce(s) Supporting Document(s) ID Date Data Source [id number] 07/11/2020 11:15:00 AM EDT [facility] Name Value Range Interpretation Code Description Data Harleen rce(s) Supporting Document(s) CRP 0.30 mg/dL 0.00-0.30 N [facility] ID Date Data Source [id number] 07/11/2020 11:15:00 AM EDT [facility] Name Value Range Interpretation Code Description Data Harleen rce(s) Supporting Document(s) ESR 32 mm/hr 0-20 H [facility] ID Date Data Source [id number] 07/11/2020 10:43:38 AM EDT [facility] Measurements & CalculationsHeight: 63 inches (5 [...] barriers: nonePatient's Language used in visit: YesLanguage: kittitian Pain AssessmentPain ScaleNumeric Rating Scale: 5 / [...] during this visit, including review of any epun-xwf-lnwvzre medications, herbal therapies, and/or supplements.Allergy ReviewAllergy List [...] Unspecified injury of thorax, initial encounter (ICD-959.11) (YAC19-Z15.9xxA) Assessment: Instructions: Possibly rib fracture.Continue symptomatic treatment.Sending in prescription for lidocaine patch.Recheck if symptoms p ersist or worsen.Assessment not Saved Unspecified injury of thorax; initial encounter (PJP95-F14.9xxA): Comment OnlyThere is a possibility of splenic [...] ORAL CAPSULECALCIUM+D3 GRADUAL RELEASE 600-40-500 MG-MG-UNIT ORAL [id number] GUMMY ORAL TABLET [facility] ORAL CAPSULEMedication Changes:New Prescription:LIDODERM 5 % EXTERNAL PATCH-Apply one patch to left ribs q8h prn. MDD 3. Qty: 30[Patch] Refills: 0 Method: ElectronicRemoved:ERYTHROMYCIN 5 MG/GM OPHTHALMIC OINTMENT-Apply 1 cm ribbon in both eyes to 6x per day for 7 days Qty: 1[Tube] Refills: 0Allergies:SULFA (Critical)Orders:X-Ray - Ribs, including posteroanterior chest, minimum of 3 views [CPT-03537] Adult - Ofc Vst, EST, Level III [CPT-08519] Labs In-House Blood TestsDate/Time Collected: July 11, [...] Current Smoker completed Curre nt Smoker eCW1 ([facility]) Smoking 01/13/2021 12:00:00 AM EDT Current Smoker completed Curre nt Smoker eCW1 ([facility]) Vital Signs ID Date Data Source UNK Name Value Range Interpretation Code Description Data Source(s) Oxygen saturation in Arterial blood by Pulse oximetry 97 % 97 % [facility] ([facility]) Respiratory rate 18 /min 18 /min [facility] ( [facility]) Systolic blood pressure 136 mm[Hg] 136 mm[Hg] M [facility] ([facility]) Diastolic blood pressure 80 mm[Hg] 80 mm[Hg] [facility] ([facility]) Heart rate 77 /min 77 /min [facility] ([facility]) Body height 63 [in_i] 63 [[facility]_i] [facility] 5'3" Body weight 159.00 [lb_av] 159.00 [lb_av] [facility] T ([facility]) Body mass index (BMI) [Ratio] 28.2 kg/m2 28.2 k g/m2 [facility] ([facility]) Lavinia body weight 115 [lb_av] 115 [lb_av] [facility] T ([facility]) Body weight 72.122 kg [facility] Body surface area Derived from formula 1.75 m2 1.75 m[facility] Diastolic blood pressure 74 mm[Hg] 74 mm[Hg] [place] ([facility]) Body height 63 [in_i] 63 [in_i] [place] ([facility]) Body mass index (BMI) [Ratio] 27 kg/m2 27 kg/ m2 [place] ([facility]) Systolic blood pressure 112 mm[Hg] 112 mm[Hg] A [facility] ([facility]) Body weight 2440 [oz_av] 2440 [oz_av] [place] ([facility]) Diastolic blood pressure 63 mm[Hg] 63 mm[Hg] [place] ([facility]) Body height 63 [in_i] 63 [in_i] [place] ([facility]) Body mass index (BMI) [Ratio] 27.2 kg/m2 27.2 k g/m2 [place] ([facility]) Systolic blood pressure 99 mm[Hg] 99 mm[Hg] A THENA ([facility]) Body weight 2457.6 [oz_av] 2457.6 [oz_av] ATHEN A ([facility]) Diastolic blood pressure 63 mm[Hg] 63 mm[Hg] [place] ([facility]) Body height 63 [in_i] 63 [in_i] [place] ([facility]) Body mass index (BMI) [Ratio] 27.2 kg/m2 27.2 k g/m2 [place] ([facility]) Systolic blood pressure 99 mm[Hg] 99 mm[Hg] A THENA ([facility]) Body weight 2457.6 [oz_av] 2457.6 [oz_av] ATHEN A ([facility]) Diastolic blood pressure 73 mm[Hg] 73 mm[Hg] [place] ([facility]) Body height 63 [in_i] 63 [in_i] [place] ([facility]) Body mass index (BMI) [Ratio] 26.2 kg/m2 26.2 k g/m2 [place] ([facility]) Systolic blood pressure 121 mm[Hg] 121 mm[Hg] [facility] Body weight 2368 [oz_av] 2368 [oz_av] [place] ([facility]) Diastolic blood pressure 73 mm[Hg] 73 mm[Hg] [place] ([facility]) Body height 63 [in_i] 63 [in_i] [place] ([facility]) Body mass index (BMI) [Ratio] 26.2 kg/m2 26.2 k g/m2 [place] ([facility]) Systolic blood pressure 121 mm[Hg] 121 mm[Hg] A [facility] ([facility]) Body weight 2368 [oz_av] 2368 [oz_av] [place] ([facility]) Diastolic blood pressure 73 mm[Hg] 73 mm[Hg] [place] ([facility]) Systolic blood pressure 121 mm[Hg] 121 mm[Hg] A THENA ([facility]) Body weight 2368 [oz_av] 2368 [oz_av] [place] ([facility]) Body height 63 [in_i] 63 [in_i] SAM[facility]AT ([facility]) Body mass index (BMI) [Ratio] 26.2 kg/m2 26.2 k g/m2 [facility] ([facility]) Body weight 145.00 [lb_av] 145.00 [lb_av] KB T ([facility], ) Body mass index (BMI) [Ratio] 25.7 kg/m2 25.7 k g/m2 ROZ ([facility], ) Body height 63 [in_i] 63 [in_i] ROZ ([facility], ) 5'3" Body surface area Derived from formula 1.69 m2 1.69 m2 ROZ ([facility], ) Lavinia body weight 115 [lb_av] 115 [lb_av] MEDEN T ([facility]) Body weight 65.772 kg 65.772 kg [facility] ([facility]) Diastolic blood pressure 66 mm[Hg] 66 mm[Hg] [facility] ([facility]) Body height 63 [in_i] 63 [in_i] [facility] ([facility]) 5'3" Body weight 145.00 [lb_av] 145.00 [lb_av] [facility] T ([facility]) Body mass index (BMI) [Ratio] 25.7 kg/m2 25.7 k g/m2 [facility] ([facility]) Lavinia body weight 115 [lb_av] 115 [lb_av] [facility] ([facility]) Body weight 65.772 kg 65.772 kg [facility] ([facility]) Systolic blood pressure 116 mm[Hg] 116 mm[facility]Hg] [facility] Body surface area Derived from formula 1.69 m2 1.69 m2 [facility] ([facility]) Diastolic blood pressure 58 mm[Hg] 58 mm[Hg] [place] ([facility]) Body height 63 [in_i] 63 [in_i] [place] ([facility]) Body mass index (BMI) [Ratio] 26 kg/m2 26 kg/ m2 [facility] ([facility]) Systolic blood pressure 94 mm[Hg] 94 mm[Hg] A [facility] ([facility]) Body weight 2345.6 [oz_av] 2345.6 [oz_av] ATHEN A ([facility]) Body height 63 [in_i] 63 [in_i] [facility] ([facility]) Body mass index (BMI) [Ratio] 26 kg/m2 26 kg/ m2 [facility] ([facility]) Systolic blood pressure 94 mm[Hg] 94 mm[Hg] A [facility] [facility] Body weight 2345.6 [oz_av] 2345.6 [oz_av] ATHEN A ([facility]) Diastolic blood pressure 58 mm[Hg] 58 mm[Hg] SAMANTA ([facility]) Diastolic blood pressure 58 mm[Hg] 58 mm[Hg] [facility] ([facility]) Body height 63 [in_i] 63 [in_i] [facility] ([facility]) Body mass index (BMI) [Ratio] 26 kg/m2 26 kg/ m2 [facility] ([facility]) Systolic blood pressure 94 mm[Hg] 94 mm[Hg] [facility] Body weight 2345.6 [oz_av] 2345.6 [oz_av] ATHEN A ([facility]) Diastolic blood pressure 71 mm[Hg] 71 mm[Hg] SAMANTA ([facility]) Body height 63 [in_i] 63 [in_i] [facility] ([facility]) Body mass index (BMI) [Ratio] 25.1 kg/m2 25.1 k g/m2 [facility] ([facility]) Systolic blood pressure 110 mm[Hg] 110 mm[Hg] A [facility] ([facility]) Body weight 2265.6 [oz_av] 2265.6 [oz_av] ATHEN A ([facility]) Body mass index (BMI) [Ratio] 25.1 kg/m2 25.1 k g/m2 [facility] ([facility]) Systolic blood pressure 110 mm[Hg] 110 mm[Hg] [facility] Body weight 2265.6 [oz_av] 2265.6 [oz_av] ATHEN A ([facility]) Diastolic blood pressure 71 mm[Hg] 71 mm[Hg] [facility] ([facility]) Body height 63 [in_i] 63 [in_i] [facility] ([facility]) Diastolic blood pressure 71 mm[Hg] 71 mm[Hg] [facility] ([facility]) Body height 63 [in_i] 63 [in_i] [facility] ([facility]) Body mass index (BMI) [Ratio] 25.1 kg/m2 25.1 k g/m2 [facility] ([facility]) Systolic blood pressure 110 mm[Hg] 110 mm[Hg] A [facility] ([facility]) Body weight 2265.6 [oz_av] 2265.6 [oz_av] ATHEN A ([facility]) Diastolic blood pressure 71 mm[Hg] 71 mm[Hg] [facility]A ([facility]) Body height 63 [in_i] 63 [in_i] [facility] ([facility]) Body mass index (BMI) [Ratio] 25.1 kg/m2 25.1 k g/m2 [facility] ([facility]) Systolic blood pressure 110 mm[Hg] 110 mm[Hg] A THENA ([facility]) Body weight 2265.6 [oz_av] 2265.6 [oz_av] ATHEN A ([facility]) Body surface area Derived from formula 1.68 m2 1.68 m2 [facility] Body temperature 97.5 [degF] 97.5 [degF] [facility] Body weight 139.38 [lb_av] 139.38 [lb_av] MEDEN T ([facility], ) Body mass index (BMI) [Ratio] 23.9 kg/m2 23.9 k g/m2 [facility] Lavinia body weight 120 [lb_av] 120 [lb_av] MEDEN T ([facility]) Systolic blood pressure 112 mm[Hg] 112 mm[Hg] M EDENT ([facility], ) Heart rate 89 /min 89 /min [facility], [facility] Oxygen saturation in Arterial blood by Pulse oximetry 98 % 98 % [facility], [facility] Body height 64 [in_i] 64 [in_i] [facility] 5'4" Body weight 63.221 kg 63.221 kg [facility] ([facility]) Diastolic blood pressure 68 mm[Hg] 68 mm[Hg] [facility] ([facility], ) Oxygen saturation in Arterial blood by Pulse oximetry 98 % 98 % [facility] ([facility]) Body temperature 97.5 [degF] 97.5 [degF] [facility] ([facility], ) Body height 64 [in_i] 64 [in_i] [facility] 5'4" Body weight 139.38 [lb_av] 139.38 [lb_av] MEDEN T ([facility]) Body mass index (BMI) [Ratio] 23.9 kg/m2 23.9 k g/m2 [facility] ([facility]) Lavinia body weight 120 [lb_av] 120 [lb_av] MEDEN T ([facility]) Body weight 63.221 kg 63.221 kg [facility] ([facility]) Body surface area Derived from formula 1.68 m2 1.68 m2 [facility] ([facility]) Body height 64 [in_i] 64 [in_i] eCW1 ([facility]) Body height 162.56 cm 162.56 cm W1 ([facility]) Body weight 136 [lb_av] 136 [lb_av] eCW1 ([facility]) Body weight 61.69 kg 61.69 kg W1 ([facility]) Body mass index (BMI) [Ratio] 23.34 kg/m2 23.34 kg/m2 eCW1 ([facility]) Body temperature 98.5 [degF] 98.5 [degF] W1 ( [facility]) Diastolic blood pressure 72 mm[Hg] 72 mm[Hg] [facility] ([facility]) Systolic blood pressure 110 mm[Hg] 110 [facility] Body weight 139.00 [lb_av] 139.00 [lb_av] [facility] Heart rate 70 /min 70 /min [facility] ([facility]) Oxygen saturation in Arterial blood by Pulse oximetry 98 % 98 % [facility] ([facility]) Room Air Body mass index (BMI) [Ratio] 23.9 kg/m2 23.9 k g/m2 [facility] ([facility]) Lavinia body weight 120 [lb_av] 120 [lb_av] [facility] Body weight 63.050 kg 63.050 kg [facility] ([facility], ) Body surface area Derived from formula 1.68 m2 1.68 [facility]2 [facility] Body height 64 [in_i] 64 [in_i] [facility] 5'4" Body height 63 [in_i] 63 [in_i] [facility] ([facility]) Body mass index (BMI) [Ratio] 24.4 kg/m2 24.4 k g/m2 [facility] ([facility]) Systolic blood pressure 97 mm[Hg] 97 mm[Hg] A [facility] ([facility]) Body weight 2204.8 [oz_av] 2204.8 [oz_av] ATHEN A ([facility]) Diastolic blood pressure 58 mm[Hg] 58 mm[Hg] [facility] ([facility]) Diastolic blood pressure 58 mm[Hg] 58 mm[Hg] [facility] ([facility]) Body height 63 [in_i] 63 [in_i] [facility] ([facility]) Body mass index (BMI) [Ratio] 24.4 kg/m2 24.4 k g/m2 [facility] ([facility]) Systolic blood pressure 97 mm[Hg] 97 mm[Hg] [facility] Body weight 2204.8 [oz_av] 2204.8 [oz_av] ATHEN A ([facility]) Diastolic blood pressure 58 mm[Hg] 58 mm[Hg] [facility] ([facility]) Body height 63 [in_i] 63 [in_i] [facility] ([facility]) Body mass index (BMI) [Ratio] 24.4 kg/m2 24.4 k g/m2 [facility] ([facility]) Systolic blood pressure 97 mm[Hg] 97 mm[Hg] A THENA ([facility]) Body weight 2204.8 [oz_av] 2204.8 [oz_av] ATHEN A ([facility]) Diastolic blood pressure 58 mm[Hg] 58 mm[Hg] [facility] ([facility]) Body height 63 [in_i] 63 [in_i] [facility] ([facility]) Body mass index (BMI) [Ratio] 24.4 kg/m2 24.4 k g/m2 SMAANTA ([facility]) Systolic blood pressure 97 mm[Hg] 97 mm[Hg] A THENA ([facility]) Body weight 2204.8 [oz_av] 2204.8 [oz_av] ATHEN A ([facility]) Systolic blood pressure 120 mm[Hg] 120 mm[Hg] M EDENT ([facility]) Body surface area Derived from formula 1.66 m2 1.66 [facility] Diastolic blood pressure 70 mm[Hg] 70 mm[Hg] [facility] Heart rate 88 /min 88 /min [facility] ([facility]) Oxygen saturation in Arterial blood by Pulse oximetry 99 % 99 % [facility] ([facility]) Room Air Body height 64 [in_i] 64 [in_i] [facility] ([facility]) 5'4" Body weight 136.00 [lb_av] 136.00 [lb_av] MEDEN T ([facility]) Body mass index (BMI) [Ratio] 23.3 kg/m2 23.3 k g/m2 [facility] ([facility]) Lavinia body weight 120 [lb_av] 120 [lb_av] [facility] Body weight 61.690 kg 61.690 kg [facility] ([facility]) Systolic blood pressure 120 mm[Hg] 120 mm[Hg] M EDENT ([facility]) Diastolic blood pressure 80 mm[Hg] 80 mm[facility]Hg[facility] Heart rate 78 /min 78 /min [facility] ([facility]) Respiratory rate 14 /min 14 /min [facility] ( [facility]) Body height 64 [in_i] 64 [in_i] [facility] ([facility]) 5'4" Body weight 140.00 [lb_av] 140.00 [lb_av] MEDEN T ([facility]) Body mass index (BMI) [Ratio] 24.0 kg/m2 24.0 k g/m2 [facility] ([facility]) Lavinia body weight 120 [lb_av] 120 [lb_av] MEDEN T ([facility]) Diastolic blood pressure 71 mm[Hg] 71 mm[Hg] SAM[facility]A ([facility]) Body height 63 [in_i] 63 [in_i] [facility] ([facility]) Body mass index (BMI) [Ratio] 25.82 kg/m2 25.82 kg/m2 [facility] ([facility]) Systolic blood pressure 127 mm[Hg] 127 mm[Hg] A [facility] ([facility]) Body weight 2324 [oz_av] 2324 [oz_av] [facility] ([facility]) Diastolic blood pressure 71 mm[Hg] 71 mm[Hg] ASMANTA ([facility]) Body height 63 [in_i] 63 [in_i] [facility] ([facility]) Systolic blood pressure 127 mm[Hg] 127 mm[Hg] A [facility] ([facility]) Body mass index (BMI) [Ratio] 25.82 kg/m2 25.82 kg/m2 [facility] ([facility]) Body weight 2324 [oz_av] 2324 [oz_av] [facility] ([facility]) Body height 63 [in_i] 63 [in_i] [facility] ([facility]) Body mass index (BMI) [Ratio] 25.82 kg/m2 25.82 kg/m2 [facility] ([facility]) Systolic blood pressure 127 mm[Hg] 127 mm[Hg] A THENA ([facility]) Body weight 2324 [oz_av] 2324 [oz_av] [facility]A ([facility]) Diastolic blood pressure 71 mm[Hg] 71 mm[Hg] [facility] ([facility]) Diastolic blood pressure 71 mm[Hg] 71 mm[Hg] [facility] ([facility]) Body height 63 [in_i] 63 [in_i] [facility] ([facility]) Body mass index (BMI) [Ratio] 25.82 kg/m2 25.82 kg/m2 [facility] ([facility]) Systolic blood pressure 127 mm[Hg] 127 mm[Hg] [facility] Body weight 2324 [oz_av] 2324 [oz_av] [facility] ([facility]) Patient Treatment Plan of Care Planned Activity Planned Date Details Description Data Source (s) Hydroxychloroquine Sulfate 200 MG Oral Tablet 02/19/2021 12:00:00 A M EDT [facility] ([facility]) Cyclosporine 0.5 MG/ML Ophthalmic Suspension [Restasis] [facility] ([facility]) pregabalin 75 MG Oral Capsule [facility] ([facility]) Nicotine 2 MG Chewing Gum AT [facility] ([facility]) Dexamethasone 1 MG/ML / Neomycin 3.5 MG/ ML / Polymyxin B 13230 UNT/ML Ophthalmic Suspension [facility] ([facility]) Dexamethasone 0.001 MG/MG / Neomycin 0.0 035 MG/MG / Polymyxin B 10 UNT/MG Ophthalmic Ointment [facility] ([facility]) Bisacodyl 5 MG Delayed Release Oral Tablet [facility] ([facility]) Erythromycin 0.005 MG/MG Ophthalmic Ointment [facility] ([facility]) duloxetine 30 MG Delayed Release Oral Capsule [facility] ([facility]) Clarithromycin 500 MG Oral Tablet [facility] ([facility]) Amitriptyline Hydrochloride 10 MG Oral Tablet [facility] ([facility]) Alprazolam 0.25 MG Oral Tablet [facility] ([facility]) Cyclosporine 0.5 MG/ML Ophthalmic Suspension [Restasis] [facility] ([facility]) pregabalin 75 MG Oral Capsule [facility] ([facility]) Nicotine 2 MG Chewing Gum AT [facility]) Dexamethasone 1 MG/ML / Neomycin 3.5 MG/ ML / Polymyxin B 70759 UNT/ML Ophthalmic Suspension [facility] ([facility]) Dexamethasone 0.001 MG/MG / Neomycin 0.0 035 MG/MG / Polymyxin B 10 UNT/MG Ophthalmic Ointment [facility] ([facility]) Fluconazole 150 MG Oral Tablet [facility] ([facility]) Erythromycin 0.005 MG/MG Ophthalmic Ointment [facility] ([facility]) duloxetine 30 MG Delayed Release Oral Capsule [facility] ([facility]) Clarithromycin 500 MG Oral Tablet [facility] ([facility]) Amitriptyline Hydrochloride 10 MG Oral Tablet [facility] ([facility]) Alprazolam 0.25 MG Oral Tablet [facility] ([facility]) Cyclosporine 0.5 MG/ML Ophthalmic Suspension [Restasis] [facility] ([facility]) Nicotine 2 MG Chewing Gum AT [facility] ([facility]) Dexamethasone 1 MG/ML / Neomycin 3.5 MG/ ML / Polymyxin B 34604 UNT/ML Ophthalmic Suspension [facility] ([facility]) Dexamethasone 0.001 MG/MG / Neomycin 0.0 035 MG/MG / Polymyxin B 10 UNT/MG Ophthalmic Ointment [facility] ([facility]) Erythromycin 0.005 MG/MG Ophthalmic Ointment [facility] ([facility]) duloxetine 30 MG Delayed Release Oral Capsule [facility] ([facility]) Clarithromycin 500 MG Oral Tablet [facility] ([facility]) Amitriptyline Hydrochloride 10 MG Oral Tablet [facility] ([facility]) Alprazolam 0.25 MG Oral Tablet [facility] ([facility]) Erythromycin 0.005 MG/MG Ophthalmic Ointment [facility] ([facility]) duloxetine 30 MG Delayed Release Oral Capsule [facility] ([facility]) Amitriptyline Hydrochloride 10 MG Oral Tablet [facility] ([facility]) Alprazolam 0.25 MG Oral Tablet [facility] ([facility])
== END 2021-09-04 00:24 | disposition left against medical advice (07) ==
LOC: M ED 22:13
DX: Z53.21 Procedure and treatment not carried out due to patient leaving prior to being seen by health care provider (principal)

== ENCOUNTER → 2021-10-08 | Outpatient (CLI) | payer OTHER ==
[~2021-10-08] MED LIST changes: +ACET1TAB55 PO; +ARNU1INH3 PO; +OXYC-517 PO; +STIO1AER IN
--- NOTE | 2021-10-08 10:00 | REP ---
INDICATION: MODERATE PERSISTENT ASTHMA, UNCOMPLICATED COMPARISON: None. TECHNIQUE: PA and lateral. FINDINGS: The mediastinum and cardiac silhouette are normal. The lung andrade are clear and without acute consolidation, effusion, or pneumothorax. The skeletal structures are intact and normal. IMPRESSION: No acute cardiopulmonary process. <Electronically signed by Leander Stearns > 10/08/21 0909
== END ==
LOC: M RAD 09:38
PROVIDERS: ATTEND Pediatrics
DX: J45.909 Unspecified asthma, uncomplicated (principal)